=== PATIENT | male | born 1945 | race Caucasian/White ===

== ENCOUNTER → 2017-06-28 | Outpatient (CLI) | payer BC ==
[~2017-06-28] MED LIST: ASPI81TA28 PO; ATOR-24 PO; CHOL2000 PO; CLON2TAB3 PO; COEN1CAP7 PO; FERR1TAB13 PO; LISI-461 PO; MAGNESIUM PO; MULT-506 PO; OMEG10007 PO; OPTIRAY 320 IV PRN; POTA1POW PO
--- NOTE | 2017-06-28 16:48 | DIAGNOSTIC IMAGING REPORT ---
ABD/PELVIS IV AND ORAL CONT CT DOSE: 340.02 mGycm HISTORY: Pain K43.2 Incisional herniaE VALUATION HERNIA EPIGASTRIC AREA E X0D E TECHNIQUE: Multiaxial CT images of the abdomen and pelvis were performed following the use of intravenous and oral contrast. A dose lowering technique was utilized adhering to the principles of ALARA. COMPARISON STUDY: 09/27/2008 FINDINGS: Lung bases are clear. Findings of prior cholecystectomy. Mild increase in prominence of the common bile duct as well as intrahepatic ducts. The common bile duct is increased to 8 mm from 5 mm. Liver is otherwise uniform in appearance. Spleen is unremarkable as is the visualized components of the pancreas. Kidneys enhance uniformly. Bowel pattern is nonobstructive. The appendix is normal. No evidence for ventral or. Incisional hernia. Small bilateral inguinal hernias. Bladder is midline. Prostate is moderately enlarged. Findings of chronic sigmoid diverticulosis. No evidence for acute diverticulitis. IMPRESSION: 1. Prior cholecystectomy. 2. Increase in prominence of the biliary ductal system raising the possibility of a distal common bile duct obstructing lesion 3. ERCP or MRCP is suggested as follow-up. 4. Chronic sigmoid diverticulosis with no evidence for acute diverticulitis. 5. No evidence for ventral or. Incisional hernia.. 6. Small bilateral inguinal hernias. The above report was generated using voice recognition software. It may contain grammatical, syntax or spelling errors. Electronically signed by: Arnaud Goldstein M.D. 06/28/2017 4:47 PM Dictated Date/Time: 06/28/2017 4:41 PM
== END | disposition home or self-care (01) ==
LOC: C.CTS 15:46
PROVIDERS: ATTEND Surgery
DX: K43.2 Incisional hernia without obstruction or gangrene (principal); Z90.49 Acquired absence of other specified parts of digestive tract; K57.30 Diverticulosis of large intestine without perforation or abscess without bleeding

== ENCOUNTER → 2017-07-22 | Day surgery (SDC) | payer BC ==
[2017-07-08 14:27] VITALS: Ht 172.7 cm; Wt 61.4 kg
[~2017-07-22] VITALS: Ht 172.7 cm; Wt 61.4 kg
[~2017-07-22] MED LIST changes: +BENZOCAIN/TETRACA/BUTAM SPRAY 200 APPLN/20 GM SPRY ONE; +MIDAZOLAM HCL 1 MG/ML 2ML VIAL ONE; -OPTIRAY 320 IV PRN
[2017-07-22 14:25] VITALS: TEMP 36.2
--- NOTE | 2017-07-22 15:16 | Endo History and Physical ---
History & Physical Date of Service: Jul 22, 2017. Chief Complaint: HOARSE VOICE, CHRONIC GUM DISEASE Referring Physician: DR. BIANCHI History of Present Illness For Babb placement Past Surgical History Hx Cardiac Surgery: No Hx Internal Defibrillator: No Hx Pacemaker: No Hx Abdominal Surgery: Yes (GB SURG,MARIBEL FUNDOPLICATION) Hx of Implantable Prosthesis: No Hx Post-Op Nausea and Vomiting: No Hx Cancer Surgery: No Hx Thoracic Surgery: No Hx Orthopedic: No Hx Urinary Tract Surgery: No Family History None Social History Smoking Status: Never Smoker Hx Substance Use: No Hx Alcohol Use: No Allergies Coded Allergies: No Known Allergies (Verified , 07/08/17) Current Medications Reported Home Medications Medications Dose Route/Sig Max Daily Dose Days Date Category Dose Instructions Multivitamin (Multivitamins) Tab 1 Tab PO QAM 07/08/17 Reported Vitamin D3 (Cholecalciferol) 2,000 Unit Cap 1 Cap PO QAM 90 07/08/17 Reported Coq10 (Coenzyme Q10 (Ubidecarenone)) 200 Mg Cap 200 Mg PO QAM 07/08/17 Reported [place]ge-3 (Fish Oil) 1 Ea Cap 2 Cap PO QAM 07/08/17 Reported Klor-Con Pwd (Potassium Chloride) 20 Meq Pack 20 Meq PO UD 07/08/17 Reported 40 MEQ AM 20 MEQ PM [Magnesium] 250 Mg PO QAM 07/08/17 Reported Zestril (Lisinopril) 10 Mg Tab 10 Mg PO HS 07/08/17 Reported PT WILL HOLD 24 HRS PRIOR TO SURG PER INSTRUCTIONS HE RECEIVED FROM DR DUMONT/DR VILLALOBOS Ferrous Sulfate (Ferrous Sulfate) 325 Mg Tab 1 Tab PO QAM 30 07/08/17 Reported Klonopin (Clonazepam) 2 Mg Tab 2 Mg PO HS 07/08/17 Reported Lipitor (Atorvastatin Calcium) 40 Mg Tab 40 Mg PO HS 07/08/17 Reported Aspirin Ec (Aspirin) 81 Mg Tab 81 Mg PO QAM 07/08/17 Reported Vital Signs Weight (Kilograms): 61.36 Height (Feet): 5 Height (Inches): 8 Date Time Temp Pulse Resp B/P (MAP) Pulse Ox O2 Delivery O2 Flow Rate FiO2 07/22/17 14:25 36.2 86 16 160/89 (112) 96 Physical Exam General Appearance: WD/WN Respiratory/Chest: Respiratory effort: no dyspnea Cardiovascular: Apical Impulse: pertinent finding (severe aortic stenosis) Assessment and Plan Cough, gum disease for Babb placement
--- NOTE | 2017-07-22 15:24 | Discharge Instructions ---
Endoscopy Patient Instructions Date / Procedure(s) Performed Jul 22, 2017. EGD Allergy Information Coded Allergies: No Known Allergies (Verified , 07/08/17) Discharge Date / Findings Jul 22, 2017. Babb placement Medication Instructions Stopped Medication(s): ASPIRIN 07/18/17 Restart Stopped Medication(s): hold any acid reducing meds for 48 h Reported Home Medications Medications Dose Route/Sig Max Daily Dose Days Date Category Dose Instructions Multivitamin (Multivitamins) Tab 1 Tab PO QAM 07/08/17 Reported Vitamin D3 (Cholecalciferol) 2,000 Unit Cap 1 Cap PO QAM 90 07/08/17 Reported Coq10 (Coenzyme Q10 (Ubidecarenone)) 200 Mg Cap 200 Mg PO QAM 07/08/17 Reported Kimball-3 (Fish Oil) 1 Ea Cap 2 Cap PO QAM 07/08/17 Reported Klor-Con Pwd (Potassium Chloride) 20 Meq Pack 20 Meq PO UD 07/08/17 Reported 40 MEQ AM 20 MEQ PM [Magnesium] 250 Mg PO QAM 07/08/17 Reported Zestril (Lisinopril) 10 Mg Tab 10 Mg PO HS 07/08/17 Reported PT WILL HOLD 24 HRS PRIOR TO SURG PER INSTRUCTIONS HE RECEIVED FROM DR AGUILAR/DR VILLALOBOS Ferrous Sulfate (Ferrous Sulfate) 325 Mg Tab 1 Tab PO QAM 30 07/08/17 Reported Klonopin (Clonazepam) 2 Mg Tab 2 Mg PO HS 07/08/17 Reported Lipitor (Atorvastatin Calcium) 40 Mg Tab 40 Mg PO HS 07/08/17 Reported Aspirin Ec (Aspirin) 81 Mg Tab 81 Mg PO QAM 07/08/17 Reported Provider Instructions Activity Restrictions - No exercising or heavy lifting for 24 hours. - Do not drink alcohol the day of the procedure. - Do not drive a car or operate machinery until the day after the procedure. - Do not make any important decisions or sign important papers in 24 hours after the procedure. Following Day: - Return to full activity which may include returning to work/school. Diet Start your diet with liquids and light foods (jello, soup, juice, toast). Then eat your usual diet if not nauseated. Treatment For Common After Affects For mild abdominal pain, bloating, or excessive gas: - Rest - Eat lightly - Lie on right side Follow-Up Information Follow-up with DR. BIANCHI as scheduled Anesthesia Information What You Should Know You have had a procedure that required some medicine to reduce anxiety and discomfort. This treatment is called moderate sedation. After receiving the treatment, you may be sleepy, but you will be able to breathe on your own. The effects of the treatment may last for several hours. Follow these instructions along with Activity/Diet recommendations noted above: * Do NOT do anything where dizziness or clumsiness would be dangerous. * Rest quietly at home today, then you can be up and about tomorrow. * Have a responsible person stay with you the rest of today. * You may have had an I.V. today. If so, you may take the dressing off later today. Recommendations Call your doctor if: * Trouble breathing * Continuous vomiting for more than 24 hours * Temperature above 101 degrees * Severe abdominal pain or bloating * Pain not relieved by pain medicine ordered * There is increased drainage or redness from any incision * A large amount of rectal bleeding greater than 2-3 tablespoons. (If you had a polyp/s removed or have hemorrhoids, a small amount of blood - from the rectum is to be expected.) * You have any unanswered questions or concerns. IN THE EVENT OF A SERIOUS EMERGENCY, GO TO THE NEAREST EMERGENCY ROOM Your discharge instructions were prepared by provider Dami Aguilar. Patient Instructions Signature Page Peña Rodriguez Patient (or Guardian) Signature/Date: I have read and understand the instructions given to me by my caregivers. Caregiver/RN/Doctor Signature/Date: The above-named patient and/or guardian has received patient instructions on this date. + Original Patient Signature Page (only) stays with chart. Please make copy for patient.
--- NOTE | 2017-07-22 15:31 | GI REPORT ---
Procedure Date: 07/22/2017 3:01 PM Procedure: Upper GI endoscopy Indications: Chronic cough, Gum disease Medicines: Midazolam 2 mg IV, Cetacaine spray Complications: No immediate complications. Estimated Blood Loss: Estimated blood loss: none. Procedure: Pre-Anesthesia Assessment: - Prior to the procedure, a History and Physical was performed, and patient medications, allergies and sensitivities were reviewed. The patient's tolerance of previous anesthesia was reviewed. - The risks and benefits of the procedure and the sedation options and risks were discussed with the patient. All questions were answered and informed consent was obtained. After obtaining informed consent, the endoscope was passed under direct vision. Throughout the procedure, the patient's blood pressure, pulse, and oxygen saturations were monitored continuously.The upper GI endoscopy was accomplished without difficulty. The patient tolerated the procedure well. The procedure was aborted. The scope was not inserted. Medications were given. Findings: The FALCON capsule with delivery system was introduced through the mouth and advanced into the esophagus, such that the FALCON pH capsule was positioned 33 cm from the incisors, which was 6 cm proximal to the EG junction. The FALCON pH capsule was then deployed and attached to the esophageal mucosa. The delivery system was then withdrawn. Endoscopy was utilized for placement of the probe only. Impression: - The FALCON pH capsule was deployed. - No specimens collected. Recommendation: - Discharge patient to home (ambulatory). - Return to GI clinic as previously scheduled. Dami Aguilar M.D. Dami Aguilar MD 07/22/2017 3:30:36 PM This report has been signed electronically. Note Initiated On: 07/22/2017 3:01 PM I attest to the content of the Intraoperative Record and orders documented therein, exceptions below
--- NOTE | 2017-07-22 15:32 | Anesthesiology Progress Note ---
Anesthesia Post Op Note Date & Time Jul 22, 2017 at 15:31 Vital Signs Pain Intensity: 0 Vital Signs Past 12 Hours Date Time Temp Pulse Resp B/P (MAP) Pulse Ox O2 Delivery O2 Flow Rate FiO2 07/22/17 15:18 61 16 108/69 (82) 94 Room Air 07/22/17 14:25 36.2 86 16 160/89 (112) 96 Notes Mental Status: alert / awake / arousable, participated in evaluation Pt Amnestic to Procedure: Yes Nausea / Vomiting: adequately controlled Pain: adequately controlled Airway Patency, RR, SpO2: stable & adequate BP & HR: stable & adequate Hydration State: stable & adequate Anesthetic Complications: no major complications apparent Doing well. Tolerated the procedure really well with mild sedation.
[2017-07-22 16:00] VITALS: BP 161/91; PULSE 80; O2SAT 97
== END | disposition home or self-care (01) ==
LOC: C.GI 13:57
PROVIDERS: ATTEND Internal Medicine Gastroenterology
DX: R05 Cough (principal); K06.9 Disorder of gingiva and edentulous alveolar ridge, unspecified; R49.0 Dysphonia; I10 Essential (primary) hypertension; K21.9 Gastro-esophageal reflux disease without esophagitis

== ENCOUNTER 2019-12-28 12:19 | Inpatient (IN) ==
[2019-12-28 13:41] LABS: Hematocrit (blood only) 45.7 % (42-52); Hemoglobin 15.6 g/dL (14.0-18.0); Mean Corpuscular Hemoglobin 31.3 pg (25-34); Mean Corpuscular Hgb Conc 34.1 g/dL (32-36); Mean Corpuscular Volume 91.6 fL (80-100); Mean Platelet Volume 11.8 fL (7.4-10.4); Platelet Count 173 K/uL (130-400); RDW Standard Deviation 43.3 fL (36.4-46.3); Red Blood Count 4.99 M/uL (4.7-6.1); White Blood Count 12.77 K/uL (4.8-10.8)
[2019-12-28 13:57] LABS: BUN Creatinine Ratio 23.7 (10-20); Creatinine Clr Calc Pharmacy 44.6 ml/min; Est GFR (African American) 68.9; Est GFR (Non-African American) 59.5; Potassium 3.9 mmol/L (3.5-5.1)
[2019-12-28 14:38] LABS: Albumin Level 4.2 gm/dl (3.4-5.0); Bilirubin Direct 0.1 mg/dl (0-0.2); Bilirubin,Total 0.9 mg/dl (0.2-1); Total Protein 8.3 gm/dl (6.4-8.2)
[2019-12-28] MEDS ORDERED: IOVERSOL 100ml IV PRN (14:45)
--- NOTE | 2019-12-28 15:21 | CT Scan Report ---
CT SCAN OF THE ABDOMEN AND PELVIS WITH IV CONTRAST CLINICAL HISTORY: Left lower quadrant abdominal pain. COMPARISON STUDY: Abdominal CT dated 04/18/2018. Abdominal MRI dated 09/21/2019. TECHNIQUE: Following the IV administration of 94 cc of Optiray 320, CT scan of the abdomen and pelvi s is performed from the lung bases to the proximal femora. Images are reviewed in the axial, sagittal , and coronal planes. IV contrast was administered without complication. A dose lowering technique wa s utilized adhering to the principles of ALARA. CT DOSE: 240.60 mGy.cm FINDINGS: Lung bases: The patient is status post midline sternotomy. Pacemaker leads are noted. The heart is no rmal in size and without pericardial effusion. There are coronary artery calcifications. A small hiat al hernia is observed. The lung bases are clear noting bibasilar scarring/atelectasis. Liver: The contrast-enhanced liver is normal in size, contour, and attenuation. There is moderate int rahepatic biliary ductal dilatation, similar to previous. The hepatic veins and portal veins are romero nt. Hepatic metastases seen by MRI are not apparent on CT, possibly due to phase of enhancement. Gallbladder: Surgically absent noting clips in the gallbladder fossa. Spleen: Normal in size and attenuation. Pancreas: The pancreas is moderately atrophic. An infiltrative mass lesion in the region of the pancr eatic tail has increased in size from prior examinations. This measures approximately 4 x 3 cm and in vades the left adrenal gland. The mass occludes occludes the splenic vein. The proximal pancreas is n ormal in appearance. The pancreatic duct is normal in caliber. Adrenal glands: The right adrenal gland is normal in appearance. There is invasion of the left adrena l gland by a distal pancreatic mass. Kidneys: The contrast enhanced kidneys demonstrate cortical atrophy. There is a 12 mm obstructing gabino culus in the left proximal ureter at the level of L4. This is best seen on image #160 and causes mild -to-moderate left-sided hydronephrosis. There is nonspecific urothelial thickening and enhancement id entified in the left proximal ureter and the left renal pelvis. No additional calculi are clearly jessica ntified in either kidney. There is no right-sided hydronephrosis. There is heterogeneous perfusion of the left kidney. Abdominal vasculature: The abdominal aorta is normal in course and caliber noting mild atheroscleroti c calcification. Bowel: Findings just previous fundoplication. There are numerous perigastric collaterals. No bowel ob struction is seen. There is a small duodenal diverticulum. There is moderate colonic diverticulosis w ithout CT evidence of acute diverticulitis. The appendix is well-visualized and normal. Peritoneum: There is no intraperitoneal free air or abdominal ascites. Lymphadenopathy: None. Pelvic viscera: The prostate gland is enlarged and heterogeneous, measuring 5.7 cm in transverse diam eter. There is median lobe hypertrophy. The bladder wall is mildly thickened and trabeculated indicat ing chronic outlet obstruction. There are bilateral fat-containing inguinal hernias. Skeletal structures: The skeletal structures are heterogeneously osteopenic. Mild lumbosacral spondyl osis is observed. No definite destructive bony lesion is identified. IMPRESSION: 1. There is a 12 mm obstructing calculus in the left proximal ureter at the level of L4. This causes moderate left hydronephrosis. 2. Urothelial thickening and enhancement within the left renal collecting system and the left proxima l ureter is likely related to obstruction/hydronephrosis. Correlate clinically and with urinalysis fo r evidence of superimposed infection. 3. A heterogeneous mass lesion in the pancreatic tail appears increased in size from previous. This i nvades the left adrenal gland and occludes the splenic vein. 4. Hepatic metastases seen on prior examinations are not visible on today's study, likely due to phas e of enhancement. 5. Moderate colonic diverticulosis without CT evidence of acute diverticulitis. 6. Prostatomegaly. 7. Bilateral fat-containing inguinal hernias. 8. Additional findings as above. ACT 112: Negative or not required by law. Electronically signed by: Kevin López M.D. 12/28/2019 3:20 PM
[2019-12-28] MEDS ORDERED: cefTRIAXone SODIUM 1,000 MG/50 ML BAG IV STA (15:44)
[2019-12-28 15:49] LABS: Appearance Urine Clear (Clear); Bacteria Urine Automated Negative (Negative); Bilirubin Urine Negative (Negative); Blood Urine 2+ (Negative); Color Urine Yellow; Epithelial Cell Urine Auto 0-5 /lpf (0-5); Glucose Urine UA Negative (Negative); Ketones Urine Trace (Negative); Leukocyte Esterase Urine Negative (Negative); Nitrite Urine Negative (Negative); Protein Urine Negative (Negative); Specific Gravity Urine 1.036 (1.000-1.030); Urobilinogen Urine Negative (Negative)
--- NOTE | 2019-12-28 17:04 | Emergency Department Note ---
History of Present Illness General Chief complaint: Flank Pain Stated complaint: PAIN IN L SIDE, BOWEL BLOCKAGE Time Seen by Provider: 12/28/19 13:54 History of Present Illness Provider complaint: Abdominal pain Onset (ago): day(s) 1 Location: abdomen Severity: severe Pain Consistency: + constant Maximum Pain Intensity: 7 Associated symptoms: + loss of appetite and + nausea/vomiting 74-year-old male with a history of pancreatic cancer that metastasized to his liver presents to the emergency department with abdominal pain. Patient reports his abdominal pain began at 2100 last night. Pain is located left lower quadrant. He reports constipation and decreased ability to pass gas. He reports subjective fevers. He also reports nausea and vomiting x3 episodes in the last day. No hematemesis or coffee-ground emesis. Home Medications Home Medications Medication Instructions Recorded Confirmed Type aspirin 81 mg PO QAM 07/20/18 12/28/19 History atorvastatin [Lipitor] 40 mg PO HS 07/20/18 12/28/19 History magnesium oxide [MagOx] 400 mg PO QAM 07/20/18 12/28/19 History metoprolol tartrate 25 mg PO BID 07/20/18 12/28/19 History pantoprazole [Protonix] 40 mg PO BID 07/20/18 12/28/19 History cholecalciferol (vitamin D3) 50 2,000 units PO QAM 11/27/19 12/28/19 History mcg (2,000 unit) capsule lisinopril 2.5 mg tablet 2.5 mg PO DAILY PRN 11/27/19 12/28/19 History potassium chloride 10 mEq 20 meq PO QAM tab 11/27/19 12/28/19 History tablet,extended release levetiracetam 500 mg tablet 500 mg PO BID 30 Days #60 tab 12/21/19 12/28/19 Rx octreotide,microspheres 30 mg IM Q28D 12/28/19 12/28/19 History [Sandostatin LAR Depot] potassium chloride 10 meq PO QDL 12/28/19 12/28/19 History Allergies Allergy/AdvReac Type Severity Reaction Status Date / Time adhesive Allergy Unknown Hives Verified 12/28/19 15:19 ciprofloxacin [From Cipro] Allergy Unknown Hives Verified 12/28/19 15:19 buspirone [From BuSpar] AdvReac Unknown Dizziness Verified 12/28/19 15:19 heparin AdvReac Unknown thrombocyto Verified 12/28/19 15:19 penia venlafaxine [From Effexor] AdvReac Unknown somnulence Verified 12/28/19 15:19 lansoprazole [From Prevacid] AdvReac Diarrhea Verified 12/28/19 15:19 Past Med/Surg History Medical History (Updated 12/28/19 @ 17:46 by Damien Schmid) HLD (hyperlipidemia) HTN (hypertension) Pancreatic cancer Surgical History (Updated 12/28/19 @ 17:06 by Rick Jones) Hx of CABG two-vessel; [facility] No pertinent past surgical history S/P AVR (aortic valve replacement) [facility] Status post Power fundoplication Status post placement of cardiac pacemaker Family History Father S/P CABG (coronary artery bypass graft) Stroke Mother Stroke Grandfather (Maternal) Stroke Grandfather (Paternal) Cirrhosis of liver Other No significant family history Social History (Updated 12/28/19 @ 17:09 by Rick Jones) Preferred Language: Welsh Communication Ability: Effective Visual Impairment: No Limitations Manager Of Human Resources Required: No Beliefs That Will Affect Care: None marital status: Current Living Situation: Spouse current occupational status: retired 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, etc); [employer] career Feels Safe at Home: Yes Smoking Status: Never smoker Second Hand Exposure: No ; Hx Alcohol Use: No Hx Substance Use: No Review of Systems A total of 10 systems reviewed and were otherwise negative Physical Exam Vital Signs Vital Signs - 24 hr 12/28/19 12:27 12/28/19 13:28 12/28/19 15:00 Temperature 36.7 C Temperature Source Oral Pulse Rate 90 Pulse Rate [Finger] 72 75 Pulse Rhythm Regular Pulse Rhythm [Finger] Regular Regular Pulse Strength Normal Pulse Strength [Finger] Normal Normal Respiratory Rate 16 18 14 Respiratory Effort / Characteristics Non-Labored Non-Labored Spontaneous Non-Labored Spontaneous Respiratory Depth Normal Normal Normal Respiratory Pattern Regular Regular Regular Blood Pressure 165/104 H Blood Pressure [Right Arm] 160/90 H 139/84 Blood Pressure Mean 124 Blood Pressure Mean [Right Arm] 113 102 Blood Pressure Position Sitting Blood Pressure Position [Right Arm] Lying Sitting Pulse Oximetry 95 99 96 Oxygen Delivery Method Room Air Room Air Room Air Sepsis Recent Fever Within 48 Hours No Sepsis Action Taken by Nursing No Action Required Physical Exam GENERAL: He is oriented to person, place, and time. He appears well-developed and well-nourished. He does not appear distressed. HENT: Exam performed. - Head: Normocephalic and atraumatic. - Right Ear: External ear normal. No mastoid tenderness. - Left Ear: External ear normal. No mastoid tenderness. - Mouth/Throat: The oropharynx is clear and moist. No trismus in the jaw. No dental abscesses or uvula swelling. No oropharyngeal exudate or tonsillar abscesses. EYES: Conjunctivae and EOM are normal. Pupils are equal, round, and reactive to light. Right eye exhibits no discharge. Left eye exhibits no discharge. No scleral icterus. NECK: Normal range of motion. Neck supple. No JVD present. No spinous process tenderness present. No carotid bruit present. No rigidity. No tracheal deviation and normal range of motion present. No Brudzinski's sign and no Kernig's sign noted. CV: Normal rate, regular rhythm, normal heart sounds and intact distal pulses. There is no peripheral edema. Palpable radial pulses bue. PULM/CHEST: Effort normal and breath sounds normal. No respiratory distress. No stridor. He has no wheezes. He has no rales. - Chest Wall: He exhibits no tenderness. ABD: Pain on palpation of the left lower quadrant. MUSC/SKEL: Normal range of motion. There is no peripheral edema, tenderness or deformity. LYMPH: No cervical adenopathy. NEURO: He is alert and oriented to person, place, and time. He has normal strength. No cranial nerve deficit or sensory deficit. Coordination and gait normal. GCS eye subscore is 4. GCS verbal subscore is 5. GCS motor subscore is 6. Cerebellar tests wnl. SKIN: Skin is warm and dry. He is not diaphoretic. PSYCH: He has a normal mood and affect. Behavior is normal. Judgment and thought content normal. Course Course 1440: The patient was evaluated in room B2. A complete history and physical exam was performed. 1545: Vital signs stable. Labs show 12 mm obstructing calculus at the level of L4 in the left ureter causing moderate left hydronephrosis. There is urothelial thickening enhancement within the collecting system of the ureter. Heterogeneous mass in the pancreatic tail increase in size and hepatic metastases. Family and patient at bedside state that they are aware of the pancreatic mass with metastasis. Patient would will be admitted to the hospitalist team with urology on consult. Patient states he has seen Dr. Bernardino Price in the past however he does not wish to see him ever again. Discussed with [facility] JULIANE who stated Dr. To is in the hospital this week and will see the patient tomorrow morning. She requests patient be kept n.p.o. after midnight. Administered Medications Ioversol (Optiray 320 100ml) 94 ml IV ONCE PRN PRN Reason: Interaction Checking Stop: 01/01/20 14:44 Last Admin: 12/28/19 14:46 Dose: 94 ml Documented by: [id number] Medical Decision Making Laboratory Data Result diagrams: 12/28/19 13:28 12/28/19 13:28 Lab Results 12/28/19 12/28/19 12/28/19 Range/Units 13:28 13:28 13:28 WBC 12.77 H (4.8-10.8) K/uL RBC 4.99 (4.7-6.1) M/uL Hgb 15.6 (14.0-18.0) g/dL Hct 45.7 (42-52) % MCV 91.6 (80-100) fL MCH 31.3 (25-34) pg MCHC 34.1 (32-36) g/dL RDW Std Deviation 43.3 (36.4-46.3) fL RDW Coeff of Mason 13.0 (11.5-14.5) % Plt Count 173 (130-400) K/uL MPV 11.8 H (7.4-10.4) fL Sodium 140 (136-145) mmol/L Potassium 3.9 (3.5-5.1) mmol/L Chloride 104 (98-107) mmol/L Carbon Dioxide 31 (21-32) mmol/L Anion Gap 5.0 (3-11) BUN 29 H (7-18) mg/dl Creatinine 1.21 (0.6-1.4) mg/dl Est Cr Clr Drug Dosing 44.6 ml/min Est GFR ( Amer) 68.9 Est GFR (Non-Af Amer) 59.5 BUN/Creatinine Ratio 23.7 H (10-20) Glucose 145 H (70-99) mg/dl Calcium 10.0 (8.5-10.1) mg/dl Total Bilirubin 0.9 (0.2-1) mg/dl Direct Bilirubin 0.1 (0-0.2) mg/dl AST 41 H (15-37) U/L ALT 44 (12-78) U/L Alkaline Phosphatase 151 H (45-117) U/L Total Protein 8.3 H (6.4-8.2) gm/dl Albumin 4.2 (3.4-5.0) gm/dl Lipase 43 L (73-393) U/L Urine Color Urine Appearance (Clear) Urine pH (4.5-7.5) Ur Specific [place] (1.000-1.030) Urine Protein (Negative) Urine Glucose (UA) (Negative) Urine Ketones (Negative) Urine Blood (Negative) Urine Nitrite (Negative) Urine Bilirubin (Negative) Urine Urobilinogen (Negative) Ur Leukocyte Esterase (Negative) Urine WBC (Auto) (0-5) /hpf Urine RBC (Auto) (0-4) /hpf U Hyaline Cast (Auto) (0-5) /lpf U Epithel Cells (Auto) (0-5) /lpf Urine Bacteria (Auto) (Negative) 12/28/19 Range/Units Unknown WBC (4.8-10.8) K/uL RBC (4.7-6.1) M/uL Hgb (14.0-18.0) g/dL Hct (42-52) % MCV (80-100) fL MCH (25-34) pg MCHC (32-36) g/dL RDW Std Deviation (36.4-46.3) fL RDW Coeff of Mason (11.5-14.5) % Plt Count (130-400) K/uL MPV (7.4-10.4) fL Sodium (136-145) mmol/L Potassium (3.5-5.1) mmol/L Chloride (98-107) mmol/L Carbon Dioxide (21-32) mmol/L Anion Gap (3-11) BUN (7-18) mg/dl Creatinine (0.6-1.4) mg/dl Est Cr Clr Drug Dosing ml/min Est GFR ( Amer) Est GFR (Non-Af Amer) BUN/Creatinine Ratio (10-20) Glucose (70-99) mg/dl Calcium (8.5-10.1) mg/dl Total Bilirubin (0.2-1) mg/dl Direct Bilirubin (0-0.2) mg/dl AST (15-37) U/L ALT (12-78) U/L Alkaline Phosphatase (45-117) U/L Total Protein (6.4-8.2) gm/dl Albumin (3.4-5.0) gm/dl Lipase (73-393) U/L Urine Color Yellow Urine Appearance Clear (Clear) Urine pH 6.0 (4.5-7.5) Ur Specific [place] 1.036 H (1.000-1.030) Urine Protein Negative (Negative) Urine Glucose (UA) Negative (Negative) Urine Ketones Trace H (Negative) Urine Blood 2+ H (Negative) Urine Nitrite Negative (Negative) Urine Bilirubin Negative (Negative) Urine Urobilinogen Negative (Negative) Ur Leukocyte Esterase Negative (Negative) Urine WBC (Auto) 1-5 (0-5) /hpf Urine RBC (Auto) 5-10 H (0-4) /hpf U Hyaline Cast (Auto) 1-5 (0-5) /lpf U Epithel Cells (Auto) 0-5 (0-5) /lpf Urine Bacteria (Auto) Negative (Negative) MDM Narrative Vital signs stable. Labs show 12 mm obstructing calculus at the level of L4 in the left ureter causing moderate left hydronephrosis. There is urothelial thickening enhancement within the collecting system of the ureter. Heterogeneous mass in the pancreatic tail increase in size and hepatic metastases. Family and patient at bedside state that they are aware of the pancreatic mass with metastasis. Patient would will be admitted to the hospitalist team with urology on consult. Patient states he has seen Dr. Bernardino Price in the past however he does not wish to see him ever again. Discussed with [facility] JULIANE who stated Dr. To is in the hospital this week and will see the patient tomorrow morning. She requests patient be kept n.p.o. after midnight. Impression & Plan Kidney stone, Hydronephrosis Discharge Plan Visit Data Chief Complaint: Flank Pain Stated Complaint: PAIN IN L SIDE, BOWEL BLOCKAGE ED Provider: Sharmaine,Damien Discharge Problem: Kidney stone, Hydronephrosis Patient Disposition: Being Evaluated by Hospitalist Forms Stand Alone Forms: [facility] Wireless Environment Prescriptions Prescriptions: No Action levetiracetam 500 mg tablet 500 mg PO BID 30 Days Qty: 60 RF: 2 lisinopril [Zestril] 2.5 mg tablet 2.5 mg PO DAILY PRN (Reason: Hypertension) RF: 0 cholecalciferol (vitamin D3) 50 mcg (2,000 unit) capsule 2,000 units PO QAM RF: 0 atorvastatin [Lipitor] 40 mg tablet 40 mg PO HS RF: 0 aspirin 81 mg Tablet,Delayed Release (Dr/Ec) 81 mg PO QAM RF: 0 magnesium oxide [MagOx] 400 mg (241.3 mg magnesium) tablet 400 mg PO QAM RF: 0 pantoprazole [Protonix] 40 mg tablet,delayed release (DR/EC) 40 mg PO BID RF: 0 metoprolol tartrate 25 mg tablet 25 mg PO BID RF: 0 potassium chloride [Klor-Con 10] 10 mEq tablet extended release 20 meq PO QAM RF: 0 potassium chloride 10 mEq capsule, extended release 10 meq PO QDL RF: 0 Sandostatin [place] 30 mg Suspension,Extended Rel Recon 30 mg IM Q28D RF: 0 Referrals Referrals: Elvis Falk DO [Primary Care Provider] - Discharge Problem: Hydronephrosis Qualifiers: Hydronephrosis type: with renal calculous obstruction Qualified Code(s): N13.2 - Hydronephrosis with renal and ureteral calculous obstruction
--- NOTE | 2019-12-28 17:17 | History & Physical Report ---
Date of Service December 28, 2019 Assessment & Plan (1) Kidney stone: 12mm, proximal left ureter. With resulting hydronephrosis. h/o renal stone about 15 years ago. [facility] [place]. Likely to need intervention for this stone given the large size. NPO after MN tonight. Gentle hydration (NS at 75cc/hr). Flomax. Pain control. From medical standpoint, despite his history of CAD/pacer/AVR, he lives a very active lifestyle and has no limiting cardiopulmonary symptoms. Thus, he is optimized from medical standpoint to undergo ureteral stenting, etc. (2) Hydronephrosis: 2nd to proximal left-sided kidney stone (12mm) (3) S/P AVR (aortic valve replacement): s/p bovine replacement valve in the past at [facility] (4) Hx of CAB-vessel no recent ischemic symptoms Cont home meds. (5) Pacemaker: paced on monitor upon admission. to be placed on telemetry floor. (6) H/O: stroke: noted cont asa for secondary prevention (7) Atrial fibrillation: PAF has pacemaker in place NOT on anticoagulation telemetry (8) Simple partial seizure disorder: follows with [facility] [place] no recent issues cont keppra of note - keppra is slowly being weaned off by neurology (9) Pancreatic cancer: stage [address] Oneal noted the CT findings of liver, etc octreotide indeed may be playing a role in his recent constipation issues (10) DVT prophylaxis: SCDs only for now; chemical means deferred due to likely need for urological intervention of the stone tomorrow also w/ history of HIT updated at bedside History of Present Illness Chief Complaint: left upper quadrant abdominal pain Primary Care Provider: Elvis Falk, 74yo male with h/o aortic stenosis s/p bovine AVR, CAD s/p 2-vessel CABG, pacemaker status, and stage 4 pancreatic cancer who presents with the acute onset of LUQ abdominal pain beginning last night about 9pm. He initially thought the pain was GI in origin - perhaps related to constipation as he reports significant bowel issues to the point of having to manually disimpact himself. About 930pm he had emesis, and a short time after that he had emesis again. He went to bed and had left-sided upper abdominal pain all night and found it difficult to sleep because of the pain. Patient reports he never had fever but did have chills today and overnight. He also had poor appetite this am. Denies any dysuria or hematuria. Sometime this afternoon he called the [facility] who advised he come to the ED for evaluation. CT of the abd/pelvis demonstrated an obstructing 12mm kidney stone in the proximal left ureter. At the time of my assessment in the ER his pain was controlled and was actually asking for something to eat. The patient is currently undergoing treatment for his stage [address] Oneal at the [facility]. He receives regularly scheduled octreotide injections with yesterday being the most recent injection. He continues to live an active life and has no limiting cardiopulmonary symptoms day-to-day. Allergies Allergy/AdvReac Type Severity Reaction Status Date / Time adhesive Allergy Unknown Hives Verified 12/28/19 15:19 ciprofloxacin [From Cipro] Allergy Unknown Hives Verified 12/28/19 15:19 buspirone [From BuSpar] AdvReac Unknown Dizziness Verified 12/28/19 15:19 heparin AdvReac Unknown thrombocyto Verified 12/28/19 15:19 penia venlafaxine [From Effexor] AdvReac Unknown somnulence Verified 12/28/19 15:19 lansoprazole [From Prevacid] AdvReac Diarrhea Verified 12/28/19 15:19 Home Medications Home Medications Medication Instructions Recorded Confirmed Type aspirin 81 mg PO QAM 07/20/18 12/28/19 History atorvastatin [Lipitor] 40 mg PO HS 07/20/18 12/28/19 History magnesium oxide [MagOx] 400 mg PO QAM 07/20/18 12/28/19 History metoprolol tartrate 25 mg PO BID 07/20/18 12/28/19 History pantoprazole [Protonix] 40 mg PO BID 07/20/18 12/28/19 History cholecalciferol (vitamin D3) 50 2,000 units PO QAM 11/27/19 12/28/19 History mcg (2,000 unit) capsule lisinopril 2.5 mg tablet 2.5 mg PO DAILY PRN 11/27/19 12/28/19 History potassium chloride 10 mEq 20 meq PO QAM tab 11/27/19 12/28/19 History tablet,extended release levetiracetam 500 mg tablet 500 mg PO BID 30 Days #60 tab 12/21/19 12/28/19 Rx octreotide,microspheres 30 mg IM Q28D 12/28/19 12/28/19 History [Sandostatin LAR Depot] potassium chloride 10 meq PO QDL 12/28/19 12/28/19 History Past Med/Surg History Medical History (Updated 12/29/19 @ 01:29 by Rick Jones) Acute CVA (cerebrovascular accident) Atrial fibrillation HLD (hyperlipidemia) HTN (hypertension) Pancreatic cancer Simple partial seizure disorder (Acute) Surgical History (Updated 12/29/19 @ 00:51 by Rick Jones) Hx of CABG two-vessel; [facility] S/P AVR (aortic valve replacement) [facility] Status post Power fundoplication Status post placement of cardiac pacemaker Family History Father S/P CABG (coronary artery bypass graft) Stroke Mother Stroke Grandfather (Maternal) Stroke Grandfather (Paternal) Cirrhosis of liver Social History (Updated 12/28/19 @ 17:09 by Rick Jones) Preferred Language: Russian Communication Ability: Effective Visual Impairment: No Limitations Field Map Editor Required: No Beliefs That Will Affect Care: None marital status: Current Living Situation: Spouse current occupational status: retired Other Information That Helps Us Care for You: No 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, etc); [employer] career Feels Safe at Home: Yes Safety Concerns: Feels Safe At This Time Smoking Status: Never smoker Do You Dip or Chew Tobacco: No ; Second Hand Exposure: No ; Tobacco Cessation Education Requested by Patient: No Hx Alcohol Use: No Hx Substance Use: No Review of Systems Constitutional: + chills; no fever, no weight loss and no weight gain Eyes: no worsening vision Ear, Nose, Mouth, Throat: no ear pain, no sore throat and no dysphagia Respiratory: no cough, no dyspnea and no dyspnea on exertion Cardiovascular: no chest pain, no orthopnea, no paroxysmal nocturnal dyspnea and no edema Gastrointestinal: as per Subjective / HPI, + abdominal pain, + nausea, + vomiting and + constipation (Wednesday - last bowel movement ) Genitourinary: no dysuria and no hematuria Musculoskeletal: no joint pain and no myalgia Integumentary: + rash (neck only x 2 weeks) Neurologic: no localized weakness and no paresthesia Psychiatric: no depression Endocrine: no diabetes Hematologic / Lymphatic: no easy bleeding Physical Exam Constitutional: + thin; no acute distress and no altered mental status Eyes: PERRL ENMT: external ear and nose normal, oropharynx normal Neck: trachea midline, no thyromegaly Respiratory: normal respiratory effort, lungs clear to auscultation Cardiovascular: Rate/Rhythm: regular rate and regular rhythm Heart Sounds: normal S1 and normal S2; no murmur Vessels: posterior tibial pulses present and dorsalis pedis pulses present; no JVD Extremities: no edema Gastrointestinal (Abdomen): normal bowel sounds, soft, nontender, no hepatosplenomegaly Musculoskeletal: Head/Neck/Chest: neck supple no flank tenderness b/l Skin: + rash (mild erythema on neck) Neurologic: moves all extremities; no focal motor deficits Psychiatric: A+Ox3, euthymic affect Lymphatic: no cervical lymphadenopathy Results & Data Vital Signs (Past 12 Hours) Vital Signs Temp Pulse Pulse Resp BP BP Pulse Ox 12/28/19 15:00 75 14 139/84 96 12/28/19 13:28 72 18 160/90 H 99 12/28/19 12:27 36.7 C 90 16 165/104 H 95 Laboratory Results Laboratory Results - last 24 hr 12/28/19 12/28/19 12/28/19 13:28 13:28 13:28 WBC 12.77 H RBC 4.99 Hgb 15.6 Hct 45.7 MCV 91.6 MCH 31.3 MCHC 34.1 RDW Std Deviation 43.3 RDW Coeff of Mason 13.0 Plt Count 173 MPV 11.8 H Sodium 140 Potassium 3.9 Chloride 104 Carbon Dioxide 31 Anion Gap 5.0 BUN 29 H Creatinine 1.21 Est Cr Clr Drug Dosing 44.6 Est GFR ( Amer) 68.9 Est GFR (Non-Af Amer) 59.5 BUN/Creatinine Ratio 23.7 H Glucose 145 H Calcium 10.0 Total Bilirubin 0.9 Direct Bilirubin 0.1 AST 41 H ALT 44 Alkaline Phosphatase 151 H Total Protein 8.3 H Albumin 4.2 Lipase 43 L Urine Color Urine Appearance Urine pH Ur Specific [place] Urine Protein Urine Glucose (UA) Urine Ketones Urine Blood Urine Nitrite Urine Bilirubin Urine Urobilinogen Ur Leukocyte Esterase Urine WBC (Auto) Urine RBC (Auto) U Hyaline Cast (Auto) U Epithel Cells (Auto) Urine Bacteria (Auto) 12/28/19 Unknown WBC RBC Hgb Hct MCV MCH MCHC RDW Std Deviation RDW Coeff of Mason Plt Count MPV Sodium Potassium Chloride Carbon Dioxide Anion Gap BUN Creatinine Est Cr Clr Drug Dosing Est GFR ( Amer) Est GFR (Non-Af Amer) BUN/Creatinine Ratio Glucose Calcium Total Bilirubin Direct Bilirubin AST ALT Alkaline Phosphatase Total Protein Albumin Lipase Urine Color Yellow Urine Appearance Clear Urine pH 6.0 Ur Specific [place] 1.036 H Urine Protein Negative Urine Glucose (UA) Negative Urine Ketones Trace H Urine Blood 2+ H Urine Nitrite Negative Urine Bilirubin Negative Urine Urobilinogen Negative Ur Leukocyte Esterase Negative Urine WBC (Auto) 1-5 Urine RBC (Auto) 5-10 H U Hyaline Cast (Auto) 1-5 U Epithel Cells (Auto) 0-5 Urine Bacteria (Auto) Negative Diagnostic Findings CT abd/pelvis - MPRESSION: 1. There is a 12 mm obstructing calculus in the left proximal ureter at the level of L4. This causes moderate left hydronephrosis. 2. Urothelial thickening and enhancement within the left renal collecting system and the left proximal ureter is likely related to obstruction/hydronephrosis. Correlate clinically and with urinalysis for evidence of superimposed infection. 3. A heterogeneous mass lesion in the pancreatic tail appears increased in size from previous. This invades the left adrenal gland and occludes the splenic vein. 4. Hepatic metastases seen on prior examinations are not visible on today's study, likely due to phase of enhancement. 5. Moderate colonic diverticulosis without CT evidence of acute diverticulitis. 6. Prostatomegaly. 7. Bilateral fat-containing inguinal hernias. Code Status & VTE Plan Code Status full code VTE Prophylaxis Plan VTE Prophylaxis will be ordered: Yes PG Care Time/CCT Total # of Minutes Spent Total Time Spent with Patient: Total time spent is greater than 50% in coordination of care (as documented) at patient's floor/unit and/or counseling patient: Coding Level of Care Code 63963 Initial Inpt Care Lvl 2 Diagnoses Kidney stone N20.0 Hydronephrosis N13.2 Hydronephrosis type: with renal calculous obstruction S/P AVR (aortic valve replacement) Z95.2 Hx of CABG Z95.1 Pacemaker Z95.0 H/O: stroke Z86.73 Atrial fibrillation I48.0 Atrial fibrillation type: paroxysmal Simple partial seizure disorder G40.109 Pancreatic cancer C25.9 Pancreatic malignancy location: unspecified DVT prophylaxis Z29.9 (1) Hydronephrosis Hydronephrosis type: with renal calculous obstruction Qualified Code(s): N13.2 - Hydronephrosis with renal and ureteral calculous obstruction (2) Atrial fibrillation Atrial fibrillation type: paroxysmal Qualified Code(s): I48.0 - Paroxysmal atrial fibrillation (3) Pancreatic cancer Pancreatic malignancy location: unspecified Qualified Code(s): C25.9 - Malignant neoplasm of pancreas, unspecified
[2019-12-28] MEDS ORDERED: NITROGLYCERIN SL 0.4 MG/TAB TAB SL PRN (19:47)
[2019-12-28] MEDS ORDERED: ONDANSETRON INJ 2 MG/ML 2 ML VIAL IV PRN (19:47)
[2019-12-28] MEDS ORDERED: TAMSULOSIN HCL 0.4 MG CAP PO ONE (20:15)
[2019-12-28] MEDS: ATORVASTATIN 40 MG TAB PO SCH (20:44)
[2019-12-28] MEDS: levETIRAcetam 500 MG TAB PO SCH (20:44)
[2019-12-28] MEDS: SODIUM CHLORIDE 0.9% 1000ML 1,000 ML IV SCH (20:44)
[2019-12-28] MEDS: PANTOprazole 40 MG TAB PO SCH (20:45)
[2019-12-28] MEDS: METOPROLOL TARTRATE 25 MG TAB PO SCH (21:19)
--- NOTE | 2019-12-29 08:02 | Urology Consultation ---
Date of Consultation December 29, 2019 Assessment & Plan (1) Hydronephrosis: (2) Left ureteral stone: 74 yo M with multiple comorbidities admitted for left flank pain secondary to obstructing 15 mm proximal left ureteral stone. -Afebrile, nontoxic -Creatinine WNL -Keep NPO -Strain all urine -Discussed treatment options given stone size. All questions answered. Findings reviewed with Dr. Miranda. Given his hydronephrosis in the context of an obstructing 15 mm proximal left ureteral stone, will proceed with OR for cystoscopy, Left retrograde pyelogram and Left stent placement. Risks and benefits to be reviewed with patient by Dr. Miranda. OR notified. Preoperative CXR and EKG ordered. Will cover with scheduled IV Ancef preoperatively. History of Present Illness Reason for Consultation: Left ureteral stone Attending Physician: Rick Jones History of Present Illness 74 yo M with PMHx of aortic stenosis s/p bovine AVR, CAD s/p 2-vessel CABG, pacemaker status, and stage 4 pancreatic cancer admitted for left abdominal pain secondary to obstructing 15 mm proximal left ureteral stone. Pt admitted via [facility] on 12/28/2019. He presented with left sided abdominal and flank pain, emesis and low appetite. He initially thought the pain was related to constipation as he reports struggling with constipation for the last [address] abd/pelvis demonstrated obstructing 15 mm proximal left ureteral stone. Creatinine 1.21, WBC 12.77. UA not suggestive of infection. Treated with IV fluids and started on IV Ancef. Chart review: Afebrile Creatinine (12/28) - 0.73 WBC (12/27) - 12.77 UA - 5-10 RBCs, negative nitrites, negative bacteria No UC&S during admission On IV Ancef Imaging: CT Abd/pelvis IMPRESSION: 1. There is a 12 mm obstructing calculus in the left proximal ureter at the level of L4. This causes moderate left hydronephrosis. 2. Urothelial thickening and enhancement within the left renal collecting system and the left proximal ureter is likely related to obstruction/hydronephrosis. Correlate clinically and with urinalysis for evidence of superimposed infection. 3. A heterogeneous mass lesion in the pancreatic tail appears increased in size from previous. This invades the left adrenal gland and occludes the splenic vein. 4. Hepatic metastases seen on prior examinations are not visible on today's study, likely due to phase of enhancement. 5. Moderate colonic diverticulosis without CT evidence of acute diverticulitis. 6. Prostatomegaly. 7. Bilateral fat-containing inguinal hernias. Pt sitting up in bed. No issues overnight. No abdominal, flank or suprapubic pain. Voiding spontaneously. Denies dysuria or hematuria. No f/c/n/v. NPO since midnight. Reports history of nephrolithiasis. Last stone was in 2003. He reports history of URS and stone extraction done [place] [address] Pathak. He recalls that previous stone was on the right. Has subsequently followed with [facility], most recent visit with Dr. Price in 06/2018. Allergies Allergy/AdvReac Type Severity Reaction Status Date / Time adhesive Allergy Unknown Hives Verified 12/28/19 15:19 ciprofloxacin [From Cipro] Allergy Unknown Hives Verified 12/28/19 15:19 buspirone [From BuSpar] AdvReac Unknown Dizziness Verified 12/28/19 15:19 heparin AdvReac Unknown thrombocyto Verified 12/28/19 15:19 penia venlafaxine [From Effexor] AdvReac Unknown somnulence Verified 12/28/19 15:19 lansoprazole [From Prevacid] AdvReac Diarrhea Verified 12/28/19 15:19 Home Medications Home Medications Medication Instructions Recorded Confirmed Type aspirin 81 mg PO QAM 07/20/18 12/28/19 History atorvastatin [Lipitor] 40 mg PO HS 07/20/18 12/28/19 History magnesium oxide [MagOx] 400 mg PO QAM 07/20/18 12/28/19 History metoprolol tartrate 25 mg PO BID 07/20/18 12/28/19 History pantoprazole [Protonix] 40 mg PO BID 07/20/18 12/28/19 History cholecalciferol (vitamin D3) 50 2,000 units PO QAM 11/27/19 12/28/19 History mcg (2,000 unit) capsule lisinopril 2.5 mg tablet 2.5 mg PO DAILY PRN 11/27/19 12/28/19 History potassium chloride 10 mEq 20 meq PO QAM tab 11/27/19 12/28/19 History tablet,extended release levetiracetam 500 mg tablet 500 mg PO BID 30 Days #60 tab 12/21/19 12/28/19 Rx octreotide,microspheres 30 mg IM Q28D 12/28/19 12/28/19 History [Sandostatin LAR Depot] potassium chloride 10 meq PO QDL 12/28/19 12/28/19 History Patient History Medical History Acute CVA (cerebrovascular accident) Atrial fibrillation HLD (hyperlipidemia) HTN (hypertension) Pancreatic cancer Simple partial seizure disorder (Acute) Surgical History Hx of CABG two-vessel; [facility] S/P AVR (aortic valve replacement) [facility] Status post Power fundoplication Status post placement of cardiac pacemaker Family History Father S/P CABG (coronary artery bypass graft) Stroke Mother Stroke Grandfather (Maternal) Stroke Grandfather (Paternal) Cirrhosis of liver Social History Preferred Language: Moroccan Communication Ability: Effective Visual Impairment: No Limitations Stenographic Court Reporter Required: No Beliefs That Will Affect Care: None marital status: Current Living Situation: Spouse current occupational status: retired Other Information That Helps Us Care for You: No other: 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, etc); [employer] career Feels Safe at Home: Yes Safety Concerns: Feels Safe At This Time Smoking Status: Never smoker Do You Dip or Chew Tobacco: No ; Second Hand Exposure: No ; Tobacco Cessation Education Requested by Patient: No Hx Alcohol Use: No Hx Substance Use: No Review of Systems Constitutional: as per Subjective / HPI Gastrointestinal: as per Subjective / HPI Genitourinary: + as per Subjective / HPI Physical Exam Constitutional: well developed, well nourished and + thin; no acute distress Respiratory: normal respiratory effort and able to speak in complete sentences; no respiratory distress and no labored breathing Cardiovascular: Extremities: no pedal edema Gastrointestinal (Abdomen): Inspection/Auscultation: abdomen normal to inspection; abdomen not distended Percussion/Palpation: abdomen soft; abdomen nontender and no guarding Neurologic: moves all extremities and awake Psychiatric: A+Ox3, euthymic affect Genitourinary: no CVA tenderness Voiding spontaneously, urine not visualized during exam Results & Data Vital Signs (Past 12 Hours) Vital Signs Temp Pulse Pulse Resp BP BP Pulse Ox 12/29/19 07:56 36.6 C 84 18 160/86 H 94 12/29/19 07:31 60 12/29/19 03:54 36.8 C 63 18 138/74 96 12/29/19 00:30 60 12/28/19 23:43 37.0 C 60 18 147/72 H 97 12/28/19 20:38 66 12/28/19 20:06 37.1 C 72 17 158/80 H 97 PG Care Time/CCT Total # of Minutes Spent Total Time Spent with Patient: Total time spent is greater than 50% in coordination of care (as documented) at patient's floor/unit and/or counseling patient: Coding Level of Care Code 56496 Inpt Consult Level 4 Diagnoses Hydronephrosis N13.2 Hydronephrosis type: with renal calculous obstruction Left ureteral stone N20.1 (1) Hydronephrosis Hydronephrosis type: with renal calculous obstruction Qualified Code(s): N13.2 - Hydronephrosis with renal and ureteral calculous obstruction
[2019-12-29 08:13] LABS: BUN Creatinine Ratio 29.3 (10-20); Calcium 9.1 mg/dl (8.5-10.1); Creatinine Clr Calc Pharmacy 73.9 ml/min; Est GFR (African American) 107.4; Est GFR (Non-African American) 92.7; Potassium 3.5 mmol/L (3.5-5.1)
--- NOTE | 2019-12-29 08:29 | XRay Report ---
XR chest 1V portable CLINICAL HISTORY: 74 years-old Male presenting with Pre-op. TECHNIQUE: Portable upright AP view of the chest was obtained. COMPARISON: 08/03/2018. FINDINGS: Left subclavian pacer with leads to the right atrium and right ventricular apex. Median sternotomy wi res and mediastinal surgical clips noted. Atherosclerosis of the aortic arch. Cardiac silhouette norm al in size. No focal opacity. No large effusion or pneumothorax. Osseous structures normal. Cholecyst ectomy clips noted. IMPRESSION: 1. No acute cardiopulmonary disease. ACT 112: Negative or not required by law. Electronically signed by: Keith Leija M.D. 12/29/2019 8:28 AM
[2019-12-29] MEDS: CEFAZOLIN 1000MG 1,000 MG/7.5 ML SYR IV SCH ×2 (08:32→21:34)
[2019-12-29] MEDS: POLYETHYLENE (MIRALAX) 17 GM PACK PO SCH (08:33)
[2019-12-29] MEDS: ASPIRIN 81 MG ECTAB PO SCH (08:33)
[2019-12-29] MEDS: levETIRAcetam 500 MG TAB PO SCH ×2 (08:33→21:37)
[2019-12-29] MEDS: CHOLECALCIFEROL 1,000 UNITS 25 MCG TAB PO SCH (08:33)
[2019-12-29] MEDS: PANTOprazole 40 MG TAB PO SCH ×2 (08:33→21:37)
[2019-12-29] MEDS: POTASSIUM CHLORIDE 20 MEQ TABCR PO SCH (08:36)
[2019-12-29] MEDS: MAGNESIUM OXIDE 400 MG TAB PO SCH (08:36)
[2019-12-29] MEDS: SODIUM CHLORIDE 0.9% 1000ML 1,000 ML IV SCH (08:46)
[2019-12-29 08:49] LABS: Estimated Average Glucose 128 mg/dl; Hemoglobin A1C 6.1 % (4.5-5.6)
[2019-12-29] MEDS ORDERED: CEFAZOLIN 3000MG/72.5 ML BAG IV SCH (09:00)
[2019-12-29] MEDS: METOPROLOL TARTRATE 25 MG TAB PO SCH ×2 (09:05→21:37)
--- NOTE | 2019-12-29 11:10 | Anesthesiology Consultation ---
Date of Service December 29, 2019 Assessment & Plan Chart Review Chart Review: Acceptable Risk for Surgery and Patient NOT seen in Pre Admission Testing Consults Requested none ASA ASA4 Proposed Anesthesia Anesthesia Type: General History Surgery Operation Date: 12/29/19 12:20 Proposed Procedures p Cystoscopy Left Stent Placement - Riley Miranda DO Height/Weight Height: 5 ft 7 in Weight: 57.1 kg Allergies Allergy/AdvReac Type Severity Reaction Status Date / Time adhesive Allergy Unknown Hives Verified 12/28/19 15:19 ciprofloxacin [From Cipro] Allergy Unknown Hives Verified 12/28/19 15:19 buspirone [From BuSpar] AdvReac Unknown Dizziness Verified 12/28/19 15:19 heparin AdvReac Unknown thrombocyto Verified 12/28/19 15:19 penia venlafaxine [From Effexor] AdvReac Unknown somnulence Verified 12/28/19 15:19 lansoprazole [From Prevacid] AdvReac Diarrhea Verified 12/28/19 15:19 Medications Home Medications Medication Instructions Recorded Confirmed Last Taken aspirin 81 mg PO QAM 07/20/18 12/28/19 12/27/19 atorvastatin [Lipitor] 40 mg PO HS 07/20/18 12/28/19 12/27/19 magnesium oxide [MagOx] 400 mg PO QAM 07/20/18 12/28/19 12/27/19 metoprolol tartrate 25 mg PO BID 07/20/18 12/28/19 12/27/19 pantoprazole [Protonix] 40 mg PO BID 07/20/18 12/28/19 12/27/19 cholecalciferol (vitamin D3) 50 2,000 units PO QAM 11/27/19 12/28/19 12/27/19 mcg (2,000 unit) capsule lisinopril 2.5 mg tablet 2.5 mg PO DAILY PRN 11/27/19 12/28/19 Unknown potassium chloride 10 mEq 20 meq PO QAM tab 11/27/19 12/28/19 12/27/19 tablet,extended release levetiracetam 500 mg tablet 500 mg PO BID 30 Days #60 tab 12/21/19 12/28/19 12/27/19 octreotide,microspheres 30 mg IM Q28D 12/28/19 12/28/19 12/27/19 [Sandostatin LAR Depot] potassium chloride 10 meq PO QDL 12/28/19 12/28/19 12/27/19 Active Medications Generic Name Dose Route Start Last Admin Trade Name Yarelis PRN Reason Stop Dose Admin Aspirin 81 mg 12/29/19 09:00 12/29/19 08:33 Ecotrin Ectab PO 01/28/20 08:59 81 mg QAM TYLER Administration Atorvastatin Calcium 40 mg 12/28/19 21:00 12/28/19 20:44 Lipitor PO 01/27/20 20:59 40 mg HS TYLER Administration Sodium Chloride 1,000 mls @ 75 mls/hr 12/28/19 19:47 12/29/19 08:46 Nss 1000ml IV 12/29/19 22:26 75 mls/hr .[id number] TYLER Administration Cefazolin Sodium 1,000 mg in 7.5 mls @ 2.5 mls/min 12/29/19 09:00 12/29/19 08:32 Ancef 1000mg IV 12/31/19 08:59 2.5 mls/min Q12H TYLER Administration Levetiracetam 500 mg 12/28/19 21:00 12/29/19 08:33 Keppra PO 01/27/20 20:59 500 mg BID TYLER Administration Magnesium Oxide 400 mg 12/29/19 09:00 12/29/19 08:36 Mag-Ox PO 01/28/20 08:59 Not Given QAM TYLER Metoprolol Tartrate 25 mg 12/28/19 21:00 12/29/19 09:05 Lopressor PO 01/27/20 20:59 25 mg BID TYLER Administration Pantoprazole Sodium 40 mg 12/28/19 21:00 12/29/19 08:33 Protonix PO 01/27/20 20:59 Not Given BID TYLER Polyethylene Glycol 17 gm 12/29/19 09:00 12/29/19 08:33 Miralax Powder Packet PO 01/28/20 08:59 Not Given DAILY TYLER Potassium Chloride 20 meq 12/29/19 09:00 12/29/19 08:36 Klor-Con M20 PO 01/28/20 08:59 Not Given QAM TYLER Vitamin D 2,000 units 12/29/19 09:00 12/29/19 08:33 Vitamin D3 PO 01/28/20 08:59 2,[address] [facility] [place] [facility] Past Medical History Medical History Acute CVA (cerebrovascular accident) Atrial fibrillation HLD (hyperlipidemia) HTN (hypertension) Pancreatic cancer Simple partial seizure disorder (Acute) Exercise / Class Metabolic Activity III < 4 Walking/Shop/Light housework Past Family History Family History Father S/P CABG (coronary artery bypass graft) Stroke Mother Stroke Grandfather (Maternal) Stroke Grandfather (Paternal) Cirrhosis of liver Past Surgical History Surgical History Hx of CABG two-vessel; [facility] S/P AVR (aortic valve replacement) [facility] Status post Power fundoplication Status post placement of cardiac pacemaker Past Anesthesia History No Hx of Anesthesia Complications and No Family Hx of Anesthesia Complications History of PONV No Hx of PONV and No Hx of Motion Sickness Social History Smoking Status: Never smoker Do You Dip or Chew Tobacco: No Hx Alcohol Use: No Hx Substance Use: No substance use type: does not use Physical Exam Vital Signs Last Vital Signs Temp 36.6 C 12/29/19 07:56 Pulse 84 12/29/19 07:56 Resp 18 12/29/19 07:56 BP 160/86 H 12/29/19 07:56 Pulse Ox 94 12/29/19 07:56 Testing Laboratory Results 12/28/19 13:28 12/29/19 06:56 Hemoglobin A1c 6.1 % (4.5-5.6) H 12/29/19 06:56 Urine Color Yellow 12/28/19 Unknown Urine Appearance Clear (Clear) 12/28/19 Unknown Urine pH 6.0 (4.5-7.5) 12/28/19 Unknown Ur Specific [place] 1.036 (1.000-1.030) H 12/28/19 Unknown Urine Protein Negative (Negative) 12/28/19 Unknown Urine Glucose (UA) Negative (Negative) 12/28/19 Unknown Urine Ketones Trace (Negative) H 12/28/19 Unknown Urine Nitrite Negative (Negative) 12/28/19 Unknown Ur Leukocyte Esterase Negative (Negative) 12/28/19 Unknown Urine WBC (Auto) 1-5 /hpf (0-5) 12/28/19 Unknown Urine RBC (Auto) 5-10 /hpf (0-4) H 12/28/19 Unknown U Hyaline Cast (Auto) 1-5 /lpf (0-5) 12/28/19 Unknown U Epithel Cells (Auto) 0-5 /lpf (0-5) 12/28/19 Unknown Urine Bacteria (Auto) Negative (Negative) 12/28/19 Unknown Electrocardiogram Date: 12/29/19 Findings: + RBBB and + pertinent finding (A paced rhythm at 66 prolonged AV conduction;T wave abnormality) Chest X-Ray Date: 12/28/19 Findings: + NAD and + atherosclerosis of thoracic aorta left subclavian pacemaker Echocardiogram Date: 12/20/19 EF: 50% Other Findings: + diastolic dysfunction (grade 2) Valvular Disease: + MR (mild) bioprosthetic AV RV mildly dilated w/ mild RV dysfunction
[2019-12-29] MEDS ORDERED: POTASSIUM CHLORIDE 10 MEQ TABCR PO SCH (11:30)
[2019-12-29] MEDS ORDERED: fentaNYL citrate 100 MCG/2 ML VIAL IV PRN (11:50)
[2019-12-29] MEDS ORDERED: HYDROmorphone INJ 1 MG/ML SYRINGE IV PRN (11:50)
[2019-12-29] MEDS ORDERED: ONDANSETRON INJ 2 MG/ML 2 ML VIAL IV PRN (11:50)
[2019-12-29] MEDS ORDERED: PROMETHAZINE HCL 12.5 MG in SODIUM CHLORIDE 0.9% 50 ML IV PRN (11:50)
[2019-12-29] MEDS ORDERED: METOCLOPRAMIDE HCL INJ 5 MG/ML 2 ML VIAL IV PRN (11:50)
[2019-12-29] MEDS ORDERED: ATROPINE SULFATE 0.1 MG/ML 10ML SYR IV PRN (11:50)
[2019-12-29] MEDS ORDERED: ePHEDrine sulfate 50 MG/ML AMP IV PRN (11:50)
[2019-12-29] MEDS ORDERED: IOTHALAMATE MEGLUMINE II 17.2% 250 ML VIAL ONE (12:39)
[2019-12-29] MEDS ORDERED: PROPOFOL IV EMULSION 10 MG/ML 20 ML VIAL IV ONE (12:47)
[2019-12-29] MEDS ORDERED: LIDOCAINE HCL 2% 2 ML VIAL/AMP(20MG/ML) INFIL ONE (12:47)
[2019-12-29] MEDS ORDERED: fentaNYL citrate 100 MCG/2 ML VIAL ONE (12:48)
[2019-12-29] MEDS ORDERED: MIDAZOLAM HCL 1 MG/ML 2ML VIAL ONE (12:48)
--- NOTE | 2019-12-29 13:19 | Operative Report ---
PG Post Operative Report Pre & Post Diagnosis Operation Date: 12/29/19 12:20 Pre-Op Diagnosis: Left Ureteral Stone Post-Op Diagnosis: Left Ureteral Stone I identified the patient and participated in the time-out.: Yes Procedure Operation Date: 12/29/19 12:20 Actual Procedures p Cystoscopy, Left Retrograde Pyelogram, Left Stent Placement(Left) - Riley Miranda DO Surgeon Riley Miranda, II, DO Traffic Rate Clerk None Estimated Blood Loss 1 Findings Consistent with Post-Op Diagnosis Stent placed in good position. Specimens None Drains 6 Fr Multilength Anesthesia Type MAC Complications none Disposition Disposition: Recovery Room Indications Patient with obstruction. Risks and benefits discussed at length. Description of Procedure Patient was consented and brought back to the operating room. Patient was placed under anesthesia in the supine position and moved to the dorsal lithotomy position. Patient was prepped and draped in the regular sterile fashion. A time out was completed. A 30degree Cystoscope was placed into the bladder and the entire bladder was examined. The UO's were identified. The UO was cannulized with a catheter and a retrograde pyelogram was completed. A wire was then placed. With the wire in place, a 6 Fr Double J stent was placed. It was confirmed with fluoroscopy. With the stent in place, the bladder was emptied. The scope was removed. The patient was cleaned, aroused from anesthesia, and transferred to the pacu in stable condition having tolerated the procedure well with no complications. I was present and participated in all aspects of the procedure. The patient will be monitored in the PACU until transferred. I attest to the content of the Intraoperative Record and any orders documented therein. Any exceptions are noted below.
--- NOTE | 2019-12-29 13:33 | Fluoroscopy Report ---
FL retrograde includes kub CLINICAL HISTORY: 74 years-old Male presenting with LT CYSTO STENT. TECHNIQUE: 4 fluoroscopic image(s) recorded as part of an intraoperative procedure. COMPARISON: CT from yesterday. FINDINGS/IMPRESSION: The left ureter was opacified with contrast and noted to be mildly dilated. The proximal left ureter was moderately dilated. The left renal collecting system also demonstrates mild to moderate dilatatio n with blunting of the calyces. Subsequently, a left ureteral stent was placed. Please see surgical report for further details. Fluoroscopy dosage (mGy): 3.83. Fluoroscopy time: 26.0 seconds. Number or time of high level fluoroscopy (HLF), digital spot, or digital subtraction images: 0. ACT 112: Negative or not required by law. Electronically signed by: Keith Leija M.D. 12/29/2019 1:32 PM
--- NOTE | 2019-12-29 14:07 | Anesthesiology Progress Note ---
Date of Service December 29, 2019 Anesthesia Post Procedure Vital Signs Vital Signs: Temp Pulse Pulse Pulse Resp BP BP 12/29/19 13:55 36.6 C 61 10 L 12/29/19 13:45 60 12 12/29/19 13:35 63 10 L 12/29/19 13:28 36.4 C L 65 18 12/29/19 11:46 36.7 C 68 20 172/88 H 12/29/19 07:56 36.6 C 84 18 160/86 H 12/29/19 07:31 60 12/29/19 03:54 36.8 C 63 18 12/29/19 00:30 60 12/28/19 23:43 37.0 C 60 18 12/28/19 20:38 66 12/28/19 20:06 37.1 C 72 17 12/28/19 19:05 69 21 137/77 12/28/19 19:00 66 21 12/28/19 18:30 69 19 12/28/19 18:07 105 H 15 12/28/19 17:30 114 H 22 12/28/19 17:00 81 19 12/28/19 16:30 76 21 12/28/19 16:18 76 18 12/28/19 16:10 75 19 139/84 12/28/19 15:00 75 14 BP Pulse Ox 12/29/19 13:55 160/86 H 98 12/29/19 13:45 151/86 H 98 12/29/19 13:35 138/83 99 12/29/19 13:28 127/88 96 12/29/19 11:46 96 12/29/19 07:56 94 12/29/19 07:31 12/29/19 03:54 138/74 96 12/29/19 00:30 12/28/19 23:43 147/72 H 97 12/28/19 20:38 12/28/19 20:06 158/80 H 97 12/28/19 19:05 12/28/19 19:00 12/28/19 18:30 12/28/19 18:07 12/28/19 17:30 96 12/28/19 17:00 96 12/28/19 16:30 94 12/28/19 16:18 94 12/28/19 16:10 94 12/28/19 15:00 139/84 96 Pain Intensity Left Abdomen: Pain Intensity: 0 Transfer of Care Handoff Completed per policy Notes Mental Status: alert / awake / arousable and participated in evaluation Patient Amnestic to Procedure: Yes Nausea / Vomiting: adequately controlled Pain: adequately controlled Airway Patency, RR, SpO2: stable & adequate BP & HR: stable & adequate Hydration State: stable & adequate Anesthetic Complications: no major complications apparent
[2019-12-29] MEDS: ACETAMINOPHEN 325 MG TAB PO PRN (16:05)
--- NOTE | 2019-12-29 16:41 | Electrocardiogram Report ---
Test Reason : Blood Pressure : / mmHG Vent. Rate : 066 BPM Atrial Rate : 066 BPM P-R Int : 212 ms QRS Dur : 136 ms QT Int : 432 ms P-R-T Axes : 046 023 -11 degrees QTc Int : 452 ms Atrial-paced rhythm with prolonged AV conduction Right bundle branch block T wave abnormality, consider lateral ischemia Abnormal ECG When compared with ECG of 23-JUL-2018 07:02, Electronic atrial pacemaker has replaced Sinus rhythm QT has shortened Confirmed by Oswaldo Donaldson ([id number]) on 12/29/2019 4:40:55 PM Referred By: REFERRED SELF Confirmed By:Oswaldo Donaldson
--- NOTE | 2019-12-29 18:33 | Hospitalist Progress Note ---
Date of Service December 29, 2019 Assessment & Plan (1) Kidney stone: 12mm, proximal left ureter. With resulting hydronephrosis. s/p cysto and left-sided stent placement today by Dr Miranda - appreciate his assistance. Can d/c fluids later tonight. Repeat BMP in am. Definitive stone treatment post-d/c. (2) Hydronephrosis: 2nd to proximal left-sided kidney stone (12mm) (3) S/P AVR (aortic valve replacement): for aortic stenosis s/p bovine replacement valve in the past at [facility] (4) Hx of CAB-vessel no recent ischemic symptoms Cont home meds (5) Pacemaker: stable telemetry (6) H/O: stroke: noted cont asa for secondary prevention (7) Atrial fibrillation: PAF has pacemaker in place NOT on anticoagulation tele with pacing (8) Simple partial seizure disorder: follows with [facility] neurology no recent issues cont keppra of note - keppra is slowly being weaned off by neurology (9) Pancreatic cancer: stage [address] Oneal noted the CT findings of liver, etc octreotide indeed may be playing a role in his recent constipation issues cont miralax for constipation (10) DVT prophylaxis: SCDs and ambulation anticipate d/c in am Admission and Anticipated Discharge Date Admission Date: December 28, 2019 Subjective saw patient post-cysto with stent placement. reporting some mild hematuria. no abd or flank pain. tolerating diet. no nausea/emesis. no dyspnea. ambulating w/o difficulty. Review of Systems Constitutional: no fever and no chills Respiratory: no dyspnea Cardiovascular: no chest pain Physical Exam Constitutional: + thin; no acute distress and no altered mental status ENMT: external ear and nose normal, oropharynx normal Respiratory: normal respiratory effort, lungs clear to auscultation Cardiovascular: Rate/Rhythm: regular rate and regular rhythm Heart Sounds: normal S1 and normal S2; no murmur Vessels: posterior tibial pulses present and dorsalis pedis pulses present; no JVD Extremities: no edema Gastrointestinal (Abdomen): normal bowel sounds, soft, nontender, no hepatosplenomegaly Psychiatric: A+Ox3, euthymic affect Results & Data ([facility]) Vital Signs (Past 12 Hours) Vital Signs Temp Pulse Pulse Pulse Resp BP BP 12/29/19 15:30 36.7 C 70 18 147/89 H 12/29/19 15:00 36.5 C 67 18 200/99 H 12/29/19 14:32 36.7 C 60 16 188/94 H 206/96 H 12/29/19 14:18 36.6 C 60 16 173/85 H 12/29/19 13:55 36.6 C 61 10 L 160/86 H 12/29/19 13:45 60 12 151/86 H 12/29/19 13:35 63 10 L 138/83 12/29/19 13:28 36.4 C L 65 18 127/88 12/29/19 11:46 36.7 C 68 20 172/88 H 12/29/19 07:56 36.6 C 84 18 160/86 H 12/29/19 07:31 60 Pulse Ox 12/29/19 15:30 96 12/29/19 15:00 97 12/29/19 14:32 96 12/29/19 14:18 98 12/29/19 13:55 98 12/29/19 13:45 98 12/29/19 13:35 99 12/29/19 13:28 96 12/29/19 11:46 96 12/29/19 07:56 94 12/29/19 07:31 Laboratory Results Laboratory Results - last 24 hr 12/29/19 12/29/19 12/30/19 06:56 06:56 07:20 WBC 7.05 RBC 4.39 L Hgb 13.7 L Hct 40.1 L MCV 91.3 MCH 31.2 MCHC 34.2 RDW Std Deviation 42.2 RDW Coeff of Mason 12.5 Plt Count 144 MPV 11.6 H Sodium 142 Potassium 3.5 Chloride 108 H Carbon Dioxide 29 Anion Gap 5.0 BUN 22 H Creatinine 0.73 D Est Cr Clr Drug Dosing 73.9 Est GFR ( Amer) 107.4 Est GFR (Non-Af Amer) 92.7 BUN/Creatinine Ratio 29.3 H Glucose 120 H Estimat Average Glucose 128 Hemoglobin A1c 6.1 H Calcium 9.1 12/30/19 07:20 WBC RBC Hgb Hct MCV MCH MCHC RDW Std Deviation RDW Coeff of Mason Plt Count MPV Sodium Pending Potassium Pending Chloride Pending Carbon Dioxide Pending Anion Gap Pending BUN Pending Creatinine Pending Est Cr Clr Drug Dosing Pending Est GFR ( Amer) Pending Est GFR (Non-Af Amer) Pending BUN/Creatinine Ratio Pending Glucose Pending Estimat Average Glucose Hemoglobin A1c Calcium Pending PG Care Time/CCT Total # of Minutes Spent Total Time Spent with Patient: Total time spent is greater than 50% in coordination of care (as documented) at patient's floor/unit and/or counseling patient: Coding Level of Care Code 07586 Subseq Hosp Care Lvl 2 Diagnoses Kidney stone N20.0 Hydronephrosis N13.2 Hydronephrosis type: with renal calculous obstruction S/P AVR (aortic valve replacement) Z95.2 Hx of CABG Z95.1 Pacemaker Z95.0 H/O: stroke Z86.73 Atrial fibrillation I48.0 Atrial fibrillation type: paroxysmal Simple partial seizure disorder G40.109 Pancreatic cancer C25.9 Pancreatic malignancy location: unspecified DVT prophylaxis Z29.9 (1) Hydronephrosis Hydronephrosis type: with renal calculous obstruction Qualified Code(s): N13.2 - Hydronephrosis with renal and ureteral calculous obstruction (2) Pancreatic cancer Pancreatic malignancy location: unspecified Qualified Code(s): C25.9 - Malignant neoplasm of pancreas, unspecified (3) Atrial fibrillation Atrial fibrillation type: paroxysmal Qualified Code(s): I48.0 - Paroxysmal atrial fibrillation
[2019-12-29] MEDS: TRIAMCINOLONE ACET 0.1% CR 80 GM TUBE EXT SCH ×2 (21:22→21:34)
[2019-12-29] MEDS: ATORVASTATIN 40 MG TAB PO SCH (22:35)
[2019-12-30] MEDS: ACETAMINOPHEN 325 MG TAB PO PRN (03:06)
[2019-12-30 07:37] LABS: Hematocrit (blood only) 40.1 % (42-52); Hemoglobin 13.7 g/dL (14.0-18.0); Mean Corpuscular Hemoglobin 31.2 pg (25-34); Mean Corpuscular Hgb Conc 34.2 g/dL (32-36); Mean Corpuscular Volume 91.3 fL (80-100); Mean Platelet Volume 11.6 fL (7.4-10.4); Platelet Count 144 K/uL (130-400); RDW Coefficient of Variation 12.5 % (11.5-14.5); RDW Standard Deviation 42.2 fL (36.4-46.3); Red Blood Count 4.39 M/uL (4.7-6.1); White Blood Count 7.05 K/uL (4.8-10.8)
[2019-12-30] MEDS: POTASSIUM CHLORIDE 20 MEQ TABCR PO SCH (07:52)
[2019-12-30] MEDS: PANTOprazole 40 MG TAB PO SCH (07:52)
[2019-12-30] MEDS: MAGNESIUM OXIDE 400 MG TAB PO SCH (07:53)
[2019-12-30] MEDS: CHOLECALCIFEROL 1,000 UNITS 25 MCG TAB PO SCH (07:53)
[2019-12-30] MEDS: ASPIRIN 81 MG ECTAB PO SCH (07:53)
[2019-12-30] MEDS: POLYETHYLENE (MIRALAX) 17 GM PACK PO SCH (07:54)
[2019-12-30] MEDS: TRIAMCINOLONE ACET 0.1% CR 80 GM TUBE EXT SCH (07:54)
[2019-12-30] MEDS: levETIRAcetam 500 MG TAB PO SCH (07:54)
[2019-12-30] MEDS: METOPROLOL TARTRATE 25 MG TAB PO SCH (07:59)
[2019-12-30 08:22] LABS: BUN Creatinine Ratio 23.9 (10-20); Creatinine Clr Calc Pharmacy 65.8 ml/min; Est GFR (African American) 103.4; Est GFR (Non-African American) 89.2; Potassium 3.4 mmol/L (3.5-5.1)
[2019-12-30] MEDS ORDERED: POTASSIUM CHLORIDE 20 MEQ TABCR PO STA (08:38)
--- NOTE | 2020-01-07 20:55 | Discharge Summary ---
Date of Service January 07, 2020 Admission HPI Per Admitting Provider 74yo male with h/o aortic stenosis s/p bovine AVR, CAD s/p 2-vessel CABG, pacemaker status, and stage 4 pancreatic cancer who presents with the acute onset of LUQ abdominal pain beginning last night about 9pm. He initially thought the pain was GI in origin - perhaps related to constipation as he reports significant bowel issues to the point of having to manually disimpact himself. About 930pm he had emesis, and a short time after that he had emesis again. He went to bed and had left-sided upper abdominal pain all night and found it difficult to sleep because of the pain. Patient reports he never had fever but did have chills today and overnight. He also had poor appetite this am. Denies any dysuria or hematuria. Sometime this afternoon he called the [facility] who advised he come to the ED for evaluation. CT of the abd/pelvis demonstrated an obstructing 12mm kidney stone in the proximal left ureter. At the time of my assessment in the ER his pain was controlled and was actually asking for something to eat. The patient is currently undergoing treatment for his stage [address] Oneal at the [facility]. He receives regularly scheduled octreotide injections with yesterday being the most recent injection. He continues to live an active life and has no limiting cardiopulmonary symptoms day-to-day. Principal Diagnosis left sided kidney stone s/p stent placement Discharge Exam Constitutional + thin; no acute distress and no altered mental status ENMT external ear and nose normal, oropharynx normal Respiratory normal respiratory effort, lungs clear to auscultation Cardiovascular Rate/Rhythm: regular rate and regular rhythm Heart Sounds: normal S1 and normal S2; no murmur Vessels: posterior tibial pulses present and dorsalis pedis pulses present; no JVD Extremities: no edema Gastrointestinal (Abdomen) normal bowel sounds, soft, nontender, no hepatosplenomegaly Skin + rash (mild erythema on neck) Psychiatric A+Ox3, euthymic affect Discharge Data Allergies Allergy/AdvReac Type Severity Reaction Status Date / Time adhesive Allergy Intermediate Hives Verified 01/05/20 08:03 ciprofloxacin [From Cipro] Allergy Intermediate Hives Verified 01/05/20 08:03 heparin AdvReac Severe thrombocyto Verified 01/05/20 08:03 penia buspirone [From BuSpar] AdvReac Intermediate Dizziness Verified 01/05/20 08:03 lansoprazole [From Prevacid] AdvReac Mild Diarrhea Verified 01/05/20 08:03 venlafaxine [From Effexor] AdvReac Mild somnulence Verified 01/05/20 08:03 Consultations [facility] Procedures Performed Operation Date: 12/29/19 12:20 Actual Procedures p Cystoscopy, Left Retrograde Pyelogram, Left Stent Placement(Left) - Riley Miranda, DO Ordered Studies 12/28/19 14:13 CT abd pelvis IV con - IMPRESSION: 1. There is a 12 mm obstructing calculus in the left proximal ureter at the level of L4. This causes moderate left hydronephrosis. 2. Urothelial thickening and enhancement within the left renal collecting system and the left proximal ureter is likely related to obstruction/hydronephrosis. Correlate clinically and with urinalysis for evidence of superimposed infection. 3. A heterogeneous mass lesion in the pancreatic tail appears increased in size from previous. This invades the left adrenal gland and occludes the splenic vein. 4. Hepatic metastases seen on prior examinations are not visible on today's study, likely due to phase of enhancement. 5. Moderate colonic diverticulosis without CT evidence of acute diverticulitis. 6. Prostatomegaly. 7. Bilateral fat-containing inguinal hernias. 8. Additional findings as above. 12/29/19 15:00 FL retrograde includes kub Routine Hospital Course (1) Kidney stone: 12mm, proximal left ureter. With resulting hydronephrosis. s/p cystoscopy and left-sided stent placement by Dr Riley Miranda of [facility]. Patient did not have complicating UTI. Creatinine was 1.2 on admission and 0.8 at discharge. Definitive stone treatment and stent management will be handled as an outpatient by Dr Biswas. He was discharged home on flomax daily. (2) Hydronephrosis: 2nd to proximal left-sided kidney stone (12mm). (3) S/P AVR (aortic valve replacement): for aortic stenosis s/p bovine replacement valve in the past at [facility] (4) Hx of CAB-vessel no recent ischemic symptoms Cont usual home meds (5) Pacemaker: stable telemetry while hospitalized (6) H/O: stroke: cont aspirin for secondary prevention (7) Atrial fibrillation: PAF has pacemaker in place NOT on anticoagulation tele with pacing while hospitalized (8) Simple partial seizure disorder: follows with [facility] neurology no recent issues cont keppra of note - keppra is slowly being weaned off by neurology (9) Pancreatic cancer: stage [address] Oneal; treated with octreotide noted the CT findings of liver, etc octreotide indeed may be playing a role in his recent constipation issues cont miralax for constipation Total Time Total Time Spent Total Time Spent (In Minutes): 25 Total Time Includes: Examination of the Patient, Discharge Planning and Medication Reconciliation Discharge Plan Discharge Items Patient Disposition: Home - Self-Care Reason For Visit: OBSTRUCTING KIDNEY STONE Discharge Diagnosis: 12mm kidney stone on left side -- * placement of stent in the left ureter by Dr Miranda Activity: As commented below Activity Comment: light activities only until seen by urology; no heavy exertional activities Exercise/Sports: Wait until after follow-up appointment Driving/Machine Use: No limitations Non-emergency contact: Primary Care Provider Call non-emergency contact if: you have any medication questions, your symptoms worsen, your pain is not controlled, your pain is worsening, your pain is unusual for you, your pain is concerning for you and you have a fever Follow-up/Referrals: Riley Miranda DO [Physician] - (see Dr Miranda within 1 week for stent/stone management. Please call [phone] to schedule this appointment.) Elvis Falk DO [Primary Care Provider] - (see Dr Falk in 1-2 weeks ) Diet: Heart Healthy Addtl Attending Provider Instructions: You were treated for a left-sided kidney stone while hospitalized. Dr Miranda placed a stent in your left ureter. All of your other medical problems remained stable while here. Recommendations - 1. flomax (tamsulosin) 0.4mg daily - this helps prevent spasm of the ureter. Common side effect is dizziness. 2. pyridium 100mg every 8 hours as needed for urinary pain. This medication will cause your urine, tears, etc to turn orange. Don't be alarmed by this. 3. triamcinolone cream up to three times a day for 7 days to rash on neck. 4. vaseline to tip of penis as needed to keep the irritated area moist and to optimize healing. 5. miralax [id number] 1 capful daily in 8 oz of water or beverage - for constipation. 6. please call Dr Miranda' office on Wednesday to schedule urology follow-up. You may see some blood in the urine for another 2-3 days. This is not unusual following the procedure you had. Return to [facility] if -- * you have fever over 100.5 degrees * you have worsening back pain or abdominal pain * you have severe burning on urination * the blood in the urine gets worse * any other concerns Pending Studies at Discharge: No Stand-Alone Forms: My [facility], Smoking Cessation Medications and DC Order Prescriptions: New triamcinolone acetonide 0.1 % Cream 1 applic EXT TID Qty: 1 RF: 0 tamsulosin [Flomax] 0.4 mg capsule 0.4 mg PO DAILY Qty: 30 RF: 0 phenazopyridine [Pyridium] 100 mg tablet 100 mg PO TID PRN (Reason: urinary pain) Qty: 14 RF: 0 Continued levetiracetam 500 mg tablet 500 mg PO BID 30 Days Qty: 60 RF: 2 cholecalciferol (vitamin D3) 50 mcg (2,000 unit) capsule 2,000 units PO QAM RF: 0 atorvastatin [Lipitor] 40 mg tablet 40 mg PO HS RF: 0 aspirin 81 mg Tablet,Delayed Release (Dr/Ec) 81 mg PO QAM RF: 0 magnesium oxide [MagOx] 400 mg (241.3 mg magnesium) tablet 400 mg PO QAM RF: 0 pantoprazole [Protonix] 40 mg tablet,delayed release (DR/EC) 40 mg PO BID RF: 0 potassium chloride [Klor-Con 10] 10 mEq tablet extended release 20 meq PO BID RF: 0 Sandostatin LAR Depot 30 mg Suspension,Extended Rel Recon 30 mg IM Q28D RF: 0 No Action ketoconazole 2 % shampoo 1 applic TOPICAL .ON HOLD RF: 0 oxycodone 5 mg tablet 5 mg PO Q6H PRN (Reason: pain) Qty: 20 RF: 0 lisinopril 10 mg Tablet 5 mg PO QAM RF: 0 metoprolol succinate 25 mg Tablet Extended Release 24 Hr 25 mg PO HS RF: 0 docusate sodium [Colace] 100 mg Capsule 100 mg PO BID RF: 0 docusate sodium 250 mg Capsule 250 mg PO DAILY RF: 0 Discharge Orders: Discharge Order (Routine); Ordered 12/30/19 Ordered By: Rick Paulino/Other Patient Handouts: A1C Admission Data Admit Date/Time: 12/28/19 16:41 Attending Provider: Rick Jones Admit Provider: Rick Jones Primary Care Provider: Elvis Falk Other Providers: Riley Miranda Other Interventions: Discharge Summary Assessment (RN) Last Done: 12/30/19 10:35 DC Date/Time DO NOT enter until pt leaves facility: 12/30/19 11:29 Coding Level of Care Code D/C Day Management <30 mins Diagnoses Kidney stone N20.0 Hydronephrosis N13.2 Hydronephrosis type: with renal calculous obstruction S/P AVR (aortic valve replacement) Z95.2 Hx of CABG Z95.1 Pacemaker Z95.0 H/O: stroke Z86.73 Atrial fibrillation I48.0 Atrial fibrillation type: paroxysmal Simple partial seizure disorder G40.109 Pancreatic cancer C25.9 Pancreatic malignancy location: unspecified
== END 2019-12-30 11:29 | disposition home or self-care (01) | DRG 660 ==
LOC: ED 12:19 → 2W 16:41

== ENCOUNTER 2020-01-11 05:27 | Observation (INO) ==
--- NOTE | 2020-01-10 09:21 | PAT Medication Instructions ---
Medication Instructions Date of Service January 10, 2020 Home Medications Medication Instructions Recorded levetiracetam 500 mg tablet 500 mg PO BID 30 Days #60 tab 12/21/19 phenazopyridine [Pyridium] 100 mg PO TID PRN #14 tab 12/30/19 tamsulosin [Flomax] 0.4 mg PO DAILY #30 cap 12/30/19 triamcinolone acetonide 1 applic EXT TID #1 tube 12/30/19 oxycodone 5 mg PO Q6H PRN #20 tab 01/05/20 aspirin 81 mg PO QAM atorvastatin [Lipitor] 40 mg PO HS magnesium oxide [MagOx] 400 mg PO QAM pantoprazole [Protonix] 40 mg PO BID cholecalciferol (vitamin D3) 50 mcg (2,000 unit) capsule 2,000 units PO QAM potassium chloride 10 mEq tablet,extended release 20 meq PO BID levetiracetam 500 mg tablet 500 mg PO BID Sandostatin LAR Depot 30 mg IM Q28D phenazopyridine [Pyridium] 100 mg PO TID PRN tamsulosin [Flomax] 0.4 mg PO DAILY triamcinolone acetonide 1 applic EXT TID docusate sodium 250 mg PO DAILY docusate sodium [Colace] 100 mg PO BID lisinopril 5 mg PO QAM metoprolol succinate 25 mg PO HS ketoconazole 1 applic TOPICAL .ON HOLD oxycodone 5 mg PO Q6H PRN Continue as directed Sandostatin LAR Depot 30 mg IM Q28D ASK your surgeon for instructions aspirin 81 mg PO QAM STOP taking 24 hours before surgery triamcinolone acetonide 1 applic EXT TID ketoconazole 1 applic TOPICAL .ON HOLD DO NOT take the morning of surgery magnesium oxide [MagOx] 400 mg PO QAM cholecalciferol (vitamin D3) 50 mcg (2,000 unit) capsule 2,000 units PO QAM potassium chloride 10 mEq tablet,extended release 20 meq PO BID phenazopyridine [Pyridium] 100 mg PO TID PRN docusate sodium 250 mg PO DAILY docusate sodium [Colace] 100 mg PO BID lisinopril 5 mg PO QAM Take morning of surgery With a small sip of water, OTHERWISE NOTHING TO EAT OR DRINK AFTER MIDNIGHT: pantoprazole [Protonix] 40 mg PO BID levetiracetam 500 mg tablet 500 mg PO BID tamsulosin [Flomax] 0.4 mg PO DAILY oxycodone 5 mg PO Q6H PRN (if needed, may be taken up to four hours before surgery) Take evening before surgery atorvastatin [Lipitor] 40 mg PO HS pantoprazole [Protonix] 40 mg PO BID potassium chloride 10 mEq tablet,extended release 20 meq PO BID levetiracetam 500 mg tablet 500 mg PO BID phenazopyridine [Pyridium] 100 mg PO TID PRN (if needed) docusate sodium 250 mg PO DAILY docusate sodium [Colace] 100 mg PO BID metoprolol succinate 25 mg PO HS oxycodone 5 mg PO Q6H PRN (if needed) Other Notes If you have any questions please call us at [phone] or [phone] or [phone] or [phone]
--- NOTE | 2020-01-10 09:54 | Anesthesiology Consultation ---
Date of Service January 10, 2020 Assessment & Plan (1) Encounter for pre-operative examination: Spoke with Danny Garay rep. Patient has L sided pacer and is for L TSA. Marcellus reports a rep is usually present for a TSA on the pacer side, and he will be present AM DOS. Cardiology 05/18/19 = "He is doing very well from my standpoint...he can stop his Plavix at this point...he remains on appropriate medical regimen." TYPE AND SCREEN AM DOS Chart Review Chart Review: Acceptable Risk for Surgery and Patient NOT seen in Pre Admission Testing History Surgery Operation Date: 01/11/20 07:15 Proposed Procedures p Left Fracture Reverse Shoulder Arthroplasty - Dany Mix, Height/Weight Height: 5 ft 7 in Weight: 56.245 kg Allergies Allergy/AdvReac Type Severity Reaction Status Date / Time adhesive Allergy Intermediate Hives Verified 01/11/20 06:04 ciprofloxacin [From Cipro] Allergy Intermediate Hives Verified 01/11/20 06:04 heparin AdvReac Severe thrombocyto Verified 01/11/20 06:04 penia buspirone [From BuSpar] AdvReac Intermediate Dizziness Verified 01/11/20 06:04 lansoprazole [From Prevacid] AdvReac Mild Diarrhea Verified 01/11/20 06:04 venlafaxine [From Effexor] AdvReac Mild somnulence Verified 01/11/20 06:04 Medications Home Medications Medication Instructions Recorded Confirmed Last Taken aspirin 81 mg PO QAM 07/20/18 01/11/20 01/08/20 08:00 atorvastatin [Lipitor] 40 mg PO HS 07/20/18 01/11/20 01/10/20 22:00 magnesium oxide [MagOx] 400 mg PO QAM 07/20/18 01/11/20 01/10/20 08:00 pantoprazole [Protonix] 40 mg PO BID 07/20/18 01/11/20 01/10/20 08:00 cholecalciferol (vitamin D3) 50 2,000 units PO QAM 11/27/19 01/11/20 01/10/20 08:00 mcg (2,000 unit) capsule potassium chloride 10 mEq 20 meq PO BID tab 11/27/19 01/11/20 01/10/20 12:00 tablet,extended release levetiracetam 500 mg tablet 500 mg PO BID 30 Days #60 tab 12/21/19 01/11/20 01/11/20 04:30 Sandostatin LAR Depot 30 mg IM Q28D 12/28/19 01/11/20 12/27/19 phenazopyridine [Pyridium] 100 mg PO TID PRN #14 tab 12/30/19 01/09/20 Unknown tamsulosin [Flomax] 0.4 mg PO DAILY #30 cap 12/30/19 01/11/20 01/09/20 triamcinolone acetonide 1 applic EXT TID #1 tube 12/30/19 01/11/20 01/09/20 docusate sodium 250 mg PO DAILY 01/02/20 01/11/20 01/09/20 14:00 docusate sodium [Colace] 100 mg PO BID 01/02/20 01/11/20 01/10/20 22:00 lisinopril 5 mg PO QAM 01/02/20 01/11/20 01/10/20 22:00 metoprolol succinate 25 mg PO HS 01/02/20 01/11/20 01/10/20 22:00 ketoconazole 1 applic TOPICAL .ON HOLD 01/05/20 01/11/20 12/28/19 oxycodone 5 mg PO Q6H PRN #20 tab 01/05/20 01/11/20 01/09/20 03:00 acetaminophen [Acetaminophen Extra 500 mg PO QID PRN 01/11/20 01/11/20 01/10/20 23:00 Strength] Active Medications Generic Name Dose Route Start Last Admin Trade Name Yarelis PRN Reason Stop Dose Admin Acetaminophen 1,000 mg 01/11/20 06:00 01/11/20 06:47 Tylenol PO 01/11/20 18:00 1,000 mg PREOP TYLER Administration Dexamethasone 8 mg 01/11/20 06:00 01/11/20 06:48 Decadron PO 01/11/20 18:00 8 mg PREOP TYLER Administration Famotidine 20 mg 01/11/20 06:00 01/11/20 06:48 Pepcid PO 01/11/20 18:00 20 mg PREOP TYLER Administration Gabapentin 300 mg 01/11/20 06:00 01/11/20 06:47 Neurontin PO 01/11/20 18:00 300 mg PREOP TYLER Administration Lactated Ringer's 1,000 mls @ 15 mls/hr 01/11/20 06:00 01/11/20 06:23 Lr IV 01/12/20 05:59 15 mls/hr .Q24H TYLER Administration Past Medical History Medical History Acute CVA (cerebrovascular accident) 06/2018. Brain imaging at the time also noted chronic vs subacute CVA. Anxiety CAD (coronary artery disease) S/p CABG x 2 (SMITH to LAD and SVG to OM), 2018. GERD (gastroesophageal reflux disease) History of aortic valve disease S/P [facility] [place] bioprosthetic AVR 2018 (with CABG) History of atrial fibrillation Post-op. History of pleural effusion 07/2018. Drained. HLD (hyperlipidemia) HTN (hypertension) Humerus fracture LEFT SIDE Liver lesion Pacemaker Medtronic; [facility] for postop complete heart block after CABG 2017. Pancreatic cancer Simple partial seizure disorder Per neurology office note 2020: History of seizure-like activity characterized by alteration in awareness, staring spells, beginning in the context of a hospitalization at [facility] for AVR, CABG in May 2018. Patient continues with Keppra. However, it is unclear to me if he needs to remain on this medication. I have recommended an up-to-date EEG. If the EEG is normal we will consider tapering off Keppra. (EEG 12/19 = This is a normal-appearing awake/drowsy EEG demonstrating a normal reactive background rhythm, and not much else. A normal EEG does not completely exclude a diagnosis of epilepsy.) Past Family History Family History Father Heart disease S/P CABG (coronary artery bypass graft) Stroke Family history of diabetes mellitus Mother Heart disease Hypertension Stroke Family history of diabetes mellitus Grandfather (Maternal) Stroke Grandfather (Paternal) Cirrhosis of liver Past Surgical History Surgical History History of cardiac cath [address] [facility] History of colonoscopy History of cystoscopy WITH STENT PLACED History of esophagogastroduodenoscopy (EGD) History of lithotripsy History of tonsillectomy and adenoidectomy History of tooth extraction Hx of CABG two-vessel; [facility] 2017 S/P AVR (aortic valve replacement) [facility] 2017 S/P cholecystectomy Status post Power fundoplication Status post placement of cardiac pacemaker 06/2018 due to post-op heart block after CABG. Past Anesthesia History L ESWL [facility] 01/05/20 with GA. No issues noted. Social History Smoking Status: Never smoker Do You Dip or Chew Tobacco: No Hx Alcohol Use: No Hx Substance Use: No substance use type: does not use Physical Exam Vital Signs Last Vital Signs Temp 36.8 C 01/11/20 06:24 Pulse 91 H 01/11/20 06:24 Resp 20 01/11/20 06:24 BP 147/93 H 01/11/20 06:24 Pulse Ox 97 01/11/20 06:24 Testing Laboratory Results 01/05/20 WBC: 10.27 H/H: 14.2/41.1 PLATELETS: 197 SODIUM: 140 POTASSIUM: 3.7 CHLORIDE: 105 CO2: 30 BUN: 23 CREATININE: 0.89 GLUCOSE: 136 PT: 11.4 PTT: 25.4 INR: 1.1 01/02/20 UA: + blood (done at urology office visit) Electrocardiogram Date: 01/05/20 Findings: + NSR @ (68bpm) RBBB. TWA, consider anterolateral ischemia (Artifact in V3, TWI in V4 ad V5, upright in I and nonspecific in V6). Compared to EKG from 12/29/19, sinus rhythm has replaced electronic atrial pacemaker. Chest X-Ray Date: 01/05/20 IMPRESSION: 1. Comminuted fracture of the left proximal humerus 2. No active disease in the chest. Echocardiogram Date: 11/07/18 EF: 55% Normal LV size and systolic function with no regional wall motion abnormalities. Abnormal septal motion due to open heart surgery and pacemaker. No LVH. Basal asymmetric septal hypertrophy of the elderly. Grade 1 diastolic dysfunction of the left ventricle. Dilated right ventricle with mildly reduced systolic function. Pacemaker lead visualized in the right ventricle. Well-seated [address] [place] trifecta bioprosthetic aortic valve replacement with normal hemodynamics. Trace aortic insufficiency. Mild to moderate mitral regurgitation. Normal pulmonary artery pressures. Other Testing Pacemaker Interrogation 01/05/20 Model: Medtronic Implanted: 06/21/18 Mode: AAIR <=> DDDR Pacing %s (since 10/05/19): [employer] 9.3%, AP 38.5% Longevity: 13 years remaining
--- NOTE | 2020-01-10 15:23 | History & Physical Report ---
Date of Service January 10, 2020 Assessment & Plan (1) Proximal humerus fracture: We will proceed with a fracture reverse left shoulder arthroplasty. Postoperatively he will be placed in a sling and kept overnight in the hospital for postoperative medical management. Ronni has a history of seizure-like activities as well as extensive cardiac history including a pacemaker. This increases the complexity of the case and he is at an increased risk for the procedure. We talked about the risks of the procedure in the office and he had elected to proceed. Present on Admission?: Yes History of Present Illness Chief Complaint: Left proximal humerus fracture Primary Care Provider: Elvis Falk DO Ronni is a pleasant 74-year-old male who recently had a lithotripsy done. He was walking back into his house after the procedure when he tripped and fell onto his left arm. He had immediate left shoulder pain. He went to the emergency room and radiographs demonstrated a comminuted left proximal humerus fracture. He was placed in a sling and presented to my office for evaluation. After discussions with he and his regarding the fracture and possible treatment options, we decided to proceed with a left reverse shoulder arthroplasty. Allergies Allergy/AdvReac Type Severity Reaction Status Date / Time adhesive Allergy Intermediate Hives Verified 01/09/20 12:58 ciprofloxacin [From Cipro] Allergy Intermediate Hives Verified 01/09/20 12:58 heparin AdvReac Severe thrombocyto Verified 01/09/20 12:58 penia buspirone [From BuSpar] AdvReac Intermediate Dizziness Verified 01/09/20 12:58 lansoprazole [From Prevacid] AdvReac Mild Diarrhea Verified 01/09/20 12:58 venlafaxine [From Effexor] AdvReac Mild somnulence Verified 01/09/20 12:58 Home Medications Home Medications Medication Instructions Recorded Confirmed Type aspirin 81 mg PO QAM 07/20/18 01/09/20 History atorvastatin [Lipitor] 40 mg PO HS 07/20/18 01/09/20 History magnesium oxide [MagOx] 400 mg PO QAM 07/20/18 01/09/20 History pantoprazole [Protonix] 40 mg PO BID 07/20/18 01/09/20 History cholecalciferol (vitamin D3) 50 2,000 units PO QAM 11/27/19 01/09/20 History mcg (2,000 unit) capsule potassium chloride 10 mEq 20 meq PO BID tab 11/27/19 01/09/20 History tablet,extended release levetiracetam 500 mg tablet 500 mg PO BID 30 Days #60 tab 12/21/19 01/09/20 Rx Sandostatin LAR [place] 30 mg IM Q28D 12/28/19 01/09/20 History phenazopyridine [Pyridium] 100 mg PO TID PRN #14 tab 12/30/19 01/09/20 Rx tamsulosin [Flomax] 0.4 mg PO DAILY #30 cap 12/30/19 01/09/20 Rx triamcinolone acetonide 1 applic EXT TID #1 tube 12/30/19 01/09/20 Rx docusate sodium 250 mg PO DAILY 01/02/20 01/09/20 History docusate sodium [Colace] 100 mg PO BID 01/02/20 01/09/20 History lisinopril 5 mg PO QAM 01/02/20 01/09/20 History metoprolol succinate 25 mg PO HS 01/02/20 01/09/20 History ketoconazole 1 applic TOPICAL .ON HOLD 01/05/20 01/09/20 History oxycodone 5 mg PO Q6H PRN #20 tab 01/05/20 01/09/20 Rx Past Med/Surg History Medical History Acute CVA (cerebrovascular accident) 06/2018. Brain imaging at the time also noted chronic vs subacute CVA. Anxiety CAD (coronary artery disease) S/p CABG x 2 (SMITH to LAD and SVG to OM), 2018. GERD (gastroesophageal reflux disease) History of aortic valve disease S/P [facility] bioprosthetic AVR 2018 (with CABG) History of atrial fibrillation Post-op. History of pleural effusion 07/2018. Drained. 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 Pancreatic cancer Simple partial seizure disorder Per neurology office note 2020: History of seizure-like activity characterized by alteration in awareness, staring spells, beginning in the context of a hospitalization at [facility] for AVR, CABG in May 2018. Patient continues with Keppra. However, it is unclear to me if he needs to remain on this medication. I have recommended an up-to-date EEG. If the EEG is norm al we will consider tapering off Keppra. (EEG 12/19 = This is a normal-appearing awake/drowsy EEG demonstrating a normal reactive background rhythm, and not much else. A normal EEG does not completely exclude a diagnosis of epilepsy.) Surgical History History of cardiac cath 2017 [facility] History of colonoscopy History of cystoscopy WITH STENT PLACED History of esophagogastroduodenoscopy (EGD) History of lithotripsy History of tonsillectomy and adenoidectomy History of tooth extraction Hx of CABG two-vessel; [facility] 2017 S/P AVR (aortic valve replacement) [facility] 2017 S/P cholecystectomy Status post Power fundoplication Status post placement of cardiac pacemaker 06/2018 due to post-op heart block after CABG. 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, etc); [employer] career Feels Safe at Home: Yes Smoking Status: Never smoker Second Hand Exposure: No ; Hx Alcohol Use: No Hx Substance Use: No Review of Systems Review of Systems: All systems reviewed & are unremarkable except as noted in HPI & below Physical Exam Constitutional: WD/WN, vitals as above Eyes: PERRL, conjunctivae normal, anicteric sclerae ENMT: external ear and nose normal, oropharynx normal Neck: trachea midline, no thyromegaly Respiratory: normal respiratory effort Cardiovascular: RRR, no murmur, no edema Gastrointestinal (Abdomen): normal bowel sounds, soft, nontender, no hepatosplenomegaly Musculoskeletal: On physical examination of the left shoulder, he is wearing his sling as instructed. It is a closed injury. His radial, median, and ulnar nerves are checked and intact at his wrist. His axillary nerve was not definitively checked. He did not have any loss of lateral deltoid sensation. Psychiatric: A+Ox3, euthymic affect Results & Data Results & Data ([facility]) Diagnostic Findings X-rays of the the left shoulder do show a displaced four-part left proximal humerus fracture PG Care Time/CCT Total # of Minutes Spent Total Time Spent with Patient: Total time spent is greater than 50% in coordination of care (as documented) at patient's floor/unit and/or counseling patient: Coding Level of Care Code 89672 Initial Inpt Care Lvl 3 Diagnoses Proximal humerus fracture S42.209A
[2020-01-11] MEDS ORDERED: CEFAZOLIN 1000MG 1,000 MG/7.5 ML SYR IV SCH (06:00)
[2020-01-11] MEDS ORDERED: TRANEXAMIC ACID 1,000 MG **IV Pre-op IV SCH (06:00)
[2020-01-11] MEDS ORDERED: dexAMETHasone 4 MG TAB PO SCH (06:00)
[2020-01-11] MEDS ORDERED: GABAPENTIN 300 MG CAP PO SCH (06:00)
[2020-01-11] MEDS ORDERED: LR 15ML/HR IV SCH (06:00)
[2020-01-11] MEDS ORDERED: TRANEXAMIC ACID 1,000 MG **IV Intra-op IV SCH (06:00)
[2020-01-11] MEDS ORDERED: FAMOTIDINE 20 MG TAB PO SCH (06:00)
[2020-01-11] MEDS ORDERED: LR 60ML/HR IV SCH (06:00)
[2020-01-11] MEDS ORDERED: ACETAMINOPHEN 500 MG TAB PO SCH (06:00)
[2020-01-11] MEDS ORDERED: BUPIVACAINE 0.5 % 5 MG/1 ML PF 10ML VIAL ONE (06:16)
[2020-01-11] MEDS ORDERED: fentaNYL citrate 100 MCG/2 ML VIAL ONE (06:18)
[2020-01-11] MEDS ORDERED: LIDOCAINE HCL 2% 2 ML VIAL/AMP(20MG/ML) INFIL ONE (06:18)
[2020-01-11] MEDS ORDERED: MIDAZOLAM HCL 1 MG/ML 2ML VIAL ONE (06:18)
[2020-01-11] MEDS ORDERED: PROPOFOL IV EMULSION 10 MG/ML 20 ML VIAL IV ONE (06:18)
[2020-01-11] MEDS ORDERED: LIDOCAINE 2% JELLY 5 ML TUBE ONE (06:28)
[2020-01-11] MEDS ORDERED: HYDROmorphone INJ 1 MG/ML SYRINGE IV PRN (06:48)
[2020-01-11] MEDS ORDERED: LABETALOL HCL IV 5 MG/ML 20ML IV PRN (06:48)
[2020-01-11] MEDS ORDERED: ATROPINE SULFATE 0.1 MG/ML 10ML SYR IV PRN (06:48)
[2020-01-11] MEDS ORDERED: MEPERIDINE HCL 25 MG/ML CARP/VIAL IV PRN (06:48)
[2020-01-11] MEDS ORDERED: ONDANSETRON INJ 2 MG/ML 2 ML VIAL IV PRN ×2 (06:48→11:00)
[2020-01-11] MEDS ORDERED: PHENYLEPHRINE 100MCG/ML 5ML SYR IV PRN (06:48)
[2020-01-11] MEDS ORDERED: fentaNYL citrate 100 MCG/2 ML VIAL IV PRN (06:48)
[2020-01-11] MEDS ORDERED: ePHEDrine sulfate 50 MG/ML AMP IV PRN (06:48)
[2020-01-11] MEDS ORDERED: ROPIVACAINE 0.5% 5 MG/ML 30 ML VIAL ONE (06:54)
--- NOTE | 2020-01-11 07:01 | History & Physical Bridge Note ---
Date of Service January 11, 2020 History & Physical Bridge Note I have examined the patient, reviewed the History & Physical and in the interval since the performance of the History & Physical I have noted the following changes of clinical significance: no changes noted
[2020-01-11] MEDS ORDERED: PHENYLEPHRINE HCL 10 MG/ML VIAL ONE (07:59)
[2020-01-11] MEDS ORDERED: ONDANSETRON INJ 2 MG/ML 2 ML VIAL ONE (07:59)
[2020-01-11] MEDS ORDERED: ROCURONIUM BROMIDE 10 MG/ML 5 ML VIAL ONE (07:59)
[2020-01-11] MEDS ORDERED: SUCCINYLCHOLINE CHLORIDE 20 MG/ML 10 ML VIAL ONE (07:59)
[2020-01-11] MEDS ORDERED: NEOSTIGMINE METHYLSULFATE 5 MG/5 ML SYR ONE (08:57)
[2020-01-11] MEDS ORDERED: GLYCOPYRROLATE 0.2 MG/ML VIAL ONE (08:57)
--- NOTE | 2020-01-11 09:26 | Operative Report ---
PG Post Operative Report Pre & Post Diagnosis Operation Date: 01/11/20 07:15 Pre-Op Diagnosis: 4 part left Proximal Humerus Fracture with fraying and damage to the long head of the biceps tendon Post-Op Diagnosis: 4 part left Proximal Humerus Fracture with fraying and damage to the long head of the biceps tendon I identified the patient and participated in the time-out.: Yes Procedure Operation Date: 01/11/20 07:15 Actual Procedures p Left fracture reverse Shoulder Arthroplasty with open biceps tenodesis as a separate procedure (modifier 59) (Left) - Dany Mix DO Surgeon Dany Mix DO Care Manager Cna Dany Titus PAC Estimated Blood Loss 250 Findings Consistent with Post-Op Diagnosis Specimens Left humeral head Complications none Disposition Disposition: Recovery Room Indications Ronni is a pleasant 74-year-old male who tripped and fell directly onto his left shoulder about 5 days ago. He went to the emergency room and radiographs demonstrated a displaced four-part left proximal humerus fracture. He was placed in a sling and came to my office. After discussions, he elected to proceed with a fracture reverse shoulder arthroplasty. Description of Procedure A CPT code modifier 59: The long head of the biceps tendon was frayed and damaged secondary to the fracture. A tenodesis was opted. This was a separate and distinct portion of the procedure. For these reasons, a CPT code modifier 59 will be added to this case. Implants used: I used a [employer] Comprehensive fracture reverse total shoulder arthroplasty system with a size 12 press fit standard fracture humeral stem, a standard humeral tray and a standard humeral bearing, a 25 mm mini baseplate with a 6.5 mm central screw and superior and inferior locking screws, and a size 36 mm e ccentric glenosphere. Ronni arrived at [facility] for the above procedure. He was seen in the preoperative holding area and the operative extremity was identified and signed. He was given a preoperative antibiotic, TXA, and an interscalene nerve block. He was taken back to the operating room, laid on table in supine position, and put under general anesthesia. He was then put into the beachchair position. The shoulder was then prepped and draped in sterile fashion. A timeout was done and the patient and the operative extremity was properly identified. A deltopectoral approach was used. Dissection was taken down through the fascia and the deltoid was retracted laterally and the conjoined tendon was retracted medially. The fracture was easily exposed. The biceps groove was opened up and the biceps tendon was examined extensively. The biceps tendon demonstrated fraying and damage secondary to the trauma and fracture. The long head of the biceps tendon was then tenodesed to the upper border of the pectoralis major. This was a separate and distinct portion of the procedure. An oscillating saw and osteotome were then used to separate the lesser tuberosity fragment and the greater tuberosity fragment from the humeral head. The humeral head was then removed. Time was then spent shaping the greater and lesser tuberosities. Four #5 FiberWire sutures were passed through the infraspinatus at its articular junction. These would later be used for a repair of the rotator cuff around the prosthesis. The glenoid was then easily exposed. Time was spent doing a complete circumferential capsular release. The glenoid guide was then placed in the inferior aspect of the glenoid. A 3.2 mm Steinmann pin was then placed into the glenoid vault at 10 of inclination. The glenoid baseplate was then reamed. The final size 25 mm mini baseplate was then impacted in the place. A 6.5 mm central screw was then placed followed by superior and inferior locking screws. A 36 mm eccentric glenosphere was then impacted into place. Surrounding soft tissues were then injected with 100 cc an orthopedic pain control cocktail. The proximal humerus was then exposed. A canal finding reamer was sent down the center of the humeral canal. Sequential reaming up to a size 12 reamer was done. A 12 trial humeral stem was then impacted into place in 25 degrees of retroversion. A standard humeral tray was then placed on the humeral trial stem and the shoulder was reduced. The shoulder was brought through a full range of motion and felt to be stable. Two #5 FiberWire sutures were passed through the humeral shaft for later rotator cuff and tuberosity fixation. The final size 12 standard fracture humeral stem was then impacted into place. A standard humeral bearing was snapped onto a standard humeral tray. The humeral tray was then impacted on the humeral stem. The shoulder was then reduced. The shoulder was brought through a full range of motion and felt to be stable. 2 of the FiberWire sutures were passed through the holes of the fracture stem and passed around the stem to reduce the greater tuberosity. 2 additional sutures were passed through holes of the fracture stem and passed around the stem to reduce the lesser tuberosity. The 2 humeral shaft sutures were used to pull down the lesser tuberosity and the greater tuberosity to keep them from migrating medially. The shoulder was brought through a full range of motion. I was happy with the overall reduction of the tuberosities and the motion of the shoulder. A dilute betadyne lavage was then done for 3 minutes. The joint was then irrigated with normal saline solution. Hemostasis was obtained. The interval was closed with 2-0 Vicryl suture. The skin was then closed with 2-0 Vicryl and dariana. A soft dressing was placed and the arm was rested in a regular arm sling. He was then extubated and transferred to a hospital bed. He taken to the postanesthesia care unit in stable condition. He tolerated the procedure well. Dany Titus PA-C, was present for the entire procedure. He was critical for patient positioning, prepping, draping, retraction exposure, wound closure and application of sterile dressing. I attest to the content of the Intraoperative Record and any orders documented therein. Any exceptions are noted below.
--- NOTE | 2020-01-11 09:58 | XRay Report ---
LEFT SHOULDER 2 VIEWS CLINICAL HISTORY: Postoperative examination. FINDINGS: 2 portable views of the left shoulder are obtained. A left shoulder arthroplasty is in near anatomic alignment. No acute fracture is clearly identified. Osseous fragments are present adjacent to the humeral neck. The acromioclavicular joint is preserved. Soft tissue edema, skin clips, and sub cutaneous gas are expected postoperative findings. A cardiac pacemaker is in place. The imaged left l wojciech parenchyma appears clear. IMPRESSION: 1. Expected postoperative findings status post left shoulder arthroplasty. 2. No acute fracture is seen. 3. Bone fragments are present adjacent to the humeral neck. Electronically signed by: Kevin López M.D. 01/11/2020 9:57 AM
--- NOTE | 2020-01-11 10:15 | Anesthesiology Progress Note ---
Date of Service January 11, 2020 Anesthesia Post Procedure Vital Signs Vital Signs: Temp Pulse Pulse Resp BP Pulse Ox 01/11/20 10:05 36.6 C 74 15 98/64 L 100 01/11/20 09:55 74 13 99/62 L 100 01/11/20 09:45 76 15 95/62 L 95 01/11/20 09:35 76 10 L 98/64 L 100 01/11/20 09:25 36.4 C L 82 20 104/54 L 98 01/11/20 06:24 36.8 C 91 H 20 147/93 H 97 Pain Intensity Left Arm: Pain Intensity: 2 Transfer of Care Handoff Completed per policy Notes Mental Status: alert / awake / arousable Patient Amnestic to Procedure: Yes Nausea / Vomiting: adequately controlled Pain: adequately controlled Airway Patency, RR, SpO2: stable & adequate BP & HR: stable & adequate Hydration State: stable & adequate Anesthetic Complications: no major complications apparent and Pt Satisfied with anesthetic care Notes: The patient is awake and comfortable. His vital signs are stable.
[2020-01-11] MEDS ORDERED: METOCLOPRAMIDE HCL INJ 5 MG/ML 2 ML VIAL IV PRN (11:00)
[2020-01-11] MEDS ORDERED: HYDROmorphone INJ 0.5 MG/0.5 ML SYR IV PRN (11:00)
[2020-01-11] MEDS ORDERED: NALOXONE HCL 0.4 MG/1 ML VIAL/CARP IV PRN (11:00)
[2020-01-11] MEDS ORDERED: OCTREOTIDE IM SCH (11:00)
[2020-01-11] MEDS ORDERED: PHENAZOPYRIDINE HCL 100 MG TAB PO PRN (11:00)
[2020-01-11] MEDS ORDERED: MAGNESIUM HYDROXIDE SUSP 30 ML UDC PO PRN (11:00)
[2020-01-11] MEDS ORDERED: bisacodyL 10 MG SUPP PR PRN (11:00)
[2020-01-11] MEDS: SODIUM CHLORIDE 0.9% 1000ML 1,000 ML IV SCH ×2 (11:20→20:44)
[2020-01-11] MEDS: ACETAMINOPHEN 500 MG TAB PO SCH ×2 (13:15→21:50)
[2020-01-11] MEDS: CEFAZOLIN 2000MG 2,000 MG/15 ML SYR IV SCH ×2 (16:43→23:33)
[2020-01-11] MEDS: OXYCODONE HCL IR 5 MG TAB (IMMEDIATE RELEASE) PO PRN (19:55)
[2020-01-11] MEDS ORDERED: METOPROLOL SUCC 25MG EXT REL TAB PO SCH (21:00)
[2020-01-11] MEDS ORDERED: SENNA 8.6 MG TAB PO SCH (21:00)
[2020-01-11] MEDS ORDERED: ATORVASTATIN 40 MG TAB PO SCH (21:00)
[2020-01-11] MEDS: DOCUSATE SODIUM 100 MG CAP PO SCH (21:48)
[2020-01-11] MEDS: PANTOprazole 40 MG TAB PO SCH (21:48)
[2020-01-11] MEDS: POTASSIUM CHLORIDE 20 MEQ TABCR PO SCH (21:49)
[2020-01-11] MEDS: levETIRAcetam 500 MG TAB PO SCH (21:49)
[2020-01-12] MEDS: OXYCODONE HCL IR 5 MG TAB (IMMEDIATE RELEASE) PO PRN (00:43)
[2020-01-12 05:40] LABS: Basophils # (auto) 0.04 K/uL (0-0.2); Basophils % (auto) 0.3 %; Eosinophils # (auto) 0.06 K/uL (0-0.5); Eosinophils % (auto) 0.5 %; Hematocrit (blood only) 33.8 % (42-52); Hemoglobin 11.6 g/dL (14.0-18.0); Immature Granulocytes # (auto) 0.04 K/uL (0.00-0.02); Immature Granulocytes % (auto) 0.3 %; Lymphocytes # (auto) 1.96 K/uL (1.2-3.4); Lymphocytes % (auto) 15.8 %; Mean Corpuscular Hemoglobin 32.2 pg (25-34); Mean Corpuscular Hgb Conc 34.3 g/dL (32-36); Mean Corpuscular Volume 93.9 fL (80-100); Mean Platelet Volume 10.8 fL (7.4-10.4); Monocytes # (auto) 1.51 K/uL (0.11-0.59); Monocytes % (auto) 12.1 %; Neutrophils # (auto) 8.82 K/uL (1.4-6.5); Platelet Count 365 K/uL (130-400); RDW Coefficient of Variation 12.8 % (11.5-14.5); RDW Standard Deviation 43.6 fL (36.4-46.3); White Blood Count 12.43 K/uL (4.8-10.8)
[2020-01-12] MEDS: ACETAMINOPHEN 500 MG TAB PO SCH (06:04)
[2020-01-12 06:10] LABS: BUN Creatinine Ratio 16.1 (10-20); Calcium 8.9 mg/dl (8.5-10.1); Creatinine Clr Calc Pharmacy 59.4 ml/min; Est GFR (Non-African American) 82.8
--- NOTE | 2020-01-12 07:38 | Orthopedic Progress Note ---
Date of Service January 12, 2020 Assessment & Plan (1) History of reverse total replacement of left shoulder joint: Overall he is doing fairly well. Is not having too much pain in the left shoulder. He will be seen by physical therapy this morning for ambulation and range of motion exercises. He can be discharged home later today. He will follow-up with orthopedics in 2 weeks. Present on Admission?: Yes Subjective Ronni was seen and examined at bedside this morning. Overall he is doing very well. Is not having too much pain in the left shoulder. He was able to get some sleep last night. He has no complaints. Physical Exam Musculoskeletal: On physical examination of the left shoulder, the dressing is clean and dry. He is wearing his sling as instructed. He has a lot of swelling of his arm and his hand. His radial, median, and ulnar nerves are checked and intact his wrist. His axillary nerve was not definitively checked yet. Results & Data ([facility]) Vital Signs (Past 12 Hours) Vital Signs Temp Pulse Pulse Resp BP Pulse Ox 01/12/20 03:34 37.0 C 60 16 138/69 96 01/11/20 23:09 37.0 C 128 H 16 157/90 H 96 01/11/20 21:45 112 H 174/90 H Laboratory Results H & H 01/12/20 Range/Units 05:11 Hgb 11.6 L (14.0-18.0) g/dL Hct 33.8 L (42-52) % Diagnostic Findings Postoperative x-rays of the left shoulder show the prosthesis to be in anatomic alignment. There is no evidence of dislocation or loosening. PG Care Time/CCT Total # of Minutes Spent Total Time Spent with Patient: Total time spent is greater than 50% in coordination of care (as documented) at patient's floor/unit and/or counseling patient: Coding Level of Care Code None Diagnoses History of reverse total replacement of left shoulder joint Z98.890
--- NOTE | 2020-01-12 07:43 | Discharge Summary ---
Date of Service January 12, 2020 Admission HPI Per Admitting Provider Ronni is a pleasant 74-year-old male who recently had a lithotripsy done. He was walking back into his house after the procedure when he tripped and fell onto his left arm. He had immediate left shoulder pain. He went to the emergency room and radiographs demonstrated a comminuted left proximal humerus fracture. He was placed in a sling and presented to my office for evaluation. After discussions with he and his regarding the fracture and possible treatment options, we decided to proceed with a left reverse shoulder arthroplasty. Principal Diagnosis Left reverse shoulder arthroplasty Discharge Data Allergies Allergy/AdvReac Type Severity Reaction Status Date / Time adhesive Allergy Intermediate Hives Verified 01/11/20 06:04 ciprofloxacin [From Cipro] Allergy Intermediate Hives Verified 01/11/20 06:04 heparin AdvReac Severe thrombocyto Verified 01/11/20 06:04 penia buspirone [From BuSpar] AdvReac Intermediate Dizziness Verified 01/11/20 06:04 lansoprazole [From Prevacid] AdvReac Mild Diarrhea Verified 01/11/20 06:04 venlafaxine [From Effexor] AdvReac Mild somnulence Verified 01/11/20 06:04 Consultations 01/11/20 11:00 Consult Case Management - Discharge Planning Routine Procedures Performed Operation Date: 01/11/20 07:15 Actual Procedures p Left Reverse Shoulder Arthroplasty(Left) - Dany Mix DO Ordered Studies 01/11/20 06:48 US - OR guided needle placemen Routine Hospital Course (1) History of reverse total replacement of left shoulder joint: On January 11, 2020 Ronni arrived at [facility] and underwent a fracture reverse left shoulder arthroplasty without complication. He had a general anesthetic and a left interscalene nerve block. Postoperatively he was placed in a sling and transferred to the general orthopedic floors. His hospital course was uneventful. On postop day #1 his H&H was stable and his pain was well controlled. He was able to participate well with physical therapy doing ambulation and range of motion exercises. He was then discharged to home. He will follow-up with orthopedics in 2 weeks. Total Time Total Time Spent Total Time Spent (In Minutes): 20 Discharge Plan Discharge Items Reason For Visit: Left Humerus Fracture Discharge Diagnosis: Left reverse shoulder arthroplasty Activity: As commented below Non-emergency contact: Surgeon Call non-emergency contact if: your wound has increased redness and your wound has increased drainage Follow-up/Referrals: Elvis Falk, [Primary Care Provider] - Diet: Regular Addtl Attending Provider Instructions: Activity and Therapy Recommendations: * If you are using [facility] then therapy will be provided at your home until they feel you have accomplished all of your goals. * If you are using [facility] then Physical Therapy will be provided until they feel you are ready to start Outpatient Physical Therapy. * If you are not using home therapy then Outpatient Physical Therapy should start about 3-5 days from your day of surgery. Therapy will last about 8-12 weeks * Wear your sling for 3 weeks, unless otherwise instructed. You may remove your sling to shower and to dress, but otherwise, you should be in your sling at all times, including while sleeping * The shoulder replacement is very stable and you can use your hand while in the sling * You were shown a series of exercises in the hospital. Do these exercises daily including the exercises you were shown in physical therapy. Medications: * Narcotic You will likely be sent home from the hospital with a prescription for the narcotic pain medication that worked best throughout your stay. * Other medications may be prescribed for specific circumstances. If you have any questions, please call the office at . * Resume previous home medications unless otherwise instructed Dressing Care: Leave the plastic dressing in place for 5 days. After 5 days you may remove the plastic dressing. If the incision is not draining then you may leave the dariana open to air. If there is a little bit of drainage or if the dariana are getting stuck on your clothing then cover the incision with a dry dressing. The dariana will be removed at your 2 week follow-up appointment. Showering: You may shower with the plastic dressing in place. Let the shower spray hit the other shoulder. You can pat the plastic dry. If the dressing becomes wet underneath the plastic then simply remove the dressing. Keep the incision dry until you are 5 days out from the day of surgery. At that time you can shower with the dariana exposed. Let the soapy shower water run over the dariana and pat them dry. Do not scrub or soak the incision. Things To Watch For: * Drainage from the incision site that occurs more than one week after your surgery. * Increased redness at the incision site. * Fever above 102 degrees Fahrenheit. * Unusual chest pain or shortness of breath. * Call [facility] at with any of the above problems Follow-Up Visit: Follow-up with Dr. Mix's PA (Dany Titus) 2-3 weeks after your day of surgery. He will remove your dariana and answer any questions. If you have any additional questions or concerns, Dr Mix is usually in the office at the same time and will be available An appointment was probably scheduled when you signed-up for surgery in the office. If you have any questions call More detailed instructions as well as Frequently Asked Questions were provided in a folder by our office when you signed-up for surgery. Please review these instructions when you get home. If you have any further questions or concerns, please feel free to call the office at [phone] Pending Studies at Discharge: No Stand-Alone Forms: My [facility], Smoking Cessation Medications and DC Order Prescriptions: Continued levetiracetam 500 mg tablet 500 mg PO BID 30 Days Qty: 60 RF: 2 cholecalciferol (vitamin D3) 50 mcg (2,000 unit) capsule 2,000 units PO QAM RF: 0 ketoconazole 2 % shampoo 1 applic TOPICAL .ON HOLD RF: 0 atorvastatin [Lipitor] 40 mg tablet 40 mg PO HS RF: 0 aspirin 81 mg Tablet,Delayed Release (Dr/Ec) 81 mg PO QAM RF: 0 magnesium oxide [MagOx] 400 mg (241.3 mg magnesium) tablet 400 mg PO QAM RF: 0 pantoprazole [Protonix] 40 mg tablet,delayed release (DR/EC) 40 mg PO BID RF: 0 potassium chloride [Klor-Con 10] 10 mEq tablet extended release 20 meq PO BID RF: 0 Sandostatin L[place] 30 mg Suspension,Extended Rel Recon 30 mg IM Q28D RF: 0 triamcinolone acetonide 0.1 % Cream 1 applic EXT TID Qty: 1 RF: 0 tamsulosin [Flomax] 0.4 mg capsule 0.4 mg PO DAILY Qty: 30 RF: 0 phenazopyridine [Pyridium] 100 mg tablet 100 mg PO TID PRN (Reason: urinary pain) Qty: 14 RF: 0 lisinopril 10 mg Tablet 5 mg PO QAM RF: 0 metoprolol succinate 25 mg Tablet Extended Release 24 Hr 25 mg PO HS RF: 0 docusate sodium [Colace] 100 mg Capsule 100 mg PO BID RF: 0 docusate sodium 250 mg Capsule 250 mg PO DAILY RF: 0 acetaminophen [Acetaminophen Extra Strength] 500 mg Tablet 500 mg PO QID PRN (Reason: Pain) RF: 0 oxycodone 5 mg tablet 5 mg PO Q6H PRN (Reason: pain) Qty: 30 RF: 0 Admission Data Admit Date/Time: 01/11/20 09:28 Attending Provider: Dany Mix Admit Provider: Dany Mix Primary Care Provider: Elvis Falk Coding Level of Care Code D/C Day Management <30 mins Diagnoses History of reverse total replacement of left shoulder joint Z98.890
[2020-01-12] MEDS ORDERED: dexAMETHasone 4 MG TAB PO SCH (08:00)
[2020-01-12] MEDS: DOCUSATE SODIUM 100 MG CAP PO SCH (08:33)
[2020-01-12] MEDS: POTASSIUM CHLORIDE 20 MEQ TABCR PO SCH (08:33)
[2020-01-12] MEDS: PANTOprazole 40 MG TAB PO SCH (08:33)
[2020-01-12] MEDS: levETIRAcetam 500 MG TAB PO SCH (08:33)
--- NOTE | 2020-01-12 08:53 | XRay Report ---
KUB HISTORY: urology stent removal COMPARISON: KUB 01/05/2020. FINDINGS: A left ureteral stent appears in good position. No definite renal or ureteral calculi. Pac emaker wires are noted. No pneumoperitoneum or pneumatosis. Mildly dilated gas-filled loops of large and small bowel likely representing mild ileus. No evidence for bowel obstruction. 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 IMPRESSION: 1. A left ureteral stent appears in good position. 2. No definite renal or ureteral calculi. ACT 112: Negative or not required by law. Electronically signed by: Mati Bhatia M.D. 01/12/2020 8:52 AM
[2020-01-12] MEDS ORDERED: MULTIVITAMIN TAB PO SCH (09:00)
[2020-01-12] MEDS ORDERED: MAGNESIUM OXIDE 400 MG TAB PO SCH (09:00)
[2020-01-12] MEDS ORDERED: lisinopriL 5 MG TAB PO SCH (09:00)
[2020-01-12] MEDS ORDERED: ASPIRIN 81 MG ECTAB PO SCH (09:00)
[2020-01-12] MEDS ORDERED: TAMSULOSIN HCL 0.4 MG CAP PO SCH (09:00)
--- NOTE | 2020-01-12 13:22 | Anesthesiology Progress Note ---
Date of Service January 12, 2020 Anesthesia Post Procedure Vital Signs Vital Signs: Temp Pulse Pulse Pulse Resp BP Pulse Ox 01/12/20 09:56 37.0 C 112 H 100 H 100 H 18 131/81 94 01/12/20 07:53 37.0 C 100 H 18 131/81 94 01/12/20 03:34 37.0 C 60 16 138/69 96 01/11/20 23:09 37.0 C 128 H 16 157/90 H 96 01/11/20 21:45 112 H 174/90 H 01/11/20 19:17 36.7 C 100 H 18 153/89 H 96 01/11/20 15:13 36.7 C 97 H 18 112/64 96 01/11/20 13:44 36.5 C 82 16 105/54 L 100 Pain Intensity Left Arm: Pain Intensity: 6 Notes Mental Status: alert / awake / arousable and participated in evaluation Patient Amnestic to Procedure: Yes Nausea / Vomiting: see Notes below Pain: adequately controlled Airway Patency, RR, SpO2: stable & adequate BP & HR: stable & adequate Hydration State: stable & adequate Anesthetic Complications: no major complications apparent and Pt Satisfied with anesthetic care
== END 2020-01-12 11:47 | disposition home or self-care (01) ==
LOC: ASU 05:27 → 3E 09:28 → INTOOBSV 09:28

== ENCOUNTER 2022-04-30 17:41 | Inpatient (IN) ==
[2022-04-30] MEDS ORDERED: FAMOTIDINE 20MG IV PUSH 20 MG/5 ML SYR IV STA (18:07)
[2022-04-30] MEDS ORDERED: ONDANSETRON INJ 2 MG/ML 2 ML VIAL IV STA (18:07)
[2022-04-30] MEDS ORDERED: SODIUM CHLORIDE 0.9% 1000ML 1,000 ML IV SCH (18:15)
--- NOTE | 2022-04-30 18:15 | Emergency Department Note ---
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 He did have direct chemotherapy to the cancer in March of this year at [facility]. He has been home since then. In the last 2 weeks, especially the last week, he has had a lot of difficulty eating and drinking. He has a lot of reflux and coughs every time he tries to eat or drink anything. He has lost his appetite. He has had a bit of shortness of breath. He has lost weight. There has been no fever. No vomiting, no diarrhea. He is quite thin and frail. He was sent in by his primary doctor's office for hydration and hospita lization. REVIEW OF SYSTEMS: See HPI for pertinent positives and negatives. A total of ten systems were reviewed and were otherwise negative. PMHx/PSHx: See Below SOCIAL HISTORY: See Below. PHYSICAL EXAM: GENERAL: Patient is in no acute distress. Extremely thin and frail. HEENT: No acute trauma, normocephalic atraumatic, mucous membranes moist, no nasal congestion, no scleral icterus. NECK: No stridor, no adenopathy, no meningismus, trachea is midline. LUNGS: Diminished breath sounds bilaterally especially on the right. No obvious respiratory distress. No wheezing or rhonchi. HEART: Without murmurs gallops or rubs, regular rate and rhythm. ABDOMEN: Soft, nontender, bowel sounds positive, no peritonitis. EXTREMITIES: No cyanosis or edema, full range of motion of all the joints without pain or difficulty, no signs for acute trauma. NEUROLOGIC: Oriented x 3, no acute motor or sensory deficits, no focal weakness. SKIN: No rash, no jaundice, no diaphoresis. Pale. DIFFERENTIAL DIAGNOSIS: Infection, dehydration, aspiration, pleural effusion, pneumonia, metabolic abnormality, hypo/hyperglycemia, electrolyte disturbance, anemia, hypoxia, cardiac sources, intracerebral event, toxicologic issues, stroke, TIA, as well as other pathologies. EMERGENCY DEPARTMENT COURSE/PROCEDURES: ECG: Indication was weakness. The ECG shows a ventricular pacemaker with a rate of 119. There is some baseline artifact. No concerning ST elevation, no PVCs. The QTc is 284. Continuous Cardiac Monitoring: An order was placed for continuous cardiac monitoring. The monitor shows a rate of 66 with normal sinus rhythm. MEDICAL DECISION MAKING: There is no leukocytosis or concerning anemia. There is a normal platelet count. No renal failure or significant electrolyte abnormality requiring emergent correction. There were a few liver enzyme elevations noted consistent with his cancer. ECG showed a ventricular pacemaker, no obvious ischemia. Cardiac enzyme testing x1 was slightly elevated, this could be consistent with cardiac injury or potentially mismatch. She appeared to be in a euthyroid state. COVID test was negative. Chest x-ray did not show pneumonia or CHF. Chest CT did not show PE, bilateral lower lung pneumonia was thought possible. On exam, the patient was quite frail, thin, debilitated and appeared dehydrated. The patient received IV saline, 1 L. He was given IV Zofran, IV Pepcid. He was given IV ceftriaxone. The patient is in need of a hospital stay. He appears to have pneumonia, likely aspiration pneumonia. He is quite dehydrated and debilitated. His cancer has made it difficult for him to eat or drink. I did speak with the patient and his family, the on-call hospitalist was consulted. Past Med/Surg History Medical History Acute CVA (cerebrovascular accident) 06/2018. Brain imaging at the time also noted chronic vs subacute CVA. pt denies deficits Anxiety CAD (coronary artery disease) S/p CABG x 2 (SMITH to LAD and SVG to OM), 2017. GERD (gastroesophageal reflux disease) History of aortic valve disease S/P [facility] bioprosthetic AVR 2018 (with CABG) History of atrial fibrillation Post-op CABG. follows with Dr. Orta. History of pleural effusion 07/2018. Drained. HLD (hyperlipidemia) HTN (hypertension) Humerus fracture LEFT SIDE Kidney stones Pacemaker [employer]; [facility], [place], operated by [facility] for postop complete heart block after CABG 2017. last check 1 mo ago Pancreatic cancer with mets to liver dx 2018; s/p TACE procedure x 2 Simple partial seizure disorder Per neurology office note 2020: History of seizure-like activity characterized by alteration in awareness, staring spells, beginning in the context of a hospitalization at [facility] for AVR, CABG in May 2018. Patient continues with Keppra. However, it is unclear to me if he needs to remain on this medication. I have recommended an up-to-date EEG. If the EEG is normal we will consider tapering off Keppra. (EEG 12/19 = This is a normal-appearing awake/drowsy EEG demonstrating a normal reactive background rhythm, and not much else. A normal EEG does not completely exclude a diagnosis of epilepsy.) Surgical History History of cardiac cath 2017 [facility] History of colonoscopy History of cystoscopy WITH STENT PLACED History of esophagogastroduodenoscopy (EGD) History of lithotripsy History of reverse total replacement of left shoulder joint History of surgery TACE procedure x 2 History of tonsillectomy and adenoidectomy History of tooth extraction Hx of CABG two-vessel; [facility], [place], operated by [facility] 2017 S/P AVR (aortic valve replacement) [facility], [place], operated by [facility] 2017 S/P cholecystectomy Status post Power fundoplication Status post placement of cardiac pacemaker 06/2018 due to post-op heart block after CABG. Family History Father Heart disease S/P CABG (coronary artery bypass graft) Stroke Family history of diabetes mellitus Mother Heart disease Hypertension Stroke Family history of diabetes mellitus Grandfather (Maternal) Stroke Grandfather (Paternal) Cirrhosis of liver Social History Smoking Status: Never smoker Second Hand Exposure: No; Hx Alcohol Use: No Hx Substance Use: No Preferred Language: Guatemalan Communication Ability: Effective Visual Impairment: No Limitations Wildlife Manager Required: No Beliefs That Will Affect Care: None marital status: Current Living Situation: Spouse current occupational status: retired 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, etc); [employer] career Feels Safe at Home: Yes Assistive Devices: Glasses Allergies Allergies Allergy/AdvReac Type Severity Reaction Status Date / Time adhesive Allergy Intermediate Hives Verified 10/03/21 07:17 ciprofloxacin [From Cipro] Allergy Intermediate Hives Verified 10/03/21 07:17 heparin AdvReac Severe thrombocyto Verified 10/03/21 07:17 penia buspirone [From BuSpar] AdvReac Intermediate Dizziness Verified 10/03/21 07:17 lansoprazole [From Prevacid] AdvReac Mild Diarrhea Verified 10/03/21 07:17 venlafaxine [From Effexor] AdvReac Mild somnulence Verified 10/03/21 07:17 Home Meds Home Medications Medication Instructions Recorded Confirmed aspirin 81 mg tablet,delayed 81 mg PO QAM 07/20/18 09/30/21 release atorvastatin 40 mg tablet (Lipitor) 40 mg PO HS 07/20/18 09/30/21 magnesium oxide 400 mg (241.3 mg 400 mg PO QAM 07/20/18 09/30/21 magnesium) tablet (MagOx) cholecalciferol (vitamin D3) 50 2,000 units PO QAM 11/27/19 09/30/21 mcg (2,000 unit) capsule octreotide,microspheres 30 mg 30 mg IM Q28D 12/28/19 09/30/21 intramuscular susp, extended release (Sandostatin LAR Depot) docusate sodium 100 mg capsule 200 mg PO HS 01/02/20 09/30/21 (Colace) metoprolol succinate 25 mg 25 mg PO HS 01/02/20 09/30/21 tablet,extended release 24 hr ketoconazole 2 % shampoo 1 applic topical .ON HOLD 01/05/20 09/30/21 potassium chloride 10 mEq 30 meq PO BID 09/09/21 09/30/21 tablet,extended release (Klor-Con) Previous Rx's Medication Instructions Recorded tamsulosin 0.4 mg capsule 0.4 mg PO DAILY #30 caps 09/30/21 levetiracetam 500 mg tablet 500 mg PO BID 90 days #180 tabs 12/21/21 Results & Data (ED) Vital Signs Vital Signs - 24 hr 04/30/22 17:50 04/30/22 18:08 04/30/22 18:13 Temperature 36.5 C Temperature Source Temporal Artery Scan Pulse Rate 66 Pulse Rate [Apical] 64 Respiratory Rate 20 18 Respiratory Effort / Characteristics Non-Labored Non-Labored Respiratory Depth Normal Normal Respiratory Pattern Regular Blood Pressure 165/84 H Blood Pressure [Right Arm] 106/67 Blood Pressure Mean 111 Blood Pressure Mean [Right Arm] 80 Blood Pressure Position Sitting Blood Pressure Position [Right Arm] Lying Pulse Oximetry 83 L 92 92 Oxygen Delivery Method Room Air Nasal Cannula Nasal Cannula Oxygen Flow Rate 6 6 Sepsis Recent Fever Within 48 Hours No Sepsis New/Unexplained Change in Mental Status No Sepsis Action Taken by Nursing No Action Required 04/30/22 19:00 Temperature Temperature Source Pulse Rate Pulse Rate [Apical] 101 H Respiratory Rate 18 Respiratory Effort / Characteristics Non-Labored Spontaneous Respiratory Depth Normal Respiratory Pattern Blood Pressure Blood Pressure [Right Arm] 135/85 Blood Pressure Mean Blood Pressure Mean [Right Arm] 101 Blood Pressure Position Blood Pressure Position [Right Arm] Lying Pulse Oximetry 100 Oxygen Delivery Method Nasal Cannula Oxygen Flow Rate 6 Sepsis Recent Fever Within 48 Hours Sepsis New/Unexplained Change in Mental Status Sepsis Action Taken by Correction Medications Current Medication List: was personally reviewed by me Laboratory Data Attestation: I reviewed the patient's lab results. Result diagrams: 04/30/22 18:25 04/30/22 18:25 Lab Results 04/30/22 04/30/22 04/30/22 Range/Units 18:25 18:25 18:25 WBC 10.48 (4.8-10.8) K/ul RBC 4.56 L (4.63-6.08) M/uL Hgb 14.5 (14.0-18.0) g/dl Hct 43.8 (40.1-51.0) % MCV 96.1 (80.0-100.0) fL MCH 31.8 (25.0-34.0) pg MCHC 33.1 (32.0-36.0) g/dL RDW Std Deviation 50.0 H (36.4-46.3) fL RDW Coeff of Mason 14.2 (11.5-14.5) % Plt Count 228 (130-400) K/uL MPV 11.6 (9.4-12.4) fL Immature Gran % (Auto) 0.2 % Neut % (Auto) 86.4 % Lymph % (Auto) 7.3 % Whitman % (Auto) 5.9 % Eos % (Auto) 0.0 % Baso % (Auto) 0.2 % Neut # (Auto) 9.06 H (1.4-6.5) K/uL Lymph # (Auto) 0.76 L (1.2-3.4) K/uL Whitman # (Auto) 0.62 (0.24-0.82) K/uL Eos # (Auto) 0.00 (0-0.50) K/uL Baso # (Auto) 0.02 (0-0.2) K/uL Immature Gran # (Auto) 0.02 (0.00-0.02) K/uL Sodium 144 (136-145) mmol/L Potassium 3.6 (3.5-5.1) mmol/L Chloride 101 (98-107) mmol/L Carbon Dioxide 28 (21-32) mmol/L Anion Gap 15 H (3-11) BUN 37 H (6-23) mg/dl Creatinine 0.80 (0.6-1.4) mg/dl Est Cr Clr Drug Dosing 44.1 ml/min Est GFR ( Amer) 101.3 ml/min Est GFR (Non-Af Amer) 87.4 ml/min BUN/Creatinine Ratio 46.3 H (10-20) Glucose 142 H (70-99(Fasting)) mg/dl Calcium 10.3 H (8.5-10.1) mg/dl Magnesium 1.9 (1.7-2.4) mg/dl Total Bilirubin 1.3 H (0.2-1.0) mg/dl AST 65 H (13-39) U/L ALT 40 (7-52) U/L Alkaline Phosphatase 789 H (34-104) U/L Troponin I High Sens 46.3 H (0-20) pg/ml Total Protein 7.4 (6.0-8.3) gm/dl Albumin 4.0 (3.4-5.0) gm/dl Globulin 3.4 (2.5-4.0) gm/dl Albumin/Globulin Ratio 1.2 (0.9-2) TSH 1.891 (0.300-4.500) uIu/ml SARS-CoV-2, RNA, NAAT (NEGATIVE) 04/30/22 Range/Units 18:58 WBC (4.8-10.8) K/ul RBC (4.63-6.08) M/uL Hgb (14.0-18.0) g/dl Hct (40.1-51.0) % MCV (80.0-100.0) fL MCH (25.0-34.0) pg MCHC (32.0-36.0) g/dL RDW Std Deviation (36.4-46.3) fL RDW Coeff of Mason (11.5-14.5) % Plt Count (130-400) K/uL MPV (9.4-12.4) fL Immature Gran % (Auto) % Neut % (Auto) % Lymph % (Auto) % Whitman % (Auto) % Eos % (Auto) % Baso % (Auto) % Neut # (Auto) (1.4-6.5) K/uL Lymph # (Auto) (1.2-3.4) K/uL Whitman # (Auto) (0.24-0.82) K/uL Eos # (Auto) (0-0.50) K/uL Baso # (Auto) (0-0.2) K/uL Immature Gran # (Auto) (0.00-0.02) K/uL Sodium (136-145) mmol/L Potassium (3.5-5.1) mmol/L Chloride (98-107) mmol/L Carbon Dioxide (21-32) mmol/L Anion Gap (3-11) BUN (6-23) mg/dl Creatinine (0.6-1.4) mg/dl Est Cr Clr Drug Dosing ml/min Est GFR ( Amer) ml/min Est GFR (Non-Af Amer) ml/min BUN/Creatinine Ratio (10-20) Glucose (70-99(Fasting)) mg/dl Calcium (8.5-10.1) mg/dl Magnesium (1.7-2.4) mg/dl Total Bilirubin (0.2-1.0) mg/dl AST (13-39) U/L ALT (7-52) U/L Alkaline Phosphatase (34-104) U/L Troponin I High Sens (0-20) pg/ml Total Protein (6.0-8.3) gm/dl Albumin (3.4-5.0) gm/dl Globulin (2.5-4.0) gm/dl Albumin/Globulin Ratio (0.9-2) TSH (0.300-4.500) uIu/ml SARS-CoV-2, RNA, NAAT NEGATIVE (NEGATIVE) Administered Medications Discontinued Medications Sodium Chloride (Nss 1000ml) 1,000 mls @ 999 mls/hr IV .Q1H1M TYLER Stop: 04/30/22 19:15 Last Admin: 04/30/22 18:25 Dose: 999 mls/hr Documented By: EDITH Famotidine (Pepcid 20mg Iv Push) 20 mg in 5 mls @ 2.5 mls/min IV NOW STA Stop: 04/30/22 18:08 Last Admin: 04/30/22 18:25 Dose: 2.5 mls/min Documented By: EDITH Ceftriaxone Sodium (Rocephin) 2,000 mg in 70 mls @ 140 mls/hr IV NOW STA Stop: 04/30/22 21:35 Last Admin: 04/30/22 21:48 Dose: 140 mls/hr Documented By: BOOGIE Ioversol (Optiray 320 125ml) 120 ml IV ONCE ONE Stop: 04/30/22 20:29 Last Admin: 04/30/22 20:29 Dose: 120 ml Documented By: ASHIA Ondansetron HCl (Ondansetron Inj 2 Mg/Ml 2 Ml Vial) 4 mg IV NOW STA Stop: 04/30/22 18:08 Last Admin: 04/30/22 18:24 Dose: 4 mg Documented By: EDITH Imaging Data Radiologist's Impression: Chest X-Ray 04/30/22 18:08 XR chest 1V portable CLINICAL HISTORY: weakness TECHNIQUE: Single frontal radiograph of the chest was obtained. Comparison: Comparison is made to chest radiograph 04/29/2022 FINDINGS: Left total reverse shoulder arthroplasty is seen. Median sternotomy wires are seen. Dual-lead pacemaker is seen. The cardiomediastinal silhouette is normal. The lungs are clear. No evidence of pleural effusion or pneumothorax. IMPRESSION: No acute chest disease. ACT 112: Negative or not required by law. Electronically signed by: Mark Rodriguez M.D. 04/30/2022 6:54 PM Chest CTA 04/30/22 19:13 CT angio chest PE protocol CLINICAL HISTORY: PE TECHNIQUE: Multidetector row helical CT of the chest was performed with angiographic protocol. Coronal and sagittal reformations were obtained. Coronal and sagittal MIPS were obtained from the axial data set and were submitted for review. Automated dose lowering techniques and/or adjustment according to patient size were utilized for this exam. CT DOSE: 238.62 mGy.cm Comparison: Comparison is made to CT chest 07/07/2018 FINDINGS: Lungs and pleura: Groundglass opacities in the right upper lobe (series 3 image 83). Atelectasis and some groundglass opacities are seen in the bilateral lower lobes. Bronchial wall thickening and mucous plugging are noted. Heart and pericardium: Heart size is normal. No pericardial effusion. Vessels: No evidence of pulmonary embolism. Mediastinum and isha: Unremarkable. Chest wall and lower neck: Patient is cachectic. Abdomen: Numerous hepatic hypodensities are seen compatible with metastasis. Patient status post cholecystectomy with physiologic dilation of the common bile duct. Bones: Degenerative changes in the thoracic spine. IMPRESSION: 1. No evidence of pulmonary embolism. 2. Groundglass and solid opacities are seen, predominantly in the lower lungs, which may represent infectious/inflammatory process. ACT 112: Negative or not required by law. Electronically signed by: Mark Rodriguez M.D. 04/30/2022 9:00 PM Discharge Plan Visit Data Chief Complaint: Dehydration Stated Complaint: SEVERE DEHYDRATION. SENT BY DR KRAMER ED Provider: Kevin Castillo Discharge Problem: Hypoxia, Dehydration, Pneumonia, Cough Patient Disposition: Admitted As Inpatient Condition: Fair Forms Stand Alone Forms: My [facility] Prescriptions Prescriptions: No Action tamsulosin 0.4 mg capsule 0.4 mg PO DAILY Qty: 30 0RF Rx Instructions: take at bedtime levetiracetam 500 mg tablet 500 mg PO BID 90 Days Qty: 180 1RF cholecalciferol (vitamin D3) 50 mcg (2,000 unit) capsule 2,000 units PO QAM ketoconazole 2 % shampoo 1 applic TOPICAL .ON HOLD atorvastatin [Lipitor] 40 mg tablet 40 mg PO HS aspirin 81 mg Tablet,Delayed Release (Dr/Ec) 81 mg PO QAM Label Comments: PRESENTLY ON HOLD FOR LITHOTRIPSY magnesium oxide [MagOx] 400 mg (241.3 mg magnesium) tablet 400 mg PO QAM potassium chloride [Klor-Con 10] 10 mEq tablet extended release 30 meq PO BID Sandostatin LAR Depot 30 mg Suspension,Extended Rel Recon 30 mg IM Q28D metoprolol succinate 25 mg Tablet Extended Release 24 Hr 25 mg PO HS docusate sodium [Colace] 100 mg Capsule 200 mg PO HS Referrals Referrals: Elvis Falk, [Primary Care Provider] -
[2022-04-30 18:39] LABS: Basophils # (auto) 0.02 K/uL (0-0.2); Basophils % (auto) 0.2 %; Hematocrit (blood only) 43.8 % (40.1-51.0); Hemoglobin 14.5 g/dl (14.0-18.0); Immature Granulocytes # (auto) 0.02 K/uL (0.00-0.02); Immature Granulocytes % (auto) 0.2 %; Lymphocytes # (auto) 0.76 K/uL (1.2-3.4); Lymphocytes % (auto) 7.3 %; Mean Corpuscular Hemoglobin 31.8 pg (25.0-34.0); Mean Corpuscular Hgb Conc 33.1 g/dL (32.0-36.0); Mean Corpuscular Volume 96.1 fL (80.0-100.0); Mean Platelet Volume 11.6 fL (9.4-12.4); Monocytes # (auto) 0.62 K/uL (0.24-0.82); Monocytes % (auto) 5.9 %; Neutrophils # (auto) 9.06 K/uL (1.4-6.5); Neutrophils % (auto) 86.4 %; Platelet Count 228 K/uL (130-400); RDW Coefficient of Variation 14.2 % (11.5-14.5); Red Blood Count 4.56 M/uL (4.63-6.08); White Blood Count 10.48 K/ul (4.8-10.8)
--- NOTE | 2022-04-30 18:55 | XRay Report ---
XR chest 1V portable CLINICAL HISTORY: weakness TECHNIQUE: Single frontal radiograph of the chest was obtained. Comparison: Comparison is made to chest radiograph 04/29/2022 FINDINGS: Left total reverse shoulder arthroplasty is seen. Median sternotomy wires are seen. Dual-lead pacemak er is seen. The cardiomediastinal silhouette is normal. The lungs are clear. No evidence of pleural e ffusion or pneumothorax. IMPRESSION: No acute chest disease. ACT 112: Negative or not required by law. Electronically signed by: Mark Rodriguez M.D. 04/30/2022 6:54 PM
[2022-04-30 19:01] LABS: Albumin Globulin Ratio 1.2 (0.9-2); BUN Creatinine Ratio 46.3 (10-20); Bilirubin,Total 1.3 mg/dl (0.2-1.0); Calcium 10.3 mg/dl (8.5-10.1); Creatinine Clr Calc Pharmacy 44.1 ml/min; Est GFR (African American) 101.3 ml/min; Est GFR (Non-African American) 87.4 ml/min; Globulin 3.4 gm/dl (2.5-4.0); Magnesium 1.9 mg/dl (1.7-2.4); Potassium 3.6 mmol/L (3.5-5.1); Total Protein 7.4 gm/dl (6.0-8.3)
[2022-04-30 19:07] LABS: Troponin I High Sensitivity 46.3 pg/ml (0-20)
--- NOTE | 2022-04-30 20:19 | History & Physical Report ---
Date of Service April 30, 2022 Assessment & Plan (1) Dysphagia: Plan: 77yo male with history of neuroendocrine tumor of the pancreas presenting with 3-4 days of oropharyngeal dysphagia. Patient is unable to tolerate oral intake. Possible aspiration as he is coughing with oral intake. 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 Stable -Monitor UOP -Continue Flomax 0.4mg po daily (4) HLD (hyperlipidemia): Plan: Chronic. Stable -Continue Atorvastatin 40mg po qHS (5) HTN (hypertension): Plan: Chronic. Blood pressure stable -Continue Metoprolol 25mg po qHS -Continue to monitor (6) CAD (coronary artery disease): Plan: Chronic. Stable. Patient with elevated troponin at 46.3. Denies chest pain. No acute ischemic changes on EKG. -Continue ASA, Atorvastatin, Metoprolol -Telemetry monitoring -Trend troponin Plan F/E/N- LR at 60mL/hr x 1 liter, monitor electrolytes and replete as needed, NPO for now with aspiration precautions 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 - SCDs to bilateral LE Code - Full per discussion with patient Dispo -Admit to medical History of Present Illness Chief Complaint: aspiration Primary Care Provider: Elvis Falk DO Peña Rodriguez is a 77yo male with history of pancreatic neuroendocrine tumor with known liver metastasis presently on Sandostatin therapy and receiving trans-arterial chemoembolization treatments presenting with oral intolerance. Patient developed clear post-nasal drainage several weeks ago. He has been unable to clear his secretions effectively. He has had a cough productive for white sputum progressive over the last several weeks as well. For the last 3-4 days he has been unable to tolerate oral intake. He reports coughing and choking on even a small amount of water. He has not been able to eat or drink at all. He has hoarseness of the voice for several weeks. He denies painful swallowing but does have a sore throat at times. He denies fever, chills, chest pain, palpitations, nausea, vomiting, diarrhea or constipation. +Weight loss No additional complaints. ER Course: Pepcid, Zofran Allergies Allergy/AdvReac Type Severity Reaction Status Date / Time heparin Allergy Severe thrombocyto Verified 04/30/22 23:47 penia adhesive Allergy Intermediate Hives Verified 10/03/21 07:17 ciprofloxacin [From Cipro] Allergy Intermediate Hives Verified 10/03/21 07:17 buspirone [From BuSpar] AdvReac Intermediate Dizziness Verified 10/03/21 07:17 lansoprazole [From Prevacid] AdvReac Mild Diarrhea Verified 10/03/21 07:17 venlafaxine [From Effexor] AdvReac Mild somnulence Verified 10/03/21 07:17 Home Medications Medication Instructions Recorded Confirmed Type aspirin 81 mg tablet,delayed 81 mg PO QAM 07/20/18 09/30/21 History release atorvastatin 40 mg tablet (Lipitor) 40 mg PO HS 07/20/18 09/30/21 History magnesium oxide 400 mg (241.3 mg 400 mg PO QAM 07/20/18 09/30/21 History magnesium) tablet (MagOx) cholecalciferol (vitamin D3) 50 2,000 units PO QAM 11/27/19 09/30/21 History mcg (2,000 unit) capsule octreotide,microspheres 30 mg 30 mg IM Q28D 12/28/19 09/30/21 History intramuscular susp, extended release (Sandostatin LAR Depot) docusate sodium 100 mg capsule 200 mg PO HS 01/02/20 09/30/21 History (Colace) metoprolol succinate 25 mg 25 mg PO HS 01/02/20 09/30/21 History tablet,extended release 24 hr ketoconazole 2 % shampoo 1 applic topical .ON HOLD 01/05/20 09/30/21 History potassium chloride 10 mEq 30 meq PO BID 09/09/21 09/30/21 History tablet,extended release (Klor-Con) tamsulosin 0.4 mg capsule 0.4 mg PO DAILY #30 caps 09/30/21 10/03/21 Rx levetiracetam 500 mg tablet 500 mg PO BID 90 days #180 tabs 12/21/21 Rx Past Med/Surg History Medical History Acute CVA (cerebrovascular accident) 06/2018. Brain imaging at the time also noted chronic vs subacute CVA. pt denies deficits Anxiety CAD (coronary artery disease) S/p CABG x 2 (SMITH to LAD and SVG to OM), 2018. GERD (gastroesophageal reflux disease) History of aortic valve disease S/P [facility] bioprosthetic AVR 2018 (with CABG) History of atrial fibrillation Post-op CABG. follows with Dr. Orta. History of pleural effusion 07/2018. Drained. HLD (hyperlipidemia) HTN (hypertension) Humerus fracture LEFT SIDE Kidney stones Pacemaker [employer]; [facility] for postop complete heart block after CABG 2017. last check 1 mo ago Pancreatic cancer with mets to liver dx 2017; s/p TACE procedure x 2 Simple partial seizure disorder Per neurology office note 2020: History of seizure-like activity characterized by alteration in awareness, staring spells, beginning in the context of a hospitalization at [facility] for AVR, CABG in May 2018. Patient continues with Keppra. However, it is unclear to me if he needs to remain on this medication. I have recommended an up-to-date EEG. If the EEG is normal we will consider tapering off Keppra. (EEG 12/19 = This is a normal-appearing awake/drowsy EEG demonstrating a normal reactive background rhythm, and not much else. A normal EEG does not completely exclude a diagnosis of epilepsy.) Surgical History History of cardiac cath 2017 [facility] History of colonoscopy History of cystoscopy WITH STENT PLACED History of esophagogastroduodenoscopy (EGD) History of lithotripsy History of reverse total replacement of left shoulder joint History of surgery TACE procedure x 2 History of tonsillectomy and adenoidectomy History of tooth extraction Hx of CABG two-vessel; [facility] 2017 S/P AVR (aortic valve replacement) [facility] 2017 S/P cholecystectomy Status post Power fundoplication Status post placement of cardiac pacemaker 06/2018 due to post-op heart block after CABG. Family History Father Heart disease S/P CABG (coronary artery bypass graft) Stroke Family history of diabetes mellitus Mother Heart disease Hypertension Stroke Family history of diabetes mellitus Grandfather (Maternal) Stroke Grandfather (Paternal) Cirrhosis of liver Social History Smoking Status: Never smoker Second Hand Exposure: No; Hx Alcohol Use: Yes Alcohol type: hard liquor Hx Substance Use: No Preferred Language: [place]ib[place]ian Communication Ability: Effective Visual Impairment: No Limitations Conservation Educator Required: No Beliefs That Will Affect Care: None marital status: Current Living Situation: Spouse current occupational status: retired 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, etc); [employer] career Feels Safe at Home: Yes Assistive Devices: Oxygen - Continuous Review of Systems Review of Systems: All systems reviewed & are unremarkable except as noted in HPI & below Physical Exam Physical Exam: General: patient cachectic, ill in appearance but non-toxic in appearance, AA&O x 4 Skin: warm, dry, intact, no rashes or lesions HEENT: NC/AT, PERRL, EOMI, anicteric sclera, conjunctiva without injection, external ear normal to inspection and nontender, nares patent, moist mucus membranes, dentition intact, no oropharyngeal lesions, neck supple, trachea midline, no LAD, no thyromegaly, no JVD Heart: +S1/S2, irregularly irregular, no m/r/g Lungs: equal air entry bilaterally, no rales/rhonchi/wheezes Abd: +BS, soft, NT/ND, no masses/organomegaly/ascites Ext: warm, 2+ pulses in UE/LE bilaterally, no clubbing/cyanosis or edema Neuro: nonfocal, patient AA&O x 4, speech intact, no facial droop, moving all extremities on command with equal strength 5/5 Results & Data Results & Data ([facility]) Vital Signs (Past 12 Hours) Vital Signs Temp Pulse Pulse Resp BP BP Pulse Ox 04/30/22 19:00 101 H 18 135/85 100 04/30/22 18:13 92 04/30/22 18:08 64 18 106/67 92 04/30/22 17:50 36.5 C 66 20 165/84 H 83 L O2 Del Method O2 Flow Rate 04/30/22 19:00 Nasal Cannula 6 04/30/22 18:13 Nasal Cannula 6 04/30/22 18:08 Nasal Cannula 6 04/30/22 17:50 Room Air Laboratory Results Laboratory Results WBC 10.48 K/ul (4.8-10.8) 04/30/22 18:25 RBC 4.56 M/uL (4.63-6.08) L 04/30/22 18:25 Hgb 14.5 g/dl (14.0-18.0) 04/30/22 18:25 Hct 43.8 % (40.1-51.0) 04/30/22 18: MCV 96.1 fL (80.0-100.0) 04/30/22 18: MCH 31.8 pg (25.0-34.0) 04/30/22 18: MCHC 33.1 g/dL (32.0-36.0) 04/30/22 18: RDW Std Deviation 50.0 fL (36.4-46.3) H 04/30/22 18:25 RDW Coeff of Mason 14.2 % (11.5-14.5) 04/30/22 18: Plt Count 228 K/uL (130-400) 04/30/22 18: MPV 11.6 fL (9.4-12.4) 04/30/22 18: Immature Gran % (Auto) 0.2 % 04/30/22 18: Neut % (Auto) 86.4 % 04/30/22 18: Lymph % (Auto) 7.3 % 04/30/22 18:25 [place] % (Auto) 5.9 % 04/30/22 18: Eos % (Auto) 0.0 % 04/30/22 18: Baso % (Auto) 0.2 % 04/30/22 18:25 Neut # (Auto) 9.06 K/uL (1.4-6.5) H 04/30/22 18: Lymph # (Auto) 0.76 K/uL (1.2-3.4) L 04/30/22 18: [place] # (Auto) 0.62 K/uL (0.24-0.82) 04/30/22 18:25 Eos # (Auto) 0.00 K/uL (0-0.50) 04/30/22 18: Baso # (Auto) 0.02 K/uL (0-0.2) 04/30/22 18:25 Immature Gran # (Auto) 0.02 K/uL (0.00-0.02) 04/30/22 18:25 Sodium 144 mmol/L (136-145) 04/30/22 18:25 Potassium 3.6 mmol/L (3.5-5.1) 04/30/22 18:25 Chloride 101 mmol/L (98-107) 04/30/22 18:25 Carbon Dioxide 28 mmol/L (21-32) 04/30/22 18:25 Anion Gap 15 (3-11) H 04/30/22 18:25 BUN 37 mg/dl (6-23) H 04/30/22 18:25 Creatinine 0.80 mg/dl (0.6-1.4) 04/30/22 18:25 Est Cr Clr Drug Dosing 44.1 ml/min 04/30/22 18:25 Est GFR ( Amer) 101.3 ml/min 04/30/22 18:25 Est GFR (Non-Af Amer) 87.4 ml/min 04/30/22 18:25 BUN/Creatinine Ratio 46.3 (10-20) H 04/30/22 18:25 Glucose 142 mg/dl (70-99(Fasting)) H 04/30/22 18:25 Calcium 10.3 mg/dl (8.5-10.1) H 04/30/22 18:25 Magnesium 1.9 mg/dl (1.7-2.4) 04/30/22 18:25 Total Bilirubin 1.3 mg/dl (0.2-1.0) H 04/30/22 18:25 AST 65 U/L (13-39) H 04/30/22 18:25 ALT 40 U/L (7-52) 04/30/22 18:25 Alkaline Phosphatase 789 U/L (34-104) H 04/30/22 18:25 Troponin I High Sens 46.3 pg/ml (0-20) H 04/30/22 18:25 Total Protein 7.4 gm/dl (6.0-8.3) 04/30/22 18:25 Albumin 4.0 gm/dl (3.4-5.0) 04/30/22 18:25 Globulin 3.4 gm/dl (2.5-4.0) 04/30/22 18:25 Albumin/Globulin Ratio 1.2 (0.9-2) 04/30/22 18:25 TSH 1.891 uIu/ml (0.300-4.500) 04/30/22 18:25 Impressions Chest X-Ray 04/30/22 18:08 XR chest 1V portable CLINICAL HISTORY: weakness TECHNIQUE: Single frontal radiograph of the chest was obtained. Comparison: Comparison is made to chest radiograph 04/29/2022 FINDINGS: Left total reverse shoulder arthroplasty is seen. Median sternotomy wires are seen. Dual-lead pacemaker is seen. The cardiomediastinal silhouette is normal. The lungs are clear. No evidence of pleural effusion or pneumothorax. IMPRESSION: No acute chest disease. ACT 112: Negative or not required by law. Electronically signed by: Mark Rodriguez M.D. 04/30/2022 6:54 PM Code Status & VTE Plan VTE Prophylaxis Plan VTE Prophylaxis will be ordered: Yes PG Care Time/CCT Total # of Minutes Spent Total Time Spent with Patient: Total time spent is greater than 50% in coordination of care (as documented) at patient's floor/unit and/or counseling patient: Coding Level of Care Code 07272 Initial Inpt Care Lvl 2 Diagnoses Dysphagia R13.10 Neuroendocrine tumor D3A.8 BPH with obstruction/lower urinary tract symptoms N40.1; N13.8 HLD (hyperlipidemia) E78.5 HTN (hypertension) I10 CAD (coronary artery disease) I25.10
[2022-04-30] MEDS ORDERED: OPTIRAY 320 125ml IV ONE (20:28)
--- NOTE | 2022-04-30 21:01 | CT Scan Report ---
CT angio chest PE protocol CLINICAL HISTORY: PE TECHNIQUE: Multidetector row helical CT of the chest was performed with angiographic protocol. Bunrham l and sagittal reformations were obtained. Coronal and sagittal MIPS were obtained from the axial sarath a set and were submitted for review. Automated dose lowering techniques and/or adjustment according to patient size were utilized for this exam. CT DOSE: 238.62 mGy.cm Comparison: Comparison is made to CT chest 07/07/2018 FINDINGS: Lungs and pleura: Groundglass opacities in the right upper lobe (series 3 image 83). Atelectasis and some groundglass opacities are seen in the bilateral lower lobes. Bronchial wall thickening and mucou s plugging are noted. Heart and pericardium: Heart size is normal. No pericardial effusion. Vessels: No evidence of pulmonary embolism. Mediastinum and isha: Unremarkable. Chest wall and lower neck: Patient is cachectic. Abdomen: Numerous hepatic hypodensities are seen compatible with metastasis. Patient status post chol ecystectomy with physiologic dilation of the common bile duct. Bones: Degenerative changes in the thoracic spine. IMPRESSION: 1. No evidence of pulmonary embolism. 2. Groundglass and solid opacities are seen, predominantly in the lower lungs, which may represent i nfectious/inflammatory process. ACT 112: Negative or not required by law. Electronically signed by: Mark Rodriguez M.D. 04/30/2022 9:00 PM
[2022-04-30] MEDS ORDERED: cefTRIAXone SODIUM 2,000 MG/70 ML BAG IV STA (21:06)
[2022-04-30] MEDS ORDERED: ONDANSETRON INJ 2 MG/ML 2 ML VIAL IV PRN (23:05)
[2022-04-30] MEDS ORDERED: ENOXAPARIN INJ 30 MG/0.3 ML SYR SQ SCH (23:05)
[2022-04-30] MEDS: LACTATED RINGER'S 1,000 ML IV SCH (23:33)
[2022-05-01] MEDS ORDERED: METOPROLOL TARTRATE 1 MG/ML VIAL IV PRN (01:12)
[2022-05-01 07:43] LABS: Basophils # (auto) 0.02 K/uL (0-0.2); Basophils % (auto) 0.2 %; Eosinophils # (auto) 0.01 K/uL (0-0.50); Eosinophils % (auto) 0.1 %; Hematocrit (blood only) 38.8 % (40.1-51.0); Hemoglobin 12.8 g/dl (14.0-18.0); Immature Granulocytes # (auto) 0.04 K/uL (0.00-0.02); Immature Granulocytes % (auto) 0.4 %; Lymphocytes # (auto) 0.79 K/uL (1.2-3.4); Lymphocytes % (auto) 7.4 %; Mean Corpuscular Hemoglobin 31.9 pg (25.0-34.0); Mean Corpuscular Volume 96.8 fL (80.0-100.0); Mean Platelet Volume 11.8 fL (9.4-12.4); Monocytes % (auto) 5.6 %; Neutrophils # (auto) 9.25 K/uL (1.4-6.5); Neutrophils % (auto) 86.3 %; Platelet Count 177 K/uL (130-400); RDW Coefficient of Variation 14.1 % (11.5-14.5); RDW Standard Deviation 49.9 fL (36.4-46.3); Red Blood Count 4.01 M/uL (4.63-6.08); White Blood Count 10.71 K/ul (4.8-10.8)
[2022-05-01 08:18] LABS: Albumin Level 3.3 gm/dl (3.4-5.0); Bilirubin Direct 0.3 mg/dl (0-0.2); Bilirubin,Total 0.8 mg/dl (0.2-1.0); Calcium 9.2 mg/dl (8.5-10.1); Creatinine Clr Calc Pharmacy 69.2 ml/min; Est GFR (African American) 122.9 ml/min; Potassium 3.4 mmol/L (3.5-5.1); Prealbumin 6.9 mg/dl (20-40); Total Protein 6.1 gm/dl (6.0-8.3); Troponin I High Sensitivity 43.7 pg/ml (0-20)
[2022-05-01] MEDS ORDERED: ASPIRIN 81 MG ECTAB PO SCH (09:00)
[2022-05-01] MEDS: levETIRAcetam 500 MG TAB PO SCH (09:05)
[2022-05-01] MEDS: POTASSIUM CHLORIDE / WTR 10 MEQ/100 ML PLCT IV SCH ×2 (09:43→11:07)
--- NOTE | 2022-05-01 13:11 | Hospitalist Progress Note ---
Date of Service May 01, 2022 Assessment & Plan (1) Dysphagia: Plan: 77yo male with history of neuroendocrine tumor of the pancreas presenting with 1 week of worsening oropharyngeal dysphagia and significant weight loss, cachexia, coughing with eating or drinking anything. Now failed swallow study, aspirating everything and no functional swallow, SPeech recommends strict NPO CT chest shows evidence of aspiration but no overt signs of PNA ie fevers, leukocytosis, etc. -pt and agreeable to Coresafe feeding tube and start TFs for nutrition ordered brain MRI--> old CVA but nothing new/acute to explain dysphagia ordered CT soft tissues neck--> negative for structural causes Suspect due to severe malnutrition, muscle wasting in setting of metastatic CA Prealbumin severely low at 6 -keep strictly NPO -Aspiration precautions, oral care, keep HOB 30 degrees -Nutrition consultation appreciated for TF recommendations -start Coresafe, TFs as per Nutrition recommendations, along with free H2O flushes -change meds to forms that can be crushed ie change Toprol to metoprolol tartrate, ASA to chewable. 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 -Continue Sandostatin -consult Oncology to see about recommendations moving forward, unclear if severe weight loss from progression of disease? 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 Stable -Monitor UOP -Continue Flomax 0.4mg po daily if can be placed through Coresafe (5) HLD (hyperlipidemia): Plan: Chronic. Stable -Continue Atorvastatin 40mg po qHS (6) HTN (hypertension): Plan: Chronic. Blood pressure stable -Continue Metoprolol but change to tartrate 12.5mg po bid through NGT -Continue to monitor (7) CAD (coronary artery disease): Plan: Chronic. Stable. H/o CABG at time of AVR With mild myocardial demand ischemia due with elevated troponin at 46.3/55/43 serially Denies chest pain. No acute ischemic changes on EKG. 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 continue Keppra follows with Neuro (10) Elevated LFTs: Plan: 2/2 known liver mets AST and alk phos quite high follow LFTs (11) History of aortic valve disease: Plan: AVR bioprosthetic (12) Elevated troponin: Plan: as above Plan 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 - SCDs to bilateral LE Code - Full per discussion with patient Dispo -continued stay Admission and Anticipated Discharge Date Admission Date: April 30, 2022 Subjective Pt feels that he coughs every time he eats. Has a sore throat as well. He has lost most of his recent weight in the last month since he had his 3rd TACE procedure. No abd pain. No SOB but is coughing and has a rattling sound in throat as per . No CP. He was seen on two occasions today. Once mid day to discuss the plan, and once later in the evening to discuss results and start tube feeds. He is accepting of tube feeds and even PEG tube as he is recommended ot be strict NPO for significnat aspiration by Speech tx after failing video swallow today. No focal numbness/weakness, facial droop, or any other stroke symptoms, no headaches. Tele with paced rhythm in the 90-110s Discussed case with Speech, Palliative. Review of Systems Review of Systems: All systems reviewed & are unremarkable except as noted in HPI & below Physical Exam Constitutional: + cachectic; no acute distress Eyes: PERRL, conjunctivae normal, anicteric sclerae ENMT: Ears: no hearing impairment and no external ear abnormality Mouth: + oropharynx abnormality (diffuse erythema,white exudate) Neck: trachea midline, no thyromegaly Respiratory: normal respiratory effort; no labored breathing and no cough Auscultation: + rhonchi (bilat at bases); no crackles and no wheezes Cardiovascular: RRR, no murmur, no edema Gastrointestinal (Abdomen): normal bowel sounds, soft, nontender, no hepatosplenomegaly (scaphoid) Musculoskeletal: Extremities: + extremities abnormal to inspection (diffuse sarcopenia), no cyanosis and no clubbing Skin: no rashes, warm and dry Neurologic: moves all extremities and awake; no focal motor deficits Psychiatric: A+Ox3, euthymic affect Results & Data Results & Data ([facility]) Vital Signs (Past 12 Hours) Vital Signs Temp Pulse Resp BP Pulse Ox O2 Del Method O2 Flow Rate 05/01/22 12:03 36.7 C 101 H 18 136/89 97 Room Air 05/01/22 11:23 Room Air 05/01/22 08:12 36.6 C 76 17 143/80 H 94 Room Air 05/01/22 05:15 36.7 C 101 H 18 126/78 96 Nasal Cannula 1 Laboratory Results labs reviewed PG Care Time/CCT Total # of Minutes Spent Total Time Spent with Patient: Total time spent is greater than 50% in coordination of care (as documented) at patient's floor/unit and/or counseling patient: Coding Level of Care Code 52172 Subseq Hosp Care Lvl 3 Diagnoses Dysphagia R13.10 Severe protein-calorie malnutrition E43 Neuroendocrine tumor D3A.8 BPH with obstruction/lower urinary tract symptoms N40.1; N13.8 HLD (hyperlipidemia) E78.5 HTN (hypertension) I10 CAD (coronary artery disease) I25.10 H/O: stroke Z86.73 H/O partial seizures Z86.69 Elevated LFTs R79.89 History of aortic valve disease Z86.79 Elevated troponin R77.8
[2022-05-01] MEDS ORDERED: OPTIRAY 320 100ml IV ONE (13:35)
--- NOTE | 2022-05-01 13:58 | Palliative Care Consultation ---
Date of Consultation May 01, 2022 Assessment & Plan (1) Dysphagia: Unclear etiology with workup in progress. He is currently NPO. (2) Palliative care encounter: I talked with Mr. Rodriguez and his at bedside. We talked about how he has been coping with the multiple medical issues that he's been having. He tells me that he is doing ok and that he is "ready for whatever we need to do next" We talked about options for additional workup to better understand the cause of his dysphagia. The hope would be that there is a reversible cause. We did discuss the possibility that if this were related to a CVA or generalized debility from his cancer, it would likely not be reversible. He is currently NPO and tells me that he misses his morning glass of cold water and his 's fudge. I asked him what defines good life for him and he told me that these were some of the things on that list but that he hasn't fully considered this. We talked about possibility of artificial tube feeding if dysphagia were not reversible. He is uncertain how he feels about this. We talked about defining goals of care based on the things that are important to him as well as the things that feel really intolerable to him rather than an itemized list. He and his are considering this. Palliative care will follow. (3) Neuroendocrine tumor: History of Present Illness Reason for Consultation: goals of care Requesting Physician: Dr. 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 CT from outside hospital done in February shows increase in tumor size progression of hepatic mets when compared to study from 09/07. He has had TACE procedure, most recently in March. He has h/o renal calculi and had lithotripsy in December of this year. He reports that since that time he has had increased reflux of "bile and acid" and that at times he feels like there is broken glass in his esophagus. He has a history of Power fundoplication and previous gastric ulcer. He has also had early satiety and decreased appetite. Within the last two weeks he has had acute onset of difficulty swallowing associated with coughing and choking on water, pudding and jello. Speech therapy noted limited to no functional swallow on assessment and video swallow study is pending today. He does also have a h/o prior CVA and his has noted some changes in his speech in the last week. We have been consulted to assist with goals of care. Allergies Allergy/AdvReac Type Severity Reaction Status Date / Time heparin Allergy Severe thrombocyto Verified 04/30/22 23:47 penia adhesive Allergy Intermediate Hives Verified 10/03/21 07:17 ciprofloxacin [From Cipro] Allergy Intermediate Hives Verified 10/03/21 07:17 buspirone [From BuSpar] AdvReac Intermediate Dizziness Verified 10/03/21 07:17 lansoprazole [From Prevacid] AdvReac Mild Diarrhea Verified 10/03/21 07:17 venlafaxine [From Effexor] AdvReac Mild somnulence Verified 10/03/21 07:17 Home Medications Medication Instructions Recorded Confirmed Type aspirin 81 mg tablet,delayed 81 mg PO QAM 07/20/18 09/30/21 History release atorvastatin 40 mg tablet (Lipitor) 40 mg PO HS 07/20/18 09/30/21 History magnesium oxide 400 mg (241.3 mg 400 mg PO QAM 07/20/18 09/30/21 History magnesium) tablet (MagOx) cholecalciferol (vitamin D3) 50 2,000 units PO QAM 11/27/19 09/30/21 History mcg (2,000 unit) capsule octreotide,microspheres 30 mg 30 mg IM Q28D 12/28/19 09/30/21 History intramuscular susp, extended release (Sandostatin LAR Depot) docusate sodium 100 mg capsule 200 mg PO HS 01/02/20 09/30/21 History (Colace) metoprolol succinate 25 mg 25 mg PO HS 01/02/20 09/30/21 History tablet,extended release 24 hr ketoconazole 2 % shampoo 1 applic topical .ON HOLD 01/05/20 09/30/21 History potassium chloride 10 mEq 30 meq PO BID 09/09/21 09/30/21 History tablet,extended release (Klor-Con) tamsulosin 0.4 mg capsule 0.4 mg PO DAILY #30 caps 09/30/21 10/03/21 Rx levetiracetam 500 mg tablet 500 mg PO BID 90 days #180 tabs 12/21/21 Rx Patient History Medical History Acute CVA (cerebrovascular accident) 06/2018. Brain imaging at the time also noted chronic vs subacute CVA. pt denies deficits Anxiety CAD (coronary artery disease) S/p CABG x 2 (SMITH to LAD and SVG to OM), 2018. GERD (gastroesophageal reflux disease) History of aortic valve disease S/P [facility] bioprosthetic AVR 2018 (with CABG) History of atrial fibrillation Post-op CABG. follows with Dr. Orta. History of pleural effusion 07/2018. Drained. HLD (hyperlipidemia) HTN (hypertension) Humerus fracture LEFT SIDE Kidney stones Pacemaker Medtronic; [facility] for postop complete heart block after CABG 2017. last check 1 mo ago Pancreatic cancer with mets to liver dx 2017; s/p TACE procedure x 2 Simple partial seizure disorder Per neurology office note 2020: History of seizure-like activity characterized by alteration in awareness, staring spells, beginning in the context of a hospitalization at [facility] for AVR, CABG in May 2018. Patient continues with Keppra. However, it is unclear to me if he needs to remain on this medication. I have recommended an up-to-date EEG. If the EEG is normal we will consider tapering off Keppra. (EEG 12/19 = This is a normal-appearing awake/drowsy EEG demonstrating a normal reactive background rhythm, and not much else. A normal EEG does not completely exclude a diagnosis of epilepsy.) Surgical History History of cardiac cath [address] [facility] History of colonoscopy History of cystoscopy WITH STENT PLACED History of esophagogastroduodenoscopy (EGD) History of lithotripsy History of reverse total replacement of left shoulder joint History of surgery TACE procedure x 2 History of tonsillectomy and adenoidectomy History of tooth extraction Hx of CABG two-vessel; [facility] 2017 S/P AVR (aortic valve replacement) [facility] 2017 S/P cholecystectomy Status post Power fundoplication Status post placement of cardiac pacemaker 06/2018 due to post-op heart block after CABG. Family History Father Heart disease S/P CABG (coronary artery bypass graft) Stroke Family history of diabetes mellitus Mother Heart disease Hypertension Stroke Family history of diabetes mellitus Grandfather (Maternal) Stroke Grandfather (Paternal) Cirrhosis of liver Social History Smoking Status: Never smoker Second Hand Exposure: No; Hx Alcohol Use: Yes Alcohol type: hard liquor Hx Substance Use: No Preferred Language: [place] Communication Ability: Effective Visual Impairment: No Limitations Lead Carpenter Required: No Beliefs That Will Affect Care: None marital status: Current Living Situation: Spouse 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, etc); [employer] career Feels Safe at Home: Yes Assistive Devices: None Review of Systems Review of Systems: ESAS Pain 0/3 Dyspnea 1/3 with exertion Nausea 0/3 Drowsiness 0/3 Fatigue 2/3 PPS 50% Physical Exam Constitutional: no acute distress ENMT: dry oral mucosa Respiratory: normal respiratory effort; no labored breathing Musculoskeletal: Extremities: + muscle atrophy Neurologic: Speech / Cognition: normal cognition Psychiatric: Orientation: oriented x 3 Results & Data ([facility]) Vital Signs (Past 12 Hours) Vital Signs Temp Pulse Resp BP Pulse Ox O2 Del Method O2 Flow Rate 05/01/22 12:03 98.1 F 101 H 18 136/89 97 Room Air 05/01/22 11:23 Room Air 05/01/22 08:12 97.9 F 76 17 143/80 H 94 Room Air 05/01/22 05:15 98.1 F 101 H 18 126/78 96 Nasal Cannula 1 PG Care Time/CCT Total # of Minutes Spent Total Time Spent: 60 Total Time Spent with Patient: Total time spent is greater than 50% in coordination of care (as documented) at patient's floor/unit and/or counseling patient: goals of care, patient and family education and support Coding Level of Care Code 55303 Initial Inpt Care Lvl 2 Diagnoses Dysphagia R13.10 Palliative care encounter Z51.5 Neuroendocrine tumor D3A.8
[2022-05-01] MEDS ORDERED: FLUCONAZOLE 200 MG/100 ML BAG IV ONE (14:03)
--- NOTE | 2022-05-01 14:04 | CT Scan Report ---
CT soft tissue neck w con HISTORY: difficulty swallowing TECHNIQUE: Multiaxial CT images of the neck were performed following the intravenous ministration of contrast. Sagittal and coronal reformations were performed by the radiologist at the workstation. COMPARISON STUDY: Neck CTA 07/21/2018. FINDINGS: Right frontal lobe encephalomalacia likely representing an old infarct. This remains unchan ged. The orbits are unremarkable. The pterygopalatine fossa and paratracheal fat spaces are maintaine d. Prevertebral soft tissues and epiglottis are normal in thickness. Small amount of fluid/secretions within the pyriform sinuses which demonstrate mild mucosal hyperenhancement. Otherwise, the airway i s patent. The parotid and submandibular glands are symmetric. No pneumothorax. The trachea is midline and patent. No cervical lymphadenopathy. There is a 3 mm right thyroid nodule. This does not meet CT criteria for follow-up. No masses or abscess identified within the neck. No radiopaque foreign dhaval s. No fractures within the visualized osseous structures. The paranasal sinuses and mastoid air cells are clear. Moderate disc space narrowing at C4-C5 and C5-C6. Moderate calcified plaque within the bi lateral carotid bifurcations without significant stenosis. IMPRESSION: 1. No masses or lymphadenopathy identified in the neck. 2. Small amount of fluid/secretions within the pyriform sinuses with mucosal hyperenhancement. This c ould represent a mild pharyngitis. ACT 112: Negative or not required by law. Electronically signed by: Mati Bhatia M.D. 05/01/2022 2:03 PM
--- NOTE | 2022-05-01 14:08 | Fluoroscopy Report ---
FL video swallow CLINICAL HISTORY: aspiration TECHNIQUE: Video fluoroscopy of the pharyngeal region was performed as barium mixtures of varying con sistencies were administered to the patient by the speech pathologist. A formal esophagram was not pe rformed. COMPARISON: None. FINDINGS: Total fluoroscopy time: 2 minutes. The patient swallowed the different barium consistencies without difficulty. Silent aspiration is see n with thin and mildly thick liquids. No clearance with cough was noted. Pooling of barium was noted in the bilateral piriform sinuses and valleculae. IMPRESSION: Silent aspiration without clearance is noted. Please see the speech pathology report for further details. ACT 112: Negative or not required by law. Electronically signed by: Mark Rodriguez M.D. 05/01/2022 2:07 PM
[2022-05-01] MEDS ORDERED: GADOBUTROL 65ML VIAL IV ONE (16:24)
--- NOTE | 2022-05-01 16:50 | Magnetic Resonance Report ---
MRI OF THE BRAIN COMBO CLINICAL HISTORY: Dysphagia. Metastatic pancreatic cancer. COMPARISON STUDY: MRI of the brain dated 07/21/2018. TECHNIQUE: MRI of the brain was performed utilizing various T1 and T2-weighted sequences in the axial , sagittal, and coronal planes. Contrast-enhanced sequences were acquired following the administratio n of 3.8 cc of Gadavist. FINDINGS: Brain parenchyma: Right frontal encephalomalacia is unchanged. There is age-related involutional rodgers ge noting minimal microangiopathic disease. There is no hemorrhage or mass effect. There is no restri cted diffusion to suggest acute ischemia. No enhancing mass lesion is identified on the postcontrast images. Alba-white matter differentiation is preserved. No extra-axial fluid collection is seen. The cerebellar tonsils are normal in configuration. Ventricles, sulci, and cisterns: Prominent secondary to involutional change. Pituitary and sella: Unremarkable. Intracranial vasculature: Normal flow voids are maintained at the skull base. Orbits: The bony orbits are grossly intact. Orbital contents are normal in appearance. Sinuses and mastoids: Clear. Calvarium: Unremarkable. Cervical cord: Partially visualized cervical spinal cord is normal in morphology and signal intensity . IMPRESSION: 1. Chronic changes as above with no acute intracranial abnormality identified. 2. Specifically, there is no MRI evidence of intracranial metastatic disease. ACT 112: Negative or not required by law. Electronically signed by: Kevin López M.D. 05/01/2022 4:48 PM
--- NOTE | 2022-05-01 17:56 | Electrocardiogram Report ---
Test Reason : Blood Pressure : / mmHG Vent. Rate : 119 BPM Atrial Rate : 131 BPM P-R Int : 000 ms QRS Dur : 120 ms QT Int : 202 ms P-R-T Axes : 087 -69 107 degrees QTc Int : 284 ms Atrial-sensed ventricular-paced rhythm Abnormal ECG When compared with ECG of 17-SEP-2021 11:44, Vent. rate has increased BY 37 BPM Confirmed by John Najera ([id number]) on 05/01/2022 5:56:37 PM Referred By: Elvis Falk Confirmed By:Chad Najera
[2022-05-01] MEDS ORDERED: THIAMINE HCL 300 MG in SODIUM CHLORIDE 0.9% 50 ML IV STA (19:53)
[2022-05-01] MEDS ORDERED: FIBERSOURCE HN 1.2 CAL 1000 ML BAG NG SCH (20:00)
[2022-05-01] MEDS ORDERED: TAMSULOSIN HCL 0.4 MG CAP PO SCH (21:00)
[2022-05-01] MEDS ORDERED: DOCUSATE SODIUM 100 MG CAP PO SCH (21:00)
[2022-05-01] MEDS ORDERED: METOPROLOL SUCC 25MG EXT REL TAB PO SCH (21:00)
[2022-05-01] MEDS: LACTATED RINGER'S 1,000 ML IV SCH (21:00)
--- NOTE | 2022-05-01 21:49 | XRay Report ---
KUB CLINICAL HISTORY: Enteric tube placement. FINDINGS: An AP, portable, upright view of the chest and upper abdomen is compared to study dated 04/17. An enteric tube has been placed. The tip projects below the diaphragm over the mid stomach. T here is no radiographic evidence of bowel obstruction. Residual enteric contrast is noted in the righ t colon. No evidence of intraperitoneal free air in seen below the diaphragm. A cardiac pacemaker is in place. The patient is status post midline sternotomy and cardiac valve surgery. A left shoulder ar throplasty is in place. The skeletal structures are osteopenic and appear intact. Cholecystectomy cli ps are noted in the right upper quadrant. IMPRESSION: Enteric tube placement as above. Electronically signed by: Kevin López M.D. 05/01/2022 9:48 PM
[2022-05-01] MEDS: TUBE FEEDING WATER FLUSH NG SCH (23:11)
[2022-05-02] MEDS: DOCUSATE SODIUM SYRUP 100 MG/10 ML UDC PO SCH ×2 (00:45→21:17)
[2022-05-02] MEDS: METOPROLOL TARTRATE 25 MG TAB OG SCH ×3 (00:45→21:16)
[2022-05-02] MEDS: ATORVASTATIN 40 MG TAB PO SCH ×2 (00:45→21:17)
[2022-05-02] MEDS: TUBE FEEDING WATER FLUSH NG SCH ×6 (00:49→21:15)
[2022-05-02] MEDS: levETIRAcetam 500 MG TAB PO SCH (00:50)
[2022-05-02 07:29] LABS: Basophils # (auto) 0.03 K/uL (0-0.2); Basophils % (auto) 0.3 %; Eosinophils # (auto) 0.08 K/uL (0-0.50); Eosinophils % (auto) 0.8 %; Hematocrit (blood only) 39.8 % (40.1-51.0); Hemoglobin 13.3 g/dl (14.0-18.0); Immature Granulocytes # (auto) 0.03 K/uL (0.00-0.02); Immature Granulocytes % (auto) 0.3 %; Lymphocytes # (auto) 0.67 K/uL (1.2-3.4); Lymphocytes % (auto) 6.7 %; Mean Corpuscular Hemoglobin 31.3 pg (25.0-34.0); Mean Corpuscular Hgb Conc 33.4 g/dL (32.0-36.0); Mean Corpuscular Volume 93.6 fL (80.0-100.0); Mean Platelet Volume 11.8 fL (9.4-12.4); Monocytes # (auto) 0.72 K/uL (0.24-0.82); Monocytes % (auto) 7.2 %; Neutrophils # (auto) 8.47 K/uL (1.4-6.5); Neutrophils % (auto) 84.7 %; Platelet Count 213 K/uL (130-400); RDW Standard Deviation 48.4 fL (36.4-46.3); Red Blood Count 4.25 M/uL (4.63-6.08)
[2022-05-02 07:50] LABS: BUN Creatinine Ratio 53.8 (10-20); Bilirubin Direct 0.4 mg/dl (0-0.2); Bilirubin,Total 1.1 mg/dl (0.2-1.0); Calcium 8.8 mg/dl (8.5-10.1); Creatinine Clr Calc Pharmacy 91.7 ml/min; Est GFR (African American) 136.1 ml/min; Est GFR (Non-African American) 117.4 ml/min; Magnesium 1.5 mg/dl (1.7-2.4); Phosphorus 2.3 mg/dl (2.5-4.9); Potassium 3.4 mmol/L (3.5-5.1); Total Protein 5.7 gm/dl (6.0-8.3)
[2022-05-02] MEDS ORDERED: POTASSIUM PHOS 3 MMOL/1 ML INFUSION IV STA (08:10)
[2022-05-02] MEDS: ASPIRIN 81 MG CHEW PO SCH (08:23)
[2022-05-02] MEDS ORDERED: POTASSIUM PHOSPHATE 15 MMOL in SODIUM CHLORIDE 0.9% 250 ML IV ONE (08:30)
[2022-05-02] MEDS: THIAMINE HCL 300 MG in SODIUM CHLORIDE 0.9% 50 ML IV SCH (08:42)
[2022-05-02] MEDS: MAGNESIUM SULFATE / D5W 1 GM/100 ML BAG IV SCH ×2 (08:43→10:54)
[2022-05-02] MEDS: POTASSIUM CHLORIDE / WTR 10 MEQ/100 ML PLCT IV SCH ×2 (08:44→10:20)
[2022-05-02] MEDS: LACTATED RINGER'S 1,000 ML IV SCH (08:44)
[2022-05-02] MEDS ORDERED: MULTI VIT W/MINERALS LIQUID 15 ML UDP NG SCH (09:00)
--- NOTE | 2022-05-02 10:25 | Gastrointestinal Consultation ---
Date of Consultation May 02, 2022 Assessment & Plan (1) Severe protein-calorie malnutrition: Patient with progressive to loss of weight and cachexia likely related to his underlying malignancy. With regard to feeding tube placement I will defer this decision to Dr. Ray or Dr. Bowman with the [facility] physician group for Wednesday. With any questions or concerns over the weekend otherwise coverage to resume by the [facility] physician GI group on Wednesday History of Present Illness Reason for Consultation: Failure to thrive and dysphagia Attending Physician: Abi Kaamra MD History of Present Illness The patient is a 77-year-old male with a history of a pancreatic neuroendocrine tumor with hepatic metastasis who presented to the hospital for failure to thrive. It appears that most of his care for his malignancy have been at an outside institution. Gastroenterology is consulted with regard to inability to swallow and a failed speech pathology evaluation. The patient notes that he is lost a significant amount of weight over the past few months and feels very poorly at this time. His history is notable for a fundoplication. There is mention in his history about a prior surgery for peptic ulcer disease however the patient does not recall this. He does recall having a prior cholecystectomy performed in 2001. There is that he has had increasing difficulty with swallowing liquids and solids over the past few weeks. He did have a speech pathology assessment their formal evaluation is not yet available for review Allergies Allergy/AdvReac Type Severity Reaction Status Date / Time heparin Allergy Severe thrombocyto Verified 04/30/22 23:47 penia adhesive Allergy Intermediate Hives Verified 10/03/21 07:17 ciprofloxacin [From Cipro] Allergy Intermediate Hives Verified 10/03/21 07:17 buspirone [From BuSpar] AdvReac Intermediate Dizziness Verified 10/03/21 07:17 lansoprazole [From Prevacid] AdvReac Mild Diarrhea Verified 10/03/21 07:17 venlafaxine [From Effexor] AdvReac Mild somnulence Verified 10/03/21 07:17 Home Medications Medication Instructions Recorded Confirmed Type aspirin 81 mg tablet,delayed 81 mg PO QAM 07/20/18 09/30/21 History release atorvastatin 40 mg tablet (Lipitor) 40 mg PO HS 07/20/18 09/30/21 History magnesium oxide 400 mg (241.3 mg 400 mg PO QAM 07/20/18 09/30/21 History magnesium) tablet (MagOx) cholecalciferol (vitamin D3) 50 2,000 units PO QAM 11/27/19 09/30/21 History mcg (2,000 unit) capsule octreotide,microspheres 30 mg 30 mg IM Q28D 12/28/19 09/30/21 History intramuscular susp, extended release (Sandostatin LAR Depot) docusate sodium 100 mg capsule 200 mg PO HS 01/02/20 09/30/21 History (Colace) metoprolol succinate 25 mg 25 mg PO HS 01/02/20 09/30/21 History tablet,extended release 24 hr ketoconazole 2 % shampoo 1 applic topical .ON HOLD 01/05/20 09/30/21 History potassium chloride 10 mEq 30 meq PO BID 09/09/21 09/30/21 History tablet,extended release (Klor-Con) tamsulosin 0.4 mg capsule 0.4 mg PO DAILY #30 caps 09/30/21 10/03/21 Rx levetiracetam 500 mg tablet 500 mg PO BID 90 days #180 tabs 12/21/21 Rx Patient History Medical History (Updated 05/02/22 @ 08:22 by Abi Kamara MD) Acute CVA (cerebrovascular accident) 06/2018. Brain imaging at the time also noted chronic vs subacute CVA. pt denies deficits Anxiety CAD (coronary artery disease) S/p CABG x 2 (SMITH to LAD and SVG to OM), 2018. Elevated LFTs GERD (gastroesophageal reflux disease) History of aortic valve disease S/P [facility] bioprosthetic AVR 2018 (with CABG) History of atrial fibrillation Post-op CABG. follows with Dr. Orta. History of pleural effusion 07/2018. Drained. HLD (hyperlipidemia) HTN (hypertension) Humerus fracture LEFT SIDE Kidney stones Pacemaker Medtronic; [facility] for postop complete heart block after CABG 2017. last check 1 mo ago Pancreatic cancer with mets to liver dx 2018; s/p TACE procedure x 2 Severe protein-calorie malnutrition Simple partial seizure disorder Per neurology office note 2020: History of seizure-like activity characterized by alteration in awareness, staring spells, beginning in the context of a hospitalization at [facility] for AVR, CABG in May 2018. Patient continues with Keppra. However, it is unclear to me if he needs to remain on this medication. I have recommended an up-to-date EEG. If the EEG is normal we will consider tapering off Keppra. (EEG 12/19 = This is a normal-appearing awake/drowsy EEG demonstrating a n ormal reactive background rhythm, and not much else. A normal EEG does not completely exclude a diagnosis of epilepsy.) Surgical History History of cardiac cath 2017 [facility] History of colonoscopy History of cystoscopy WITH STENT PLACED History of esophagogastroduodenoscopy (EGD) History of lithotripsy History of reverse total replacement of left shoulder joint History of surgery TACE procedure x 2 History of tonsillectomy and adenoidectomy History of tooth extraction Hx of CABG two-vessel; [facility] 2017 S/P AVR (aortic valve replacement) [place] [id number] S/P cholecystectomy Status post Power fundoplication Status post placement of cardiac pacemaker 06/2018 due to post-op heart block after CABG. Family History Father Heart disease S/P CABG (coronary artery bypass graft) Stroke Family history of diabetes mellitus Mother Heart disease Hypertension Stroke Family history of diabetes mellitus Grandfather (Maternal) Stroke Grandfather (Paternal) Cirrhosis of liver Social History Smoking Status: Never smoker Second Hand Exposure: No; Hx Alcohol Use: Yes Alcohol type: hard liquor Hx Substance Use: No Preferred Language: [place] Communication Ability: Effective Visual Impairment: No Limitations Rock Lather Required: No Beliefs That Will Affect Care: None marital status: Current Living Situation: Spouse 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, etc); [employer] career Feels Safe at Home: Yes Assistive Devices: None Review of Systems Constitutional: + malaise and + weight loss; no fever and no sweats Eyes: no diplopia Ear, Nose, Mouth, Throat: no ear trauma Respiratory: no change in sputum Cardiovascular: no chest pain with activity Gastrointestinal: no bloating and no nausea Genitourinary: no urinary frequency Musculoskeletal: no radicular pain Psychiatric: + hopelessness Hematologic / Lymphatic: no easy bleeding and no coagulopathy Physical Exam Constitutional: + ill appearing, + thin and + cachectic; no acute distress Eyes: PERRL, conjunctivae normal, anicteric sclerae ENMT: external ear and nose normal, oropharynx normal Neck: trachea midline, no thyromegaly Respiratory: Auscultation: + diminished lung sounds; no crackles and no wheezes Cardiovascular: Heart Sounds: + murmur Gastrointestinal (Abdomen): Percussion/Palpation: abdomen soft; abdomen nontender and no guarding Results & Data ([facility]) Vital Signs (Past 12 Hours) Vital Signs Temp Pulse Pulse Resp BP Pulse Ox O2 Del Method 05/02/22 08:00 Room Air 05/02/22 07:45 36.5 C 101 H 18 108/70 94 05/02/22 06:56 89 05/02/22 03:31 36.5 C 96 H 18 106/70 94 Room Air 05/02/22 01:34 Room Air 05/01/22 22:32 36.8 C 109 H 18 133/84 95 Room Air Laboratory Results Laboratory Results - last 24 hr 05/01/22 05/02/22 05/02/22 11:18 07:03 07:03 WBC 10.00 RBC 4.25 L Hgb 13.3 L Hct 39.8 L MCV 93.6 MCH 31.3 MCHC 33.4 RDW Std Deviation 48.4 H RDW Coeff of Mason 14.0 Plt Count 213 MPV 11.8 Immature Gran % (Auto) 0.3 Neut % (Auto) 84.7 Lymph % (Auto) 6.7 [place] % (Auto) 7.2 Eos % (Auto) 0.8 Baso % (Auto) 0.3 Neut # (Auto) 8.47 H Lymph # (Auto) 0.67 L [place] # (Auto) 0.72 Eos # (Auto) 0.08 Baso # (Auto) 0.03 Immature Gran # (Auto) 0.03 H Sodium 143 Potassium 3.4 L Chloride 104 Carbon Dioxide 30 Anion Gap 9 BUN 21 Creatinine 0.39 L Est Cr Clr Drug Dosing 91.7 Est GFR ( Amer) 136.1 Est GFR (Non-Af Amer) 117.4 BUN/Creatinine Ratio 53.8 H Glucose 114 H Calcium 8.8 Ionized Calcium Phosphorus 2.3 L Magnesium 1.5 L Total Bilirubin 1.1 H Direct Bilirubin 0.4 H AST 57 H ALT 31 Alkaline Phosphatase 660 H Troponin I High Sens 47.9 H Total Protein 5.7 L Albumin 3.0 L 05/02/22 07:03 WBC RBC Hgb Hct MCV MCH MCHC RDW Std Deviation RDW Coeff of Mason Plt Count MPV Immature Gran % (Auto) Neut % (Auto) Lymph % (Auto) [place] % (Auto) Eos % (Auto) Baso % (Auto) Neut # (Auto) Lymph # (Auto) [place] # (Auto) Eos # (Auto) Baso # (Auto) Immature Gran # (Auto) Sodium Potassium Chloride Carbon Dioxide Anion Gap BUN Creatinine Est Cr Clr Drug Dosing Est GFR ( Amer) Est GFR (Non-Af Amer) BUN/Creatinine Ratio Glucose Calcium Ionized Calcium 1.21 Phosphorus Magnesium Total Bilirubin Direct Bilirubin AST ALT Alkaline Phosphatase Troponin I High Sens Total Protein Albumin
--- NOTE | 2022-05-02 12:23 | Hospitalist Progress Note ---
Date of Service May 02, 2022 Assessment & Plan (1) Dysphagia: Plan: 77yo male with history of neuroendocrine tumor of the pancreas presenting with 1 week of worsening oropharyngeal dysphagia and significant weight loss over the past few months, cachexia, coughing with eating or drinking anything. Now failed swallow study, aspirating everything and no functional swallow, SPeech recommends strict NPO CT chest shows evidence of aspiration but no overt signs of PNA ie fevers, leukocytosis, etc. -pt and agreeable to Coresafe feeding tube and starting TFs for nutrition ordered brain MRI--> old CVA but nothing new/acute to explain dysphagia ordered CT soft tissues neck--> negative for structural causes Suspect due to severe malnutrition, muscle wasting in setting of metastatic CA Prealbumin severely low at 6 -keep strictly NPO -Aspiration precautions, oral care, keep HOB>30 degrees and will need hospital bed at home to do so -Nutrition consultation appreciated for TF recommendations-Fibersource HN with goal 45mL/hr -placed Coresafe on 05/01,continue free H2O flushes -change meds to forms that can be crushed ie change Toprol to metoprolol tartrate, ASA to chewable. 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 -Continue Sandostatin -consult Oncology to see about recommendations moving forward, unclear if severe weight loss from progression of disease? 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 Stable -Monitor UOP -NOT on Flomax-this was originally on med rec as old med from previous kidney stone (5) HLD (hyperlipidemia): Plan: Chronic. Stable -Continue Atorvastatin 40mg po qHS (6) HTN (hypertension): Plan: Chronic. Blood pressure stable -Continue Metoprolol but change to tartrate 12.5mg po bid through NGT -this does cause him some drowsiness so may need to decrease dose to 12.5mg hs only -Continue to monitor (7) CAD (coronary artery disease): Plan: Chronic. Stable. H/o CABG at time of AVR With mild myocardial demand ischemia due with elevated troponin at 46.3/55/43 serially Denies chest pain. No acute ischemic changes on EKG. 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 continue Keppra follows with Neuro (10) Elevated LFTs: Plan: 2/2 known liver mets AST and alk phos quite high follow LFTs especially while on fluconazole for oral candidiasis (11) History of aortic valve disease: Plan: AVR bioprosthetic (12) Elevated troponin: Plan: as above (13) Oral candidiasis: Plan: continue dilfucan 100mg IV daily x 7 day course-last day 05/07.Can be converted to liquid solution per NGT if course not completed by time of discharge Plan 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 - SCDs to bilateral LE Code - Full per discussion with patient Dispo -continued stay Admission and Anticipated Discharge Date Admission Date: April 30, 2022 Subjective Pt tolerated NGT placement last night and is started on TFs today. Denies N/V, abd pain. Had a BM last evening.No CP, SOB, or cough.Feels a little tired from receiving metoprolol inthe AM which is states is why he was taking the Toprol XL at night. also reports he does not take Flomax except when he has kidney stone issues so it will be removed from med list. Tele with paced rhythm, PVCs, rates 90-100s Review of Systems Review of Systems: All systems reviewed & are unremarkable except as noted in HPI & below Physical Exam Constitutional: + cachectic; no acute distress Eyes: + anicteric sclerae ENMT: Ears: no hearing impairment and no external ear abnormality Nose: + external nose abnormality (NGT in place) Mouth: + oropharynx abnormality (erythema improved,exudate minimal) Neck: trachea midline, no thyromegaly Respiratory: normal respiratory effort; no labored breathing and no cough Auscultation: lungs clear to auscultation bilaterally Cardiovascular: RRR, no murmur, no edema Gastrointestinal (Abdomen): normal bowel sounds, soft, nontender, no hepatosplenomegaly (scaphoid) Musculoskeletal: Extremities: + extremities abnormal to inspection (diffuse sarcopenia), no cyanosis and no clubbing Skin: no rashes, warm and dry Neurologic: moves all extremities and awake; no focal motor deficits Psychiatric: A+Ox3, euthymic affect Results & Data Results & Data ([facility]) Vital Signs (Past 12 Hours) Vital Signs Temp Pulse Pulse Resp BP Pulse Ox O2 Del Method 05/02/22 12:11 36.4 C L 89 18 120/75 95 05/02/22 08:00 Room Air 05/02/22 07:45 36.5 C 101 H 18 108/70 94 05/02/22 06:56 89 05/02/22 03:31 36.5 C 96 H 18 106/70 94 Room Air 05/02/22 01:34 Room Air Laboratory Results 05/02/22 05/02/22 05/02/22 Range/Units 07:03 07:03 07:03 WBC 10.00 (4.8-10.8) K/ul RBC 4.25 L (4.63-6.08) M/uL Hgb 13.3 L (14.0-18.0) g/dl Hct 39.8 L (40.1-51.0) % MCV 93.6 (80.0-100.0) fL MCH 31.3 (25.0-34.0) pg MCHC 33.4 (32.0-36.0) g/dL RDW Std Deviation 48.4 H (36.4-46.3) fL RDW Coeff of Mason 14.0 (11.5-14.5) % Plt Count 213 (130-400) K/uL MPV 11.8 (9.4-12.4) fL Immature Gran % (Auto) 0.3 % Neut % (Auto) 84.7 % Lymph % (Auto) 6.7 % [place] % (Auto) 7.2 % Eos % (Auto) 0.8 % Baso % (Auto) 0.3 % Neut # (Auto) 8.47 H (1.4-6.5) K/uL Lymph # (Auto) 0.67 L (1.2-3.4) K/uL [place] # (Auto) 0.72 (0.24-0.82) K/uL Eos # (Auto) 0.08 (0-0.50) K/uL Baso # (Auto) 0.03 (0-0.2) K/uL Immature Gran # (Auto) 0.03 H (0.00-0.02) K/uL Sodium 143 (136-145) mmol/L Potassium 3.4 L (3.5-5.1) mmol/L Chloride 104 (98-107) mmol/L Carbon Dioxide 30 (21-32) mmol/L Anion Gap 9 (3-11) BUN 21 (6-23) mg/dl Creatinine 0.39 L (0.6-1.4) mg/dl Est Cr Clr Drug Dosing 91.7 ml/min Est GFR ( Amer) 136.1 ml/min Est GFR (Non-Af Amer) 117.4 ml/min BUN/Creatinine Ratio 53.8 H (10-20) Glucose 114 H (70-99(Fasting)) mg/dl Calcium 8.8 (8.5-10.1) mg/dl Ionized Calcium 1.21 (1.12-1.32) mmol/L Phosphorus 2.3 L (2.5-4.9) mg/dl Magnesium 1.5 L (1.7-2.4) mg/dl Total Bilirubin 1.1 H (0.2-1.0) mg/dl Direct Bilirubin 0.4 H (0-0.2) mg/dl AST 57 H (13-39) U/L ALT 31 (7-52) U/L Alkaline Phosphatase 660 H (34-104) U/L Total Protein 5.7 L (6.0-8.3) gm/dl Albumin 3.0 L (3.4-5.0) gm/dl Diagnostic Findings KUB image personally reviewed by me and agree with the following report: Videofluoroscopic Swallow 05/01/22 00:00 FL video swallow CLINICAL HISTORY: aspiration TECHNIQUE: Video fluoroscopy of the pharyngeal region was performed as barium mixtures of varying consistencies were administered to the patient by the speech pathologist. A formal esophagram was not performed. COMPARISON: None. FINDINGS: Total fluoroscopy time: 2 minutes. The patient swallowed the different barium consistencies without difficulty. Silent aspiration is seen with thin and mildly thick liquids. No clearance with cough was noted. Pooling of barium was noted in the bilateral piriform sinuses and valleculae. IMPRESSION: Silent aspiration without clearance is noted. Please see the speech pathology report for further details. ACT 112: Negative or not required by law. Electronically signed by: Mark Rodriguez M.D. 05/01/2022 2:[address] PM Soft Tissue Neck CT 05/01/22 12:09 CT soft tissue neck w con HISTORY: difficulty swallowing TECHNIQUE: Multiaxial CT images of the neck were performed following the intravenous ministration of contrast. Sagittal and coronal reformations were performed by the radiologist at the workstation. COMPARISON STUDY: Neck CTA 07/21/2018. FINDINGS: Right frontal lobe encephalomalacia likely representing an old infarct. This remains unchanged. The orbits are unremarkable. The pterygopalatine fossa and paratracheal fat spaces are maintained. Prevertebral soft tissues and epiglottis are normal in thickness. Small amount of fluid/secretions within the pyriform sinuses which demonstrate mild mucosal hyperenhancement. Otherwise, the airway is patent. The parotid and submandibular glands are symmetric. No pneumothorax. The trachea is midline and patent. No cervical lymphadenopathy. There is a 3 mm right thyroid nodule. This does not meet CT criteria for follow-up. No masses or abscess identified within the neck. No radiopaque foreign bodies. No fractures within the visualized osseous structures. The paranasal sinuses and mastoid air cells are clear. Moderate disc space narrowing at C4-C5 and C5-C6. Moderate calcified plaque within the bilateral carotid bifurcations without significant stenosis. IMPRESSION: 1. No masses or lymphadenopathy identified in the neck. 2. Small amount of fluid/secretions within the pyriform sinuses with mucosal hyperenhancement. This could represent a mild pharyngitis. ACT 112: Negative or not required by law. Electronically signed by: Mati Bhatia M.D. 05/01/2022 2:03 PM Brain MRI 05/01/22 13:08 MRI OF THE BRAIN COMBO CLINICAL HISTORY: Dysphagia. Metastatic pancreatic cancer. COMPARISON STUDY: MRI of the brain dated 07/21/2018. TECHNIQUE: MRI of the brain was performed utilizing various T1 and T2-weighted sequences in the axial, sagittal, and coronal planes. Contrast-enhanced sequences were acquired following the administration of 3.8 cc of Gadavist. FINDINGS: Brain parenchyma: Right frontal encephalomalacia is unchanged. There is age- related involutional change noting minimal microangiopathic disease. There is no hemorrhage or mass effect. There is no restricted diffusion to suggest acute ischemia. No enhancing mass lesion is identified on the postcontrast images. [place]-white matter differentiation is preserved. No extra-axial fluid collection is seen. The cerebellar tonsils are normal in configuration. Ventricles, sulci, and cisterns: Prominent secondary to involutional change. Pituitary and sella: Unremarkable. Intracranial vasculature: Normal flow voids are maintained at the skull base. Orbits: The bony orbits are grossly intact. Orbital contents are normal in appearance. Sinuses and mastoids: Clear. Calvarium: Unremarkable. Cervical cord: Partially visualized cervical spinal cord is normal in morphology and signal intensity. IMPRESSION: 1. Chronic changes as above with no acute intracranial abnormality identified. 2. Specifically, there is no MRI evidence of intracranial metastatic disease. ACT 112: Negative or not required by law. Electronically signed by: Kevin López M.D. 05/01/2022 4:48 PM KUB X-Ray 05/01/22 20:00 KUB CLINICAL HISTORY: Enteric tube placement. FINDINGS: An AP, portable, upright view of the chest and upper abdomen is compared to study dated 04/29/2022. An enteric tube has been placed. The tip projects below the diaphragm over the mid stomach. There is no radiographic evidence of bowel obstruction. Residual enteric contrast is noted in the right colon. No evidence of intraperitoneal free air in seen below the diaphragm. A cardiac pacemaker is in place. The patient is status post midline sternotomy and cardiac valve surgery. A left shoulder arthroplasty is in place. The skeletal structures are osteopenic and appear intact. Cholecystectomy clips are noted in the right upper quadrant. IMPRESSION: Enteric tube placement as above. Electronically signed by: Kevin López M.D. 05/01/2022 9:48 PM PG Care Time/CCT Total # of Minutes Spent Total Time Spent with Patient: Total time spent is greater than 50% in coordination of care (as documented) at patient's floor/unit and/or counseling patient: Coding Level of Care Code 16547 Subseq Hosp Care Lvl 3 Diagnoses Dysphagia R13.10 Severe protein-calorie malnutrition E43 Neuroendocrine tumor D3A.8 BPH with obstruction/lower urinary tract symptoms N40.1; N13.8 HLD (hyperlipidemia) E78.5 HTN (hypertension) I10 CAD (coronary artery disease) I25.10 H/O: stroke Z86.73 H/O partial seizures Z86.69 Elevated LFTs R79.89 History of aortic valve disease Z86.79 Elevated troponin R77.8 Oral candidiasis B37.0
[2022-05-02] MEDS: FLUCONAZOLE 100 MG/50 ML BAG IV SCH (15:03)
[2022-05-03] MEDS: TUBE FEEDING WATER FLUSH NG SCH ×7 (01:20→23:22)
[2022-05-03] MEDS ORDERED: Nursing to Pharmacy Communication SCH (04:45)
[2022-05-03] MEDS: LACTATED RINGER'S 1,000 ML IV SCH (06:06)
[2022-05-03 07:12] LABS: Basophils # (auto) 0.05 K/uL (0-0.2); Basophils % (auto) 0.4 %; Eosinophils # (auto) 0.14 K/uL (0-0.50); Eosinophils % (auto) 1.1 %; Hematocrit (blood only) 43.1 % (40.1-51.0); Hemoglobin 14.4 g/dl (14.0-18.0); Immature Granulocytes # (auto) 0.07 K/uL (0.00-0.02); Immature Granulocytes % (auto) 0.6 %; Lymphocytes # (auto) 1.19 K/uL (1.2-3.4); Lymphocytes % (auto) 9.7 %; Mean Corpuscular Hemoglobin 31.6 pg (25.0-34.0); Mean Corpuscular Hgb Conc 33.4 g/dL (32.0-36.0); Mean Corpuscular Volume 94.5 fL (80.0-100.0); Mean Platelet Volume 12.2 fL (9.4-12.4); Monocytes # (auto) 0.77 K/uL (0.24-0.82); Monocytes % (auto) 6.3 %; Neutrophils # (auto) 10.04 K/uL (1.4-6.5); Neutrophils % (auto) 81.9 %; Platelet Count 213 K/uL (130-400); RDW Coefficient of Variation 13.9 % (11.5-14.5); RDW Standard Deviation 47.9 fL (36.4-46.3); Red Blood Count 4.56 M/uL (4.63-6.08); White Blood Count 12.26 K/ul (4.8-10.8)
[2022-05-03 07:33] LABS: Albumin Globulin Ratio 1.1 (0.9-2); Albumin Level 3.1 gm/dl (3.4-5.0); BUN Creatinine Ratio 36.4 (10-20); Bilirubin,Total 0.9 mg/dl (0.2-1.0); Calcium 8.9 mg/dl (8.5-10.1); Creatinine Clr Calc Pharmacy 85.4 ml/min; Est GFR (African American) 129.5 ml/min; Est GFR (Non-African American) 111.7 ml/min; Globulin 2.8 gm/dl (2.5-4.0); Magnesium 1.7 mg/dl (1.7-2.4); Phosphorus 1.6 mg/dl (2.5-4.9); Potassium 3.5 mmol/L (3.5-5.1); Total Protein 5.9 gm/dl (6.0-8.3)
[2022-05-03] MEDS ORDERED: POTASSIUM PHOS 3 MMOL/1 ML INFUSION IV STA (07:56)
[2022-05-03] MEDS ORDERED: POTASSIUM PHOSPHATE 21 MMOL in SODIUM CHLORIDE 0.9% 500 ML IV ONE (08:15)
[2022-05-03] MEDS ORDERED: MAGNESIUM SULFATE / D5W 1 GM/100 ML BAG IV ONE (08:30)
[2022-05-03] MEDS: MULTI VIT W/MINERALS LIQUID 15 ML UDP NG SCH (08:37)
[2022-05-03] MEDS: ASPIRIN 81 MG CHEW PO SCH (08:37)
[2022-05-03] MEDS: METOPROLOL TARTRATE 25 MG TAB OG SCH ×2 (08:37→20:41)
[2022-05-03] MEDS ORDERED: MULTI VIT W/MINERALS LIQUID 15 ML UDP NG SCH (09:00)
[2022-05-03] MEDS: THIAMINE HCL 300 MG in SODIUM CHLORIDE 0.9% 50 ML IV SCH (10:18)
--- NOTE | 2022-05-03 12:05 | Hospitalist Progress Note ---
Date of Service May 03, 2022 Assessment & Plan (1) Dysphagia: Plan: 77yo male with history of neuroendocrine tumor of the pancreas presenting with 1 week of worsening oropharyngeal dysphagia and significant weight loss over the past few months, cachexia, coughing with eating or drinking anything. Now failed swallow study, aspirating everything and no functional swallow, Speech recommends strict NPO CT chest shows evidence of aspiration but no overt signs of PNA ie fevers, leukocytosis, etc. ordered brain MRI--> old CVA but nothing new/acute to explain dysphagia ordered CT soft tissues neck--> negative for structural causes Suspect due to severe malnutrition, muscle wasting in setting of metastatic CA Prealbumin severely low at 6 -pt and agreeable to Coresafe feeding tube placed on 05/01 and starting TFs for nutrition -keep strictly NPO -Aspiration precautions, continue oral care, keep HOB>30 degrees and will need hospital bed at home to do so -Nutrition consultation appreciated for TF recommendations-Fibersource HN with goal 45mL/hr-now at goal -continue free H2O flushes -can now dc IVFs as at goal feeds -changed meds to forms that can be crushed ie change Toprol to metoprolol tartrate, ASA to chewable. 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 -Continue Sandostatin -consult Oncology to see about recommendations moving forward, unclear if severe weight loss from progression of disease? 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 Stable -Monitor UOP -NOT on Flomax-this was originally on med rec as old med from previous kidney stone-discontinued med and removed from home med rec (5) HLD (hyperlipidemia): Plan: Chronic. Stable -Continue Atorvastatin 40mg po qHS (6) HTN (hypertension): Plan: Chronic. Blood pressure stable -Continue Metoprolol but changed to tartrate 12.5mg po bid through NGT -Continue to monitor (7) CAD (coronary artery disease): Plan: Chronic. Stable. H/o CABG at time of AVR With mild myocardial demand ischemia due with elevated troponin at 46.3/55/43 serially Denies chest pain. No acute ischemic changes on EKG. 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 continue Keppra follows with Neuro (10) Elevated LFTs: Plan: 2/2 known liver mets AST mild elevation and alk phos quite high but consistent with previous follow LFTs especially while on fluconazole for oral candidiasis (11) History of aortic valve disease: Plan: AVR bioprosthetic (12) Elevated troponin: Plan: as above (13) Oral candidiasis: Plan: continue dilfucan 100mg IV daily x 7 day course-last day 05/07.Can be converted to liquid solution per NGT if course not completed by time of discharge Plan 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 - SCDs to bilateral LE Code - Full per discussion with patient Dispo -continued stay, PT/OT evals, will definitely need home health for tube feeds, etc after discharge Admission and Anticipated Discharge Date Admission Date: April 30, 2022 Subjective Pt reports feeling stronger each day. No nausea or abd pain. Is now up to goal on TFs. No cough, no CP, SOB. DOes feel post-nasal drip collecting in back of throat at times. Is up to the BR and back each day and feels stronger. Tele with paced rhythm, rates in 90s Review of Systems Review of Systems: All systems reviewed & are unremarkable except as noted in HPI & below Physical Exam Constitutional: + cachectic; no acute distress Eyes: + anicteric sclerae ENMT: Ears: no hearing impairment and no external ear abnormality Nose: + external nose abnormality (NGT in place) Mouth: + oropharynx abnormality (erythema improved,exudate minimal,with some yellow thick exudate) Neck: trachea midline, no thyromegaly Respiratory: normal respiratory effort; no labored breathing and no cough Auscultation: lungs clear to auscultation bilaterally and + crackles (bibasilar); no rhonchi and no wheezes Cardiovascular: RRR, no murmur, no edema Gastrointestinal (Abdomen): normal bowel sounds, soft, nontender, no hepatosplenomegaly (scaphoid) Musculoskeletal: Extremities: + extremities abnormal to inspection (diffuse sarcopenia), no cyanosis and no clubbing Skin: no rashes, warm and dry Neurologic: moves all extremities and awake; no focal motor deficits Psychiatric: A+Ox3, euthymic affect Results & Data Results & Data ([facility]) Vital Signs (Past 12 Hours) Vital Signs Temp Pulse Resp BP Pulse Ox O2 Del Method 05/03/22 11:54 36.4 C L 89 18 108/73 97 Room Air 05/03/22 08:15 36.6 C 89 17 104/67 89 L Room Air 05/03/22 04:00 36.7 C 95 H 20 108/75 95 Room Air Laboratory Results 05/03/22 05/03/22 Range/Units 06:14 06:14 WBC 12.26 H (4.8-10.8) K/ul RBC 4.56 L (4.63-6.08) M/uL Hgb 14.4 (14.0-18.0) g/dl Hct 43.1 (40.1-51.0) % MCV 94.5 (80.0-100.0) fL MCH 31.6 (25.0-34.0) pg MCHC 33.4 (32.0-36.0) g/dL RDW Std Deviation 47.9 H (36.4-46.3) fL RDW Coeff of Mason 13.9 (11.5-14.5) % Plt Count 213 (130-400) K/uL MPV 12.2 (9.4-12.4) fL Immature Gran % (Auto) 0.6 % Neut % (Auto) 81.9 % Lymph % (Auto) 9.7 % [place] % (Auto) 6.3 % Eos % (Auto) 1.1 % Baso % (Auto) 0.4 % Neut # (Auto) 10.04 H (1.4-6.5) K/uL Lymph # (Auto) 1.19 L (1.2-3.4) K/uL [place] # (Auto) 0.77 (0.24-0.82) K/uL Eos # (Auto) 0.14 (0-0.50) K/uL Baso # (Auto) 0.05 (0-0.2) K/uL Immature Gran # (Auto) 0.07 H (0.00-0.02) K/uL Sodium 139 (136-145) mmol/L Potassium 3.5 (3.5-5.1) mmol/L Chloride 102 (98-107) mmol/L Carbon Dioxide 30 (21-32) mmol/L Anion Gap 7 (3-11) BUN 16 (6-23) mg/dl Creatinine 0.44 L (0.6-1.4) mg/dl Est Cr Clr Drug Dosing 85.4 ml/min Est GFR ( Amer) 129.5 ml/min Est GFR (Non-Af Amer) 111.7 ml/min BUN/Creatinine Ratio 36.4 H (10-20) Glucose 146 H (70-99(Fasting)) mg/dl Calcium 8.9 (8.5-10.1) mg/dl Phosphorus 1.6 L (2.5-4.9) mg/dl Magnesium 1.7 (1.7-2.4) mg/dl Total Bilirubin 0.9 (0.2-1.0) mg/dl AST 64 H (13-39) U/L ALT 33 (7-52) U/L Alkaline Phosphatase 728 H (34-104) U/L Total Protein 5.9 L (6.0-8.3) gm/dl Albumin 3.1 L (3.4-5.0) gm/dl Globulin 2.8 (2.5-4.0) gm/dl Albumin/Globulin Ratio 1.1 (0.9-2) PG Care Time/CCT Total # of Minutes Spent Total Time Spent with Patient: Total time spent is greater than 50% in coordination of care (as documented) at patient's floor/unit and/or counseling patient: Coding Level of Care Code 50358 Subseq Hosp Care Lvl 3 Diagnoses Dysphagia R13.10 Severe protein-calorie malnutrition E43 Neuroendocrine tumor D3A.8 BPH with obstruction/lower urinary tract symptoms N40.1; N13.8 HLD (hyperlipidemia) E78.5 HTN (hypertension) I10 CAD (coronary artery disease) I25.10 H/O: stroke Z86.73 H/O partial seizures Z86.69 Elevated LFTs R79.89 History of aortic valve disease Z86.79 Elevated troponin R77.8 Oral candidiasis B37.0
[2022-05-03] MEDS: FLUCONAZOLE 100 MG/50 ML BAG IV SCH (17:33)
[2022-05-03] MEDS: ATORVASTATIN 40 MG TAB PO SCH (20:41)
[2022-05-03] MEDS: DOCUSATE SODIUM SYRUP 100 MG/10 ML UDC PO SCH ×2 (20:42→20:54)
[2022-05-04] MEDS: TUBE FEEDING WATER FLUSH NG SCH ×6 (06:24→23:56)
[2022-05-04 07:20] LABS: Basophils # (auto) 0.03 K/uL (0-0.2); Basophils % (auto) 0.3 %; Eosinophils # (auto) 0.11 K/uL (0-0.50); Eosinophils % (auto) 1.3 %; Hematocrit (blood only) 41.9 % (40.1-51.0); Hemoglobin 14.3 g/dl (14.0-18.0); Immature Granulocytes # (auto) 0.06 K/uL (0.00-0.02); Immature Granulocytes % (auto) 0.7 %; Lymphocytes % (auto) 13.7 %; Mean Corpuscular Hemoglobin 31.6 pg (25.0-34.0); Mean Corpuscular Hgb Conc 34.1 g/dL (32.0-36.0); Mean Corpuscular Volume 92.7 fL (80.0-100.0); Mean Platelet Volume 11.6 fL (9.4-12.4); Monocytes # (auto) 0.73 K/uL (0.24-0.82); Monocytes % (auto) 8.4 %; Neutrophils # (auto) 6.61 K/uL (1.4-6.5); Neutrophils % (auto) 75.6 %; Platelet Count 188 K/uL (130-400); RDW Coefficient of Variation 13.7 % (11.5-14.5); RDW Standard Deviation 46.6 fL (36.4-46.3); Red Blood Count 4.52 M/uL (4.63-6.08); White Blood Count 8.74 K/ul (4.8-10.8)
[2022-05-04 07:39] LABS: BUN Creatinine Ratio 27.8 (10-20); Bilirubin,Total 0.7 mg/dl (0.2-1.0); Calcium 8.9 mg/dl (8.5-10.1); Creatinine Clr Calc Pharmacy 106.8 ml/min; Est GFR (African American) 140.6 ml/min; Est GFR (Non-African American) 121.3 ml/min; Globulin 2.9 gm/dl (2.5-4.0); Magnesium 1.6 mg/dl (1.7-2.4); Phosphorus 2.4 mg/dl (2.5-4.9); Potassium 3.6 mmol/L (3.5-5.1); Total Protein 5.9 gm/dl (6.0-8.3)
[2022-05-04] MEDS: METOPROLOL TARTRATE 25 MG TAB OG SCH ×2 (09:00→20:21)
[2022-05-04] MEDS: ASPIRIN 81 MG CHEW PO SCH (09:01)
[2022-05-04] MEDS: MULTI VIT W/MINERALS LIQUID 15 ML UDP NG SCH (09:01)
--- NOTE | 2022-05-04 10:00 | Gastroenterology Progress Note ---
Date of Service May 04, 2022 Assessment & Plan (1) Dysphagia: Plan: Discussed risks of PEG tube with patient including bleeding, perforation, infection. Discussed that it does not eliminate risk of aspiration as he can still aspirate on saliva/tube feeds. Discussed that given his history of multiple abdominal surgeries, he may not be a candidate for endoscopic placement. Will discuss with GI team and further plans will be forthcoming. Admission and Anticipated Discharge Date Admission Date: April 30, 2022 Supervising Physician Co-Signing Physician Notes Agree with WALI Laws as above Abd: Soft, NT, ND Proceed with PEG tube in AM Preop Abx order placed Continue current therapy Subjective Patient is a 77 yo male with poor po intake and aspiration. Had discussion with patient at bedside. He spoke with palliative care and was initially unsure how h e felt about ongoing tube-feeding. He now wishes to proceed with tube placement. He denies new issues at present. Feeds are running at the time of the visit. Patient currently has a core-safe in place. He notes he gets his cancer treatment through [facility] in [place]. Review of Systems Gastrointestinal: + dysphagia; no abdominal pain and no change in bowel habits Physical Exam Constitutional: + thin and + cachectic; + not well nourished Respiratory: normal respiratory effort Cardiovascular: Rate/Rhythm: regular rate Gastrointestinal (Abdomen): Inspection/Auscultation: abdomen not distended Percussion/Palpation: abdomen soft; abdomen nontender Surgical scarring visible Musculoskeletal: Head/Neck/Chest: normocephalic Psychiatric: Orientation: alert and oriented x 3 Results & Data Results & Data ([facility]) Vital Signs (Past 12 Hours) Vital Signs Temp Pulse Pulse Resp BP Pulse Ox O2 Del Method 05/04/22 08:33 36.5 C 94 H 17 119/79 95 Room Air 05/04/22 07:36 Room Air 05/04/22 07:00 90 05/04/22 02:59 36.7 C 92 H 18 117/78 92 Room Air 05/03/22 23:54 83 05/03/22 23:18 36.7 C 89 18 117/76 95 Room Air PG Care Time/CCT Total # of Minutes Spent Total Time Spent with Patient: Total time spent is greater than 50% in coordination of care (as documented) at patient's floor/unit and/or counseling patient: Coding Level of Care Code 91237 Subseq Hosp Care Lvl 3 Diagnoses Dysphagia R13.10
[2022-05-04] MEDS: MAGNESIUM SULFATE / D5W 1 GM/100 ML BAG IV SCH ×2 (10:21→13:14)
[2022-05-04] MEDS: THIAMINE HCL 300 MG in SODIUM CHLORIDE 0.9% 50 ML IV SCH (11:06)
[2022-05-04] MEDS: POT PHOSPHATE MONOBASIC W/ SOD TAB NG SCH ×4 (11:09→20:21)
--- NOTE | 2022-05-04 13:20 | Hospitalist Progress Note ---
Date of Service May 04, 2022 Assessment & Plan (1) Dysphagia: Plan: 77yo male with history of neuroendocrine tumor of the pancreas presenting with 1 week of worsening oropharyngeal dysphagia and significant weight loss over the past few months, cachexia, coughing with eating or drinking anything. Now failed swallow study, aspirating everything and no functional swallow, Speech recommends strict NPO CT chest shows evidence of aspiration but no overt signs of PNA ie fevers, leukocytosis, etc. ordered brain MRI--> old CVA but nothing new/acute to explain dysphagia ordered CT soft tissues neck--> negative for structural causes Suspect due to severe malnutrition, muscle wasting in setting of metastatic CA Prealbumin severely low at 6 -pt and agreeable to Coresafe feeding tube placed on 05/01 and starting TFs for nutrition -keep strictly NPO -Aspiration precautions, continue oral care, keep HOB>30 degrees and will need hospital bed at home to do so -Nutrition consultation appreciated for TF recommendations-Fibersource HN with goal 45mL/hr-now at goal -continue free H2O flushes -appreciate Palliative Medicine consult for goals of care Etiology unclearcould be paraneoplastic; does not seem like myasthenia gravis isolated to pharyngeal muscles but sent panel GI plan awaited, note noted (2) Severe protein-calorie malnutrition: Plan: as above (3) Neuroendocrine tumor: Plan: Patient with 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 -Continue Sandostatin -consulted Oncology to see about recommendations moving forward, unclear if severe weight loss from progression of disease? 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 Stable -Monitor UOP -NOT on Flomax-this was originally on med rec as old med from previous kidney stone-discontinued med and removed from home med rec (5) HLD (hyperlipidemia): Plan: Obtain Lipid panel, no change for now (6) HTN (hypertension): Plan: Stable pressures, no change (7) CAD (coronary artery disease): Plan: Chronic. Stable. H/o CABG at time of AVR With mild myocardial demand ischemia due with elevated troponin at 46.3/55/43 serially Denies chest pain. No acute ischemic changes on EKG. 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 continue Keppra follows with Neuro (10) Elevated LFTs: Plan: 2/2 known liver mets AST mild elevation and alk phos quite high but consistent with previous follow LFTs especially while on fluconazole for oral candidiasis (11) History of aortic valve disease: Plan: AVR bioprosthetic (12) Elevated troponin: Plan: as above (13) Oral candidiasis: Plan: continue dilfucan 100mg IV daily x 7 day course-last day 05/07.Can be converted to liquid solution per NGT if course not completed by time of discharge (14) Electrolyte abnormality: Plan: Replace magnesium, replace Phos Plan 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 - SCDs to bilateral LE Code - Full per discussion with patient Dispo -continued stay, PT/OT evals, will definitely need home health for tube f eeds, etc after discharge Admission and Anticipated Discharge Date Admission Date: April 30, 2022 Subjective Follow-up of presentation with oral intolerance-no new issues Physical Exam Physical Exam: Constitutional and general: Extremely poor muscle mass, looks biologic age Head and face: No puffiness, atraumatic Eyes: No scleral icterus, extraocular movements normal Neck: Supple, no JVD Musculoskeletal: No acute joint swelling, no bony abnormalities Skin/dermatologic/integument: No rash, no purpura Hematologic and lymphatic: pallor none, no petechia Gastrointestinal/abdomen: Nondistended, soft, nonacute Neurologic: Cranial nerves intact, nonfocal Psychiatry: Awake, alert, pleasant, communicative Cardiovascular: Heart rhythm regular, no rub, no murmur, no gallop Respiratory: Chest movements equal, no use of accessory muscles, no adventitious sounds Extremities: No edema, no cyanosis Results & Data Results & Data ([facility]) Vital Signs (Past 12 Hours) Vital Signs Temp Pulse Pulse Resp BP Pulse Ox O2 Del Method 05/04/22 11:53 36.6 C 87 18 121/79 96 Room Air 05/04/22 08:33 36.5 C 94 H 17 119/79 95 Room Air 05/04/22 07:36 Room Air 05/04/22 07:00 90 05/04/22 02:59 36.7 C 92 H 18 117/78 92 Room Air Laboratory Results Laboratory Results - last 24 hr 05/04/22 05/04/22 06:53 06:53 WBC 8.74 RBC 4.52 L Hgb 14.3 Hct 41.9 MCV 92.7 MCH 31.6 MCHC 34.1 RDW Std Deviation 46.6 H RDW Coeff of Mason 13.7 Plt Count 188 MPV 11.6 Immature Gran % (Auto) 0.7 Neut % (Auto) 75.6 Lymph % (Auto) 13.7 Bee % (Auto) 8.4 Eos % (Auto) 1.3 Baso % (Auto) 0.3 Neut # (Auto) 6.61 H Lymph # (Auto) 1.20 Bee # (Auto) 0.73 Eos # (Auto) 0.11 Baso # (Auto) 0.03 Immature Gran # (Auto) 0.06 H Sodium 136 Potassium 3.6 Chloride 100 Carbon Dioxide 28 Anion Gap 8 BUN 10 Creatinine 0.36 L Est Cr Clr Drug Dosing 106.8 Est GFR ( Amer) 140.6 Est GFR (Non-Af Amer) 121.3 BUN/Creatinine Ratio 27.8 H Glucose 150 H Calcium 8.9 Phosphorus 2.4 L Magnesium 1.6 L Total Bilirubin 0.7 AST 73 H ALT 32 Alkaline Phosphatase 695 H Total Protein 5.9 L Albumin 3.0 L Globulin 2.9 Albumin/Globulin Ratio 1.0 PG Care Time/CCT Total # of Minutes Spent Total Time Spent with Patient: Total time spent is greater than 50% in coordination of care (as documented) at patient's floor/unit and/or counseling patient: Coding Level of Care Code 29512 Subseq Hosp Care Lvl 2 Diagnoses Dysphagia R13.10 Severe protein-calorie malnutrition E43 Neuroendocrine tumor D3A.8 BPH with obstruction/lower urinary tract symptoms N40.1; N13.8 HLD (hyperlipidemia) E78.5 HTN (hypertension) I10 CAD (coronary artery disease) I25.10 H/O: stroke Z86.73 H/O partial seizures Z86.69 Elevated LFTs R79.89 History of aortic valve disease Z86.79 Elevated troponin R77.8 Oral candidiasis B37.0 Electrolyte abnormality E87.8
[2022-05-04] MEDS: FLUCONAZOLE 100 MG/50 ML BAG IV SCH (13:54)
--- NOTE | 2022-05-04 15:15 | Anesthesiology Consultation ---
Date of Service May 04, 2022 Assessment & Plan Chart Review Chart Review: Acceptable Risk for Surgery, Patient NOT seen in Pre Admission Testing and clerk entry level initiated Consults Requested none History Surgery Operation Date: 05/04/22 17:00 Proposed Procedures p Esophagogastroduodenoscopy Dr Ray - Johnathan Middleton Case, DO Height/Weight Height: 5 ft 7 in Weight: 42.6 kg Allergies Allergy/AdvReac Type Severity Reaction Status Date / Time heparin Allergy Severe thrombocyto Verified 04/30/22 23:47 penia adhesive Allergy Intermediate Hives Verified 10/03/21 07:17 ciprofloxacin [From Cipro] Allergy Intermediate Hives Verified 10/03/21 07:17 buspirone [From BuSpar] AdvReac Intermediate Dizziness Verified 10/03/21 07:17 lansoprazole [From Prevacid] AdvReac Mild Diarrhea Verified 10/03/21 07:17 venlafaxine [From Effexor] AdvReac Mild somnulence Verified 10/03/21 07:17 Medications Home Medications Medication Instructions Recorded Confirmed Last Taken aspirin 81 mg tablet,delayed 81 mg PO QAM 07/20/18 05/02/22 09/20/21 release atorvastatin 40 mg tablet (Lipitor) 40 mg PO HS 07/20/18 05/02/22 10/02/21 magnesium oxide 400 mg (241.3 mg 400 mg PO QAM 07/20/18 05/02/22 10/02/21 magnesium) tablet (MagOx) cholecalciferol (vitamin D3) 50 2,000 units PO QAM 11/27/19 05/02/22 10/02/21 mcg (2,000 unit) capsule octreotide,microspheres 30 mg 30 mg IM Q28D 12/28/19 05/02/22 12/27/19 intramuscular susp, extended release (Sandostatin LAR Depot) docusate sodium 100 mg capsule 200 mg PO HS 01/02/20 05/02/22 10/02/21 (Colace) metoprolol succinate 25 mg 25 mg PO HS 01/02/20 05/02/22 10/02/21 tablet,extended release 24 hr potassium chloride 10 mEq 30 meq PO BID 09/09/21 05/02/22 10/02/21 tablet,extended release (Klor-Con) levetiracetam 500 mg tablet 500 mg PO BID 90 days #180 tabs 12/21/21 05/02/22 Unknown Active Medications Generic Name Dose Route Start Last Admin Trade Name Yarelis PRN Reason Stop Dose Admin Aspirin 81 mg 05/02/22 09:00 05/04/22 09:01 Aspirin 81 Mg Chew PO 06/01/22 08:59 81 mg QAM TYLER Administration Atorvastatin Calcium 40 mg 05/01/22 21:00 05/03/22 20:41 Atorvastatin 40 Mg Tab PO 05/31/22 20:59 40 mg HS TYLER Administration Docusate Sodium 200 mg 05/01/22 21:00 05/03/22 20:54 Docusate Sodium Syrup 100 Mg/10 Ml Udc PO 05/31/22 20:59 Not Given HS TYLER Enteral Nutritional Formula 1,000 ml 05/01/22 20:00 05/01/22 22:00 Fibersource Hn 1.2 Burak 1000 Ml Bag NG 05/31/22 19:59 1,000 ml UD TYLER Administration Protocol Fluconazole 100 mg in 50 mls @ 100 mls/hr 05/02/22 14:15 05/04/22 15:03 Diflucan IV 05/08/22 14:14 Infused Q24H TYLER Infusion Protocol Thiamine HCl 300 mg/ Sodium 53 mls @ 212 mls/hr 05/02/22 09:00 05/04/22 13:16 Chloride IV 06/01/22 08:59 Infused QAM TYLER Infusion Levetiracetam 500 mg 05/01/22 23:45 05/04/22 09:00 Levetiracetam Soln 500 Mg/5 Ml Udp PO 05/31/22 23:44 500 mg BID TYLER Administration Metoprolol Tartrate 12.5 mg 05/01/22 21:00 05/04/22 09:00 Metoprolol Tartrate 25 Mg Tab OG 05/31/22 20:59 12.5 mg BID TYLER Administration Multivitamins/Minerals 15 ml 05/03/22 09:00 05/04/22 09:01 Multi Vit W/Minerals Liquid 15 Ml Udp NG 06/02/22 08:59 15 ml QAM TYLER Administration Potassium Phosphate 2 tab 05/04/22 09:00 05/04/22 13:37 Pot Phosphate Monobasic W/ Sod Tab NG 06/03/22 08:59 2 tab QID TYLER Administration Sterile Water 100 ml 05/01/22 20:00 05/04/22 15:17 Tube Feeding Water Flush NG 05/31/22 19:59 100 ml Q4H TYLER Administration Past Medical History Medical History (Updated 05/04/22 @ 13:19 by Eric Still MD) Acute CVA (cerebrovascular accident) 06/2018. Brain imaging at the time also noted chronic vs subacute CVA. pt denies deficits Anxiety CAD (coronary artery disease) S/p CABG x 2 (SMITH to LAD and SVG to OM), 2018. Elevated LFTs GERD (gastroesophageal reflux disease) History of aortic valve disease S/P [facility] bioprosthetic AVR 2018 (with CABG) History of atrial fibrillation Post-op CABG. follows with Dr. Orta. History of pleural effusion 07/2018. Drained. HLD (hyperlipidemia) HTN (hypertension) Humerus fracture LEFT SIDE Kidney stones Pacemaker [employer]; [facility] for postop complete heart block after CABG 2017. last check 1 mo ago Pancreatic cancer with mets to liver dx 2017; s/p TACE procedure x 2 Severe protein-calorie malnutrition Simple partial seizure disorder Per neurology office note 2020: History of seizure-like activity characterized by alteration in awareness, staring spells, beginning in the context of a hospitalization at [facility] for AVR, CABG in May 2018. Patient continues with Keppra. However, it is unclear to me if he needs to remain on this medication. I have recommended an up-to-date EEG. If the EEG is normal we will consider tapering off Keppra. (EEG 12/19 = This is a normal-appearing awake/drowsy EEG demonstrating a normal reactive background rhythm, and not much else. A normal EEG does not completely exclude a diagnosis of epilepsy.) Past Family History Family History Father Heart disease S/P CABG (coronary artery bypass graft) Stroke Family history of diabetes mellitus Mother Heart disease Hypertension Stroke Family history of diabetes mellitus Grandfather (Maternal) Stroke Grandfather (Paternal) Cirrhosis of liver Past Surgical History Surgical History History of cardiac cath 2017 [facility] History of colonoscopy History of cystoscopy WITH STENT PLACED History of esophagogastroduodenoscopy (EGD) History of lithotripsy History of reverse total replacement of left shoulder joint History of surgery TACE procedure x 2 History of tonsillectomy and adenoidectomy History of tooth extraction Hx of CABG two-vessel; [facility] 2017 S/P AVR (aortic valve replacement) [facility] 2017 S/P cholecystectomy Status post Power fundoplication Status post placement of cardiac pacemaker 06/2018 due to post-op heart block after CABG. Social History Smoking Status: Never smoker Hx Alcohol Use: Yes Alcohol type: hard liquor alcohol intake frequency: holidays/special occasions only Hx Substance Use: No substance use type: does not use Physical Exam Vital Signs Last Vital Signs Temp 36.6 C 05/04/22 11:53 Pulse 87 05/04/22 11:53 Resp 18 05/04/22 11:53 BP 121/79 05/04/22 11:53 Pulse Ox 96 05/04/22 11:53 O2 Del Method 05/04/22 11:53 O2 Flow Rate 1 05/01/22 05:15 Testing Laboratory Results 05/04/22 06:53 05/04/22 06:53 Electrocardiogram Date: 04/30/22 Test Reason : Blood Pressure : / mmHG Vent. Rate : 119 BPM Atrial Rate : 131 BPM P-R Int : 000 ms QRS Dur : 120 ms QT Int : 202 ms P-R-T Axes : 087 -69 107 degrees QTc Int : 284 ms Atrial-sensed ventricular-paced rhythm Abnormal ECG When compared with ECG of 17-SEP-2021 11:44, Vent. rate has increased BY 37 BPM Confirmed by John Najera ([id number]) on 05/01/2022 5:56:37 PM Chest X-Ray Date: 04/30/22 XR chest 1V portable CLINICAL HISTORY: weakness TECHNIQUE: Single frontal radiograph of the chest was obtained. Comparison: Comparison is made to chest radiograph 04/29/2022 FINDINGS: Left total reverse shoulder arthroplasty is seen. Median sternotomy wires are seen. Dual-lead pacemaker is seen. The cardiomediastinal silhouette is normal. The lungs are clear. No evidence of pleural effusion or pneumothorax. IMPRESSION: No acute chest disease. Echocardiogram Date: 11/07/18 EF: 55-60% LV Function: normal RWMA: + none Abnormal septal motion, grade 1 diastolic dysfunction.
[2022-05-04] MEDS ORDERED: ceFAZolin 1000MG 1,000 MG/7.5 ML SYR IV SCH (15:30)
--- NOTE | 2022-05-04 15:37 | XRay Report ---
XR shoulder LT min 2V routine CLINICAL HISTORY: New shoulder pain COMPARISON STUDY: Left shoulder 01/11/2020. FINDINGS: There is a left total shoulder arthroplasty. The hardware appears intact. No acute fracture or dislocation within the left shoulder. The left clavicle is intact. Soft tissues are unremarkable. There is a left-sided dual-chamber pacemaker. There is mild AC joint arthrosis. IMPRESSION: 1. No acute fracture or dislocation within the left shoulder. 2. Left total shoulder arthroplasty. Hardware appears intact. ACT 112: Negative or not required by law. Electronically signed by: Mati Bhatia M.D. 05/04/2022 3:35 PM
--- NOTE | 2022-05-04 16:35 | Anesthesiology Progress Note ---
Date of Service May 04, 2022 Anesthesia Post Procedure Vital Signs Vital Signs: Temp Pulse Pulse Resp BP Pulse Ox O2 Del Method 05/04/22 16:33 36.7 C 95 H 18 110/72 96 Room Air 05/04/22 11:53 36.6 C 87 18 121/79 96 Room Air 05/04/22 08:33 36.5 C 94 H 17 119/79 95 Room Air 05/04/22 07:36 Room Air 05/04/22 07:00 90 05/04/22 02:59 36.7 C 92 H 18 117/78 92 Room Air 05/03/22 20:00 Room Air 05/03/22 23:54 83 05/03/22 23:18 36.7 C 89 18 117/76 95 Room Air 05/03/22 19:51 36.7 C 94 H 20 127/83 95 Room Air Pain Intensity Neck: Pain Intensity: 2 Left Shoulder: Pain Intensity: 2 Transfer of Care Handoff Completed per policy Notes Mental Status: alert / awake / arousable Patient Amnestic to Procedure: Yes Nausea / Vomiting: adequately controlled Pain: adequately controlled Airway Patency, RR, SpO2: stable & adequate BP & HR: stable & adequate Hydration State: stable & adequate Anesthetic Complications: no major complications apparent and Pt Satisfied with anesthetic care
[2022-05-04] MEDS: DOCUSATE SODIUM SYRUP 100 MG/10 ML UDC PO SCH (20:20)
[2022-05-04] MEDS: ATORVASTATIN 40 MG TAB PO SCH (20:21)
--- NOTE | 2022-05-05 03:12 | Consultation Report ---
DATE OF SERVICE: 05/04/2022. REASON FOR CONSULTATION: History of metastatic neuroendocrine tumor with failure to thrive/weight loss. HISTORY OF PRESENT ILLNESS: Mr. Rodriguez is a pleasant 77-year-old gentleman who I had the pleasure of meeting today for the first time. He has been a longtime patient of [facility] previously been followed twice a year by Dr. Oneal but primarily followed at [facility] under the care of Dr. Melvin for metastatic neuroendocrine tumor of the pancreas. He is status post 2 cycles of liver chemoembolization therapy with streptozocin. In addition, the patient has also been receiving octreotide monthly at [facility]. Most recent evaluation at [facility] in February 2022 had revealed significant increase in chromogranin to 2592 as well as increase in his serotonin level to 329. Imaging studies also obtained during that visit had revealed progression of disease .Plan was for cycle #3 of TACE to right lobe of his liver in June. He presented to the ER on 04/30/2022 with progressive weight loss as well as coughing/choking with meals. Video fluoroscopic swallow study obtained on admission revealed silent aspiration without clearance. CTA chest on 04/30/2022 revealed ground glass and solid opacities predominantly in the lower lobes, likely representing infectious/inflammatory process. CT soft tissue neck on 05/01/2022 revealed small amount of fluid/secretions within the piriform sinuses with mucosal hyperenhancement, possibly representing a mild pharyngitis. Brain MRI on 05/01/2022 was negative for intracranial metastatic disease. Given failed swallow study, he was placed on n.p.o. and had NG feeding tube placed. GI was consulted with plan for possible PEG tube placement tomorrow. At time of seeing the patient today, he complains of significant weight loss prior to hospitalization and states that he has gained some weight since hospitalization. Endorses cough associated with eating by mouth. He denies any other issues. HOME MEDICATIONS: 1. Aspirin 81 mg p.o. every day. 2. Atorvastatin 40 mg p.o. at bedtime. 3. Magnesium oxide 400 mg p.o. q.a.m. 4. Vitamin D3 2000 units p.o. q.a.m. 5. Octreotide 30 mg IM every month. 6. Docusate sodium 200 mg p.o. at bedtime. 7. Metoprolol 25 mg p.o. at bedtime. 8. Keppra 500 mg p.o. b.i.d. ALLERGIES: 1. HEPARIN. 2. CIPROFLOXACIN. 3. BUSPAR. 4. PREVACID. 5. EFFEXOR. PAST MEDICAL HISTORY: 1. CVA. 2. CAD, status post CABG. 3. GERD. 4. Aortic valve disease, status post bioprosthetic AVR in 2018. 5. Atrial fibrillation. 6. Hyperlipidemia. 7. Hypertension. 8. Seizure disorder. 9. Metastatic neuroendocrine tumor. PAST SURGICAL HISTORY: 1. Left shoulder replacement. 2. Tonsillectomy and adenoidectomy. 3. CABG. 4. Aortic valve replacement. 5. Cholecystectomy. FAMILY HISTORY: Noncontributory. SOCIAL HISTORY: Denies smoking, alcohol, and illicit drug use. REVIEW OF SYSTEMS: Unremarkable except for weight loss as mentioned above. PHYSICAL EXAMINATION: VITAL SIGNS: Blood pressure 110/72, heart rate 95, respiratory rate 18, temperature 36.7, oxygen saturation 96% on room air. CONSTITUTIONAL: A 77-year-old gentleman, cachectic looking, in no obvious distress. EYES: No conjunctival erythema or icterus. NECK: Negative for palpable masses. RESPIRATORY: Decreased breath sounds bilaterally. CARDIOVASCULAR: Irregularly irregular. GASTROINTESTINAL: No palpable hepatosplenomegaly. LYMPHATIC SYSTEM: No palpable peripheral lymphadenopathy. EXTREMITIES: No edema bilaterally. LABORATORY STUDIES: Unremarkable except for elevated alkaline phosphatase of 695. IMAGING STUDIES: CTA chest on 04/30/2022, impression: 1. No evidence of PE. 2. Ground-glass and solid opacities are seen, predominantly in the lower lungs, which could represent infectious/inflammatory process. CT soft tissue neck, impression: 1. No masses or lymphadenopathy identified in the neck. 2. Small amount of fluid/secretions within the piriform sinuses with mucosal hyperenhancement. Brain MRI on 05/01/2022, impression: 1. Chronic changes with no acute intracranial abnormality. 2. No MRI evidence of intracranial metastatic disease. ASSESSMENT AND PLAN: 1. Pancreatic neuroendocrine tumor with liver metastasis. 2. Failure to thrive/significant weight loss secondary to dysphagia. A pleasant 77-year-old gentleman who presented with failure to thrive. His most recent labs and imaging studies in February [address] Melvin at [facility] was suggestive of disease progression. He is scheduled to receive cycle #3 of TACE in June. Discussed my thoughts with the patient. I explained to him that I suspect that his weight loss is most likely due to dysphagia and disease progression of his neuroendocrine tumor. I would recommend obtaining CT abdomen and pelvis to evaluate for worsening progression. Also recommend checking serotonin and chromogranin levels. Would defer to the patient's oncologist at [facility] regarding starting systemic therapy such as capecitabine/Temodar given significant disease progression. Thank you for this consult. Oncology will follow up upon discharge from hospital. Please feel free to call if you have any further questions. Job ID: [id number] [facility]
[2022-05-05 06:13] LABS: Basophils # (auto) 0.04 K/uL (0-0.2); Basophils % (auto) 0.6 %; Eosinophils # (auto) 0.07 K/uL (0-0.50); Hematocrit (blood only) 39.4 % (40.1-51.0); Hemoglobin 13.4 g/dl (14.0-18.0); Immature Granulocytes # (auto) 0.05 K/uL (0.00-0.02); Immature Granulocytes % (auto) 0.7 %; Lymphocytes # (auto) 0.96 K/uL (1.2-3.4); Lymphocytes % (auto) 13.5 %; Mean Corpuscular Hemoglobin 31.3 pg (25.0-34.0); Mean Corpuscular Volume 92.1 fL (80.0-100.0); Monocytes # (auto) 0.86 K/uL (0.24-0.82); Monocytes % (auto) 12.1 %; Neutrophils # (auto) 5.12 K/uL (1.4-6.5); Neutrophils % (auto) 72.1 %; Platelet Count 170 K/uL (130-400); RDW Coefficient of Variation 13.4 % (11.5-14.5); RDW Standard Deviation 45.1 fL (36.4-46.3); Red Blood Count 4.28 M/uL (4.63-6.08)
[2022-05-05 06:38] LABS: Albumin Level 2.8 gm/dl (3.4-5.0); Bilirubin,Total 0.9 mg/dl (0.2-1.0); Calcium 8.7 mg/dl (8.5-10.1); Creatinine Clr Calc Pharmacy 98.8 ml/min; Est GFR (African American) 136.1 ml/min; Est GFR (Non-African American) 117.4 ml/min; Globulin 2.8 gm/dl (2.5-4.0); Magnesium 1.7 mg/dl (1.7-2.4); Phosphorus 3.6 mg/dl (2.5-4.9); Potassium 3.3 mmol/L (3.5-5.1); Total Protein 5.6 gm/dl (6.0-8.3)
[2022-05-05 06:39] LABS: Chol HDL Ratio 2.7 (0-5)
--- NOTE | 2022-05-05 08:59 | Gastroenterology Progress Note ---
Date of Service May 05, 2022 Assessment & Plan (1) Severe protein-calorie malnutrition: Plan: Proceed with EGD with PEG tube placement. Admission and Anticipated Discharge Date Admission Date: April 30, 2022 Subjective Still with dysphagia. No other complaints at present, for PEG tube placement today. Review of Systems Gastrointestinal: + dysphagia; no abdominal pain and no change in bowel habits Physical Exam Constitutional: + ill appearing (chronic) and + cachectic; no acute distress NG feeding tube in place Respiratory: normal respiratory effort, lungs clear to auscultation Cardiovascular: Rate/Rhythm: regular rate and regular rhythm Gastrointestinal (Abdomen): normal bowel sounds, soft, nontender, no hepatosplenomegaly Results & Data Results & Data ([facility]) Vital Signs (Past 12 Hours) Vital Signs Temp Pulse Pulse Resp BP Pulse Ox O2 Del Method 05/05/22 07:59 36.8 C 101 H 16 117/81 96 Room Air 05/05/22 07:54 Room Air 05/05/22 03:30 37 C 98 H 20 131/84 93 Room Air 05/05/22 02:22 89 05/05/22 00:58 36.8 C 94 H 115/68 92 Room Air 05/04/22 23:00 36.6 C 88 20 119/75 95 Room Air PG Care Time/CCT Total # of Minutes Spent Total Time Spent with Patient: Total time spent is greater than 50% in coordination of care (as documented) at patient's floor/unit and/or counseling patient: Coding Level of Care Code 20459 Subseq Hosp Care Lvl 2 Diagnoses Severe protein-calorie malnutrition E43
[2022-05-05] MEDS ORDERED: LIDOCAINE 2% MPF LOCAL 5 ML VIAL INFIL ONE (09:32)
[2022-05-05] MEDS ORDERED: PROPOFOL IV EMULSION 10 MG/ML 20 ML VIAL IV ONE (09:32)
[2022-05-05] MEDS ORDERED: ceFAZolin 330 MG/ML 1 GM VIAL ONE (09:49)
--- NOTE | 2022-05-05 10:01 | GI REPORT ---
Patient Name: Peña Rodriguez Procedure Date: 05/05/2022 9:15 AM Date of : 1945 Admit Type: Inpatient Age: 77 Gender: Male Attending MD: Johnathan Ray DO Procedure: Upper GI endoscopy Providers: Johnathan Ray DO Referring MD: Elvis Falk Indications: Place PEG because patient is unable to eat, Place PEG due to impaired swallowing, Place PEG to improve nutrition in patient with prolonged severe illness Medicines: Monitored Anesthesia Care Complications: No immediate complications. Estimated Blood Loss: Estimated blood loss: none. Procedure: Pre-Anesthesia Assessment: - Prior to the procedure, a History and Physical was performed, and patient medications and allergies were reviewed. The patient's tolerance of previous anesthesia was also reviewed. The risks and benefits of the procedure and the sedation options and risks were discussed with the patient. All questions were answered, and informed consent was obtained. Prior Anticoagulants: The patient has taken no previous anticoagulant or antiplatelet agents except for aspirin. ASA Grade Assessment: IV - A patient with severe systemic disease that is a constant threat to life. After reviewing the risks and benefits, the patient was deemed in satisfactory condition to undergo the procedure. After obtaining informed consent, the endoscope was passed under direct vision. Throughout the procedure, the patient's blood pressure, pulse, and oxygen saturations were monitored continuously. The Endoscope was introduced through the mouth, and advanced to the second part of duodenum. The upper GI endoscopy was accomplished without difficulty. The patient tolerated the procedure well. Findings: The esophagus was normal. Evidence of a Power fundoplication was found in the gastric fundus. The wrap appeared intact. This was traversed. Placement of an externally removable PEG with no T-fasteners was successfully completed. The external bumper was at the 2.0 cm marking on the tube. The examined duodenum was normal. Impression: - Normal esophagus. - A Power fundoplication was found. The wrap appears intact. - Normal examined duodenum. - An externally removable PEG placement was successfully completed. - No specimens collected. Recommendation: - [facility]. - Please follow the post-PEG recommendations including: Nutrition consult for formula and volume, change dressing on top of bumper daily and may use PEG today for meds, water and tube feedings. Johnathan Ray DO 05/05/2022 10:01:01 AM This report has been signed electronically. Note Initiated On: 05/05/2022 9:15 AM Number of Addenda: 0 I attest to the content of the Intraoperative Record and orders documented therein, exceptions below {[id number]}
[2022-05-05] MEDS: POTASSIUM CHLORIDE / WTR 10 MEQ/100 ML PLCT IV SCH ×2 (11:23→13:33)
[2022-05-05] MEDS: METOPROLOL TARTRATE 25 MG TAB OG SCH ×3 (11:59→22:16)
[2022-05-05] MEDS: ASPIRIN 81 MG CHEW PO SCH ×2 (12:00→12:22)
[2022-05-05] MEDS: POT PHOSPHATE MONOBASIC W/ SOD TAB NG SCH ×5 (12:00→22:16)
[2022-05-05] MEDS ORDERED: SODIUM CHLORIDE 0.9% 1,000 ML IV SCH (12:00)
[2022-05-05] MEDS: MULTI VIT W/MINERALS LIQUID 15 ML UDP NG SCH ×2 (12:00→12:22)
--- NOTE | 2022-05-05 12:07 | Anesthesiology Progress Note ---
Date of Service May 05, 2022 Anesthesia Post Procedure Vital Signs Vital Signs: Temp Pulse Pulse Resp BP BP Pulse Ox 05/05/22 11:32 36.5 C 97 H 16 159/94 H 97 05/05/22 10:40 81 16 141/89 H 98 05/05/22 10:24 91 H 16 136/92 96 05/05/22 10:10 88 16 126/86 97 05/05/22 07:30 95 H 05/05/22 08:59 36.7 C 110 H 16 95 05/05/22 07:59 36.8 C 101 H 16 117/81 96 05/05/22 07:54 05/05/22 03:30 37 C 98 H 20 131/84 93 05/05/22 02:22 89 05/05/22 00:58 36.8 C 94 H 115/68 92 05/04/22 20:00 05/04/22 23:00 36.6 C 88 20 119/75 95 05/04/22 19:00 36.7 C 103 H 20 125/81 93 05/04/22 16:33 36.7 C 95 H 18 110/72 96 O2 Del Method 05/05/22 11:32 Room Air 05/05/22 10:40 Room Air 05/05/22 10:24 Room Air 05/05/22 10:10 Room Air 05/05/22 07:30 05/05/22 08:59 Room Air 05/05/22 07:59 Room Air 05/05/22 07:54 Room Air 05/05/22 03:30 Room Air 05/05/22 02:22 05/05/22 00:58 Room Air 05/04/22 20:00 Room Air 05/04/22 23:00 Room Air 05/04/22 19:00 Room Air 05/04/22 16:33 Room Air Pain Intensity Neck: Pain Intensity: 2 Left Shoulder: Pain Intensity: 1 Transfer of Care Handoff Completed per policy Notes Mental Status: alert / awake / arousable and participated in evaluation Patient Amnestic to Procedure: Yes Nausea / Vomiting: adequately controlled Pain: adequately controlled Airway Patency, RR, SpO2: stable & adequate BP & HR: stable & adequate Hydration State: stable & adequate Anesthetic Complications: no major complications apparent and Pt Satisfied with anesthetic care
[2022-05-05] MEDS ORDERED: MoRPHine SULFATE 4 MG/ML 1 ML CARP\\VIAL IV STA (12:15)
[2022-05-05] MEDS ORDERED: levETIRAcetam 500 MG in 0.9 % SODIUM CHLORIDE 100 ML IV STA (12:16)
[2022-05-05] MEDS: THIAMINE HCL 300 MG in SODIUM CHLORIDE 0.9% 50 ML IV SCH (13:48)
[2022-05-05] MEDS: D5W AND 1/2NSS 1,000 ML IV SCH (13:51)
--- NOTE | 2022-05-05 15:42 | Hospitalist Progress Note ---
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 Stable -Monitor UOP -NOT on Flomax-this was originally on med rec as old med from previous kidney stone-discontinued med and removed from home med rec (5) HLD (hyperlipidemia): Plan: Statin continued due at some point might need to revisit (6) HTN (hypertension): Plan: Acceptable pressures, no change (7) CAD (coronary artery disease): Plan: Chronic. Stable. H/o CABG at time of AVR With mild myocardial demand ischemia due with elevated troponin at 46.3/55/43 serially Denies chest pain. No acute ischemic changes on EKG. 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 continue Keppra follows with Neuro (10) Elevated LFTs: Plan: 2/2 known liver mets AST mild elevation and alk phos quite high but consistent with previous follow LFTs especially while on fluconazole for oral candidiasis (11) History of aortic valve disease: Plan: AVR bioprosthetic (12) Elevated troponin: Plan: as above (13) Oral candidiasis: Plan: continue dilfucan 100mg IV daily x 7 day course-last day 05/07.Can be converted to liquid solution per NGT if course not completed by time of discharge (14) Electrolyte abnormality: Plan: Replace K Plan 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 - SCDs to bilateral LE Code - Full per discussion with patient Dispo -continued stay, PT/OT evals, will definitely need home health for tube feeds, etc after discharge Admission and Anticipated Discharge Date Admission Date: April 30, 2022 Subjective Follow-up of presentation with oral intoleranceleft shoulder pain better; no new issues Physical Exam Physical Exam: Constitutional and general: Extremely poor muscle mass, looks biologic age Head and face: No puffiness, atraumatic Eyes: No scleral icterus, extraocular movements normal Neck: Supple, no JVD Musculoskeletal: No acute joint swelling, no bony abnormalities Skin/dermatologic/integument: No rash, no purpura Hematologic and lymphatic: pallor none, no petechia Gastrointestinal/abdomen: Nondistended, soft, nonacute Neurologic: Cranial nerves intact, nonfocal Psychiatry: Awake, alert, pleasant, communicative Cardiovascular: Heart rhythm regular, no rub, no murmur, no gallop Respiratory: Chest movements equal, no use of accessory muscles, no adventitious sounds Extremities: No edema, no cyanosis Results & Data Results & Data ([facility]) Vital Signs (Past 12 Hours) Vital Signs Temp Pulse Pulse Resp BP BP Pulse Ox 05/05/22 11:32 36.5 C 97 H 16 159/94 H 97 05/05/22 10:40 81 16 141/89 H 98 05/05/22 10:24 91 H 16 136/92 96 05/05/22 10:10 88 16 126/86 97 05/05/22 07:30 95 H 05/05/22 08:59 36.7 C 110 H 16 95 05/05/22 07:59 36.8 C 101 H 16 117/81 96 05/05/22 07:54 O2 Del Method 05/05/22 11:32 Room Air 05/05/22 10:40 Room Air 05/05/22 10:24 Room Air 05/05/22 10:10 Room Air 05/05/22 07:30 05/05/22 08:59 Room Air 05/05/22 07:59 Room Air 05/05/22 07:54 Room Air Laboratory Results Laboratory Results - last 24 hr 05/05/22 05/05/22 05/05/22 05:47 05:47 05:47 WBC 7.10 RBC 4.28 L Hgb 13.4 L Hct 39.4 L MCV 92.1 MCH 31.3 MCHC 34.0 RDW Std Deviation 45.1 RDW Coeff of Mason 13.4 Plt Count 170 MPV 12.0 Immature Gran % (Auto) 0.7 Neut % (Auto) 72.1 Lymph % (Auto) 13.5 [place] % (Auto) 12.1 Eos % (Auto) 1.0 Baso % (Auto) 0.6 Neut # (Auto) 5.12 Lymph # (Auto) 0.96 L [place] # (Auto) 0.86 H Eos # (Auto) 0.07 Baso # (Auto) 0.04 Immature Gran # (Auto) 0.05 H Sodium 138 Potassium 3.3 L Chloride 100 Carbon Dioxide 30 Anion Gap 8 BUN 9 Creatinine 0.39 L Est Cr Clr Drug Dosing 98.8 Est GFR ( Amer) 136.1 Est GFR (Non-Af Amer) 117.4 Fasting Glucose 97 Calcium 8.7 Phosphorus 3.6 D Magnesium 1.7 Total Bilirubin 0.9 AST 81 H ALT 34 Alkaline Phosphatase 705 H Total Protein 5.6 L Albumin 2.8 L Globulin 2.8 Albumin/Globulin Ratio 1.0 Triglycerides Cholesterol LDL Cholesterol, Calc VLDL Cholesterol, Calc HDL Cholesterol Cholesterol/HDL Ratio Striated Muscle Ab Ttr Pending Striated Muscle Ab Pending Acetylchol Rcpt Bind Ab Pending 05/05/22 05:47 WBC RBC Hgb Hct MCV MCH MCHC RDW Std Deviation RDW Coeff of Mason Plt Count MPV Immature Gran % (Auto) Neut % (Auto) Lymph % (Auto) [place] % (Auto) Eos % (Auto) Baso % (Auto) Neut # (Auto) Lymph # (Auto) [place] # (Auto) Eos # (Auto) Baso # (Auto) Immature Gran # (Auto) Sodium Potassium Chloride Carbon Dioxide Anion Gap BUN Creatinine Est Cr Clr Drug Dosing Est GFR ( Amer) Est GFR (Non-Af Amer) Fasting Glucose Calcium Phosphorus Magnesium Total Bilirubin AST ALT Alkaline Phosphatase Total Protein Albumin Globulin Albumin/Globulin Ratio Triglycerides 85 Cholesterol 112 LDL Cholesterol, Calc 53 VLDL Cholesterol, Calc 17 HDL Cholesterol 42 Cholesterol/HDL Ratio 2.7 Striated Muscle Ab Ttr Striated Muscle Ab Acetylchol Rcpt Bind Ab PG Care Time/CCT Total # of Minutes Spent Total Time Spent with Patient: Total time spent is greater than 50% in coordination of care (as documented) at patient's floor/unit and/or counseling patient: Coding Level of Care Code 78617 Subseq Hosp Care Lvl 2 Diagnoses Dysphagia R13.10 Severe protein-calorie malnutrition E43 Neuroendocrine tumor D3A.8 BPH with obstruction/lower urinary tract symptoms N40.1; N13.8 HLD (hyperlipidemia) E78.5 HTN (hypertension) I10 CAD (coronary artery disease) I25.10 H/O: stroke Z86.73 H/O partial seizures Z86.69 Elevated LFTs R79.89 History of aortic valve disease Z86.79 Elevated troponin R77.8 Oral candidiasis B37.0 Electrolyte abnormality E87.8
[2022-05-05] MEDS: FLUCONAZOLE 100 MG/50 ML BAG IV SCH (16:03)
[2022-05-05] MEDS: MoRPHine SULFATE 4 MG/ML 1 ML CARP\\VIAL IV PRN ×2 (17:59→22:29)
[2022-05-05] MEDS ORDERED: FIBERSOURCE HN 1.2 CAL 1000 ML BAG GT SCH (18:00)
[2022-05-05] MEDS: TUBE FEEDING WATER FLUSH PEG SCH ×2 (18:00→22:17)
[2022-05-05] MEDS: DOCUSATE SODIUM SYRUP 100 MG/10 ML UDC PO SCH (22:16)
[2022-05-05] MEDS: ATORVASTATIN 40 MG TAB PO SCH (22:16)
[2022-05-06] MEDS: TUBE FEEDING WATER FLUSH PEG SCH ×6 (02:12→22:49)
[2022-05-06] MEDS: D5W AND 1/2NSS 1,000 ML IV SCH (05:53)
[2022-05-06 06:32] LABS: Basophils # (auto) 0.05 K/uL (0-0.2); Basophils % (auto) 0.7 %; Eosinophils % (auto) 1.5 %; Hemoglobin 12.5 g/dl (14.0-18.0); Immature Granulocytes # (auto) 0.05 K/uL (0.00-0.02); Immature Granulocytes % (auto) 0.7 %; Lymphocytes % (auto) 16.3 %; Mean Corpuscular Hemoglobin 31.3 pg (25.0-34.0); Mean Corpuscular Hgb Conc 33.8 g/dL (32.0-36.0); Mean Corpuscular Volume 92.5 fL (80.0-100.0); Mean Platelet Volume 12.1 fL (9.4-12.4); Monocytes # (auto) 0.92 K/uL (0.24-0.82); Monocytes % (auto) 13.7 %; Neutrophils # (auto) 4.51 K/uL (1.4-6.5); Neutrophils % (auto) 67.1 %; Platelet Count 216 K/uL (130-400); RDW Coefficient of Variation 13.6 % (11.5-14.5); RDW Standard Deviation 46.3 fL (36.4-46.3); White Blood Count 6.73 K/ul (4.8-10.8)
[2022-05-06 06:50] LABS: Albumin Level 2.7 gm/dl (3.4-5.0); Calcium 8.2 mg/dl (8.5-10.1); Creatinine Clr Calc Pharmacy 89.6 ml/min; Est GFR (African American) 130.7 ml/min; Est GFR (Non-African American) 112.8 ml/min; Globulin 2.7 gm/dl (2.5-4.0); Magnesium 1.5 mg/dl (1.7-2.4); Phosphorus 3.1 mg/dl (2.5-4.9); Potassium 3.6 mmol/L (3.5-5.1); Total Protein 5.4 gm/dl (6.0-8.3)
[2022-05-06] MEDS: METOPROLOL TARTRATE 25 MG TAB OG SCH ×2 (07:51→22:29)
[2022-05-06] MEDS: ASPIRIN 81 MG CHEW PO SCH (07:52)
[2022-05-06] MEDS: POT PHOSPHATE MONOBASIC W/ SOD TAB NG SCH ×4 (07:52→22:28)
[2022-05-06] MEDS: MULTI VIT W/MINERALS LIQUID 15 ML UDP NG SCH (07:52)
[2022-05-06] MEDS: THIAMINE HCL 300 MG in SODIUM CHLORIDE 0.9% 50 ML IV SCH (08:12)
[2022-05-06] MEDS: MAGNESIUM SULFATE / D5W 1 GM/100 ML BAG IV SCH ×4 (09:51→22:24)
[2022-05-06] MEDS ORDERED: MAGNESIUM OXIDE 400 MG TAB PEG SCH (14:00)
[2022-05-06] MEDS: FLUCONAZOLE 100 MG/50 ML BAG IV SCH (14:40)
--- NOTE | 2022-05-06 15:37 | Hospitalist Progress Note ---
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 Stable -Monitor UOP -NOT on Flomax-this was originally on med rec as old med from previous kidney stone-discontinued med and removed from home med rec (5) HLD (hyperlipidemia): Plan: Statin continued due at some point might need to revisit (6) HTN (hypertension): Plan: Acceptable pressures, no change (7) CAD (coronary artery disease): Plan: Chronic. Stable. H/o CABG at time of AVR With mild myocardial demand ischemia due with elevated troponin at 46.3/55/43 serially Denies chest pain. No acute ischemic changes on EKG. 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 continue Keppra follows with Neuro (10) Elevated LFTs: Plan: 2/2 known liver mets AST mild elevation and alk phos quite high but consistent with previous follow LFTs especially while on fluconazole for oral candidiasis (11) History of aortic valve disease: Plan: AVR bioprosthetic (12) Elevated troponin: Plan: as above (13) Oral candidiasis: Plan: continue dilfucan 100mg IV daily x 7 day course-last day 05/07.Can be converted to liquid solution per NGT if course not completed by time of discharge (14) Electrolyte abnormality: Plan: Replace Mg Mild hyponatremia can be followed Plan 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 - SCDs to bilateral LE Code - Full per discussion with patient Dispo -continued stay, PT/OT evals, will definitely need home health for tube feeds, etc after discharge Admission and Anticipated Discharge Date Admission Date: April 30, 2022 Subjective Follow-up of presentation with oral intolerancestatus post PEGsome soreness but no other new issues Physical Exam Physical Exam: Constitutional and general: Extremely poor muscle mass, looks biologic age Head and face: No puffiness, atraumatic Eyes: No scleral icterus, extraocular movements normal Neck: Supple, no JVD Musculoskeletal: No acute joint swelling, no bony abnormalities Skin/dermatologic/integument: No rash, no purpura Hematologic and lymphatic: pallor none, no petechia Gastrointestinal/abdomen: Nondistended, soft, nonacute Neurologic: Cranial nerves intact, nonfocal Psychiatry: Awake, alert, pleasant, communicative Cardiovascular: Heart rhythm regular, no rub, no murmur, no gallop Respiratory: Chest movements equal, no use of accessory muscles, no adventitious sounds Extremities: No edema, no cyanosis Results & Data Results & Data ([facility]) Vital Signs (Past 12 Hours) Vital Signs Temp Pulse Pulse Resp BP Pulse Ox O2 Del Method 05/06/22 14:56 90 05/06/22 11:40 37.0 C 102 H 18 132/83 93 Room Air 05/06/22 11:06 94 H 05/06/22 10:51 Room Air 05/06/22 08:35 37.3 C 119 H 18 135/82 92 Room Air Laboratory Results Laboratory Results - last 24 hr 05/06/22 05/06/22 05/06/22 05:34 05:34 11:58 WBC 6.73 RBC 4.00 L Hgb 12.5 L Hct 37.0 L MCV 92.5 MCH 31.3 MCHC 33.8 RDW Std Deviation 46.3 RDW Coeff of Mason 13.6 Plt Count 216 MPV 12.1 Immature Gran % (Auto) 0.7 Neut % (Auto) 67.1 Lymph % (Auto) 16.3 [place] % (Auto) 13.7 Eos % (Auto) 1.5 Baso % (Auto) 0.7 Neut # (Auto) 4.51 Lymph # (Auto) 1.10 L [place] # (Auto) 0.92 H Eos # (Auto) 0.10 Baso # (Auto) 0.05 Immature Gran # (Auto) 0.05 H Sodium 135 L Potassium 3.6 Chloride 99 Carbon Dioxide 30 Anion Gap 6 BUN 10 Creatinine 0.43 L Est Cr Clr Drug Dosing 89.6 Est GFR ( Amer) 130.7 Est GFR (Non-Af Amer) 112.8 POC Glucose 128 H Fasting Glucose 143 H Calcium 8.2 L Phosphorus 3.1 Magnesium 1.5 L Total Bilirubin 1.0 AST 81 H ALT 32 Alkaline Phosphatase 732 H Total Protein 5.4 L Albumin 2.7 L Globulin 2.7 Albumin/Globulin Ratio 1.0 PG Care Time/CCT Total # of Minutes Spent Total Time Spent with Patient: Total time spent is greater than 50% in coordination of care (as documented) at patient's floor/unit and/or counseling patient: Coding Level of Care Code 52796 Subseq Hosp Care Lvl 2 Diagnoses Dysphagia R13.10 Severe protein-calorie malnutrition E43 Neuroendocrine tumor D3A.8 BPH with obstruction/lower urinary tract symptoms N40.1; N13.8 HLD (hyperlipidemia) E78.5 HTN (hypertension) I10 CAD (coronary artery disease) I25.10 H/O: stroke Z86.73 H/O partial seizures Z86.69 Elevated LFTs R79.89 History of aortic valve disease Z86.79 Elevated troponin R77.8 Oral candidiasis B37.0 Electrolyte abnormality E87.8
[2022-05-06] MEDS: MAGNESIUM OXIDE 400 MG TAB PEG SCH (22:30)
[2022-05-06] MEDS: DOCUSATE SODIUM SYRUP 100 MG/10 ML UDC PO SCH (22:30)
[2022-05-06] MEDS: ATORVASTATIN 40 MG TAB PO SCH (22:31)
[2022-05-07] MEDS: MAGNESIUM SULFATE / D5W 1 GM/100 ML BAG IV SCH (00:29)
[2022-05-07] MEDS: TUBE FEEDING WATER FLUSH PEG SCH ×5 (02:35→20:58)
[2022-05-07] MEDS ORDERED: FIBERSOURCE HN 1.2 CAL 1000 ML BAG GT SCH (04:00)
[2022-05-07] MEDS ORDERED: ACETAMINOPHEN SUSP 1000 MG/31.2 ML UDP PEG PRN (08:18)
[2022-05-07] MEDS: MAGNESIUM OXIDE 400 MG TAB PEG SCH ×3 (08:43→20:56)
[2022-05-07] MEDS: ASPIRIN 81 MG CHEW PO SCH (08:44)
[2022-05-07] MEDS: POT PHOSPHATE MONOBASIC W/ SOD TAB NG SCH ×4 (08:44→20:58)
[2022-05-07] MEDS: MULTI VIT W/MINERALS LIQUID 15 ML UDP NG SCH (08:44)
[2022-05-07] MEDS: METOPROLOL TARTRATE 25 MG TAB OG SCH ×2 (08:44→20:56)
[2022-05-07] MEDS: THIAMINE HCL 100 MG TAB PEG SCH (08:44)
[2022-05-07 08:48] LABS: Basophils # (auto) 0.04 K/uL (0-0.2); Basophils % (auto) 0.6 %; Eosinophils # (auto) 0.04 K/uL (0-0.50); Eosinophils % (auto) 0.6 %; Hematocrit (blood only) 39.2 % (40.1-51.0); Hemoglobin 13.4 g/dl (14.0-18.0); Immature Granulocytes # (auto) 0.02 K/uL (0.00-0.02); Immature Granulocytes % (auto) 0.3 %; Lymphocytes # (auto) 0.75 K/uL (1.2-3.4); Lymphocytes % (auto) 11.2 %; Mean Corpuscular Hemoglobin 31.5 pg (25.0-34.0); Mean Corpuscular Hgb Conc 34.2 g/dL (32.0-36.0); Mean Corpuscular Volume 92.2 fL (80.0-100.0); Mean Platelet Volume 11.4 fL (9.4-12.4); Monocytes # (auto) 0.83 K/uL (0.24-0.82); Monocytes % (auto) 12.4 %; Neutrophils # (auto) 5.02 K/uL (1.4-6.5); Neutrophils % (auto) 74.9 %; Platelet Count 219 K/uL (130-400); RDW Coefficient of Variation 13.7 % (11.5-14.5); Red Blood Count 4.25 M/uL (4.63-6.08)
[2022-05-07 09:10] LABS: Albumin Level 2.9 gm/dl (3.4-5.0); Bilirubin,Total 0.8 mg/dl (0.2-1.0); Calcium 8.5 mg/dl (8.5-10.1); Creatinine Clr Calc Pharmacy 106.9 ml/min; Globulin 2.9 gm/dl (2.5-4.0); Magnesium 2.1 mg/dl (1.7-2.4); Phosphorus 2.8 mg/dl (2.5-4.9); Potassium 3.2 mmol/L (3.5-5.1); Total Protein 5.8 gm/dl (6.0-8.3)
[2022-05-07] MEDS ORDERED: bisacodyL 10 MG SUPP PR PRN (09:38)
[2022-05-07] MEDS ORDERED: POTASSIUM CHLORIDE 20 MEQ/15 ML UDC PEG STA (09:52)
[2022-05-07] MEDS ORDERED: Nursing to Pharmacy Communication SCH (12:45)
[2022-05-07] MEDS: FIBERSOURCE HN 1.2 CAL 1000 ML BAG GT SCH ×3 (13:05→20:58)
[2022-05-07] MEDS: FLUCONAZOLE 100 MG/50 ML BAG IV SCH (15:44)
--- NOTE | 2022-05-07 18:38 | Hospitalist Progress Note ---
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 Stable -Monitor UOP -NOT on Flomax-this was originally on med rec as old med from previous kidney stone-discontinued med and removed from home med rec (5) HLD (hyperlipidemia): Plan: Statin continued due at some point might need to revisit (6) HTN (hypertension): Plan: Acceptable pressures, no change (7) CAD (coronary artery disease): Plan: Chronic. Stable. H/o CABG at time of AVR With mild myocardial demand ischemia due with elevated troponin at 46.3/55/43 serially Denies chest pain. No acute ischemic changes on EKG. 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 continue Keppra follows with Neuro (10) Elevated LFTs: Plan: 2/2 known liver mets AST mild elevation and alk phos quite high but consistent with previous follow LFTs especially while on fluconazole for oral candidiasis (11) History of aortic valve disease: Plan: AVR bioprosthetic (12) Elevated troponin: Plan: as above (13) Oral candidiasis: Plan: continue dilfucan 100mg IV daily x 7 day course-last day 05/07.Can be converted to liquid solution per NGT if course not completed by time of discharge (14) Electrolyte abnormality: Plan: Replace today potassium Plan 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 - SCDs to bilateral LE Code - Full per discussion with patient Dispo -continued stay, PT/OT evals, will definitely need home health for tube feeds, etc after discharge Admission and Anticipated Discharge Date Admission Date: April 30, 2022 Subjective Follow-up of presentation with oral intolerancestatus post PEG, soreness better, no other new issues Physical Exam Physical Exam: Constitutional and general: Extremely poor muscle mass, looks biologic age Head and face: No puffiness, atraumatic Eyes: No scleral icterus, extraocular movements normal Neck: Supple, no JVD Musculoskeletal: No acute joint swelling, no bony abnormalities Skin/dermatologic/integument: No rash, no purpura Hematologic and lymphatic: pallor none, no petechia Gastrointestinal/abdomen: Nondistended, soft, nonacute Neurologic: Cranial nerves intact, nonfocal Psychiatry: Awake, alert, pleasant, communicative Cardiovascular: Heart rhythm regular, no rub, no murmur, no gallop Respiratory: Chest movements equal, no use of accessory muscles, no adventitious sounds Extremities: No edema, no cyanosis Results & Data Results & Data ([facility]) Vital Signs (Past 12 Hours) Vital Signs Temp Pulse Pulse Pulse Resp BP BP 05/07/22 16:00 36.8 C 101 H 18 136/85 05/07/22 15:46 95 H 05/07/22 14:30 05/07/22 11:35 36.6 C 99 H 16 135/86 05/07/22 09:57 101 H Pulse Ox O2 Del Method 05/07/22 16:00 95 Room Air 05/07/22 15:46 05/07/22 14:30 Room Air 05/07/22 11:35 97 Room Air 05/07/22 09:57 Laboratory Results Laboratory Results - last 24 hr 05/07/22 05/07/22 05/07/22 00:24 04:42 08:18 WBC 6.70 RBC 4.25 L Hgb 13.4 L Hct 39.2 L MCV 92.2 MCH 31.5 MCHC 34.2 RDW Std Deviation 46.0 RDW Coeff of Mason 13.7 Plt Count 219 MPV 11.4 Immature Gran % (Auto) 0.3 Neut % (Auto) 74.9 Lymph % (Auto) 11.2 [place] % (Auto) 12.4 Eos % (Auto) 0.6 Baso % (Auto) 0.6 Neut # (Auto) 5.02 Lymph # (Auto) 0.75 L [place] # (Auto) 0.83 H Eos # (Auto) 0.04 Baso # (Auto) 0.04 Immature Gran # (Auto) 0.02 Sodium Potassium Chloride Carbon Dioxide Anion Gap BUN Creatinine Est Cr Clr Drug Dosing Est GFR ( Amer) Est GFR (Non-Af Amer) POC Glucose 159 H 117 H Fasting Glucose Calcium Phosphorus Magnesium Total Bilirubin AST ALT Alkaline Phosphatase Total Protein Albumin Globulin Albumin/Globulin Ratio 05/07/22 05/07/22 05/07/22 08:18 11:51 17:00 WBC RBC Hgb Hct MCV MCH MCHC RDW Std Deviation RDW Coeff of Mason Plt Count MPV Immature Gran % (Auto) Neut % (Auto) Lymph % (Auto) [place] % (Auto) Eos % (Auto) Baso % (Auto) Neut # (Auto) Lymph # (Auto) [place] # (Auto) Eos # (Auto) Baso # (Auto) Immature Gran # (Auto) Sodium 136 Potassium 3.2 L Chloride 99 Carbon Dioxide 29 Anion Gap 8 BUN 8 Creatinine 0.37 L Est Cr Clr Drug Dosing 106.9 Est GFR ( Amer) 139.0 Est GFR (Non-Af Amer) 120.0 POC Glucose 137 H 80 Fasting Glucose 147 H Calcium 8.5 Phosphorus 2.8 Magnesium 2.1 Total Bilirubin 0.8 AST 88 H ALT 36 Alkaline Phosphatase 795 H Total Protein 5.8 L Albumin 2.9 L Globulin 2.9 Albumin/Globulin Ratio 1.0 PG Care Time/CCT Total # of Minutes Spent Total Time Spent with Patient: Total time spent is greater than 50% in coordination of care (as documented) at patient's floor/unit and/or counseling patient: Coding Level of Care Code 09607 Subseq Hosp Care Lvl 2 Diagnoses Dysphagia R13.10 Severe protein-calorie malnutrition E43 Neuroendocrine tumor D3A.8 BPH with obstruction/lower urinary tract symptoms N40.1; N13.8 HLD (hyperlipidemia) E78.5 HTN (hypertension) I10 CAD (coronary artery disease) I25.10 H/O: stroke Z86.73 H/O partial seizures Z86.69 Elevated LFTs R79.89 History of aortic valve disease Z86.79 Elevated troponin R77.8 Oral candidiasis B37.0 Electrolyte abnormality E87.8
[2022-05-07] MEDS: DOCUSATE SODIUM SYRUP 100 MG/10 ML UDC PO SCH (20:55)
[2022-05-07] MEDS: ATORVASTATIN 40 MG TAB PO SCH (20:57)
[2022-05-08 06:27] LABS: Basophils # (auto) 0.04 K/uL (0-0.2); Basophils % (auto) 0.5 %; Eosinophils # (auto) 0.03 K/uL (0-0.50); Eosinophils % (auto) 0.4 %; Hematocrit (blood only) 38.3 % (40.1-51.0); Hemoglobin 13.2 g/dl (14.0-18.0); Immature Granulocytes # (auto) 0.04 K/uL (0.00-0.02); Immature Granulocytes % (auto) 0.5 %; Lymphocytes # (auto) 0.67 K/uL (1.2-3.4); Lymphocytes % (auto) 8.5 %; Mean Corpuscular Hemoglobin 31.8 pg (25.0-34.0); Mean Corpuscular Hgb Conc 34.5 g/dL (32.0-36.0); Mean Corpuscular Volume 92.3 fL (80.0-100.0); Monocytes # (auto) 0.87 K/uL (0.24-0.82); Monocytes % (auto) 11.1 %; Neutrophils # (auto) 6.21 K/uL (1.4-6.5); Platelet Count 224 K/uL (130-400); RDW Coefficient of Variation 13.6 % (11.5-14.5); RDW Standard Deviation 46.1 fL (36.4-46.3); Red Blood Count 4.15 M/uL (4.63-6.08); White Blood Count 7.86 K/ul (4.8-10.8)
[2022-05-08 07:14] LABS: Albumin Globulin Ratio 1.1 (0.9-2); Albumin Level 2.9 gm/dl (3.4-5.0); Calcium 8.6 mg/dl (8.5-10.1); Creatinine Clr Calc Pharmacy 107.1 ml/min; Est GFR (African American) 140.6 ml/min; Est GFR (Non-African American) 121.3 ml/min; Globulin 2.7 gm/dl (2.5-4.0); Magnesium 1.8 mg/dl (1.7-2.4); Phosphorus 2.9 mg/dl (2.5-4.9); Potassium 3.5 mmol/L (3.5-5.1); Total Protein 5.6 gm/dl (6.0-8.3)
[2022-05-08] MEDS: FIBERSOURCE HN 1.2 CAL 1000 ML BAG GT SCH ×4 (08:35→20:51)
[2022-05-08] MEDS: MULTI VIT W/MINERALS LIQUID 15 ML UDP NG SCH (08:35)
[2022-05-08] MEDS: MAGNESIUM OXIDE 400 MG TAB PEG SCH ×3 (08:35→20:54)
[2022-05-08] MEDS: ASPIRIN 81 MG CHEW PO SCH (08:35)
[2022-05-08] MEDS: METOPROLOL TARTRATE 25 MG TAB OG SCH ×2 (08:35→20:53)
[2022-05-08] MEDS: POT PHOSPHATE MONOBASIC W/ SOD TAB NG SCH ×4 (08:36→20:53)
[2022-05-08] MEDS: THIAMINE HCL 100 MG TAB PEG SCH (08:36)
[2022-05-08] MEDS: TUBE FEEDING WATER FLUSH PEG SCH ×4 (08:36→20:56)
--- NOTE | 2022-05-08 18:27 | Hospitalist Progress Note ---
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 Stable -Monitor UOP -NOT on Flomax-this was originally on med rec as old med from previous kidney stone-discontinued med and removed from home med rec (5) HLD (hyperlipidemia): Plan: Statin continued due at some point might need to revisit (6) HTN (hypertension): Plan: Acceptable pressures, no change (7) CAD (coronary artery disease): Plan: Chronic. Stable. H/o CABG at time of AVR With mild myocardial demand ischemia due with elevated troponin at 46.3/55/43 serially Denies chest pain. No acute ischemic changes on EKG. 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 continue Keppra follows with Neuro (10) Elevated LFTs: Plan: 2/2 known liver mets AST mild elevation and alk phos quite high but consistent with previous follow LFTs especially while on fluconazole for oral candidiasis (11) History of aortic valve disease: Plan: AVR bioprosthetic (12) Elevated troponin: Plan: as above (13) Oral candidiasis: Plan: Completed planned course (14) Electrolyte abnormality: Plan: Replace as appropriate Plan 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 - SCDs to bilateral LE Code - Full per discussion with patient Dispo -Per case management home health will not be in place till Wednesday Admission and Anticipated Discharge Date Admission Date: April 30, 2022 Subjective Follow-up of presentation with oral intolerancestatus post PEG, doing well, no complaints Physical Exam Physical Exam: Constitutional and general: Extremely poor muscle mass, looks biologic age Head and face: No puffiness, atraumatic Eyes: No scleral icterus, extraocular movements normal Neck: Supple, no JVD Musculoskeletal: No acute joint swelling, no bony abnormalities Skin/dermatologic/integument: No rash, no purpura Hematologic and lymphatic: pallor none, no petechia Gastrointestinal/abdomen: Nondistended, soft, nonacute Neurologic: Cranial nerves intact, nonfocal Psychiatry: Awake, alert, pleasant, communicative Cardiovascular: Heart rhythm regular, no rub, no murmur, no gallop Respiratory: Chest movements equal, no use of accessory muscles, no adventitious sounds Extremities: No edema, no cyanosis Results & Data Results & Data ([facility]) Vital Signs (Past 12 Hours) Vital Signs Temp Pulse Pulse Resp BP Pulse Ox O2 Del Method 05/08/22 15:45 100 H 05/08/22 15:36 36.6 C 99 H 20 116/76 97 Room Air 05/08/22 11:31 36.7 C 93 H 20 126/73 95 Room Air 05/08/22 10:31 Room Air 05/08/22 09:20 104 H 05/08/22 07:59 36.8 C 100 H 20 137/82 95 Room Air Laboratory Results Laboratory Results - last 24 hr 05/07/22 05/08/22 05/08/22 20:30 00:05 05:26 WBC 7.86 RBC 4.15 L Hgb 13.2 L Hct 38.3 L MCV 92.3 MCH 31.8 MCHC 34.5 RDW Std Deviation 46.1 RDW Coeff of Mason 13.6 Plt Count 224 MPV 12.0 Immature Gran % (Auto) 0.5 Neut % (Auto) 79.0 Lymph % (Auto) 8.5 [place] % (Auto) 11.1 Eos % (Auto) 0.4 Baso % (Auto) 0.5 Neut # (Auto) 6.21 Lymph # (Auto) 0.67 L [place] # (Auto) 0.87 H Eos # (Auto) 0.03 Baso # (Auto) 0.04 Immature Gran # (Auto) 0.04 H Sodium Potassium Chloride Carbon Dioxide Anion Gap BUN Creatinine Est Cr Clr Drug Dosing Est GFR ( Amer) Est GFR (Non-Af Amer) POC Glucose 183 H 140 H Fasting Glucose Calcium Phosphorus Magnesium Total Bilirubin AST ALT Alkaline Phosphatase Total Protein Albumin Globulin Albumin/Globulin Ratio 05/08/22 05/08/22 05/08/22 05:26 07:47 11:21 WBC RBC Hgb Hct MCV MCH MCHC RDW Std Deviation RDW Coeff of Mason Plt Count MPV Immature Gran % (Auto) Neut % (Auto) Lymph % (Auto) [place] % (Auto) Eos % (Auto) Baso % (Auto) Neut # (Auto) Lymph # (Auto) [place] # (Auto) Eos # (Auto) Baso # (Auto) Immature Gran # (Auto) Sodium 139 Potassium 3.5 Chloride 101 Carbon Dioxide 30 Anion Gap 8 BUN 10 Creatinine 0.36 L Est Cr Clr Drug Dosing 107.1 Est GFR ( Amer) 140.6 Est GFR (Non-Af Amer) 121.3 POC Glucose 89 175 H Fasting Glucose 99 Calcium 8.6 Phosphorus 2.9 Magnesium 1.8 Total Bilirubin 1.0 AST 100 H ALT 40 Alkaline Phosphatase 728 H Total Protein 5.6 L Albumin 2.9 L Globulin 2.7 Albumin/Globulin Ratio 1.1 05/08/22 16:28 WBC RBC Hgb Hct MCV MCH MCHC RDW Std Deviation RDW Coeff of Mason Plt Count MPV Immature Gran % (Auto) Neut % (Auto) Lymph % (Auto) [place] % (Auto) Eos % (Auto) Baso % (Auto) Neut # (Auto) Lymph # (Auto) [place] # (Auto) Eos # (Auto) Baso # (Auto) Immature Gran # (Auto) Sodium Potassium Chloride Carbon Dioxide Anion Gap BUN Creatinine Est Cr Clr Drug Dosing Est GFR ( Amer) Est GFR (Non-Af Amer) POC Glucose 168 H Fasting Glucose Calcium Phosphorus Magnesium Total Bilirubin AST ALT Alkaline Phosphatase Total Protein Albumin Globulin Albumin/Globulin Ratio PG Care Time/CCT Total # of Minutes Spent Total Time Spent with Patient: Total time spent is greater than 50% in coordination of care (as documented) at patient's floor/unit and/or counseling patient: Coding Level of Care Code 23263 Subseq Hosp Care Lvl 2 Diagnoses Dysphagia R13.10 Severe protein-calorie malnutrition E43 Neuroendocrine tumor D3A.8 BPH with obstruction/lower urinary tract symptoms N40.1; N13.8 HLD (hyperlipidemia) E78.5 HTN (hypertension) I10 CAD (coronary artery disease) I25.10 H/O: stroke Z86.73 H/O partial seizures Z86.69 Elevated LFTs R79.89 History of aortic valve disease Z86.79 Elevated troponin R77.8 Oral candidiasis B37.0 Electrolyte abnormality E87.8
[2022-05-08] MEDS: DOCUSATE SODIUM SYRUP 100 MG/10 ML UDC PO SCH (20:52)
[2022-05-08] MEDS: ATORVASTATIN 40 MG TAB PO SCH (20:53)
[2022-05-09 07:57] LABS: Basophils % (auto) 0.8 %; Eosinophils % (auto) 0.6 %; Hematocrit (blood only) 37.6 % (40.1-51.0); Hemoglobin 12.9 g/dl (14.0-18.0); Mean Corpuscular Hemoglobin 31.2 pg (25.0-34.0); Mean Corpuscular Hgb Conc 34.3 g/dL (32.0-36.0); Mean Platelet Volume 11.6 fL (9.4-12.4); Neutrophils % (auto) 77.3 %; Platelet Count 239 K/uL (130-400); RDW Coefficient of Variation 13.7 % (11.5-14.5); Red Blood Count 4.13 M/uL (4.63-6.08); White Blood Count 8.73 K/ul (4.8-10.8)
[2022-05-09 07:58] LABS: Basophils # (auto) 0.07 K/uL (0-0.2); Eosinophils # (auto) 0.05 K/uL (0-0.50); Immature Granulocytes # (auto) 0.03 K/uL (0.00-0.02); Immature Granulocytes % (auto) 0.3 %; Lymphocytes # (auto) 1.05 K/uL (1.2-3.4); Monocytes # (auto) 0.79 K/uL (0.24-0.82); Neutrophils # (auto) 6.74 K/uL (1.4-6.5)
[2022-05-09] MEDS: THIAMINE HCL 100 MG TAB PEG SCH (08:22)
[2022-05-09] MEDS: ASPIRIN 81 MG CHEW PO SCH (08:22)
[2022-05-09] MEDS: POT PHOSPHATE MONOBASIC W/ SOD TAB NG SCH ×4 (08:23→20:56)
[2022-05-09] MEDS: MULTI VIT W/MINERALS LIQUID 15 ML UDP NG SCH (08:23)
[2022-05-09] MEDS: MAGNESIUM OXIDE 400 MG TAB PEG SCH ×3 (08:23→22:59)
[2022-05-09] MEDS: METOPROLOL TARTRATE 25 MG TAB OG SCH ×2 (08:23→22:59)
[2022-05-09] MEDS: FIBERSOURCE HN 1.2 CAL 1000 ML BAG GT SCH ×4 (08:24→22:59)
[2022-05-09] MEDS: TUBE FEEDING WATER FLUSH PEG SCH ×4 (08:24→22:59)
[2022-05-09 08:42] LABS: Albumin Globulin Ratio 1.1 (0.9-2); Albumin Level 2.9 gm/dl (3.4-5.0); Calcium 8.6 mg/dl (8.5-10.1); Creatinine Clr Calc Pharmacy 114.8 ml/min; Est GFR (African American) 142.3 ml/min; Est GFR (Non-African American) 122.8 ml/min; Globulin 2.7 gm/dl (2.5-4.0); Magnesium 1.7 mg/dl (1.7-2.4); Phosphorus 2.5 mg/dl (2.5-4.9); Potassium 3.6 mmol/L (3.5-5.1); Total Protein 5.6 gm/dl (6.0-8.3)
--- NOTE | 2022-05-09 15:23 | Hospitalist Progress Note ---
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 Stable -Monitor UOP -NOT on Flomax-this was originally on med rec as old med from previous kidney stone-discontinued med and removed from home med rec (5) HLD (hyperlipidemia): Plan: Statin continued due at some point might need to revisit (6) HTN (hypertension): Plan: Acceptable pressures, no change (7) CAD (coronary artery disease): Plan: Chronic. Stable. H/o CABG at time of AVR With mild myocardial demand ischemia due with elevated troponin at 46.3/55/43 serially Denies chest pain. No acute ischemic changes on EKG. 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 continue Keppra follows with Neuro (10) Elevated LFTs: Plan: 2/2 known liver mets AST mild elevation and alk phos quite high but consistent with previous follow LFTs especially while on fluconazole for oral candidiasis (11) History of aortic valve disease: Plan: AVR bioprosthetic (12) Elevated troponin: Plan: as above (13) Oral candidiasis: Plan: Completed planned course (14) Electrolyte abnormality: Plan: Replace as appropriate Plan At present no need for daily labs, order and reevaluate as appropriate 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 - SCDs to bilateral LE Code - Full per discussion with patient Dispo -Per case management home health will not be in place till Wednesday Admission and Anticipated Discharge Date Admission Date: April 30, 2022 Subjective Follow-up of presentation with oral intolerancestatus post PEG, doing well, no complaints Physical Exam Physical Exam: Constitutional and general: Extremely poor muscle mass, looks biologic age Head and face: No puffiness, atraumatic Eyes: No scleral icterus, extraocular movements normal Neck: Supple, no JVD Musculoskeletal: No acute joint swelling, no bony abnormalities Skin/dermatologic/integument: No rash, no purpura Hematologic and lymphatic: pallor none, no petechia Gastrointestinal/abdomen: Nondistended, soft, nonacute Neurologic: Cranial nerves intact, nonfocal Psychiatry: Awake, alert, pleasant, communicative Cardiovascular: Heart rhythm regular, no rub, no murmur, no gallop Respiratory: Chest movements equal, no use of accessory muscles, no adventitious sounds Extremities: No edema, no cyanosis Results & Data Results & Data ([facility]) Vital Signs (Past 12 Hours) Vital Signs Temp Pulse Resp BP Pulse Ox O2 Del Method 05/09/22 11:21 36.7 C 87 18 117/73 95 Room Air 05/09/22 08:00 Room Air 05/09/22 07:48 36.7 C 103 H 16 125/80 94 Room Air Laboratory Results Laboratory Results - last 24 hr 05/08/22 05/08/22 05/08/22 16:28 21:45 23:39 WBC RBC Hgb Hct MCV MCH MCHC RDW Std Deviation RDW Coeff of Mason Plt Count MPV Immature Gran % (Auto) Neut % (Auto) Lymph % (Auto) [place] % (Auto) Eos % (Auto) Baso % (Auto) Neut # (Auto) Lymph # (Auto) [place] # (Auto) Eos # (Auto) Baso # (Auto) Immature Gran # (Auto) Sodium Potassium Chloride Carbon Dioxide Anion Gap BUN Creatinine Est Cr Clr Drug Dosing Est GFR ( Amer) Est GFR (Non-Af Amer) POC Glucose 168 H 105 H 160 H Fasting Glucose Calcium Phosphorus Magnesium Total Bilirubin AST ALT Alkaline Phosphatase Total Protein Albumin Globulin Albumin/Globulin Ratio 05/09/22 05/09/22 05/09/22 05:01 07:19 07:19 WBC 8.73 RBC 4.13 L Hgb 12.9 L Hct 37.6 L MCV 91.0 MCH 31.2 MCHC 34.3 RDW Std Deviation 46.0 RDW Coeff of Mason 13.7 Plt Count 239 MPV 11.6 Immature Gran % (Auto) 0.3 Neut % (Auto) 77.3 Lymph % (Auto) 12.0 [place] % (Auto) 9.0 Eos % (Auto) 0.6 Baso % (Auto) 0.8 Neut # (Auto) 6.74 H Lymph # (Auto) 1.05 L [place] # (Auto) 0.79 Eos # (Auto) 0.05 Baso # (Auto) 0.07 Immature Gran # (Auto) 0.03 H Sodium 137 Potassium 3.6 Chloride 99 Carbon Dioxide 31 Anion Gap 7 BUN 11 Creatinine 0.35 L Est Cr Clr Drug Dosing 114.8 Est GFR ( Amer) 142.3 Est GFR (Non-Af Amer) 122.8 POC Glucose 97 Fasting Glucose 100 H Calcium 8.6 Phosphorus 2.5 Magnesium 1.7 Total Bilirubin 1.0 AST 103 H ALT 42 Alkaline Phosphatase 738 H Total Protein 5.6 L Albumin 2.9 L Globulin 2.7 Albumin/Globulin Ratio 1.1 05/09/22 05/09/22 07:23 11:47 WBC RBC Hgb Hct MCV MCH MCHC RDW Std Deviation RDW Coeff of Mason Plt Count MPV Immature Gran % (Auto) Neut % (Auto) Lymph % (Auto) [place] % (Auto) Eos % (Auto) Baso % (Auto) Neut # (Auto) Lymph # (Auto) [place] # (Auto) Eos # (Auto) Baso # (Auto) Immature Gran # (Auto) Sodium Potassium Chloride Carbon Dioxide Anion Gap BUN Creatinine Est Cr Clr Drug Dosing Est GFR ( Amer) Est GFR (Non-Af Amer) POC Glucose 96 155 H Fasting Glucose Calcium Phosphorus Magnesium Total Bilirubin AST ALT Alkaline Phosphatase Total Protein Albumin Globulin Albumin/Globulin Ratio PG Care Time/CCT Total # of Minutes Spent Total Time Spent with Patient: Total time spent is greater than 50% in coordination of care (as documented) at patient's floor/unit and/or counseling patient: Coding Level of Care Code 05034 Subseq Hosp Care Lvl 2 Diagnoses Dysphagia R13.10 Severe protein-calorie malnutrition E43 Neuroendocrine tumor D3A.8 BPH with obstruction/lower urinary tract symptoms N40.1; N13.8 HLD (hyperlipidemia) E78.5 HTN (hypertension) I10 CAD (coronary artery disease) I25.10 H/O: stroke Z86.73 H/O partial seizures Z86.69 Elevated LFTs R79.89 History of aortic valve disease Z86.79 Elevated troponin R77.8 Oral candidiasis B37.0 Electrolyte abnormality E87.8
[2022-05-09] MEDS: DOCUSATE SODIUM SYRUP 100 MG/10 ML UDC PO SCH (20:55)
[2022-05-09] MEDS: ATORVASTATIN 40 MG TAB PO SCH (22:59)
[2022-05-10] MEDS: ASPIRIN 81 MG CHEW PO SCH (08:58)
[2022-05-10] MEDS: METOPROLOL TARTRATE 25 MG TAB OG SCH ×2 (08:58→21:36)
[2022-05-10] MEDS: THIAMINE HCL 100 MG TAB PEG SCH (08:58)
[2022-05-10] MEDS: MAGNESIUM OXIDE 400 MG TAB PEG SCH ×3 (08:59→21:32)
[2022-05-10] MEDS: POT PHOSPHATE MONOBASIC W/ SOD TAB NG SCH ×4 (08:59→21:34)
[2022-05-10] MEDS: MULTI VIT W/MINERALS LIQUID 15 ML UDP NG SCH (08:59)
[2022-05-10] MEDS: TUBE FEEDING WATER FLUSH PEG SCH ×4 (09:15→21:36)
[2022-05-10] MEDS: FIBERSOURCE HN 1.2 CAL 1000 ML BAG GT SCH ×4 (09:34→21:37)
--- NOTE | 2022-05-10 14:41 | Hospitalist Progress Note ---
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 Stable -Monitor UOP -NOT on Flomax-this was originally on med rec as old med from previous kidney stone-discontinued med and removed from home med rec (5) HLD (hyperlipidemia): Plan: Statin continued -at some point might need to revisit (6) HTN (hypertension): Plan: Acceptable pressures, no change (7) CAD (coronary artery disease): Plan: Chronic. Stable. H/o CABG at time of AVR With mild myocardial demand ischemia due with elevated troponin at 46.3/55/43 serially Denies chest pain. No acute ischemic changes on EKG. 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 lab Admission and Anticipated Discharge Date Admission Date: April 30, 2022 Subjective Follow-up of presentation with oral intolerancestatus post PEG, doing well in general but PEG got pulled a little and little soreness Physical Exam Physical Exam: Constitutional and general: Extremely poor muscle mass, looks biologic age Head and face: No puffiness, atraumatic Eyes: No scleral icterus, extraocular movements normal Neck: Supple, no JVD Musculoskeletal: No acute joint swelling, no bony abnormalities Skin/dermatologic/integument: No rash, no purpura Hematologic and lymphatic: pallor none, no petechia Gastrointestinal/abdomen: Nondistended, soft, nonacute Neurologic: Cranial nerves intact, nonfocal Psychiatry: Awake, alert, pleasant, communicative Cardiovascular: Heart rhythm regular, no rub, no murmur, no gallop Respiratory: Chest movements equal, no use of accessory muscles, no adventitious sounds Extremities: No edema, no cyanosis Results & Data Results & Data ([facility]) Vital Signs (Past 12 Hours) Vital Signs Temp Pulse Pulse Resp BP Pulse Ox O2 Del Method 05/10/22 11:38 36.6 C 100 H 18 130/79 95 Room Air 05/10/22 08:53 36.7 C 104 H 16 131/81 95 Room Air 05/10/22 07:32 96 H 05/10/22 04:00 36.9 C 111 H 17 136/78 94 Room Air PG Care Time/CCT Total # of Minutes Spent Total Time Spent with Patient: Total time spent is greater than 50% in coordination of care (as documented) at patient's floor/unit and/or counseling patient: Coding Level of Care Code 28925 Subseq Hosp Care Lvl 2 Diagnoses Dysphagia R13.10 Severe protein-calorie malnutrition E43 Neuroendocrine tumor D3A.8 BPH with obstruction/lower urinary tract symptoms N40.1; N13.8 HLD (hyperlipidemia) E78.5 HTN (hypertension) I10 CAD (coronary artery disease) I25.10 H/O: stroke Z86.73 H/O partial seizures Z86.69 Elevated LFTs R79.89 History of aortic valve disease Z86.79 Elevated troponin R77.8 Oral candidiasis B37.0 Electrolyte abnormality E87.8
[2022-05-10] MEDS ORDERED: OPTIRAY 320 100ml IV ONE (15:18)
--- NOTE | 2022-05-10 16:01 | CT Scan Report ---
CT OF THE ABDOMEN AND PELVIS WITH CONTRAST CLINICAL HISTORY: Abdominal pain. Metastatic pancreatic cancer. COMPARISON STUDY: Chest CT April 30, 2022. CT of the abdomen and pelvis March 02, 2022. MRI of the abdo men April 26, 2020. TECHNIQUE: Following IV administration of 93 mL of Optiray, axial images of the abdomen and pelvis we re obtained from the lung bases to the proximal femurs. Images were reviewed in the axial, sagittal, and coronal planes. IV contrast was administered without complication. Automated exposure control wa s utilized for the study. A dose lowering technique was utilized adhering to the principles of ALARA . CT DOSE: 255.04 mGy.cm FINDINGS: Small bilateral pleural effusions have developed since chest CT of April 30, 2022. Mild airs pace opacities within the lower lungs are noted. Prosthetic aortic valve is noted. Pacer leads are pa rtially imaged. No pneumatosis, free air or portal venous gas is present. Biliary ductal dilatation i s unchanged status post cholecystectomy. Innumerable peripherally enhancing hypodense hepatic lesions are noted. These were shown to be hypervascular on multiphase CT of March 02, 2022. The lesions are mo re conspicuous than on prior exam. Index lateral segment lesion measures 3.1 cm. It previously measur ed 2.8 cm. The lobulated pancreatic tail mass has slightly increased in size since prior CT. This now measures 6.6 x 5.2 cm. There may be adjacent peripancreatic implants. Splenic vein occlusion with co llaterals is again noted. Hypodensity within the superior aspect of the spleen is noted. This was pre sent on prior exam and could reflect subacute infarct. Gastrostomy tube is in place. No evidence for a bowel obstruction. Small amount of abdominal and pelvic ascites is noted. Colonic diverticulosis is noted without evidence for acute diverticulitis. Prostate is enlarged. There are bilateral inguinal hernias. These contain trace fluid. Heterogeneity of the visualized skeletal structures is indetermin ate. There is no hydronephrosis. 3 mm left renal calculus is noted. There are no ureteral calculi. IMPRESSION: 1. Increased conspicuity of numerous hepatic metastases since CT of March 02, 2022. This favors disease progression although could be treatment related. 2. Mild increase in size of the lobulated pancreatic tail mass. 3. Small amount of abdominal and pelvic ascites. 4. No bowel obstruction. 5. Colonic diverticulosis without evidence for acute diverticulitis. 6. Interval development of small bilateral pleural effusions. ACT 112: Negative or not required by law. Electronically signed by: Randy Bermudez M.D. 05/10/2022 3:59 PM
[2022-05-10] MEDS: DOCUSATE SODIUM SYRUP 100 MG/10 ML UDC PO SCH (21:30)
[2022-05-10] MEDS: ATORVASTATIN 40 MG TAB PO SCH (21:31)
[2022-05-11 06:47] LABS: Basophils # (auto) 0.08 K/uL (0-0.2); Basophils % (auto) 0.9 %; Eosinophils # (auto) 0.05 K/uL (0-0.50); Eosinophils % (auto) 0.6 %; Hematocrit (blood only) 36.6 % (40.1-51.0); Hemoglobin 12.2 g/dl (14.0-18.0); Immature Granulocytes # (auto) 0.03 K/uL (0.00-0.02); Immature Granulocytes % (auto) 0.3 %; Lymphocytes # (auto) 1.08 K/uL (1.2-3.4); Lymphocytes % (auto) 12.4 %; Mean Corpuscular Hemoglobin 31.4 pg (25.0-34.0); Mean Corpuscular Hgb Conc 33.3 g/dL (32.0-36.0); Mean Corpuscular Volume 94.1 fL (80.0-100.0); Mean Platelet Volume 11.6 fL (9.4-12.4); Monocytes # (auto) 0.79 K/uL (0.24-0.82); Neutrophils % (auto) 76.8 %; Platelet Count 258 K/uL (130-400); RDW Coefficient of Variation 13.9 % (11.5-14.5); RDW Standard Deviation 47.8 fL (36.4-46.3); Red Blood Count 3.89 M/uL (4.63-6.08); White Blood Count 8.73 K/ul (4.8-10.8)
[2022-05-11 07:36] LABS: Albumin Globulin Ratio 1.1 (0.9-2); Albumin Level 2.9 gm/dl (3.4-5.0); BUN Creatinine Ratio 41.9 (10-20); Calcium 8.7 mg/dl (8.5-10.1); Creatinine Clr Calc Pharmacy 125.5 ml/min; Est GFR (African American) 149.5 ml/min; Globulin 2.7 gm/dl (2.5-4.0); Magnesium 1.8 mg/dl (1.7-2.4); Phosphorus 2.9 mg/dl (2.5-4.9); Potassium 3.6 mmol/L (3.5-5.1); Total Protein 5.6 gm/dl (6.0-8.3)
--- NOTE | 2022-05-11 08:10 | Hospitalist Progress Note ---
Date of Service May 11, 2022 Assessment & Plan (1) Dysphagia: Plan: In patient with neuroendocrine tumor, follows with Dr Toro (now Dr John, on sandostatin) as well as Dr Iverson 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 Given Rx and arranging for home tube feeding/home health. --Will need new rx for usual medications as well Burnt CD for patient for f/u [facility]-- per Dr Iverson, can have f/u in next month and call their office to discuss plan/follow up. Did review UTD CT obtained evening 05/10 with progression of disease with liver lesions however could be related to treatment. They plan for 3rd TACE and further discussion in follow up. 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 Increased conspicuity of numerous hepatic metastases since CT of March 02, 2022. This favors disease progression although could be treatment related. * 2. Mild increase in size of the lobulated pancreatic tail mass. * 3. Small amount of abdominal and pelvic ascites. * 4. No bowel obstruction. * 5. Colonic diverticulosis without evidence for acute diverticulitis. * 6. Interval development of small bilateral pleural effusions. 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 Stable -Monitor UOP -- great, 0.97ml/kg/hr -NOT on Flomax-this was originally on med rec as old med from previous kidney stone-discontinued med and removed from home med rec (5) HLD (hyperlipidemia): Plan: Statin continued -at some point might need to revisit given LFTs/etc as above (6) HTN (hypertension): Plan: BP stable no change (7) CAD (coronary artery disease): Plan: Chronic. Stable. H/o CABG at time of AVR With mild myocardial demand ischemia due with elevated troponin at 46.3/55/43 serially Denies chest pain. No acute ischemic changes on EKG. -Continue ASA, Atorvastatin, Metoprolol (8) H/O: stroke: Plan: continue ASA, statin was considered to be embolic in nature as per Neuro notes after time of his AVR and CABG-at present nonacute issue Patient also provided rx for hospital bed given aspiration/reflux and need to keep head of bed elevated at least 30 degrees at all times and requires frequent repositioning. 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 continue Keppra follows with Neuro (10) Elevated LFTs: Plan: 2/2 known liver mets AST mild elevation and alk phos quite high but consistent with previous (11) History of aortic valve disease: Plan: AVR bioprosthetic hx of paroxysmal afib, NOT on AC -- sinus rhythm on monitor (12) Elevated troponin: Plan: as above (13) Oral candidiasis: Plan: Completed planned course with fluconazole (14) Electrolyte abnormality: Plan: Replace as needed Plan working on setting up home feeding, possible d/c tomorrow Admission and Anticipated Discharge Date Admission Date: April 30, 2022 Supervising Physician Co-Signing Physician Notes Attending Attestation - Chart reviewed in detail, care plan d/w JULIANE Anand. I agree w/ the downs components of her documentation. Rick Jones MD Subjective Patient evaluated this morning. Doing well. Discussed possibly going home, taking classes from someone here on tube feeds but supplies not yet arranged. No CP/SOB, fever, nausea, abdominal pain or vomiting. Did have a nose bleed couple days ago, no issues since that time. Possibly inpatient until tomorrow arranging supplies and needing to call oncology - follows with Dr Iverson [facility] given talks about starting systemic therapy such ascapecitabine/TemodarI. Will call office as well as burn imaging to take with patient. [address] Iverson. Last injection March 24, next due in a month. Due 1-[address] Iverson can have patient call office after discharge to set up appointment. He would like a serotonin and chromagranin A level to be obtained prior to discharge -- already pending. Review of Systems Review of Systems: All systems reviewed & are unremarkable except as noted in HPI & below Physical Exam Physical Exam: General: elderly cachectic, thin male sitting up in bed, NAD, muscular atrophy HEENT: head normocephalic, atraumatic, mm dry, trachea midline without deviation Resp: CTAB, no c/r, on room air CV: RRR, no edema/calf tenderness, cap refill wnl, pulses palpable GI: +BS, scaphoid, PEG tube intact and functioning, no erythema/drainage : no styles MSK/Neuro: moves all extremities, no focal deficit Psych: alert to person/place/time, cooperative and pleasant but anxious about getting all supplies in place for discharge Skin: cool, dry Results & Data Results & Data ([facility]) Vital Signs (Past 12 Hours) Vital Signs Temp Pulse Pulse Resp BP Pulse Ox O2 Del Method 05/11/22 07:23 101 H 05/11/22 03:08 36.7 C 102 H 18 136/84 96 Room Air 05/11/22 00:05 103 H 05/10/22 23:10 36.7 C 92 H 18 128/72 95 Room Air Laboratory Results 05/11/22 05/11/22 05/11/22 Range/Units 06:13 06:13 06:04 WBC 8.73 (4.8-10.8) K/ul RBC 3.89 L (4.63-6.08) M/uL Hgb 12.2 L (14.0-18.0) g/dl Hct 36.6 L (40.1-51.0) % MCV 94.1 (80.0-100.0) fL MCH 31.4 (25.0-34.0) pg MCHC 33.3 (32.0-36.0) g/dL RDW Std Deviation 47.8 H (36.4-46.3) fL RDW Coeff of Mason 13.9 (11.5-14.5) % Plt Count 258 (130-400) K/uL MPV 11.6 (9.4-12.4) fL Immature Gran % (Auto) 0.3 % Neut % (Auto) 76.8 % Lymph % (Auto) 12.4 % Bourbon % (Auto) 9.0 % Eos % (Auto) 0.6 % Baso % (Auto) 0.9 % Neut # (Auto) 6.70 H (1.4-6.5) K/uL Lymph # (Auto) 1.08 L (1.2-3.4) K/uL Bourbon # (Auto) 0.79 (0.24-0.82) K/uL Eos # (Auto) 0.05 (0-0.50) K/uL Baso # (Auto) 0.08 (0-0.2) K/uL Immature Gran # (Auto) 0.03 H (0.00-0.02) K/uL Sodium 137 (136-145) mmol/L Potassium 3.6 (3.5-5.1) mmol/L Chloride 100 (98-107) mmol/L Carbon Dioxide 29 (21-32) mmol/L Anion Gap 8 (3-11) BUN 13 (6-23) mg/dl Creatinine 0.31 L (0.6-1.4) mg/dl Est Cr Clr Drug Dosing 125.5 ml/min Est GFR ( Amer) 149.5 ml/min Est GFR (Non-Af Amer) 129.0 ml/min BUN/Creatinine Ratio 41.9 H (10-20) Glucose 105 H (70-99(Fasting)) mg/dl POC Glucose 105 H (70-99) mg/dl Calcium 8.7 (8.5-10.1) mg/dl Phosphorus 2.9 (2.5-4.9) mg/dl Magnesium 1.8 (1.7-2.4) mg/dl Total Bilirubin 1.0 (0.2-1.0) mg/dl AST 106 H (13-39) U/L ALT 47 (7-52) U/L Alkaline Phosphatase 852 H (34-104) U/L Total Protein 5.6 L (6.0-8.3) gm/dl Albumin 2.9 L (3.4-5.0) gm/dl Globulin 2.7 (2.5-4.0) gm/dl Albumin/Globulin Ratio 1.1 (0.9-2) Serotonin Chromogranin A 05/10/22 05/10/22 05/10/22 Range/Units 23:56 14:58 14:58 WBC (4.8-10.8) K/ul RBC (4.63-6.08) M/uL Hgb (14.0-18.0) g/dl Hct (40.1-51.0) % MCV (80.0-100.0) fL MCH (25.0-34.0) pg MCHC (32.0-36.0) g/dL RDW Std Deviation (36.4-46.3) fL RDW Coeff of Mason (11.5-14.5) % Plt Count (130-400) K/uL MPV (9.4-12.4) fL Immature Gran % (Auto) % Neut % (Auto) % Lymph % (Auto) % Bourbon % (Auto) % Eos % (Auto) % Baso % (Auto) % Neut # (Auto) (1.4-6.5) K/uL Lymph # (Auto) (1.2-3.4) K/uL Bourbon # (Auto) (0.24-0.82) K/uL Eos # (Auto) (0-0.50) K/uL Baso # (Auto) (0-0.2) K/uL Immature Gran # (Auto) (0.00-0.02) K/uL Sodium (136-145) mmol/L Potassium (3.5-5.1) mmol/L Chloride (98-107) mmol/L Carbon Dioxide (21-32) mmol/L Anion Gap (3-11) BUN (6-23) mg/dl Creatinine (0.6-1.4) mg/dl Est Cr Clr Drug Dosing ml/min Est GFR ( Amer) ml/min Est GFR (Non-Af Amer) ml/min BUN/Creatinine Ratio (10-20) Glucose (70-99(Fasting)) mg/dl POC Glucose 171 H (70-99) mg/dl Calcium (8.5-10.1) mg/dl Phosphorus (2.5-4.9) mg/dl Magnesium (1.7-2.4) mg/dl Total Bilirubin (0.2-1.0) mg/dl AST (13-39) U/L ALT (7-52) U/L Alkaline Phosphatase (34-104) U/L Total Protein (6.0-8.3) gm/dl Albumin (3.4-5.0) gm/dl Globulin (2.5-4.0) gm/dl Albumin/Globulin Ratio (0.9-2) Serotonin Pending Chromogranin A Pending 05/10/22 Range/Units 11:55 WBC (4.8-10.8) K/ul RBC (4.63-6.08) M/uL Hgb (14.0-18.0) g/dl Hct (40.1-51.0) % MCV (80.0-100.0) fL MCH (25.0-34.0) pg MCHC (32.0-36.0) g/dL RDW Std Deviation (36.4-46.3) fL RDW Coeff of Mason (11.5-14.5) % Plt Count (130-400) K/uL MPV (9.4-12.4) fL Immature Gran % (Auto) % Neut % (Auto) % Lymph % (Auto) % Bourbon % (Auto) % Eos % (Auto) % Baso % (Auto) % Neut # (Auto) (1.4-6.5) K/uL Lymph # (Auto) (1.2-3.4) K/uL Bourbon # (Auto) (0.24-0.82) K/uL Eos # (Auto) (0-0.50) K/uL Baso # (Auto) (0-0.2) K/uL Immature Gran # (Auto) (0.00-0.02) K/uL Sodium (136-145) mmol/L Potassium (3.5-5.1) mmol/L Chloride (98-107) mmol/L Carbon Dioxide (21-32) mmol/L Anion Gap (3-11) BUN (6-23) mg/dl Creatinine (0.6-1.4) mg/dl Est Cr Clr Drug Dosing ml/min Est GFR ( Amer) ml/min Est GFR (Non-Af Amer) ml/min BUN/Creatinine Ratio (10-20) Glucose (70-99(Fasting)) mg/dl POC Glucose 174 H (70-99) mg/dl Calcium (8.5-10.1) mg/dl Phosphorus (2.5-4.9) mg/dl Magnesium (1.7-2.4) mg/dl Total Bilirubin (0.2-1.0) mg/dl AST (13-39) U/L ALT (7-52) U/L Alkaline Phosphatase (34-104) U/L Total Protein (6.0-8.3) gm/dl Albumin (3.4-5.0) gm/dl Globulin (2.5-4.0) gm/dl Albumin/Globulin Ratio (0.9-2) Serotonin Chromogranin A Diagnostic Findings Abdomen/Pelvis CT 05/10/22 14:47 CT OF THE ABDOMEN AND PELVIS WITH CONTRAST CLINICAL HISTORY: Abdominal pain. Metastatic pancreatic cancer. COMPARISON STUDY: Chest CT April 30, 2022. CT of the abdomen and pelvis March 02, 2022. MRI of the abdomen April 26, 2020. TECHNIQUE: Following IV administration of 93 mL of Optiray, axial images of the abdomen and pelvis were obtained from the lung bases to the proximal femurs. Images were reviewed in the axial, sagittal, and coronal planes. IV contrast was administered without complication. Automated exposure control was utilized for the study. A dose lowering technique was utilized adhering to the principles of ALARA. CT DOSE: 255.04 mGy.cm FINDINGS: Small bilateral pleural effusions have developed since chest CT of April 30, 2022. Mild airspace opacities within the lower lungs are noted. Prosthetic aortic valve is noted. Pacer leads are partially imaged. No pneumatosis, free air or portal venous gas is present. Biliary ductal dilatation is unchanged status post cholecystectomy. Innumerable peripherally enhancing hypodense hepatic lesions are noted. These were shown to be hypervascular on multiphase CT of March 02, 2022. The lesions are more conspicuous than on prior exam. Index lateral segment lesion measures 3.1 cm. It previously measured 2.8 cm. The lobulated pancreatic tail mass has slightly increased in size since prior CT. This now measures 6.6 x 5.2 cm. There may be adjacent peripancreatic implants. 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 Hypodensity within the superior aspect of the spleen is noted. This was present on prior exam and could reflect subacute infarct. Gastrostomy tube is in place. No evidence for a bowel obstruction. Small amount of abdominal and pelvic ascites is noted. Colonic diverticulosis is noted without evidence for acute diverticulitis. Prostate is enlarged. There are bilateral inguinal hernias. These contain trace fluid. Heterogeneity of the visualized skeletal structures is indeterminate. There is no hydronephrosis. 3 mm left renal calculus is noted. There are no ureteral calculi. IMPRESSION: 1. Increased conspicuity of numerous hepatic metastases since CT of March 02, 2022. This favors disease progression although could be treatment related. 2. Mild increase in size of the lobulated pancreatic tail mass. 3. Small amount of abdominal and pelvic ascites. 4. No bowel obstruction. 5. Colonic diverticulosis without evidence for acute diverticulitis. 6. Interval development of small bilateral pleural effusions. ACT 112: Negative or not required by law. Electronically signed by: Randy Bermudez M.D. 05/10/2022 3:59 PM PG Care Time/CCT Total # of Minutes Spent Total Time Spent with Patient: Total time spent is greater than 50% in coordination of care (as documented) at patient's floor/unit and/or counseling patient: Coding Level of Care Code 12182 Subseq Hosp Care Lvl 3 Diagnoses Dysphagia R13.10 Severe protein-calorie malnutrition E43 Neuroendocrine tumor D3A.8 BPH with obstruction/lower urinary tract symptoms N40.1; N13.8 HLD (hyperlipidemia) E78.5 HTN (hypertension) I10 CAD (coronary artery disease) I25.10 H/O: stroke Z86.73 H/O partial seizures Z86.69 Elevated LFTs R79.89 History of aortic valve disease Z86.79 Elevated troponin R77.8 Oral candidiasis B37.0 Electrolyte abnormality E87.8
[2022-05-11] MEDS: METOPROLOL TARTRATE 25 MG TAB OG SCH ×2 (08:41→21:58)
[2022-05-11] MEDS: MAGNESIUM OXIDE 400 MG TAB PEG SCH ×3 (08:41→21:58)
[2022-05-11] MEDS: THIAMINE HCL 100 MG TAB PEG SCH (08:42)
[2022-05-11] MEDS: MULTI VIT W/MINERALS LIQUID 15 ML UDP NG SCH (08:42)
[2022-05-11] MEDS: TUBE FEEDING WATER FLUSH PEG SCH ×4 (08:42→22:01)
[2022-05-11] MEDS: POT PHOSPHATE MONOBASIC W/ SOD TAB NG SCH ×4 (08:42→21:58)
[2022-05-11] MEDS: ASPIRIN 81 MG CHEW PO SCH (08:42)
[2022-05-11] MEDS: FIBERSOURCE HN 1.2 CAL 1000 ML BAG GT SCH ×4 (08:44→22:00)
[2022-05-11] MEDS: DOCUSATE SODIUM SYRUP 100 MG/10 ML UDC PO SCH (21:56)
[2022-05-11] MEDS: ATORVASTATIN 40 MG TAB PO SCH (21:57)
[2022-05-12 06:59] LABS: Hematocrit (blood only) 36.5 % (40.1-51.0); Hemoglobin 12.4 g/dl (14.0-18.0); Mean Corpuscular Hemoglobin 31.6 pg (25.0-34.0); Mean Corpuscular Volume 93.1 fL (80.0-100.0); Mean Platelet Volume 11.1 fL (9.4-12.4); Platelet Count 253 K/uL (130-400); RDW Coefficient of Variation 13.5 % (11.5-14.5); RDW Standard Deviation 46.1 fL (36.4-46.3); Red Blood Count 3.92 M/uL (4.63-6.08); White Blood Count 8.85 K/ul (4.8-10.8)
[2022-05-12 07:20] LABS: Albumin Globulin Ratio 1.1 (0.9-2); Albumin Level 2.9 gm/dl (3.4-5.0); BUN Creatinine Ratio 38.2 (10-20); Calcium 8.7 mg/dl (8.5-10.1); Creatinine Clr Calc Pharmacy 117.1 ml/min; Est GFR (Non-African American) 124.2 ml/min; Globulin 2.7 gm/dl (2.5-4.0); Magnesium 1.8 mg/dl (1.7-2.4); Potassium 3.7 mmol/L (3.5-5.1); Total Protein 5.6 gm/dl (6.0-8.3)
[2022-05-12] MEDS: ASPIRIN 81 MG CHEW PO SCH (07:45)
[2022-05-12] MEDS: METOPROLOL TARTRATE 25 MG TAB OG SCH ×2 (07:46→22:31)
[2022-05-12] MEDS: POT PHOSPHATE MONOBASIC W/ SOD TAB NG SCH ×4 (07:46→22:31)
[2022-05-12] MEDS: THIAMINE HCL 100 MG TAB PEG SCH (07:46)
[2022-05-12] MEDS: MAGNESIUM OXIDE 400 MG TAB PEG SCH ×3 (07:46→22:30)
[2022-05-12] MEDS: FIBERSOURCE HN 1.2 CAL 1000 ML BAG GT SCH ×4 (07:47→22:32)
[2022-05-12] MEDS: MULTI VIT W/MINERALS LIQUID 15 ML UDP NG SCH (07:47)
[2022-05-12] MEDS: TUBE FEEDING WATER FLUSH PEG SCH ×4 (07:48→22:32)
--- NOTE | 2022-05-12 08:13 | Hospitalist Progress Note ---
Date of Service May 12, 2022 Assessment & Plan (1) Dysphagia: Plan: In patient with neuroendocrine tumor, follows with Dr Toro (now Dr John, on sandostatin) as well as Dr Iverson [facility] and has undergone TACE x 2 with last March 24/ Dysphagia oropharyngealexact etiology unclear (brain MRI negative for acute, old CVA), negative structural causes on CT soft tissues neck, severe malnutrition/muscle wasting in setting of met ca given underlying paraneoplastic but per Dr Iverson no prior evidence on their evaluations of any swallowing issues. Of note, patient with evidence for prior Power fundoplication on EGD per report M gravis panel pending though nothing to suggest M gravis; GI consulted s/p PEG placement with Dr Ray on 05/05 Nutrition consulted -- switched to bolus feeding inpatient, 275ml QID with 100mg water flushes before and after --Contacted CM regarding home feeding, to participate with teaching. Given Rx and arranging for home tube feeding/home health. 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 Did review UTD CT obtained evening 05/10 with progression of disease with liver lesions however could be related to treatment. They plan for 3rd TACE and further discussion in follow up. Rec'd serotonin and chromagranin A level to be obtained -- pending 05/12 discharge issue due to supplies/delivery/HH --> unable to have Fibersource delivered today due to delivery/supply issue. Pharmacy not able to give out our 1L bags of fibersource. For safety, continuing inpatient stay while arranging supplies and HH to be able to go tomorrow hopefully from 11-1pm for first feed at home. Also ordered miralax to assist with BM as takes at home. 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 Increased conspicuity of numerous hepatic metastases since CT of March 02, 2022. This favors disease progression although could be treatment related. * 2. Mild increase in size of the lobulated pancreatic tail mass. * 3. Small amount of abdominal and pelvic ascites. * 4. No bowel obstruction. * 5. Colonic diverticulosis without evidence for acute diverticulitis. * 6. Interval development of small bilateral pleural effusions. Serotonin and chromogranin levels pending; Per patient oncologist Dr Iverson, pt to call office for f/u within next month (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 Stable -Monitor UOP -- great, 0.97ml/kg/hr -NOT on Flomax-this was originally on med rec as old med from previous kidney stone-discontinued med and removed from home med rec (5) HLD (hyperlipidemia): Plan: Statin continued -at some point might need to revisit given LFTs/etc as above, consider discontinuing vs holiday however does have hx old CVA (MRI current admit neg for acute process) (6) HTN (hypertension): Plan: BP stable of note, usual metoprolol succinate 25mg switched to 12.5mg BID tartrate while inpatient. New rx sent (7) CAD (coronary artery disease): Plan: Chronic. Stable. H/o CABG at time of AVR With mild myocardial demand ischemia due with elevated troponin at 46.3/55/43 serially Denies chest pain. No acute ischemic changes on EKG. -Continue ASA, Atorvastatin, Metoprolol (8) H/O: stroke: Plan: continue ASA, statin was considered to be embolic in nature as per Neuro notes after time of his AVR and CABG-at present nonacute issue Patient also provided rx for hospital bed given aspiration/reflux and need to keep head of bed elevated at least 30 degrees at all times and requires frequent repositioning. 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 continue Zuleykara follows with Neuro (10) Elevated LFTs: Plan: 2/2 known liver mets AST mild elevation and alk phos quite high but consistent with previous (11) History of aortic valve disease: Plan: AVR bioprosthetic hx of paroxysmal afib, NOT on AC -- sinus rhythm on monitor (12) Elevated troponin: Plan: as above (13) Oral candidiasis: Plan: Completed planned course with fluconazole while inpatient, resolved (14) Electrolyte abnormality: Plan: Replace as needed Plan working on setting up home feeding,hopeful d/c tomorrow morning once supplies delivered RN to show patient again today about med administration/feeding and use Admission and Anticipated Discharge Date Admission Date: April 30, 2022 Supervising Physician Co-Signing Physician Notes PA Supervision Note: I did not personally see or examine the patient today, but I verified all downs points of JULIANE Anand's assessment and plan with the following exceptions/additions: None Subjective Patient evaluated this afternoon around noon. at bedside. Issues with getting Fibersource delivered today and pharmacy not able to provide. also nervous about administrations and will have nursing show giving medications and feeding for next dose and CM in room discussing HH to be there tomorrow for first feed to ensure going smoothly. Feeling like needing to have BM but possibly constipation as he feels it right at the end. Typically takes miralax at home and will order daily. Patient otherwise doing well, no fever/chill, chest pain, shortness of breath. Review of Systems Review of Systems: All systems reviewed & are unremarkable except as noted in HPI & below Physical Exam Physical Exam: General: elderly cachectic, thin male sitting up in bed, NAD, generalized muscular atrophy, at bedside HEENT: head normocephalic, atraumatic, mm dry, trachea midline without deviation Resp: CTAB, no c/r, on room air CV: RRR, no edema/calf tenderness, cap refill wnl, pulses palpable GI: scaphoid abdomen, +BS, soft, nontender, PEG tube intact and functioning, no erythema/warmth : no styles MSK/Neuro: moves all extremities, no focal deficit Psych: alert to person/place/time, cooperative Skin: cool, dry Results & Data Results & Data ([facility]) Vital Signs (Past 12 Hours) Vital Signs Temp Pulse Pulse Resp BP Pulse Ox O2 Del Method 05/12/22 07:18 36.4 C L 86 18 139/77 96 Room Air 05/12/22 03:08 36.7 C 99 H 18 142/85 H 96 Room Air 05/12/22 00:47 92 H 05/11/22 23:35 36.8 C 101 H 18 133/77 95 Room Air Laboratory Results 05/12/22 05/12/22 05/12/22 Range/Units 06:47 06:47 00:06 WBC 8.85 (4.8-10.8) K/ul RBC 3.92 L (4.63-6.08) M/uL Hgb 12.4 L (14.0-18.0) g/dl Hct 36.5 L (40.1-51.0) % MCV 93.1 (80.0-100.0) fL MCH 31.6 (25.0-34.0) pg MCHC 34.0 (32.0-36.0) g/dL RDW Std Deviation 46.1 (36.4-46.3) fL RDW Coeff of Mason 13.5 (11.5-14.5) % Plt Count 253 (130-400) K/uL MPV 11.1 (9.4-12.4) fL Sodium 136 (136-145) mmol/L Potassium 3.7 (3.5-5.1) mmol/L Chloride 100 (98-107) mmol/L Carbon Dioxide 31 (21-32) mmol/L Anion Gap 5 (3-11) BUN 13 (6-23) mg/dl Creatinine 0.34 L (0.6-1.4) mg/dl Est Cr Clr Drug Dosing 117.1 ml/min Est GFR ( Amer) 144.0 ml/min Est GFR (Non-Af Amer) 124.2 ml/min BUN/Creatinine Ratio 38.2 H (10-20) Glucose 108 H (70-99(Fasting)) mg/dl POC Glucose 186 H (70-99) mg/dl Calcium 8.7 (8.5-10.1) mg/dl Magnesium 1.8 (1.7-2.4) mg/dl Total Bilirubin 1.0 (0.2-1.0) mg/dl AST 106 H (13-39) U/L ALT 49 (7-52) U/L Alkaline Phosphatase 867 H (34-104) U/L Total Protein 5.6 L (6.0-8.3) gm/dl Albumin 2.9 L (3.4-5.0) gm/dl Globulin 2.7 (2.5-4.0) gm/dl Albumin/Globulin Ratio 1.1 (0.9-2) 05/11/22 05/11/22 Range/Units 17:57 11:38 WBC (4.8-10.8) K/ul RBC (4.63-6.08) M/uL Hgb (14.0-18.0) g/dl Hct (40.1-51.0) % MCV (80.0-100.0) fL MCH (25.0-34.0) pg MCHC (32.0-36.0) g/dL RDW Std Deviation (36.4-46.3) fL RDW Coeff of Mason (11.5-14.5) % Plt Count (130-400) K/uL MPV (9.4-12.4) fL Sodium (136-145) mmol/L Potassium (3.5-5.1) mmol/L Chloride (98-107) mmol/L Carbon Dioxide (21-32) mmol/L Anion Gap (3-11) BUN (6-23) mg/dl Creatinine (0.6-1.4) mg/dl Est Cr Clr Drug Dosing ml/min Est GFR ( Amer) ml/min Est GFR (Non-Af Amer) ml/min BUN/Creatinine Ratio (10-20) Glucose (70-99(Fasting)) mg/dl POC Glucose 168 H 186 H (70-99) mg/dl Calcium (8.5-10.1) mg/dl Magnesium (1.7-2.4) mg/dl Total Bilirubin (0.2-1.0) mg/dl AST (13-39) U/L ALT (7-52) U/L Alkaline Phosphatase (34-104) U/L Total Protein (6.0-8.3) gm/dl Albumin (3.4-5.0) gm/dl Globulin (2.5-4.0) gm/dl Albumin/Globulin Ratio (0.9-2) PG Care Time/CCT Total # of Minutes Spent Total Time Spent with Patient: Total time spent is greater than 50% in coordination of care (as documented) at patient's floor/unit and/or counseling patient: Coding Level of Care Code 97127 Subseq Hosp Care Lvl 2 Diagnoses Dysphagia R13.10 Severe protein-calorie malnutrition E43 Neuroendocrine tumor D3A.8 BPH with obstruction/lower urinary tract symptoms N40.1; N13.8 HLD (hyperlipidemia) E78.5 HTN (hypertension) I10 CAD (coronary artery disease) I25.10 H/O: stroke Z86.73 H/O partial seizures Z86.69 Elevated LFTs R79.89 History of aortic valve disease Z86.79 Elevated troponin R77.8 Oral candidiasis B37.0 Electrolyte abnormality E87.8
[2022-05-12] MEDS: POLYETHYLENE (MIRALAX) 17 GM PACK PO SCH (12:42)
[2022-05-12] MEDS ORDERED: SOD PHOSPHATE/SOD BIPHOSPHATE ENEMA 132 ML BTL PR PRN (18:47)
[2022-05-12] MEDS ORDERED: bisacodyL 10 MG SUPP PR STA (18:47)
[2022-05-12] MEDS: DOCUSATE SODIUM SYRUP 100 MG/10 ML UDC PO SCH (22:30)
[2022-05-12] MEDS: ATORVASTATIN 40 MG TAB PO SCH (22:30)
--- NOTE | 2022-05-13 07:45 | Discharge Summary ---
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 Patient developed clear post-nasal drainage several weeks ago. He has been unable to clear his secretions effectively. He has had a cough productive for white sputum progressive over the last several weeks as well. For the last 3-4 days he has been unable to tolerate oral intake. He reports coughing and choking on even a small amount of water. He has not been able to eat or drink at all. He has hoarseness of the voice for several weeks. He denies painful swallowing but does have a sore throat at times. He denies fever, chills, chest pain, palpitations, nausea, vomiting, diarrhea or constipation. +Weight loss No additional complaints. ER Course: Pepcid, Zofran Admission Exam Per Admitting Provider General: patient cachectic, ill in appearance but non-toxic in appearance, AA&O x 4 Skin: warm, dry, intact, no rashes or lesions HEENT: NC/AT, PERRL, EOMI, anicteric sclera, conjunctiva without injection, external ear normal to inspection and nontender, nares patent, moist mucus membranes, dentition intact, no oropharyngeal lesions, neck supple, trachea midline, no LAD, no thyromegaly, no JVD Heart: +S1/S2, irregularly irregular, no m/r/g Lungs: equal air entry bilaterally, no rales/rhonchi/wheezes Abd: +BS, soft, NT/ND, no masses/organomegaly/ascites Ext: warm, 2+ pulses in UE/LE bilaterally, no clubbing/cyanosis or edema Neuro: nonfocal, patient AA&O x 4, speech intact, no facial droop, moving all extremities on command with equal strength 5/5 Principal Diagnosis Dysphagia Discharge Exam General: elderly cachectic, thin male sitting up in bed, NAD, generalized muscular atrophy HEENT: head normocephalic, atraumatic, mmm, trachea midline without deviation Resp: CTAB, no c/r, on room air CV: RRR, no edema/calf tenderness, cap refill wnl, pulses palpable GI: scaphoid abdomen, +BS, soft, nontender, PEG tube intact and functioning, no erythema/warmth : no styles MSK/Neuro: moves all extremities, generalized weakness, no focal deficit Psych: alert to person/place/time, cooperative Skin: cool, dry Discharge Data Allergies Allergy/AdvReac Type Severity Reaction Status Date / Time heparin Allergy Severe thrombocyto Verified 04/30/22 23:47 penia adhesive Allergy Intermediate Hives Verified 10/03/21 07:17 ciprofloxacin [From Cipro] Allergy Intermediate Hives Verified 10/03/21 07:17 buspirone [From BuSpar] AdvReac Intermediate Dizziness Verified 10/03/21 07:17 lansoprazole [From Prevacid] AdvReac Mild Diarrhea Verified 10/03/21 07:17 venlafaxine [From Effexor] AdvReac Mild somnulence Verified 10/03/21 07:17 Consultations 04/30/22 19:19 ED Decision to Admit Stat 05/01/22 11:05 Consult Palliative Care Routine 05/01/22 13:08 Consult Oncology Routine 05/02/22 08:11 Consult Gastroenterology Routine 05/11/22 10:25 Burn CD for patient Routine Procedures Performed Operation Date: 05/05/22 16:15 Actual Procedures p EGD Gastric Tube Placement - Johnathan Middleton Case, DO Ordered Studies Chest X-Ray 04/30/22 18:08 XR chest 1V portable CLINICAL HISTORY: weakness TECHNIQUE: Single frontal radiograph of the chest was obtained. Comparison: Comparison is made to chest radiograph 04/29/2022 FINDINGS: Left total reverse shoulder arthroplasty is seen. Median sternotomy wires are seen. Dual-lead pacemaker is seen. The cardiomediastinal silhouette is normal. The lungs are clear. No evidence of pleural effusion or pneumothorax. IMPRESSION: No acute chest disease. ACT 112: Negative or not required by law. Electronically signed by: Mark Rodriguez M.D. 04/30/2022 6:54 PM Chest CTA 04/30/22 19:13 CT angio chest PE protocol CLINICAL HISTORY: PE TECHNIQUE: Multidetector row helical CT of the chest was performed with angiographic protocol. Coronal and sagittal reformations were obtained. Coronal and sagittal MIPS were obtained from the axial data set and were submitted for review. Automated dose lowering techniques and/or adjustment according to patient size were utilized for this exam. CT DOSE: 238.62 mGy.cm Comparison: Comparison is made to CT chest 07/07/2018 FINDINGS: Lungs and pleura: Groundglass opacities in the right upper lobe (series 3 image 83). Atelectasis and some groundglass opacities are seen in the bilateral lower lobes. Bronchial wall thickening and mucous plugging are noted. Heart and pericardium: Heart size is normal. No pericardial effusion. Vessels: No evidence of pulmonary embolism. Mediastinum and isha: Unremarkable. Chest wall and lower neck: Patient is cachectic. Abdomen: Numerous hepatic hypodensities are seen compatible with metastasis. Patient status post cholecystectomy with physiologic dilation of the common bile duct. Bones: Degenerative changes in the thoracic spine. IMPRESSION: 1. No evidence of pulmonary embolism. 2. Groundglass and solid opacities are seen, predominantly in the lower lungs, which may represent infectious/inflammatory process. ACT 112: Negative or not required by law. Electronically signed by: Mark Rodriguez M.D. 04/30/2022 9:00 PM Videofluoroscopic Swallow 05/01/22 00:00 FL video swallow CLINICAL HISTORY: aspiration TECHNIQUE: Video fluoroscopy of the pharyngeal region was performed as barium mixtures of varying consistencies were administered to the patient by the speech pathologist. A formal esophagram was not performed. COMPARISON: None. FINDINGS: Total fluoroscopy time: 2 minutes. The patient swallowed the different barium consistencies without difficulty. Silent aspiration is seen with thin and mildly thick liquids. No clearance with cough was noted. Pooling of barium was noted in the bilateral piriform sinuses and valleculae. IMPRESSION: Silent aspiration without clearance is noted. Please see the speech pathology report for further details. ACT 112: Negative or not required by law. Electronically signed by: Mark Rodriguez M.D. 05/01/2022 2:[address] 05/01/22 12:09 CT soft tissue neck w con HISTORY: difficulty swallowing TECHNIQUE: Multiaxial CT images of the neck were performed following the intravenous ministration of contrast. Sagittal and coronal reformations were performed by the radiologist at the workstation. COMPARISON STUDY: Neck CTA 07/21/2018. FINDINGS: Right frontal lobe encephalomalacia likely representing an old infarct. This remains unchanged. The orbits are unremarkable. The pterygopalati ne fossa and paratracheal fat spaces are maintained. Prevertebral soft tissues and epiglottis are normal in thickness. Small amount of fluid/secretions within the pyriform sinuses which demonstrate mild mucosal hyperenhancement. Otherwise, the airway is patent. The parotid and submandibular glands are symmetric. No pneumothorax. The trachea is midline and patent. No cervical lymphadenopathy. There is a 3 mm right thyroid nodule. This does not meet CT criteria for follow- up. No masses or abscess identified within the neck. No radiopaque foreign bodies. No fractures within the visualized osseous structures. The paranasal sinuses and mastoid air cells are clear. Moderate disc space narrowing at C4-C5 and C5-C6. Moderate calcified plaque within the bilateral carotid bifurcations without significant stenosis. IMPRESSION: 1. No masses or lymphadenopathy identified in the neck. 2. Small amount of fluid/secretions within the pyriform sinuses with mucosal hyperenhancement. This could represent a mild pharyngitis. ACT 112: Negative or not required by law. Electronically signed by: Mati Bhatia M.D. 05/01/2022 2:03 PM Brain MRI 05/01/22 13:08 MRI OF THE BRAIN COMBO CLINICAL HISTORY: Dysphagia. Metastatic pancreatic cancer. COMPARISON STUDY: MRI of the brain dated 07/21/2018. TECHNIQUE: MRI of the brain was performed utilizing various T1 and T2-weighted sequences in the axial, sagittal, and coronal planes. Contrast-enhanced sequences were acquired following the administration of 3.8 cc of Gadavist. FINDINGS: Brain parenchyma: Right frontal encephalomalacia is unchanged. There is age- related involutional change noting minimal microangiopathic disease. There is no hemorrhage or mass effect. There is no restricted diffusion to suggest acute ischemia. No enhancing mass lesion is identified on the postcontrast images. Alba-white matter differentiation is preserved. No extra-axial fluid collection is seen. The cerebellar tonsils are normal in configuration. Ventricles, sulci, and cisterns: Prominent secondary to involutional change. Pituitary and sella: Unremarkable. Intracranial vasculature: Normal flow voids are maintained at the skull base. Orbits: The bony orbits are grossly intact. Orbital contents are normal in appearance. Sinuses and mastoids: Clear. Calvarium: Unremarkable. Cervical cord: Partially visualized cervical spinal cord is normal in morphology and signal intensity. IMPRESSION: 1. Chronic changes as above with no acute intracranial abnormality identified. 2. Specifically, there is no MRI evidence of intracranial metastatic disease. ACT 112: Negative or not required by law. Electronically signed by: Kevin López M.D. 05/01/2022 4:48 PM KUB X-Ray 05/01/22 20:00 KUB CLINICAL HISTORY: Enteric tube placement. FINDINGS: An AP, portable, upright view of the chest and upper abdomen is compared to study dated 04/29/2022. An enteric tube has been placed. The tip projects below the diaphragm over the mid stomach. There is no radiographic evidence of bowel obstruction. Residual enteric contrast is noted in the right colon. No evidence of intraperitoneal free air in seen below the diaphragm. A cardiac pacemaker is in place. The patient is status post midline sternotomy and cardiac valve surgery. A left shoulder arthroplasty is in place. The skeletal structures are osteopenic and appear intact. Cholecystectomy clips are noted in the right upper quadrant. IMPRESSION: Enteric tube placement as above. Electronically signed by: Kevin López M.D. 05/01/2022 9:48 PM Shoulder X-Ray 05/04/22 15:24 XR shoulder LT min 2V routine CLINICAL HISTORY: New shoulder pain COMPARISON STUDY: Left shoulder 01/11/2020. FINDINGS: There is a left total shoulder arthroplasty. The hardware appears intact. No acute fracture or dislocation within the left shoulder. The left clavicle is intact. Soft tissues are unremarkable. There is a left-sided dual- chamber pacemaker. There is mild AC joint arthrosis. IMPRESSION: 1. No acute fracture or dislocation within the left shoulder. 2. Left total shoulder arthroplasty. Hardware appears intact. ACT 112: Negative or not required by law. Electronically signed by: Mati Bhatia M.D. 05/04/2022 3:35 PM Abdomen/Pelvis CT 05/10/22 14:47 CT OF THE ABDOMEN AND PELVIS WITH CONTRAST CLINICAL HISTORY: Abdominal pain. Metastatic pancreatic cancer. COMPARISON STUDY: Chest CT April 30, 2022. CT of the abdomen and pelvis March 02, 2022. MRI of the abdomen April 26, 2020. TECHNIQUE: Following IV administration of 93 mL of Optiray, axial images of the abdomen and pelvis were obtained from the lung bases to the proximal femurs. Images were reviewed in the axial, sagittal, and coronal planes. IV contrast was administered without complication. Automated exposure control was utilized for the study. A dose lowering technique was utilized adhering to the principles of ALARA. CT DOSE: 255.04 mGy.cm FINDINGS: Small bilateral pleural effusions have developed since chest CT of April 30, 2022. Mild airspace opacities within the lower lungs are noted. Prosthetic aortic valve is noted. Pacer leads are partially imaged. No pneumatosis, free air or portal venous gas is present. Biliary ductal dilatation is unchanged status post cholecystectomy. Innumerable peripherally enhancing hypodense hepatic lesions are noted. These were shown to be hypervascular on multiphase CT of March 02, 2022. The lesions are more conspicuous than on prior exam. Index lateral segment lesion measures 3.1 cm. It previously measured 2.8 cm. The lobulated pancreatic tail mass has slightly increased in size since prio r CT. This now measures 6.6 x 5.2 cm. There may be adjacent peripancreatic implants. 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 Hypodensity within the superior aspect of the spleen is noted. This was present on prior exam and could reflect subacute infarct. Gastrostomy tube is in place. No evidence for a bowel obstruction. Small amount of abdominal and pelvic ascites is noted. Colonic diverticulosis is noted without evidence for acute diverticulitis. Prostate is enlarged. There are bilateral inguinal hernias. These contain trace fluid. Heterogeneity of the visualized skeletal structures is indeterminate. There is no hydronephrosis. 3 mm left renal calculus is noted. There are no ureteral calculi. IMPRESSION: 1. Increased conspicuity of numerous hepatic metastases since CT of March 02, 2022. This favors disease progression although could be treatment related. 2. Mild increase in size of the lobulated pancreatic tail mass. 3. Small amount of abdominal and pelvic ascites. 4. No bowel obstruction. 5. Colonic diverticulosis without evidence for acute diverticulitis. 6. Interval development of small bilateral pleural effusions. ACT 112: Negative or not required by law. Electronically signed by: Randy Bermudez M.D. 05/10/2022 3:59 PM Hospital Course (1) Dysphagia: In patient with neuroendocrine tumor, follows with Dr Toro (now Dr John, on sandostatin) as well as Dr Iverson [facility] and has undergone TACE x 2 with last March 24/ Dysphagia oropharyngealexact etiology unclear (brain MRI negative for acute, old CVA), negative structural causes on CT soft tissues neck, severe malnutrition/muscle wasting in setting of met ca given underlying paraneoplastic but per Dr Iverson no prior evidence on their evaluations of any swallowing issues. Of note, patient with evidence for prior Power fundoplication on EGD per report M gravis panel pending though nothing to suggest M gravis; GI consulted s/p PEG placement with Dr Ray on 05/05 Nutrition consulted -- switched to bolus feeding inpatient, 275ml QID with 100mg water flushes before and after -- arranged for home health and tube feeding supplies and to arrive at home between 12-2pm today for first feeding at home. -- New rx for medications via PEG tube provided CD burnt for imaging for CTAP for f/u with Dr Iverson-- discussed on phone 05/11 regarding findings and can call office for f/u in next 1-2 months for further TACE/treatment moving forward as imaging with progression of disease with liver lesions however could be related to treatment. Planning for 3rd TACE -- Rec'd serotonin and chromagranin A level to be obtained -- pending (2) Severe protein-calorie malnutrition: Tube feeding as noted above, outpatient follow up with heme/onc (3) Neuroendocrine tumor: Patient with neuroendocrine tumor of the pancreas with liver metastases presently on Sandostatin therapy, s/p Trans-arterial chemoembolization procedure x 3 (last TACE performed on March 24 - is planned to have next TACE in June Repeated CT abdomen- pelvis; * 1. Increased conspicuity of numerous hepatic metastases since CT of March 02, 2022. This favors disease progression although could be treatment related. * 2. Mild increase in size of the lobulated pancreatic tail mass. * 3. Small amount of abdominal and pelvic ascites. * 4. No bowel obstruction. * 5. Colonic diverticulosis without evidence for acute diverticulitis. * 6. Interval development of small bilateral pleural effusions. 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 Stable UOP great without need for flomax (5) HLD (hyperlipidemia): Statin continued -at some point might need to revisit given LFTs/etc as above, consider discontinuing vs holiday however does have hx old CVA (MRI current admit neg for acute process) (6) HTN (hypertension): BP stable of note, usual metoprolol succinate 25mg switched to 12.5mg BID tartrate while inpatient. New rx sent at d/c (7) CAD (coronary artery disease): Chronic. Stable. H/o CABG at time of AVR With mild myocardial demand ischemia due with elevated troponin at 46.3/55/43 serially Denies chest pain. No acute ischemic changes on EKG. -Continued ASA, Atorvastatin, Metoprolol (8) H/O: stroke: continued ASA, statin was considered to be embolic in nature as per Neuro notes after time of his AVR and CABG-at present nonacute issue Patient also provided rx for hospital bed given aspiration/reflux and need to keep head of bed elevated at least 30 degrees at all times and requires frequent repositioning. 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 CVA continued Keppra follows with Neuro mri brain while inpatient negative (10) Elevated LFTs: 2/2 known liver mets AST mild elevation and alk phos quite high but consistent with previous (11) History of aortic valve disease: AVR bioprosthetic hx of paroxysmal afib, NOT on AC -- sinus rhythm on monitor (12) Elevated troponin: as above (13) Oral candidiasis: Completed planned course with fluconazole while inpatient, resolved (14) Electrolyte abnormality: Replaced as needed labs stable on repeat prior to discharge I certify that this patient is under my care and that I, or a physicians logistics assistant working with me, had a face to-face encounter that meets the home health [id number] encounter requirements with this patient. The encounter with the patient was in whole, or in part, for the following medical condition, which is the primary reason for home health care (list medical condition): I certify that, based on my findings, the following services are medically necessary home health services: My clinical findings support the need for the above services because: OT Assess ADL Status and Restore Function w ADLs PT Assessment for Endurance / Balance / Strength Skilled Nsg Assessment Further, I certify that my clinical findings support that this patient is homebound (i.e. absences from home require considerable and taxing effort and are for medical reasons or sabianism services or infrequently or of short duration when for other reasons) because: Certification for Home Health Services: Based on the above findings, I certify that this patient is confined to the home and needs intermittent shelter care, physical therapy and/or speech therapy or continues to need occupational therapy. The patient is under my care, and I have initiated the establishment of the plan of care. This patient will be followed by a physician who will periodically review the plan of care. Plan discharge home with and home health Total Time Total Time Spent Total Time Spent (In Minutes): 55 Discharge Plan Discharge Items Patient Disposition: Home - Home Health Services Reason For Visit: ORAL INTOLERANCE, ?ASPIRATION Discharge Diagnosis: Dysphagia (difficulty swallowing), need for PEG tube placement Condition on Discharge: Fair Goals: You have been hospitalized for an urgent problem which required surgery. During your stay at [facility], we have made an effort to correct the problem that brought you to the hospital while keeping you as comfortable as possible. Surgery and medications were used to bring your condition under control and your discharge instructions will include directions for any medications you should take after leaving the hospital. Please make sure to follow the advice of your surgeon regarding follow up with the surgeon and with your primary care provider. Activity: As commented below Non-emergency contact: Primary Care Provider, Specialist and Oncologist Call non-emergency contact if: you have any medication questions, your symptoms worsen, your pain is not controlled and you have a fever Follow-up/Referrals: Johnathan Ray DO [Physician] - Elvis Falk DO [Primary Care Provider] - 05/19/22 3:50 pm Megan John MD [Physician] - Diet: Nothing by Mouth and Other - See Diet Comment Addtl Attending Provider Instructions: You have been hospitalized for malnutrition likely from your progression of disease/metastatic cancer, and requirement of consultation with GI for placement of PEG tube. We have had nutrition consulted and plan to continue with bolus feeding at home to help with your nutritional status/overall wound healing/etc. Bolus feeding will be four times a day (every six hours) and flush with free water 100cc before and after feeding. Home health has been arranged as well. I spoke with Dr Iverson from [facility] and have burnt your imaging on disc for follow- up. He would like to see you in the next 1-2 months to discuss further treatment moving forward. He would like 2 lab tests ordered which have been done while you have been in the hospital and should be resulted by the time you have follow up appointment. Please follow up with your oncologist locally as well to continue your treatment with Sandostatin. Please follow up with your PCP in the next 7-10 days to monitor your progress after discharge from the hospital. Please return to the ER with any worsening abdominal pain, fever, chest pain, shortness of breath, or for any other symptoms concerning for you. Take care! Pending Studies at Discharge: Yes Studies:: Serotonin, Chromogranin A Stand-Alone Forms: My [facility] Medications and DC Order Prescriptions: New metoprolol tartrate 25 mg Tablet 12.5 mg OG BID Qty: 60 0RF Fibersource HN 0.05 gram- 1.2 kcal/mL Liquid See Rx Instructions .ROUTE .COMPLEX Qty: 6000 0RF Rx Instructions: 275ml via GT QID Phospha 250 Neutral 250 mg Tablet 2 tab NG QID 30 Days Qty: 240 0RF thiamine HCl (vitamin B1) 100 mg Tablet 100 mg PEG QAM 30 Days Qty: 30 0RF magnesium oxide 400 mg (241.3 mg magnesium) Tablet 800 mg PEG TID 30 Days Qty: 180 0RF docusate sodium 60 mg/15 mL Syrup 200 mg feeding tube HS 30 Days Qty: 1500 0RF Centrum 9 mg iron/15 mL Liquid 15 ml NG QAM 30 Days Qty: 450 0RF Tube Feeding Water Flush 100 ml PEG QID 30 Days 0RF aspirin [Children's Aspirin] 81 mg Tablet,Chewable 81 mg PO QAM Qty: 30 0RF Continued Sandostatin LAR [place] 30 mg Suspension,Extended Rel Recon 30 mg IM Q28D levetiracetam 500 mg tablet 500 mg PO BID 90 Days Qty: 180 1RF Changed atorvastatin [Lipitor] 40 mg tablet 40 mg feeding tube HS Qty: 30 0RF Discontinued cholecalciferol (vitamin D3) 50 mcg (2,000 unit) capsule 2,000 units PO QAM aspirin 81 mg Tablet,Delayed Release (Dr/Ec) 81 mg PO QAM Label Comments: PRESENTLY ON HOLD FOR LITHOTRIPSY magnesium oxide [MagOx] 400 mg (241.3 mg magnesium) tablet 400 mg PO QAM potassium chloride [Klor-Con 10] 10 mEq tablet extended release 30 meq PO BID metoprolol succinate 25 mg Tablet Extended Release 24 Hr 25 mg PO HS docusate sodium [Colace] 100 mg Capsule 200 mg PO HS Discharge Orders: Discharge Order (Routine); Ordered 07/27/22 Ordered By: Jackie Anand Admission Data Admit Date/Time: 04/30/22 19:52 Attending Provider: Abi Kamara Admit Provider: Lisa Prieto Primary Care Provider: Elvis Falk Other Providers: Lisa Prieto ; Jerrica Simental ; Megan John ; Johnathan Ray ; Abi Kamara Other Interventions: Discharge Summary Assessment (RN) Last Done: 05/13/22 09:17 Supervising Physician Co-Signing Physician Notes PA Supervision Note: I personally saw and examined the patient. I verified all downs points and agree with JULIANE Anand with the following exceptions and/or additions: S-Pt reynalupe ann, no complaints. Has been ambulating without difficulty, no abd pain or nausea, tolerating tube feeds. O- Vitals reviewed Gen: [AAOx3, NAD, cachectic] HEENT: [anicteric sclerae, EOMI] CV: [RRR no mgr nl S1S2] Pulm: [CTAB no wcr] Abd: [+BS soft NT ND no masses or hernias, PEG tube in place] Ext: [no edema] Skin: [no rashes, warm/dry] Neuro: [full strength throughout] A/P-77 yo male here with metastatic neuroendocrine pancreatic CA with mets to liver with failure ot thrive, significant weight loss due to severe dysphagia, malnutrition. PEG tube placed and tolerating tube feeds Stable for dc to home with close follow up Coding Level of Care Code D/C DAY MANAGEMENT >30 MINS Diagnoses Dysphagia R13.10 Severe protein-calorie malnutrition E43 Neuroendocrine tumor D3A.8 BPH with obstruction/lower urinary tract symptoms N40.1; N13.8 HLD (hyperlipidemia) E78.5 HTN (hypertension) I10 CAD (coronary artery disease) I25.10 H/O: stroke Z86.73 H/O partial seizures Z86.69 Elevated LFTs R79.89 History of aortic valve disease Z86.79 Elevated troponin R77.8 Oral candidiasis B37.0 Electrolyte abnormality E87.8
[2022-05-13] MEDS: THIAMINE HCL 100 MG TAB PEG SCH (08:21)
[2022-05-13] MEDS: METOPROLOL TARTRATE 25 MG TAB OG SCH (08:21)
[2022-05-13] MEDS: MAGNESIUM OXIDE 400 MG TAB PEG SCH (08:22)
[2022-05-13] MEDS: POT PHOSPHATE MONOBASIC W/ SOD TAB NG SCH (08:23)
[2022-05-13] MEDS: ASPIRIN 81 MG CHEW PO SCH (08:23)
[2022-05-13] MEDS: POLYETHYLENE (MIRALAX) 17 GM PACK PO SCH (08:24)
[2022-05-13] MEDS: MULTI VIT W/MINERALS LIQUID 15 ML UDP NG SCH (08:25)
[2022-05-13] MEDS: TUBE FEEDING WATER FLUSH PEG SCH (08:26)
[2022-05-13] MEDS: FIBERSOURCE HN 1.2 CAL 1000 ML BAG GT SCH (08:26)
[2022-05-13 08:28] LABS: BUN Creatinine Ratio 29.4 (10-20); Calcium 8.7 mg/dl (8.5-10.1); Est GFR (Non-African American) 124.2 ml/min; Potassium 3.6 mmol/L (3.5-5.1)
[2022-05-15 13:56] LABS: Anti-Striated Muscle NEGATIVE (NEGATIVE); Receptor Binding Ab <0.30 nmol/L
== END 2022-05-13 10:55 | disposition home health service (06) | DRG 391 ==
LOC: ED 17:41 → 2N 19:52 → SUATTDRO 19:52 → 2N 22:35

== ENCOUNTER 2022-06-18 14:15 | Inpatient (IN) ==
[2022-06-18] MEDS ORDERED: SODIUM CHLORIDE 0.9% 1000ML 1,000 ML IV ONE ×2 (14:26→17:36)
--- NOTE | 2022-06-18 14:34 | Emergency Department Note ---
Impression & Plan Weakness, Dehydration, Hypokalemia, Acute hypernatremia ED Provider Note NAME: TEDDY NOEL AGE: 77 SEX: M : 1945 ARRIVES VIA: Ambulance INFORMANT: Patient ED PROVIDER(S): Joon Murrieta DO CHIEF COMPLAINT: hematuria HPI: Patient is a 77 year old male who presents to the ER hematuria. Patient has a past medical history of CAD, severe protein calorie malnourishment, neuroendocrine tumor, CVA, aspiration pneumonia, seizure-like disorder who prese nts the ER for hematuria which started earlier today. He denies any headaches or chest pain. No shortness of breath or belly pain. He does have some pain when he urinates. No urgency or frequency. He has never had this before. No other blood thinners other than aspirin. No other exacerbating or remitting factors ROS: See above HPI for pertinent positives & negatives. A total of 10 systems reviewed and were otherwise negative. PAST MEDICAL HISTORY:See Below PAST SURGICAL HISTORY:See Below FAMILY HISTORY:See Below SOCIAL HISTORY:See Below HOME MEDICATIONS:See Below ALLERGIES:See Below VITALS:See Below PHYSICAL EXAMINATION: GENERAL: Sitting up in bed, alert, well appearing, well nourished, no distress, non-toxic EYE EXAM: normal conjunctiva. PERRL and EOM's grossly intact. OROPHARYNX: no exudate, no erythema, lips, buccal mucosa, and tongue normal and mucous membranes are moist CHEST: Pacer in Left upper chest NECK: supple, no nuchal rigidity, no adenopathy, non-tender LUNGS: Clear to auscultation. Normal chest wall mechanics HEART: no murmurs, S1 normal and S2 normal ABDOMEN: abdomen soft, non-tender, normo-active bowel sounds, no masses, no rebound or guarding. BACK: Back is symmetrical on inspection and there is no deformity, no midline tenderness, no CVA tenderness. SKIN: no rashes and no bruising UPPER EXTREMITIES: upper extremities are grossly normal. LOWER EXTREMITIES: No pitting edema. NEURO EXAM: Normal sensorium, cranial nerves II-XII grossly intact, normal speech, no gross weakness of arms, no gross weakness of legs. MEDICAL DECISION MAKING: Patient is a 77-year-old male with a past medical history of cancer that presents the ER for hematuria. IV was established blood work was obtained. Labs show no significant leukocytosis. Mild anemia 12. INR was unremarkable. BMP with a hyponatremia 151 and a hypokalemia 2.8. LFTs mild transaminitis. T bili 1.1. Lipase was normal. UA was clean not suggestive of UTI with only 1-5 whites. COVID was negative. CT abdomen pelvis showed no new acute pathology. He was given IV fluids updated bedside discussed with the hospitalist Dr. Rick Swanson for further evaluation. Triage Nursing notes reviewed. Limited review of prior medical records performed Vital Signs: reviewed and remarkable for no significant abnormalities Differential diagnosis: Differential diagnoses includes but is not limited to gastritis, peptic ulcer disease, GERD, gallbladder disease, pancreatitis, small bowel obstruction, acute coronary syndrome, pericarditis, ischemic bowel, irritable bowel disease, irritable bowel syndrome, appendicitis, diverticulitis, malignancy, hernia, urinary tract infection, torsion, perforation, trauma, infectious. ER treatment provided: See below Diagnostics interpreted by me: ECG: none Cardiac Monitoring: An order was placed for continuous cardiac monitoring. The monitor shows a rate of 110 with sinus rhythm. Laboratory studies: As stated above and show below. Imaging studies: CT abdomen pelvis as described above D/w the hospitalist as described above Procedures: none Critical Care: None Past Med/Surg History Medical History Acute CVA (cerebrovascular accident) 06/2018. Brain imaging at the time also noted chronic vs subacute CVA. pt denies deficits Anxiety CAD (coronary artery disease) S/p CABG x 2 (SMITH to LAD and SVG to OM), 2018. Electrolyte abnormality Elevated LFTs GERD (gastroesophageal reflux disease) History of aortic valve disease S/P [facility] bioprosthetic AVR 2018 (with CABG) History of atrial fibrillation Post-op CABG. follows with Dr. Orta. History of pleural effusion 07/2018. Drained. HLD (hyperlipidemia) HTN (hypertension) Humerus fracture LEFT SIDE Kidney stones Pacemaker [employer]; [facility] for postop complete heart block after CABG 2018. last check 1 mo ago Pancreatic cancer with mets to liver dx 2018; s/p TACE procedure x 2 Severe protein-calorie malnutrition Simple partial seizure disorder Per neurology office note 2020: History of seizure-like activity characterized by alteration in awareness, staring spells, beginning in the context of a hospitalization at [facility] for AVR, CABG in May 2018. Patient continues with Keppra. However, it is unclear to me if he needs to remain on this medication. I have recommended an up-to-date EEG. If the EEG is normal we will consider tapering off Keppra. (EEG 12/19 = This is a normal-appearing awake/drowsy EEG demonstrating a normal reactive background rhythm, and not much else. A normal EEG does not completely exclude a diagnosis of epilepsy.) Surgical History History of cardiac cath 2017 [facility] History of colonoscopy History of cystoscopy WITH STENT PLACED History of esophagogastroduodenoscopy (EGD) History of lithotripsy History of reverse total replacement of left shoulder joint History of surgery TACE procedure x 2 History of tonsillectomy and adenoidectomy History of tooth extraction Hx of CABG two-vessel; [facility] 2017 S/P AVR (aortic valve replacement) [facility] 2017 S/P cholecystectomy Status post Power fundoplication Status post placement of cardiac pacemaker 06/2018 due to post-op heart block after CABG. Family History Father Heart disease S/P CABG (coronary artery bypass graft) Stroke Family history of diabetes mellitus Mother Heart disease Hypertension Stroke Family history of diabetes mellitus Grandfather (Maternal) Stroke Grandfather (Paternal) Cirrhosis of liver Social History Smoking Status: Never smoker Second Hand Exposure: No; Hx Alcohol Use: Yes Alcohol type: hard liquor Hx Substance Use: No Preferred Language: U[place] Communication Ability: Effective Visual Impairment: No Limitations Air Sampling And Monitoring Required: No Beliefs That Will Affect Care: None marital status: Current Living Situation: Spouse current occupational status: retired 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, etc); [employer] career Feels Safe at Home: Yes Assistive Devices: None Allergies Allergies Allergy/AdvReac Type Severity Reaction Status Date / Time heparin Allergy Severe thrombocyto Verified 06/18/22 15:37 penia adhesive Allergy Intermediate Hives Verified 06/18/22 15:37 ciprofloxacin [From Cipro] Allergy Intermediate Hives Verified 06/18/22 15:37 buspirone [From BuSpar] AdvReac Intermediate Dizziness Verified 06/18/22 15:37 lansoprazole [From Prevacid] AdvReac Mild Diarrhea Verified 06/18/22 15:37 venlafaxine [From Effexor] AdvReac Mild somnulence Verified 06/18/22 15:37 Home Meds Home Medications Medication Instructions Recorded Confirmed octreotide,microspheres 30 mg 30 mg IM Q28D 12/28/19 06/18/22 intramuscular susp, extended release (Sandostatin [place]) aspirin 81 mg chewable tablet 81 mg feeding tube QAM 06/18/22 06/18/22 (Children's Aspirin) levetiracetam 500 mg tablet 500 mg PO BID 06/18/22 06/18/22 magnesium oxide 800 mg feeding tube TID 06/18/22 06/18/22 metoprolol tartrate 25 mg tablet 12.5 mg feeding tube BID 06/18/22 06/18/22 sodium di- and 2 tab feeding tube QID 06/18/22 06/18/22 monophosphate-potassium phos monobasic 250 mg tablet (Phospha 250 Neutral) Previous Rx's Medication Instructions Recorded atorvastatin 40 mg tablet (Lipitor) 40 mg feeding tube HS #30 tabs 05/12/22 nutrition [id number] See Rx Instructions .Route 05/12/22 0.05 gram-1.2 kcal/mL tube feed .COMPLEX #6,000 mL liquid (Fibersource HN) Results & Data (ED) Vital Signs Vital Signs - 24 hr 06/18/22 14:54 06/18/22 14:54 06/18/22 14:54 Temperature Temperature Source Pulse Rate 109 H Pulse Rate [Apical] 109 H Pulse Rate from SpO2 Sensor Pulse Rhythm Pulse Strength Respiratory Rate 18 18 Respiratory Effort / Characteristics Non-Labored Respiratory Depth Normal Respiratory Pattern Blood Pressure Blood Pressure [Right Arm] 149/91 H Blood Pressure Mean Blood Pressure Mean [Right Arm] 110 Pulse Oximetry 93 93 Oxygen Delivery Method Room Air Room Air Room Air Sepsis Recent Fever Within 48 Hours Sepsis New/Unexplained Change in Mental Status Sepsis Action Taken by Nursing 06/18/22 14:26 06/18/22 14:20 06/18/22 14:22 Temperature 36.7 C Temperature Source Oral Pulse Rate 90 93 H Pulse Rate [Apical] Pulse Rate from SpO2 Sensor Pulse Rhythm Regular Pulse Strength Normal Respiratory Rate 22 24 Respiratory Effort / Characteristics Non-Labored Respiratory Depth Normal Respiratory Pattern Regular Blood Pressure 141/91 H 141/91 H Blood Pressure [Right Arm] Blood Pressure Mean 107 107 Blood Pressure Mean [Right Arm] Pulse Oximetry 95 Oxygen Delivery Method Room Air Sepsis Recent Fever Within 48 Hours No Sepsis New/Unexplained Change in Mental Status N/A Sepsis Action Taken by Nursing No Action Required 06/18/22 14:22 06/18/22 14:30 06/18/22 14:45 Temperature Temperature Source Pulse Rate 114 H 81 110 H Pulse Rate [Apical] Pulse Rate from SpO2 Sensor Pulse Rhythm Pulse Strength Respiratory Rate 25 H 18 24 Respiratory Effort / Characteristics Respiratory Depth Respiratory Pattern Blood Pressure Blood Pressure [Right Arm] Blood Pressure Mean Blood Pressure Mean [Right Arm] Pulse Oximetry 92 92 93 Oxygen Delivery Method Room Air Room Air Room Air Sepsis Recent Fever Within 48 Hours Sepsis New/Unexplained Change in Mental Status Sepsis Action Taken by Nursing 06/18/22 15:00 06/18/22 15:15 06/18/22 15:30 Temperature Temperature Source Pulse Rate 107 H 107 H 99 H Pulse Rate [Apical] Pulse Rate from SpO2 Sensor Pulse Rhythm Pulse Strength Respiratory Rate 24 22 24 Respiratory Effort / Characteristics Respiratory Depth Respiratory Pattern Blood Pressure Blood Pressure [Right Arm] Blood Pressure Mean Blood Pressure Mean [Right Arm] Pulse Oximetry 93 93 94 Oxygen Delivery Method Room Air Room Air Sepsis Recent Fever Within 48 Hours Sepsis New/Unexplained Change in Mental Status Sepsis Action Taken by Nursing 06/18/22 15:45 06/18/22 16:00 06/18/22 16:15 Temperature Temperature Source Pulse Rate 108 H 108 H 109 H Pulse Rate [Apical] Pulse Rate from SpO2 Sensor 107 H Pulse Rhythm Pulse Strength Respiratory Rate 24 22 21 Respiratory Effort / Characteristics Respiratory Depth Respiratory Pattern Blood Pressure Blood Pressure [Right Arm] Blood Pressure Mean Blood Pressure Mean [Right Arm] Pulse Oximetry 92 93 94 Oxygen Delivery Method Room Air Room Air Sepsis Recent Fever Within 48 Hours Sepsis New/Unexplained Change in Mental Status Sepsis Action Taken by Nursing 06/18/22 16:38 06/18/22 16:39 06/18/22 16:39 Temperature Temperature Source Pulse Rate 111 H 112 H Pulse Rate [Apical] Pulse Rate from SpO2 Sensor Pulse Rhythm Pulse Strength Respiratory Rate 21 26 H Respiratory Effort / Characteristics Respiratory Depth Respiratory Pattern Blood Pressure 130/85 Blood Pressure [Right Arm] Blood Pressure Mean 100 Blood Pressure Mean [Right Arm] Pulse Oximetry 92 Oxygen Delivery Method Room Air Sepsis Recent Fever Within 48 Hours Sepsis New/Unexplained Change in Mental Status Sepsis Action Taken by Nursing 06/18/22 16:45 06/18/22 17:00 06/18/22 17:00 Temperature Temperature Source Pulse Rate 106 H 110 H Pulse Rate [Apical] Pulse Rate from SpO2 Sensor Pulse Rhythm Pulse Strength Respiratory Rate 21 20 Respiratory Effort / Characteristics Respiratory Depth Respiratory Pattern Blood Pressure 122/77 Blood Pressure [Right Arm] Blood Pressure Mean 92 Blood Pressure Mean [Right Arm] Pulse Oximetry 93 93 Oxygen Delivery Method Room Air Room Air Sepsis Recent Fever Within 48 Hours Sepsis New/Unexplained Change in Mental Status Sepsis Action Taken by Nursing 06/18/22 17:15 06/18/22 17:30 06/18/22 17:30 Temperature Temperature Source Pulse Rate 109 H 110 H Pulse Rate [Apical] Pulse Rate from SpO2 Sensor Pulse Rhythm Pulse Strength Respiratory Rate 21 22 Respiratory Effort / Characteristics Respiratory Depth Respiratory Pattern Blood Pressure 118/76 Blood Pressure [Right Arm] Blood Pressure Mean 90 Blood Pressure Mean [Right Arm] Pulse Oximetry 94 93 Oxygen Delivery Method Room Air Room Air Sepsis Recent Fever Within 48 Hours Sepsis New/Unexplained Change in Mental Status Sepsis Action Taken by Nursing 06/18/22 17:45 06/18/22 17:53 06/18/22 18:00 Temperature Temperature Source Pulse Rate 112 H 117 H Pulse Rate [Apical] Pulse Rate from SpO2 Sensor Pulse Rhythm Pulse Strength Respiratory Rate 25 H 26 H Respiratory Effort / Characteristics Respiratory Depth Respiratory Pattern Blood Pressure 121/86 Blood Pressure [Right Arm] Blood Pressure Mean 97 Blood Pressure Mean [Right Arm] Pulse Oximetry 93 Oxygen Delivery Method Room Air Sepsis Recent Fever Within 48 Hours Sepsis New/Unexplained Change in Mental Status Sepsis Action Taken by Nursing Laboratory Data Result diagrams: 06/18/22 14:50 06/18/22 14:50 Lab Results 06/18/22 06/18/22 06/18/22 Range/Units 14:50 14:50 14:50 WBC 7.43 (4.8-10.8) K/ul RBC 3.81 L (4.63-6.08) M/uL Hgb 12.0 L (14.0-18.0) g/dl Hct 38.7 L (40.1-51.0) % MCV 101.6 H (80.0-100.0) fL MCH 31.5 (25.0-34.0) pg MCHC 31.0 L (32.0-36.0) g/dL RDW Std Deviation 57.0 H (36.4-46.3) fL RDW Coeff of Mason 15.3 H (11.5-14.5) % Plt Count 193 (130-400) K/uL MPV 13.4 H (9.4-12.4) fL Immature Gran % (Auto) 0.3 % Neut % (Auto) 75.8 % Lymph % (Auto) 13.2 % [place] % (Auto) 10.2 % Eos % (Auto) 0.1 % Baso % (Auto) 0.4 % Neut # (Auto) 5.63 (1.4-6.5) K/uL Lymph # (Auto) 0.98 L (1.2-3.4) K/uL [place] # (Auto) 0.76 (0.24-0.82) K/uL Eos # (Auto) 0.01 (0-0.50) K/uL Baso # (Auto) 0.03 (0-0.2) K/uL Immature Gran # (Auto) 0.02 (0.00-0.02) K/uL PT 11.0 (9.0-12.0) Seconds INR 1.0 (0.9-1.1) APTT 22.6 (21.0-31.0) Seconds PTT Ratio 0.8 Sodium 151 H (136-145) mmol/L Potassium 2.8 L (3.5-5.1) mmol/L Chloride 101 (98-107) mmol/L Carbon Dioxide 38 H (21-32) mmol/L Anion Gap 12 H (3-11) BUN 22 (6-23) mg/dl Creatinine 0.40 L (0.6-1.4) mg/dl Est Cr Clr Drug Dosing 121.6 ml/min Est GFR ( Amer) 134.7 ml/min Est GFR (Non-Af Amer) 116.2 ml/min BUN/Creatinine Ratio 55.0 H (10-20) Glucose 144 H (70-99(Fasting)) mg/dl Calcium 9.0 (8.5-10.1) mg/dl Phosphorus (2.5-4.9) mg/dl Magnesium (1.7-2.4) mg/dl Total Bilirubin 1.1 H (0.2-1.0) mg/dl AST 142 H (13-39) U/L ALT 58 H (7-52) U/L Alkaline Phosphatase 859 H (34-104) U/L Total Protein 5.7 L (6.0-8.3) gm/dl Albumin 2.8 L (3.4-5.0) gm/dl Globulin 2.9 (2.5-4.0) gm/dl Albumin/Globulin Ratio 1.0 (0.9-2) Lipase 13 (11-82) U/L 06/18/22 Range/Units 14:50 WBC (4.8-10.8) K/ul RBC (4.63-6.08) M/uL Hgb (14.0-18.0) g/dl Hct (40.1-51.0) % MCV (80.0-100.0) fL MCH (25.0-34.0) pg MCHC (32.0-36.0) g/dL RDW Std Deviation (36.4-46.3) fL RDW Coeff of Mason (11.5-14.5) % Plt Count (130-400) K/uL MPV (9.4-12.4) fL Immature Gran % (Auto) % Neut % (Auto) % Lymph % (Auto) % [place] % (Auto) % Eos % (Auto) % Baso % (Auto) % Neut # (Auto) (1.4-6.5) K/uL Lymph # (Auto) (1.2-3.4) K/uL [place] # (Auto) (0.24-0.82) K/uL Eos # (Auto) (0-0.50) K/uL Baso # (Auto) (0-0.2) K/uL Immature Gran # (Auto) (0.00-0.02) K/uL PT (9.0-12.0) Seconds INR (0.9-1.1) APTT (21.0-31.0) Seconds PTT Ratio Sodium (136-145) mmol/L Potassium (3.5-5.1) mmol/L Chloride (98-107) mmol/L Carbon Dioxide (21-32) mmol/L Anion Gap (3-11) BUN (6-23) mg/dl Creatinine (0.6-1.4) mg/dl Est Cr Clr Drug Dosing ml/min Est GFR ( Amer) ml/min Est GFR (Non-Af Amer) ml/min BUN/Creatinine Ratio (10-20) Glucose (70-99(Fasting)) mg/dl Calcium (8.5-10.1) mg/dl Phosphorus 3.0 (2.5-4.9) mg/dl Magnesium 1.8 (1.7-2.4) mg/dl Total Bilirubin (0.2-1.0) mg/dl AST (13-39) U/L ALT (7-52) U/L Alkaline Phosphatase (34-104) U/L Total Protein (6.0-8.3) gm/dl Albumin (3.4-5.0) gm/dl Globulin (2.5-4.0) gm/dl Albumin/Globulin Ratio (0.9-2) Lipase (11-82) U/L Administered Medications Discontinued Medications Sodium Chloride (Nss 1000ml) 1,000 mls @ 999 mls/hr IV .Q1H1M ONE Stop: 06/18/22 15:26 Last Admin: 06/18/22 17:29 Dose: 999 mls/hr Documented By: HG Potassium Chloride (K Gokul / Wtr) 10 meq in 100 mls @ 100 mls/hr IV Q1H TYLER; Protocol Stop: 06/18/22 19:44 Last Admin: 06/18/22 18:55 Dose: 100 mls/hr Documented By: JOSE Ioversol (Optiray 300 100ml) 94 ml IV ONCE ONE Stop: 06/18/22 16:34 Last Admin: 06/18/22 16:34 Dose: 94 ml Documented By: [facility] Potassium Chloride (Potassium Chloride 20 Meq/15 Ml Udc) 40 meq PO NOW STA Stop: 06/18/22 17:37 Last Admin: 06/18/22 18:55 Dose: 40 meq Documented By: Imaging Data Radiologist's Impression: Abdomen/Pelvis CT 06/18/22 14:26 CT OF THE ABDOMEN AND PELVIS WITH CONTRAST CLINICAL HISTORY: Abdominal pain. Hematuria. Metastatic pancreatic cancer. COMPARISON STUDY: CT of the abdomen and pelvis May 10, 2022. TECHNIQUE: Following IV administration of 94 mL of Optiray, axial images of the abdomen and pelvis were obtained from the lung bases to the proximal femurs. Images were reviewed in the axial, sagittal, and coronal planes. IV contrast was administered without complication. Automated exposure control was utilized for the study. A dose lowering technique was utilized adhering to the principles of ALARA. CT DOSE: 290.67 mGy.cm FINDINGS: Partially visualized small to moderate bilateral pleural fusions have increased in size since abdominal CT of May 10, 2022. Associated subpleural opacities favor subsegmental atelectasis. No pneumatosis, free air or portal venous gas is present. Gastrostomy tube is in place. There has been significant increase in moderate to large abdominal and pelvic ascites since prior exam. Nu merous hepatic metastases are similar to prior exam. Biliary ductal dilatation is similar to prior exam status post cholecystectomy. A lobulated enhancing pancreatic tail mass is similar to prior study, measuring 6.7 x 5.3 cm. There is no evidence for a bowel obstruction. Colonic diverticulosis is noted without evidence for acute diverticulitis. Hypodensity within the superior aspect of the spleen is unchanged. There is no hydronephrosis. 2 mm left renal calculus is noted. No ureteral calculi identified. Prostate is mildly enlarged. There is ascites within bilateral inguinal hernias. Anasarca is noted. No suspicious lesions within the visualized skeletal structures. There may be mild peritoneal thickening within the pelvis. Soft tissue gas within the left buttock is noted. IMPRESSION: 1. No significant change in extensive hepatic metastases since prior CT. 2. Significant increase in moderate to large abdominal and pelvic ascites. Subtle nodularity of the peritoneum within the pelvis. Malignant ascites cannot be excluded. 3. No bowel obstruction. 4. 2 mm left renal calculus. No ureteral calculi. No hydronephrosis. 5. Anasarca. 6. Increase in small to moderate bilateral pleural effusions. ACT 112: Negative or not required by law. Electronically signed by: Randy Bermudez M.D. 06/18/2022 4:57 PM Discharge Plan Visit Data Chief Complaint: Bleeding ED Provider: Joon Murrieta Discharge Problem: Weakness, Dehydration, Hypokalemia, Acute hypernatremia
[2022-06-18 15:15] LABS: Hematocrit (blood only) 38.7 % (40.1-51.0); Mean Corpuscular Hemoglobin 31.5 pg (25.0-34.0); Mean Corpuscular Volume 101.6 fL (80.0-100.0); RDW Coefficient of Variation 15.3 % (11.5-14.5); Red Blood Count 3.81 M/uL (4.63-6.08); White Blood Count 7.43 K/ul (4.8-10.8)
[2022-06-18 15:37] LABS: Albumin Level 2.8 gm/dl (3.4-5.0); Bilirubin,Total 1.1 mg/dl (0.2-1.0); Creatinine Clr Calc Pharmacy 121.6 ml/min; Est GFR (African American) 134.7 ml/min; Est GFR (Non-African American) 116.2 ml/min; Globulin 2.9 gm/dl (2.5-4.0); Potassium 2.8 mmol/L (3.5-5.1); Total Protein 5.7 gm/dl (6.0-8.3)
[2022-06-18] MEDS ORDERED: OPTIRAY 300 100mL IV ONE (16:33)
[2022-06-18 16:48] LABS: Basophils # (auto) 0.03 K/uL (0-0.2); Basophils % (auto) 0.4 %; Eosinophils # (auto) 0.01 K/uL (0-0.50); Eosinophils % (auto) 0.1 %; Immature Granulocytes # (auto) 0.02 K/uL (0.00-0.02); Immature Granulocytes % (auto) 0.3 %; Lymphocytes # (auto) 0.98 K/uL (1.2-3.4); Lymphocytes % (auto) 13.2 %; Mean Platelet Volume 13.4 fL (9.4-12.4); Monocytes # (auto) 0.76 K/uL (0.24-0.82); Monocytes % (auto) 10.2 %; Neutrophils # (auto) 5.63 K/uL (1.4-6.5); Neutrophils % (auto) 75.8 %; Platelet Count 193 K/uL (130-400)
--- NOTE | 2022-06-18 16:58 | CT Scan Report ---
CT OF THE ABDOMEN AND PELVIS WITH CONTRAST CLINICAL HISTORY: Abdominal pain. Hematuria. Metastatic pancreatic cancer. COMPARISON STUDY: CT of the abdomen and pelvis May 10, 2022. TECHNIQUE: Following IV administration of 94 mL of Optiray, axial images of the abdomen and pelvis we re obtained from the lung bases to the proximal femurs. Images were reviewed in the axial, sagittal, and coronal planes. IV contrast was administered without complication. Automated exposure control wa s utilized for the study. A dose lowering technique was utilized adhering to the principles of ALARA . CT DOSE: 290.67 mGy.cm FINDINGS: Partially visualized small to moderate bilateral pleural fusions have increased in size sin ce abdominal CT of May 10, 2022. Associated subpleural opacities favor subsegmental atelectasis. No pneumatosis, free air or portal venous gas is present. Gastrostomy tube is in place. There has been s ignificant increase in moderate to large abdominal and pelvic ascites since prior exam. Numerous hepa tic metastases are similar to prior exam. Biliary ductal dilatation is similar to prior exam status p ost cholecystectomy. A lobulated enhancing pancreatic tail mass is similar to prior study, measuring 6.7 x 5.3 cm. There is no evidence for a bowel obstruction. Colonic diverticulosis is noted without e vidence for acute diverticulitis. Hypodensity within the superior aspect of the spleen is unchanged. There is no hydronephrosis. 2 mm left renal calculus is noted. No ureteral calculi identified. Prosta te is mildly enlarged. There is ascites within bilateral inguinal hernias. Anasarca is noted. No susp icious lesions within the visualized skeletal structures. There may be mild peritoneal thickening wit hin the pelvis. Soft tissue gas within the left buttock is noted. IMPRESSION: 1. No significant change in extensive hepatic metastases since prior CT. 2. Significant increase in moderate to large abdominal and pelvic ascites. Subtle nodularity of the p eritoneum within the pelvis. Malignant ascites cannot be excluded. 3. No bowel obstruction. 4. 2 mm left renal calculus. No ureteral calculi. No hydronephrosis. 5. Anasarca. 6. Increase in small to moderate bilateral pleural effusions. ACT 112: Negative or not required by law. Electronically signed by: Randy Bermudez M.D. 06/18/2022 4:57 PM
[2022-06-18] MEDS ORDERED: POTASSIUM CHLORIDE 20 MEQ/15 ML UDC PO STA (17:36)
[2022-06-18 18:40] LABS: Partial Thromboplastin Ratio 0.8; Partial Thromboplastin Time 22.6 Seconds (21.0-31.0)
--- NOTE | 2022-06-18 18:46 | History & Physical Report ---
Date of Service June 18, 2022 Assessment & Plan (1) Hematuria: Plan: - Burning sensation and bright red urine since this a.m. passing quarter size clots. - Hgb 13.4 yesterday> 12.0 today. Patient asymptomatic without chest pain, palpitations or shortness of breath, dyspnea, presyncope/syncope - Patient is only on aspirin, no other blood thinners. Hold aspirin for now. - UA with blood, hyaline casts but no evidence of infection to explain hematuria or burning sensation. Coag panel wnl. - Consult urology for further evaluation, appreciate thei recommendations. - Repeat CBC in a.m., sooner if patient starts to become symptomatic anemia or hemodynamically unstable. (2) Anasarca: Plan: - Developed ascites and anasarca gradually over past month since tube feeds started, low suspicion for SBP. - No need for paracentesis at this time. (3) Hypernatremia: Plan: - 151, elevated since PEG tube feeds started. - Start on D5W @ 70 cc/hr. (4) Hypokalemia: Plan: - 2.8, repleted with 40 mEq via PEG in ED. - Additional K riders with D5w ordered. - Repeat in AM. (5) Neuroendocrine tumor: Plan: - Pancreatic neuroendocrine tumor with metastatic disease to liver. He gets IM octreotide monthly and, transarterial chemotherapy embolization q3 months at [facility], last treatment in March and due for next 1 this month. - Primary oncologist is Dr. Iverson with [facility] (6) Severe protein-calorie malnutrition: Plan: - PEG tube placed by GI during previous admission in April, patient has had gradual accumulation of fluid since then with moderate ascites and lower extremity edema. - Fiber source HM feeds QID 275 ml w/ 100 ml flushes before and after. - Na 151, K 2.8, phosphorus and magnesium pending. Suspect electrolyte abnormalities due to tube feeds. Bleeding as above. (7) Elevated LFTs: Plan: - T bili 1.1, AST 142, ALT 58, alk phos 89, ALT recently elevated in setting of recently starting PEG tube feeds. - Trend on daily labs. (8) CAD (coronary artery disease): Plan: - Chronic, stable. - Had CABG and AVR several years ago. - No chest pain or palpitations, anginal equivalent symptoms present. Statin metoprolol, aspirin on hold due to hematuria. (9) HTN (hypertension): Plan: - Continue metoprolol 12.5 mg twice daily. (10) HLD (hyperlipidemia): Plan: - Continue atorvastatin 40 mg daily (11) H/O partial seizures: Plan: - Had seizure-like episode several years ago with CABG, AVR, pacemaker. - Has been on Keppra since then. (12) H/O: stroke: Plan: - Apparent history of 3 previous multiple embolic appearing infarcts, however patient without deficits. - Has been on baby aspirin since, which will be held given hematuria. Plan - Admit to med/tele. - SCDs for VTE ppx, chemoppx c/i due to hematuria - Full Code. History of Present Illness Chief Complaint: hematutria x 1 day Primary Care Provider: Elvis Falk DO Peña Resendez is a 77-year-old male with past medical history significant for pancreatic neuroendocrine tumor with liver metastasis undergoing Sandostatin therapy and transarterial chemoembolization treatments, severe protein calorie malnourishment, CAD, CVA, dysphagia and aspiration pneumonia s/p PEG tube, and single seizure in 2018 who presents with painful, bloody urination that started this morning. He noticed first thing this morning when he urinated that his urine was very dark red and he had some burning sensation with it. Later the afternoon, noticed blood clots about the size of a quarter in the toilet bowl, prompting her presentation today. Patient was admitted in April for dysphagia and at that time had a feeding tube placed and was discharged home on 05/10. Since then he has had his daily accumulation of fluid on his abdomen and swelling in his bilateral legs. He has been generally weak since then. He has not had any fever/chills, chest pain, shortness of breath, palpitations, orthopnea, PND, abdominal pain, nausea, vomiting, diarrhea, or constipation. Upon presentation to the ED, he is tachycardic with an HR in 110s, mildly hypertensive 141/91, and otherwise vital signs within normal limits and stable. He is 93% on room air, afebrile. Labs significant for hemoglobin 12, which is significant drop from labs yesterday was 13.7. Anemia appears to be mixed with an MCV elevated 101.6, MCHC 31. Sodium 151, potassium 2.8, CO2 38, mild AG of 12. Renal function is at baseline, he has stable transaminitis with AST 142, ALT 58, alk phos 859, slightly elevated or near prior labs from 1 month ago. Total protein 5.7, albumin 2.8. UA with blood, hyaline cast, protein, but without evidence of infection. CT A/P shows significant increase in moderate to large abdominal pelvic ascites, anasarca, increase in small moderate bilateral pleural effusions, left renal calculus w/o ureteral calculi or hydronephrosis. No bowel obstruction or change in extensive hepatic disease since prior CT. Allergies Allergy/AdvReac Type Severity Reaction Status Date / Time heparin Allergy Severe thrombocyto Verified 06/18/22 15:37 penia adhesive Allergy Intermediate Hives Verified 06/18/22 15:37 ciprofloxacin [From Cipro] Allergy Intermediate Hives Verified 06/18/22 15:37 buspirone [From BuSpar] AdvReac Intermediate Dizziness Verified 06/18/22 15:37 lansoprazole [From Prevacid] AdvReac Mild Diarrhea Verified 06/18/22 15:37 venlafaxine [From Effexor] AdvReac Mild somnulence Verified 06/18/22 15:37 Home Medications Medication Instructions Recorded Confirmed Type octreotide,microspheres 30 mg 30 mg IM Q28D 12/28/19 06/18/22 History intramuscular susp, extended release (Sandostatin LAR Depot) atorvastatin 40 mg tablet (Lipitor) 40 mg feeding tube HS #30 tabs 05/12/22 06/18/22 Rx nutrition [id number] See Rx Instructions .Route 05/12/22 06/18/22 Rx 0.05 gram-1.2 kcal/mL tube feed .COMPLEX #6,000 mL liquid (Fibersource HN) aspirin 81 mg chewable tablet 81 mg feeding tube QAM 06/18/22 06/18/22 History (Children's Aspirin) levetiracetam 500 mg tablet 500 mg PO BID 06/18/22 06/18/22 History magnesium oxide 800 mg feeding tube TID 06/18/22 06/18/22 History metoprolol tartrate 25 mg tablet 12.5 mg feeding tube BID 06/18/22 06/18/22 History sodium di- and 2 tab feeding tube QID 06/18/22 06/18/22 History monophosphate-potassium phos monobasic 250 mg tablet (Phospha 250 Neutral) Past Med/Surg History Medical History Acute CVA (cerebrovascular accident) 06/2018. Brain imaging at the time also noted chronic vs subacute CVA. pt denies deficits Anxiety CAD (coronary artery disease) S/p CABG x 2 (SMITH to LAD and SVG to OM), 2018. Electrolyte abnormality Elevated LFTs GERD (gastroesophageal reflux disease) History of aortic valve disease S/P [facility] bioprosthetic AVR 2018 (with CABG) History of atrial fibrillation Post-op CABG. follows with Dr. Orta. History of pleural effusion 07/2018. Drained. HLD (hyperlipidemia) HTN (hypertension) Humerus fracture LEFT SIDE Kidney stones Pacemaker [employer]; [facility], [place], operated by [facility] for postop complete heart block after CABG 2017. last check 1 mo ago Pancreatic cancer with mets to liver dx 2018; s/p TACE procedure x 2 Severe protein-calorie malnutrition Simple partial seizure disorder Per neurology office note 2020: History of seizure-like activity characterized by alteration in awareness, staring spells, beginning in the context of a hospitalization at [facility] for AVR, CABG in May 2018. Patient continues with Keppra. However, it is unclear to me if he needs to remain on this medication. I have recommended an up-to-date EEG. If the EEG is normal we will consider tapering off Keppra. (EEG 12/19 = This is a normal-appearing awake/drowsy EEG demonstrating a normal reactive background rhythm, and not much else. A normal EEG does not completely exclude a diagnosis of epilepsy.) Surgical History History of cardiac cath 2018 [facility] History of colonoscopy History of cystoscopy WITH STENT PLACED History of esophagogastroduodenoscopy (EGD) History of lithotripsy History of reverse total replacement of left shoulder joint History of surgery TACE procedure x 2 History of tonsillectomy and adenoidectomy History of tooth extraction Hx of CABG two-vessel; [facility], [place], operated by [facility] 2017 S/P AVR (aortic valve replacement) [facility], [place], operated by [facility] 2017 S/P cholecystectomy Status post Power fundoplication Status post placement of cardiac pacemaker 06/2018 due to post-op heart block after CABG. Family History Father Heart disease S/P CABG (coronary artery bypass graft) Stroke Family history of diabetes mellitus Mother Heart disease Hypertension Stroke Family history of diabetes mellitus Grandfather (Maternal) Stroke Grandfather (Paternal) Cirrhosis of liver Social History Smoking Status: Never smoker Second Hand Exposure: No; Hx Alcohol Use: Yes Alcohol type: hard liquor Hx Substance Use: No Preferred Language: Mongolian Communication Ability: Effective Visual Impairment: No Limitations Office Services Associate Required: No Beliefs That Will Affect Care: None marital status: Current Living Situation: Spouse current occupational status: retired 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, etc); [employer] career Feels Safe at Home: Yes Assistive Devices: None Review of Systems Review of Systems: Constitutional: No fever/chills, weakness, fatigue, myalgias, anorexia, night sweats Eyes: No diplopia, no worsening or blurred vision ENT: normal hearing, no trouble swallowing Respiratory: No cough, sputum, dyspnea at rest or on exertion Cardiovascular: No chest pain, tightness or palpitations Abdomen: No pain, nausea, vomiting, diarrhea or constipation : Reports dysuria, hematuria x1 day; no increased urgency/frequency, urinary retention Musculoskeletal: No joint pain, calf pain, swelling Neurologic: No weakness, numbness/tingling, or balance problems Psychiatric: No anxiety or depression Skin: No rash or itch Physical Exam Physical Exam: General: awake, alert, no apparent distress Head: Normocephalic, atraumatic ENT: PERRL, EOMI, no pharyngeal exudate, mucous membranes moist Chest: Clear to auscultation, on room air, no adventitious breath sounds Cardiac: Regular rate and rhythm, no murmur, no JVD, normal peripheral pulses, good capillary refill Abdominal: Abdomen is moderately distended, nonpainful; NABS x 4 quadrants, nontender to palpation, no rebound, guarding or tenderness Extremities: 2+ bilateral lower extremity edema, no erythema, calfs nontender to palpation Psych: Normal mood and affect Neuro: AAO x 3, strength intact bilaterally and rated 5/5, no motor deficits, speech is clear, no peripheral sensory deficits Skin: no rash or erythema Results & Data Results & Data ([facility]) Vital Signs (Past 12 Hours) Vital Signs Temp Pulse Pulse Resp BP BP Pulse Ox 06/18/22 18:00 121/86 06/18/22 17:53 117 H 26 H 06/18/22 17:45 112 H 25 H 93 06/18/22 17:30 110 H 22 93 06/18/22 17:30 118/76 06/18/22 17:15 109 H 21 94 06/18/22 17:00 110 H 20 93 06/18/22 17:00 122/77 06/18/22 16:45 106 H 21 93 06/18/22 16:39 112 H 26 H 92 06/18/22 16:39 130/85 06/18/22 16:38 111 H 21 06/18/22 16:15 109 H 21 94 06/18/22 16:00 108 H 22 93 06/18/22 15:45 108 H 24 92 06/18/22 15:30 99 H 24 94 06/18/22 15:15 107 H 22 93 06/18/22 15:00 107 H 24 93 06/18/22 14:45 110 H 24 93 06/18/22 14:30 81 18 92 06/18/22 14:22 114 H 25 H 92 06/18/22 14:22 141/91 H 06/18/22 14:20 93 H 24 06/18/22 14:26 36.7 C 90 22 141/91 H 95 06/18/22 14:54 109 H 18 93 06/18/22 14:54 109 H 18 149/91 H 93 06/18/22 14:54 O2 Del Method 06/18/22 18:00 06/18/22 17:53 06/18/22 17:45 Room Air 06/18/22 17:30 Room Air 06/18/22 17:30 06/18/22 17:15 Room Air 06/18/22 17:00 Room Air 06/18/22 17:00 06/18/22 16:45 Room Air 06/18/22 16:39 Room Air 06/18/22 16:39 06/18/22 16:38 06/18/22 16:15 Room Air 06/18/22 16:00 Room Air 06/18/22 15:45 06/18/22 15:30 06/18/22 15:15 Room Air 06/18/22 15:00 Room Air 06/18/22 14:45 Room Air 06/18/22 14:30 Room Air 06/18/22 14:22 Room Air 06/18/22 14:22 06/18/22 14:20 06/18/22 14:26 Room Air 06/18/22 14:54 Room Air 06/18/22 14:54 Room Air 06/18/22 14:54 Room Air Laboratory Results Abnormal lab results 06/18/22 06/18/22 Range/Units 14:50 14:50 RBC 3.81 L (4.63-6.08) M/uL Hgb 12.0 L (14.0-18.0) g/dl Hct 38.7 L (40.1-51.0) % MCV 101.6 H (80.0-100.0) fL MCHC 31.0 L (32.0-36.0) g/dL RDW Std Deviation 57.0 H (36.4-46.3) fL RDW Coeff of Mason 15.3 H (11.5-14.5) % MPV 13.4 H (9.4-12.4) fL Lymph # (Auto) 0.98 L (1.2-3.4) K/uL Sodium 151 H (136-145) mmol/L Potassium 2.8 L (3.5-5.1) mmol/L Carbon Dioxide 38 H (21-32) mmol/L Anion Gap 12 H (3-11) Creatinine 0.40 L (0.6-1.4) mg/dl BUN/Creatinine Ratio 55.0 H (10-20) Glucose 144 H (70-99(Fasting)) mg/dl Total Bilirubin 1.1 H (0.2-1.0) mg/dl AST 142 H (13-39) U/L ALT 58 H (7-52) U/L Alkaline Phosphatase 859 H (34-104) U/L Total Protein 5.7 L (6.0-8.3) gm/dl Albumin 2.8 L (3.4-5.0) gm/dl Diagnostic Findings Abdomen/Pelvis CT 06/18/22 14:26 CT OF THE ABDOMEN AND PELVIS WITH CONTRAST CLINICAL HISTORY: Abdominal pain. Hematuria. Metastatic pancreatic cancer. COMPARISON STUDY: CT of the abdomen and pelvis May 10, 2022. TECHNIQUE: Following IV administration of 94 mL of Optiray, axial images of the abdomen and pelvis were obtained from the lung bases to the proximal femurs. Images were reviewed in the axial, sagittal, and coronal planes. IV contrast was administered without complication. Automated exposure control was utilized for the study. A dose lowering technique was utilized adhering to the principles of ALARA. CT DOSE: 290.67 mGy.cm FINDINGS: Partially visualized small to moderate bilateral pleural fusions have increased in size since abdominal CT of May 10, 2022. Associated subpleural opacities favor subsegmental atelectasis. No pneumatosis, free air or portal venous gas is present. Gastrostomy tube is in place. There has been significant increase in moderate to large abdominal and pelvic ascites since prior exam. Numerous hepatic metastases are similar to prior exam. Biliary ductal dilatation is similar to prior exam status post cholecystectomy. A lobulated enhancing pancreatic tail mass is similar to prior study, measuring 6.7 x 5.3 cm. There is no evidence for a bowel obstruction. Colonic diverticulosis is noted without evidence for acute diverticulitis. Hypodensity within the superior aspect of the spleen is unchanged. There is no hydronephrosis. 2 mm left renal calculus is noted. No ureteral calculi identified. Prostate is mildly enlarged. There is ascites within bilateral inguinal hernias. Anasarca is noted. No suspicious lesions within the visualized skeletal structures. There may be mild peritoneal thickening within the pelvis. Soft tissue gas within the left buttock is noted. IMPRESSION: 1. No significant change in extensive hepatic metastases since prior CT. 2. Significant increase in moderate to large abdominal and pelvic ascites. Subtle nodularity of the peritoneum within the pelvis. Malignant ascites cannot be excluded. 3. No bowel obstruction. 4. 2 mm left renal calculus. No ureteral calculi. No hydronephrosis. 5. Anasarca. 6. Increase in small to moderate bilateral pleural effusions. ACT 112: Negative or not required by law. Electronically signed by: Randy Bermudez M.D. 06/18/2022 4:57 PM Code Status & VTE Plan Code Status Full Code. Supervising Physician Co-Signing Physician Notes I personally saw and examined the patient. I verified all downs points and agree with Yulissa Andrew PA-C with the following exceptions and/or additions: 77 year old male presents with hematuria. Hgb 12.0 from 13.7. Patient hemodynamically stable and otherwise at baseline. Urinating without issues. O/E HS, RRR, no murmurs, 1+ pitting pedal edema, Chest CTAB, Abdo SNT, mildly distended but not firm, no CVA tenderness A/P Hematuria - unclear cause. UA non infective appearing. Stop aspirin. Consult urology. Hypernatremia - suspect need to increase free water flushes. Will place on slow D5W overnight (given generalized anasaraca, likely to make this worse) and cons ult nutrition for recommendation on flushes tomorrow. PG Care Time/CCT Total # of Minutes Spent Total Time Spent with Patient: Total time spent is greater than 50% in coordination of care (as documented) at patient's floor/unit and/or counseling patient: Coding Level of Care Code 18174 Initial Inpt Care Lvl 3 Diagnoses Hematuria R31.9 Anasarca R60.1 Hypernatremia E87.0 Hypokalemia E87.6 Neuroendocrine tumor D3A.8 Severe protein-calorie malnutrition E43 Elevated LFTs R79.89 CAD (coronary artery disease) I25.10 HTN (hypertension) I10 HLD (hyperlipidemia) E78.5 H/O partial seizures Z86.69 H/O: stroke Z86.73
[2022-06-18] MEDS: POTASSIUM CHLORIDE / WTR 10 MEQ/100 ML PLCT IV SCH ×4 (18:55→22:19)
[2022-06-18 19:18] LABS: Appearance Urine Clear (Clear); Bacteria Urine Automated Negative (Negative); Bilirubin Urine Negative (Negative); Blood Urine 3+ (Negative); Color Urine Dark Yellow; Epithelial Cell Urine Auto >30 /lpf (0-5); Glucose Urine UA Negative (Negative); Ketones Urine Negative (Negative); Leukocyte Esterase Urine Negative (Negative); Nitrite Urine Negative (Negative); Protein Urine 2+ (Negative); RBC Urine Automated >30 /hpf (0-4); Specific Gravity Urine > 1.045 (1.000-1.030); Urobilinogen Urine Positive (Negative)
[2022-06-18 19:19] LABS: Magnesium 1.8 mg/dl (1.7-2.4)
[2022-06-18] MEDS ORDERED: ONDANSETRON INJ 2 MG/ML 2 ML VIAL IV PRN (20:01)
[2022-06-18] MEDS ORDERED: ATORVASTATIN 40 MG TAB PEG SCH (21:00)
[2022-06-18] MEDS: DEXTROSE 5% 1,000 ML IV SCH (21:15)
[2022-06-18] MEDS: ATORVASTATIN 40 MG TAB OG SCH (22:44)
[2022-06-18] MEDS: MAGNESIUM OXIDE 400 MG TAB PO SCH (22:46)
[2022-06-18] MEDS: METOPROLOL TARTRATE 25 MG TAB OG SCH (22:48)
[2022-06-18] MEDS: POT PHOSPHATE MONOBASIC W/ SOD TAB PEG SCH (22:50)
[2022-06-18] MEDS: FIBERSOURCE HN 1.2 CAL 1000 ML BAG OG SCH (23:26)
--- NOTE | 2022-06-19 00:18 | Urology Consultation ---
Date of Consultation June 19, 2022 Assessment & Plan (1) Hematuria: The patient has been admitted on the hospitalist service. Recommend proceeding as follows: Follow serial labs Antibiotics not been initiated, and his current urinalysis does not show indication of urinary tract infection. The patient feels as though he can empty his bladder completely and does not feel as though his bladder is full. Would continue to monitor this. If patient does develop urinary retention a Mccloud catheter can be placed with manual irrigation to clear his bladder of any clots that could be contributing to this. At the present time the patient is hemodynamically stable, therefore not feel urgent urologic cystoscopy is required this evening The patient be reevaluated in the morning to determine if any further intervention is required. Supervising Physician Co-Signing Physician Notes I have discussed Mr. Rodriguez' case with Gino Carmen PA-C and agree with the above documentation. At this time he is voiding well without any catheter in place. Etiology of his hematuria is unclear although the concern would certainly be related to his pre-existing malignancy. As long as he is voiding he does not require further urologic intervention while in the hospital, however he could have further work-up with cystoscopy as an outpatient. History of Present Illness Reason for Consultation: Hematuria Attending Physician: Rick Swanson MD History of Present Illness This is a 77-year-old male with a history of a pancreatic neuroendocrine tumor with liver metastases. Patient says it he is undergoing Sandostatin therapy and transarterial chemoembolization treatments. To the best of his knowledge he has never received radiation therapy to his abdomen or pelvis. Patient came to the emergency department because earlier today he noticed that he developed some gross hematuria and he feels as though he was passing blood clots. He says he did not have this problem before today. He did note some dysuria earlier today. He does not note a decreased urinary stream though. I asked patient if he felt he was able to empty his bladder which he felt he could. He denies any back or flank pain. He denies any fevers, shakes, or chills. Since arrival to the hospital the patient has had labs and imaging which independent reviewed. A CT scan of the abdomen showed the patient had hepatic metastases which were similar to what was noted on prior CT scans. He was noted to have a large volume of abdominal pelvic ascites. There is nodularity noted of the peritoneum. No evidence of bowel obstruction was noted. He was noted have a 2 mm left renal calculus with no hydronephrosis. He was noted to have a mildly enlarged prostate gland. Labs include a CBC her white blood cell count and platelet count were normal. His hemoglobin and hematocrit were 12.0 and 38.7. Chemistry profile showed sodium was 151 with a potassium of 2.8. BUN and creatinine were 22 and 0.4. Coagulation studies were noted to be within the normal range. Urinalysis did show 3+ blood but was otherwise not indicative of urinary tract infection. A COVID test was noted be negative. At the time of my interview the patient was resting comfortably in bed and he was in no distress. Allergies Allergy/AdvReac Type Severity Reaction Status Date / Time heparin Allergy Severe thrombocyto Verified 06/18/22 15:37 penia adhesive Allergy Intermediate Hives Verified 06/18/22 15:37 ciprofloxacin [From Cipro] Allergy Intermediate Hives Verified 06/18/22 15:37 buspirone [From BuSpar] AdvReac Intermediate Dizziness Verified 06/18/22 15:37 lansoprazole [From Prevacid] AdvReac Mild Diarrhea Verified 06/18/22 15:37 venlafaxine [From Effexor] AdvReac Mild somnulence Verified 06/18/22 15:37 Home Medications Medication Instructions Recorded Confirmed Type octreotide,microspheres 30 mg 30 mg IM Q28D 12/28/19 06/18/22 History intramuscular susp, extended release (Sandostatin LAR Depot) atorvastatin 40 mg tablet (Lipitor) 40 mg feeding tube HS #30 tabs 05/12/22 06/18/22 Rx nutrition [id number] See Rx Instructions .Route 05/12/22 06/18/22 Rx 0.05 gram-1.2 kcal/mL tube feed .COMPLEX #6,000 mL liquid (Fibersource HN) aspirin 81 mg chewable tablet 81 mg feeding tube QAM 06/18/22 06/18/22 History (Children's Aspirin) levetiracetam 500 mg tablet 500 mg PO BID 06/18/22 06/18/22 History magnesium oxide 800 mg feeding tube TID 06/18/22 06/18/22 History metoprolol tartrate 25 mg tablet 12.5 mg feeding tube BID 06/18/22 06/18/22 History sodium di- and 2 tab feeding tube QID 06/18/22 06/18/22 History monophosphate-potassium phos monobasic 250 mg tablet (Phospha 250 Neutral) Patient History Medical History Acute CVA (cerebrovascular accident) 06/2018. Brain imaging at the time also noted chronic vs subacute CVA. pt denies deficits Anxiety CAD (coronary artery disease) S/p CABG x 2 (SMITH to LAD and SVG to OM), 2018. Electrolyte abnormality Elevated LFTs GERD (gastroesophageal reflux disease) History of aortic valve disease S/P [facility] bioprosthetic AVR 2018 (with CABG) History of atrial fibrillation Post-op CABG. follows with Dr. Orta. History of pleural effusion 07/2018. Drained. HLD (hyperlipidemia) HTN (hypertension) Humerus fracture LEFT SIDE Kidney stones Pacemaker [employer]; [facility] for postop complete heart block after CABG 2018. last check 1 mo ago Pancreatic cancer with mets to liver dx 2018; s/p TACE procedure x 2 Severe protein-calorie malnutrition Simple partial seizure disorder Per neurology office note 2020: History of seizure-like activity characterized by alteration in awareness, staring spells, beginning in the context of a hospitalization at [facility] for AVR, CABG in May 2018. Patient continues with Keppra. However, it is unclear to me if he needs to remain on this medication. I have recommended an up-to-date EEG. If the EEG is normal we will consider tapering off Keppra. (EEG 12/19 = This is a normal-appearing awake/drowsy EEG demonstrating a normal reactive background rhythm, and not much else. A normal EEG does not completely exclude a diagnosis of epilepsy.) Surgical History History of cardiac cath 2017 [facility] History of colonoscopy History of cystoscopy WITH STENT PLACED History of esophagogastroduodenoscopy (EGD) History of lithotripsy History of reverse total replacement of left shoulder joint History of surgery TACE procedure x 2 History of tonsillectomy and adenoidectomy History of tooth extraction Hx of CABG two-vessel; [facility] 2017 S/P AVR (aortic valve replacement) [facility] 2017 S/P cholecystectomy Status post Power fundoplication Status post placement of cardiac pacemaker 06/2018 due to post-op heart block after CABG. 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 Beliefs That Will Affect Care: None marital status: Current Living Situation: Spouse current occupational status: retired 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, etc); [employer] career Feels Safe at Home: Yes Assistive Devices: None Review of Systems Constitutional: no fever and no chills Eyes: no eye pain Ear, Nose, Mouth, Throat: no ear pain Respiratory: no cough Cardiovascular: no chest pain Gastrointestinal: no abdominal pain, no nausea and no vomiting Genitourinary: + as per Subjective / HPI Musculoskeletal: no back pain Integumentary: no rash Neurologic: no localized weakness Physical Exam Constitutional: + thin; no acute distress Eyes: no conjunctival abnormality ENMT: Ears: no hearing impairment Neck: trachea midline Respiratory: normal respiratory effort; no respiratory distress and no labored breathing Cardiovascular: Rate/Rhythm: regular rate and regular rhythm Gastrointestinal (Abdomen): Abdomen is mildly distended. Bowel sounds are present. He did not have any pain with palpation. Musculoskeletal: No calf tenderness Skin: no rashes Neurologic: moves all extremities Psychiatric: Orientation: alert and oriented x 3 Affect: + flat affect Genitourinary: no CVA tenderness Results & Data ([facility]) Vital Signs (Past 12 Hours) Vital Signs Temp Pulse Pulse Pulse Resp BP BP 06/18/22 22:00 36.6 C 109 H 20 117/75 06/18/22 20:47 111 H 24 128/82 06/18/22 18:00 121/86 06/18/22 17:53 117 H 26 H 06/18/22 17:45 112 H 25 H 06/18/22 17:30 110 H 22 06/18/22 17:30 118/76 06/18/22 17:15 109 H 21 06/18/22 17:00 110 H 20 06/18/22 17:00 122/77 06/18/22 16:45 106 H 21 06/18/22 16:39 112 H 26 H 06/18/22 16:39 130/85 06/18/22 16:38 111 H 21 06/18/22 16:15 109 H 21 06/18/22 16:00 108 H 22 06/18/22 15:45 108 H 24 06/18/22 15:30 99 H 24 06/18/22 15:15 107 H 22 06/18/22 15:00 107 H 24 06/18/22 14:45 110 H 24 06/18/22 14:30 81 18 06/18/22 14:22 114 H 25 H 06/18/22 14:22 141/91 H 06/18/22 14:20 93 H 24 06/18/22 14:26 36.7 C 90 22 141/91 H 06/18/22 14:54 109 H 18 06/18/22 14:54 109 H 18 149/91 H 06/18/22 14:54 Pulse Ox O2 Del Method 06/18/22 22:00 92 Room Air 06/18/22 20:47 06/18/22 18:00 06/18/22 17:53 06/18/22 17:45 93 Room Air 06/18/22 17:30 93 Room Air 06/18/22 17:30 06/18/22 17:15 94 Room Air 06/18/22 17:00 93 Room Air 06/18/22 17:00 06/18/22 16:45 93 Room Air 06/18/22 16:39 92 Room Air 06/18/22 16:39 06/18/22 16:38 06/18/22 16:15 94 Room Air 06/18/22 16:00 93 Room Air 06/18/22 15:45 92 06/18/22 15:30 94 06/18/22 15:15 93 Room Air 06/18/22 15:00 93 Room Air 06/18/22 14:45 93 Room Air 06/18/22 14:30 92 Room Air 06/18/22 14:22 92 Room Air 06/18/22 14:22 06/18/22 14:20 06/18/22 14:26 95 Room Air 06/18/22 14:54 93 Room Air 06/18/22 14:54 93 Room Air 06/18/22 14:54 Room Air PG Care Time/CCT Total # of Minutes Spent Total Time Spent with Patient: Total time spent is greater than 50% in coordination of care (as documented) at patient's floor/unit and/or counseling patient: Coding Level of Care Code 14619 Inpt Consult Level 5 Diagnoses Hematuria R31.9
[2022-06-19 06:33] LABS: Hematocrit (blood only) 37.6 % (40.1-51.0); Hemoglobin 11.9 g/dl (14.0-18.0); Mean Corpuscular Hgb Conc 31.6 g/dL (32.0-36.0); Mean Corpuscular Volume 101.1 fL (80.0-100.0); RDW Coefficient of Variation 15.3 % (11.5-14.5); RDW Standard Deviation 57.4 fL (36.4-46.3); Red Blood Count 3.72 M/uL (4.63-6.08); White Blood Count 8.12 K/ul (4.8-10.8)
[2022-06-19 07:02] LABS: Albumin Level 2.7 gm/dl (3.4-5.0); BUN Creatinine Ratio 51.4 (10-20); Bilirubin,Total 1.1 mg/dl (0.2-1.0); Calcium 8.8 mg/dl (8.5-10.1); Creatinine Clr Calc Pharmacy 131.5 ml/min; Globulin 2.8 gm/dl (2.5-4.0); Magnesium 1.7 mg/dl (1.7-2.4); Phosphorus 2.5 mg/dl (2.5-4.9); Potassium 3.1 mmol/L (3.5-5.1); Total Protein 5.5 gm/dl (6.0-8.3)
[2022-06-19 07:18] LABS: Basophils # (auto) 0.04 K/uL (0-0.2); Basophils % (auto) 0.5 %; Eosinophils # (auto) 0.03 K/uL (0-0.50); Eosinophils % (auto) 0.4 %; Immature Granulocytes # (auto) 0.02 K/uL (0.00-0.02); Immature Granulocytes % (auto) 0.2 %; Lymphocytes % (auto) 12.3 %; Mean Platelet Volume 13.5 fL (9.4-12.4); Monocytes # (auto) 0.87 K/uL (0.24-0.82); Monocytes % (auto) 10.7 %; Neutrophils # (auto) 6.16 K/uL (1.4-6.5); Neutrophils % (auto) 75.9 %; Platelet Count 187 K/uL (130-400)
[2022-06-19] MEDS: POTASSIUM CHLORIDE / WTR 10 MEQ/100 ML PLCT IV SCH ×3 (08:45→11:14)
[2022-06-19] MEDS: TUBE FEEDING WATER FLUSH PEG SCH ×8 (08:49→21:07)
[2022-06-19] MEDS: FIBERSOURCE HN 1.2 CAL 1000 ML BAG OG SCH ×4 (08:49→20:52)
[2022-06-19 09:01] LABS: Folate (Folic Acid) 21.53 ng/ml (>5.38)
[2022-06-19 09:02] LABS: Vitamin B12 > 1500 pg/ml (180-914)
--- NOTE | 2022-06-19 09:27 | Urology Progress Note ---
Date of Service June 19, 2022 Assessment & Plan (1) Hematuria: Plan: 77 yo M with history of pancreatic neuroendocrine tumor with metastases admitted for hematuria. - Patient is afebrile and hemodynamically stable. - Hematuria seems to be clearing. - He is voiding without difficulty. - Will check a post void residual after next void. - As long as he is voiding he does not require further urologic intervention while in the hospital. - Recommend follow-up with our service outpatient for cystoscopy. - He is agreeable with the plan, all questions answered. - will sign off. Admission and Anticipated Discharge Date Admission Date: June 18, 2022 Subjective Patient seen and examined this AM. He is sleeping on arrival, arouses easily to his name. No acute issues overnight. He is voiding without difficulty, feels he is emptying his bladder. No bladder pain or dysuria at present. Urine in urinal is concentrated yellow. No fever or chills. Pt has history of kidney stones, follows with our service outpatient. Denies family hx of malignancy. Review of Systems 2 Constitutional: as per Subjective / HPI Gastrointestinal: as per Subjective / HPI Genitourinary: + as per Subjective / HPI Physical Exam Constitutional: + thin; no acute distress Respiratory: normal respiratory effort; no respiratory distress and no labored breathing Cardiovascular: Extremities: + edema (bilateral lower extremities) Gastrointestinal (Abdomen): Percussion/Palpation: abdomen soft; abdomen nontender mildly distended Musculoskeletal: Head/Neck/Chest: normocephalic and head atraumatic Neurologic: moves all extremities and awake Psychiatric: Orientation: alert and oriented x 3 Affect: + flat affect Genitourinary: no suprapubic tenderness, urine in urinal appears concentrated yellow Results & Data ([facility]) Vital Signs (Past 12 Hours) Vital Signs Temp Pulse Pulse Resp BP Pulse Ox O2 Del Method 06/19/22 08:00 101 H 06/19/22 07:00 Room Air 06/19/22 07:00 36.8 C 102 H 20 126/83 91 Room Air 06/19/22 04:00 36.9 C 102 H 20 122/74 92 Room Air 06/18/22 22:09 109 H 06/18/22 21:30 108 H 06/19/22 01:15 36.7 C 111 H 20 137/88 92 Room Air 06/18/22 22:00 36.6 C 109 H 20 117/75 92 Room Air PG Care Time/CCT Total # of Minutes Spent Total Time Spent with Patient: Total time spent is greater than 50% in coordination of care (as documented) at patient's floor/unit and/or counseling patient: Coding Level of Care Code 59472 Subseq Hosp Care Lvl 2 Diagnoses Hematuria R31.9
[2022-06-19] MEDS: POT PHOSPHATE MONOBASIC W/ SOD TAB PEG SCH ×4 (10:10→20:50)
[2022-06-19] MEDS: METOPROLOL TARTRATE 25 MG TAB OG SCH ×2 (10:10→20:50)
[2022-06-19] MEDS: MAGNESIUM OXIDE 400 MG TAB PO SCH ×3 (10:11→20:51)
[2022-06-19] MEDS: DEXTROSE 5% 1,000 ML IV SCH (12:18)
[2022-06-19] MEDS: ASPIRIN 81 MG CHEW PO SCH (13:23)
[2022-06-19 15:21] LABS: Calcium 8.8 mg/dl (8.5-10.1); Creatinine Clr Calc Pharmacy 135.2 ml/min; Est GFR (African American) 140.6 ml/min; Est GFR (Non-African American) 121.3 ml/min; Potassium 3.7 mmol/L (3.5-5.1)
[2022-06-19] MEDS: MULTI VIT W/MINERALS LIQUID 15 ML UDP PO SCH (17:07)
--- NOTE | 2022-06-19 17:33 | Hospitalist Progress Note ---
Date of Service June 19, 2022 Assessment & Plan (1) Hematuria: Plan: 77 yo male with PMHx significant for pancreatic neuroendocrine tumor with liver metastasis undergoing Sandostatin therapy and transarterial chemoembolization treatments, severe protein calorie malnourishment, CAD, CVA, dysphagia and aspiration pneumonia s/p PEG tube, and single seizure in 2018 who presented with painful, bloody urination. Hematuria, improving - Burning sensation and bright red urine, passing quarter size clots morning of admission - Hgb 11.9, stable. Patient asymptomatic without chest pain, palpitations or shortness of breath, dyspnea, presyncope/syncope - Restarted aspirin. Benefits outweigh risks given h/o CABG and hgb stable. - UA with blood, hyaline casts but no evidence of infection to explain hematuria or burning sensation. Coag panel wnl. - Urology consulted: f/u outpatient for cystoscopy - Repeat CBC in a.m., sooner if patient starts to become symptomatic anemia or hemodynamically unstable. Anasarca - Developed ascites and anasarca gradually over past month since tube feeds started, low suspicion for SBP. - No need for paracentesis at this time. Hypernatremia - 151, elevated since PEG tube feeds started. - improved to wnl on D5W @ 70 cc/hr. Hypokalemia - 2.8, repleted. Now 3.7 - Repeat in AM, replenish as needed Neuroendocrine tumor - Pancreatic neuroendocrine tumor with metastatic disease to liver. He gets IM octreotide monthly and, transarterial chemotherapy embolization q3 months at [facility], last treatment in March and due for next 1 this month. - Primary oncologist is Dr. Iverson with [facility] Severe protein-calorie malnutrition - PEG tube placed by GI during previous admission in April, patient has had gradual accumulation of fluid since then with moderate ascites and lower extremity edema. - Fiber source HM feeds QID 275 ml w/ 100 ml flushes before and after. - Electrolytes improving. Suspect electrolyte abnormalities due to tube feeds.Bleeding as above. Started cerovite liquid for vitamin support. Elevated LFTs - T bili 1.1, AST 142, ALT 58, alk phos 89, ALT recently elevated in setting of recently starting PEG tube feeds. - Trend on daily labs. CAD (coronary artery disease) - Chronic, stable. - Had CABG and AVR several years ago. - No chest pain or palpitations, anginal equivalent symptoms present.Statin, metoprolol. Aspirin continued as above. HTN (hypertension) - Continue metoprolol 12.5 mg twice daily. HLD (hyperlipidemia) - Continue atorvastatin 40 mg daily H/O partial seizures - Had seizure-like episode several years ago with CABG, AVR, pacemaker. - Has been on Keppra since then. H/O stroke - Apparent history of 3 previous multiple embolic appearing infarcts, however patient without deficits. - Has been on baby aspirin since Acute blood loss anemia Clinical Indicators: 77 yo male presenting with hematuria. Baseline Hgb 13.4, dropping to 11.9 Treatment: monitor CBC's, urology consult, hold ASA Risk Factor(s): age, neuroendocrine tumor with mets to liver DVT ppx: SCDs FEN/GI: tube feeds with flush Code Status: full Dispo: med surg (2) Hypokalemia: (3) Anasarca: (4) Acute hypernatremia: (5) Dehydration: (6) Weakness: (7) Severe protein-calorie malnutrition: (8) Neuroendocrine tumor: (9) History of aortic valve disease: (10) CAD (coronary artery disease): (11) GERD (gastroesophageal reflux disease): (12) Dysphagia: Admission and Anticipated Discharge Date Admission Date: June 18, 2022 Supervising Physician Co-Signing Physician Notes Patient seen and examined, chart reviewed, case discussed with Olivier Allen and I agree with the assessment and plan as above except as otherwise noted Labs and images reviewed Seen at bedside and discussed case with family. Patient is doing better, normally uses 50 cc flushes before and after his tube feeds. Will increase to 100 cc before and after, patient and his are agreeable to this. His is concerned by electrolyte instability in the past, we will continue his repletion and follow sodium/potassium for stability and target discharge for tomorrow. Patient does have liver metastasis with ascites and anasarca which is gradually increasing, but which is nontender. This does complicate his bladder scans as these can brick picker the ascites. Did have bladder scan showing a high volume and had a catheter placed without substantial return, see urology note for further. Will leave this in at this time and have outpatient urology follow-up. May keep outpatient follow-up with pastry sous chef and GI, no signs of SBP at this time. On exam patient is cachectic, with intermittent mild tachycardia, normal blood pressure, warm and dry skin, and full but not tense ascites. Subjective Patient seen at bedside this morning. Remains asymptomatic. Hematuria seems to be resolving. Denies dysuria, increased frequency, abdominal pain, chest pain, SOB, N/V. Review of Systems Review of Systems: All systems reviewed & are unremarkable except as noted in HPI & below Physical Exam Physical Exam: General: awake, alert, in no acute distress Head: Normocephalic, atraumatic ENT: EOMI, mucous membranes moist Chest: Clear to auscultation, on room air, no adventitious breath sounds Cardiac: Regular rate and rhythm, no murmur, no JVD, normal peripheral pulses, good capillary refill Abdominal: Abdomen is moderately distended, nonpainful; NABS x 4 quadrants, nontender to palpation, no rebound, guarding or tenderness Extremities: 2+ bilateral lower extremity edema, no erythema, calfs nontender to palpation Psych: Normal mood and affect Neuro: AAO x 3 Skin: no rash or erythema Results & Data Results & Data ([facility]) Vital Signs (Past 12 Hours) Vital Signs Temp Pulse Pulse Resp BP BP Pulse Ox 06/19/22 15:53 36.7 C 107 H 18 131/79 94 06/19/22 11:12 36.4 C L 96 H 18 126/85 92 06/19/22 08:00 101 H 06/19/22 07:00 06/19/22 07:00 36.8 C 102 H 20 126/83 91 O2 Del Method 06/19/22 15:53 Room Air 06/19/22 11:12 Room Air 06/19/22 08:00 06/19/22 07:00 Room Air 06/19/22 07:00 Room Air Laboratory Results 06/19/22 06/19/22 06/19/22 Range/Units 14:37 07:51 05:26 WBC (4.8-10.8) K/ul RBC (4.63-6.08) M/uL Hgb (14.0-18.0) g/dl Hct (40.1-51.0) % MCV (80.0-100.0) fL MCH (25.0-34.0) pg MCHC (32.0-36.0) g/dL RDW Std Deviation (36.4-46.3) fL RDW Coeff of Mason (11.5-14.5) % Plt Count (130-400) K/uL MPV (9.4-12.4) fL Immature Gran % (Auto) % Neut % (Auto) % Lymph % (Auto) % Summers % (Auto) % Eos % (Auto) % Baso % (Auto) % Neut # (Auto) (1.4-6.5) K/uL Lymph # (Auto) (1.2-3.4) K/uL Summers # (Auto) (0.24-0.82) K/uL Eos # (Auto) (0-0.50) K/uL Baso # (Auto) (0-0.2) K/uL Immature Gran # (Auto) (0.00-0.02) K/uL PT (9.0-12.0) Seconds INR (0.9-1.1) APTT (21.0-31.0) Seconds PTT Ratio Sodium 142 145 (136-145) mmol/L Potassium 3.7 3.1 L (3.5-5.1) mmol/L Chloride 99 101 (98-107) mmol/L Carbon Dioxide 30 34 H (21-32) mmol/L Anion Gap 13 H 10 (3-11) BUN 18 19 (6-23) mg/dl Creatinine 0.36 L 0.37 L (0.6-1.4) mg/dl Est Cr Clr Drug Dosing 135.2 131.5 ml/min Est GFR ( Amer) 140.6 139.0 ml/min Est GFR (Non-Af Amer) 121.3 120.0 ml/min BUN/Creatinine Ratio 50.0 H 51.4 H (10-20) Glucose 185 H 129 H (70-99(Fasting)) mg/dl Osmolality (280-300) mOsm/kg Calcium 8.8 8.8 (8.5-10.1) mg/dl Phosphorus 2.5 (2.5-4.9) mg/dl Magnesium 1.7 (1.7-2.4) mg/dl Total Bilirubin 1.1 H (0.2-1.0) mg/dl AST 138 H (13-39) U/L ALT 56 H (7-52) U/L Alkaline Phosphatase 933 H (34-104) U/L Total Protein 5.5 L (6.0-8.3) gm/dl Albumin 2.7 L (3.4-5.0) gm/dl Globulin 2.8 (2.5-4.0) gm/dl Albumin/Globulin Ratio 1.0 (0.9-2) Vitamin B12 > 1500 H (180-914) pg/ml Folate 21.53 (>5.38) ng/ml Urine Color Urine Appearance (Clear) Urine pH (4.5-7.5) Ur Specific Mcfarland (1.000-1.030) Urine Protein (Negative) Urine Glucose (UA) (Negative) Urine Ketones (Negative) Urine Blood (Negative) Urine Nitrite (Negative) Urine Bilirubin (Negative) Urine Urobilinogen (Negative) Ur Leukocyte Esterase (Negative) Urine WBC (Auto) (0-5) /hpf Urine RBC (Auto) (0-4) /hpf U Hyaline Cast (Auto) (0-5) /lpf U Epithel Cells (Auto) (0-5) /lpf Urine Bacteria (Auto) (Negative) Urine Osmolality (500-800) mOsm/kg Ur Random Sodium mmol/L SARS-CoV-2, RNA, NAAT (NEGATIVE) 06/19/22 06/18/22 06/18/22 Range/Units 05:26 Unknown Unknown WBC 8.12 (4.8-10.8) K/ul RBC 3.72 L (4.63-6.08) M/uL Hgb 11.9 L (14.0-18.0) g/dl Hct 37.6 L (40.1-51.0) % MCV 101.1 H (80.0-100.0) fL MCH 32.0 (25.0-34.0) pg MCHC 31.6 L (32.0-36.0) g/dL RDW Std Deviation 57.4 H (36.4-46.3) fL RDW Coeff of Mason 15.3 H (11.5-14.5) % Plt Count 187 (130-400) K/uL MPV 13.5 H (9.4-12.4) fL Immature Gran % (Auto) 0.2 % Neut % (Auto) 75.9 % Lymph % (Auto) 12.3 % Summers % (Auto) 10.7 % Eos % (Auto) 0.4 % Baso % (Auto) 0.5 % Neut # (Auto) 6.16 (1.4-6.5) K/uL Lymph # (Auto) 1.00 L (1.2-3.4) K/uL Summers # (Auto) 0.87 H (0.24-0.82) K/uL Eos # (Auto) 0.03 (0-0.50) K/uL Baso # (Auto) 0.04 (0-0.2) K/uL Immature Gran # (Auto) 0.02 (0.00-0.02) K/uL PT (9.0-12.0) Seconds INR (0.9-1.1) APTT (21.0-31.0) Seconds PTT Ratio Sodium (136-145) mmol/L Potassium (3.5-5.1) mmol/L Chloride (98-107) mmol/L Carbon Dioxide (21-32) mmol/L Anion Gap (3-11) BUN (6-23) mg/dl Creatinine (0.6-1.4) mg/dl Est Cr Clr Drug Dosing ml/min Est GFR ( Amer) ml/min Est GFR (Non-Af Amer) ml/min BUN/Creatinine Ratio (10-20) Glucose (70-99(Fasting)) mg/dl Osmolality (280-300) mOsm/kg Calcium (8.5-10.1) mg/dl Phosphorus (2.5-4.9) mg/dl Magnesium (1.7-2.4) mg/dl Total Bilirubin (0.2-1.0) mg/dl AST (13-39) U/L ALT (7-52) U/L Alkaline Phosphatase (34-104) U/L Total Protein (6.0-8.3) gm/dl Albumin (3.4-5.0) gm/dl Globulin (2.5-4.0) gm/dl Albumin/Globulin Ratio (0.9-2) Vitamin B12 (180-914) pg/ml Folate (>5.38) ng/ml Urine Color Urine Appearance (Clear) Urine pH (4.5-7.5) Ur Specific Mcfarland (1.000-1.030) Urine Protein (Negative) Urine Glucose (UA) (Negative) Urine Ketones (Negative) Urine Blood (Negative) Urine Nitrite (Negative) Urine Bilirubin (Negative) Urine Urobilinogen (Negative) Ur Leukocyte Esterase (Negative) Urine WBC (Auto) (0-5) /hpf Urine RBC (Auto) (0-4) /hpf U Hyaline Cast (Auto) (0-5) /lpf U Epithel Cells (Auto) (0-5) /lpf Urine Bacteria (Auto) (Negative) Urine Osmolality 844 H (500-800) mOsm/kg Ur Random Sodium 68 mmol/L SARS-CoV-2, RNA, NAAT (NEGATIVE) 06/18/22 06/18/22 06/18/22 Range/Units Unknown Unknown 14:50 WBC (4.8-10.8) K/ul RBC (4.63-6.08) M/uL Hgb (14.0-18.0) g/dl Hct (40.1-51.0) % MCV (80.0-100.0) fL MCH (25.0-34.0) pg MCHC (32.0-36.0) g/dL RDW Std Deviation (36.4-46.3) fL RDW Coeff of Mason (11.5-14.5) % Plt Count (130-400) K/uL MPV (9.4-12.4) fL Immature Gran % (Auto) % Neut % (Auto) % Lymph % (Auto) % Summers % (Auto) % Eos % (Auto) % Baso % (Auto) % Neut # (Auto) (1.4-6.5) K/uL Lymph # (Auto) (1.2-3.4) K/uL Summers # (Auto) (0.24-0.82) K/uL Eos # (Auto) (0-0.50) K/uL Baso # (Auto) (0-0.2) K/uL Immature Gran # (Auto) (0.00-0.02) K/uL PT (9.0-12.0) Seconds INR (0.9-1.1) APTT (21.0-31.0) Seconds PTT Ratio Sodium (136-145) mmol/L Potassium (3.5-5.1) mmol/L Chloride (98-107) mmol/L Carbon Dioxide (21-32) mmol/L Anion Gap (3-11) BUN (6-23) mg/dl Creatinine (0.6-1.4) mg/dl Est Cr Clr Drug Dosing ml/min Est GFR ( Amer) ml/min Est GFR (Non-Af Amer) ml/min BUN/Creatinine Ratio (10-20) Glucose (70-99(Fasting)) mg/dl Osmolality 317 H (280-300) mOsm/kg Calcium (8.5-10.1) mg/dl Phosphorus (2.5-4.9) mg/dl Magnesium (1.7-2.4) mg/dl Total Bilirubin (0.2-1.0) mg/dl AST (13-39) U/L ALT (7-52) U/L Alkaline Phosphatase (34-104) U/L Total Protein (6.0-8.3) gm/dl Albumin (3.4-5.0) gm/dl Globulin (2.5-4.0) gm/dl Albumin/Globulin Ratio (0.9-2) Vitamin B12 (180-914) pg/ml Folate (>5.38) ng/ml Urine Color Dark Yellow Urine Appearance Clear (Clear) Urine pH 7.0 (4.5-7.5) Ur Specific Mcfarland > 1.045 H (1.000-1.030) Urine Protein 2+ H (Negative) Urine Glucose (UA) Negative (Negative) Urine Ketones Negative (Negative) Urine Blood 3+ H (Negative) Urine Nitrite Negative (Negative) Urine Bilirubin Negative (Negative) Urine Urobilinogen Positive H (Negative) Ur Leukocyte Esterase Negative (Negative) Urine WBC (Auto) 1-5 (0-5) /hpf Urine RBC (Auto) >30 H (0-4) /hpf U Hyaline Cast (Auto) 5-10 H (0-5) /lpf U Epithel Cells (Auto) >30 H (0-5) /lpf Urine Bacteria (Auto) Negative (Negative) Urine Osmolality (500-800) mOsm/kg Ur Random Sodium mmol/L SARS-CoV-2, RNA, NAAT NEGATIVE (NEGATIVE) 06/18/22 06/18/22 Range/Units 14:50 14:50 WBC (4.8-10.8) K/ul RBC (4.63-6.08) M/uL Hgb (14.0-18.0) g/dl Hct (40.1-51.0) % MCV (80.0-100.0) fL MCH (25.0-34.0) pg MCHC (32.0-36.0) g/dL RDW Std Deviation (36.4-46.3) fL RDW Coeff of Mason (11.5-14.5) % Plt Count (130-400) K/uL MPV (9.4-12.4) fL Immature Gran % (Auto) % Neut % (Auto) % Lymph % (Auto) % Summers % (Auto) % Eos % (Auto) % Baso % (Auto) % Neut # (Auto) (1.4-6.5) K/uL Lymph # (Auto) (1.2-3.4) K/uL Summers # (Auto) (0.24-0.82) K/uL Eos # (Auto) (0-0.50) K/uL Baso # (Auto) (0-0.2) K/uL Immature Gran # (Auto) (0.00-0.02) K/uL PT 11.0 (9.0-12.0) Seconds INR 1.0 (0.9-1.1) APTT 22.6 (21.0-31.0) Seconds PTT Ratio 0.8 Sodium (136-145) mmol/L Potassium (3.5-5.1) mmol/L Chloride (98-107) mmol/L Carbon Dioxide (21-32) mmol/L Anion Gap (3-11) BUN (6-23) mg/dl Creatinine (0.6-1.4) mg/dl Est Cr Clr Drug Dosing ml/min Est GFR ( Amer) ml/min Est GFR (Non-Af Amer) ml/min BUN/Creatinine Ratio (10-20) Glucose (70-99(Fasting)) mg/dl Osmolality (280-300) mOsm/kg Calcium (8.5-10.1) mg/dl Phosphorus 3.0 (2.5-4.9) mg/dl Magnesium 1.8 (1.7-2.4) mg/dl Total Bilirubin (0.2-1.0) mg/dl AST (13-39) U/L ALT (7-52) U/L Alkaline Phosphatase (34-104) U/L Total Protein (6.0-8.3) gm/dl Albumin (3.4-5.0) gm/dl Globulin (2.5-4.0) gm/dl Albumin/Globulin Ratio (0.9-2) Vitamin B12 (180-914) pg/ml Folate (>5.38) ng/ml Urine Color Urine Appearance (Clear) Urine pH (4.5-7.5) Ur Specific Mcfarland (1.000-1.030) Urine Protein (Negative) Urine Glucose (UA) (Negative) Urine Ketones (Negative) Urine Blood (Negative) Urine Nitrite (Negative) Urine Bilirubin (Negative) Urine Urobilinogen (Negative) Ur Leukocyte Esterase (Negative) Urine WBC (Auto) (0-5) /hpf Urine RBC (Auto) (0-4) /hpf U Hyaline Cast (Auto) (0-5) /lpf U Epithel Cells (Auto) (0-5) /lpf Urine Bacteria (Auto) (Negative) Urine Osmolality (500-800) mOsm/kg Ur Random Sodium mmol/L SARS-CoV-2, RNA, NAAT (NEGATIVE) Resident Activity Tracking Resident Involvement: Resident Care Provided Care Provided: Adult Hospital Medicine
--- NOTE | 2022-06-19 17:56 | Billing Data ---
Date of Service June 19, 2022 Coding Level of Care Code 68189 Subseq Hosp Care Lvl 2
[2022-06-19] MEDS: ATORVASTATIN 40 MG TAB OG SCH (20:51)
[2022-06-20] MEDS ORDERED: PROSOURCE NO CARB 30 ML/PKT GT SCH (07:30)
[2022-06-20 07:37] LABS: Hematocrit (blood only) 35.9 % (40.1-51.0); Hemoglobin 11.5 g/dl (14.0-18.0); Mean Corpuscular Hemoglobin 31.9 pg (25.0-34.0); Mean Corpuscular Volume 99.7 fL (80.0-100.0); RDW Coefficient of Variation 15.2 % (11.5-14.5); RDW Standard Deviation 56.1 fL (36.4-46.3); White Blood Count 8.41 K/ul (4.8-10.8)
[2022-06-20] MEDS: POT PHOSPHATE MONOBASIC W/ SOD TAB PEG SCH ×3 (08:02→15:55)
[2022-06-20] MEDS: MAGNESIUM OXIDE 400 MG TAB PO SCH ×2 (08:03→12:03)
[2022-06-20] MEDS: METOPROLOL TARTRATE 25 MG TAB OG SCH (08:03)
[2022-06-20] MEDS: ASPIRIN 81 MG CHEW PO SCH (08:03)
[2022-06-20] MEDS: FIBERSOURCE HN 1.2 CAL 1000 ML BAG OG SCH ×3 (08:04→15:56)
[2022-06-20] MEDS: MULTI VIT W/MINERALS LIQUID 15 ML UDP PO SCH (08:04)
[2022-06-20] MEDS: TUBE FEEDING WATER FLUSH PEG SCH ×6 (08:04→15:57)
[2022-06-20 08:13] LABS: BUN Creatinine Ratio 47.2 (10-20); Calcium 8.5 mg/dl (8.5-10.1); Creatinine Clr Calc Pharmacy 145.2 ml/min; Est GFR (African American) 140.6 ml/min; Est GFR (Non-African American) 121.3 ml/min; Potassium 3.4 mmol/L (3.5-5.1)
[2022-06-20 08:27] LABS: Basophils # (auto) 0.02 K/uL (0-0.2); Basophils % (auto) 0.2 %; Eosinophils # (auto) 0.02 K/uL (0-0.50); Eosinophils % (auto) 0.2 %; Immature Granulocytes # (auto) 0.03 K/uL (0.00-0.02); Immature Granulocytes % (auto) 0.4 %; Lymphocytes % (auto) 11.9 %; Mean Platelet Volume 13.5 fL (9.4-12.4); Monocytes % (auto) 10.7 %; Neutrophils # (auto) 6.44 K/uL (1.4-6.5); Neutrophils % (auto) 76.6 %; Platelet Count 182 K/uL (130-400)
[2022-06-20] MEDS: POTASSIUM CHLORIDE / WTR 10 MEQ/100 ML PLCT IV SCH ×2 (09:52→10:50)
--- NOTE | 2022-06-20 13:42 | Discharge Summary ---
Date of Service June 20, 2022 Admission HPI Per Admitting Provider Peña Resendez is a 77-year-old male with past medical history significant for pancreatic neuroendocrine tumor with liver metastasis undergoing Sandostatin therapy and transarterial chemoembolization treatments, severe protein calorie malnourishment, CAD, CVA, dysphagia and aspiration pneumonia s/p PEG tube, and single seizure in 2018 who presents with painful, bloody urination that started this morning. He noticed first thing this morning when he urinated that his urine was very dark red and he had some burning sensation with it. Later the afternoon, noticed blood clots about the size of a quarter in the toilet bowl, prompting her presentation today. Patient was admitted in April for dysphagia and at that time had a feeding tube placed and was discharged home on 05/10. Since then he has had his daily accumulation of fluid on his abdomen and swelling in his bilateral legs. He has been generally weak since then. He has not had any fever/chills, chest pain, shortness of breath, palpitations, o rthopnea, PND, abdominal pain, nausea, vomiting, diarrhea, or constipation. Upon presentation to the ED, he is tachycardic with an HR in 110s, mildly hypertensive 141/91, and otherwise vital signs within normal limits and stable. He is 93% on room air, afebrile. Labs significant for hemoglobin 12, which is significant drop from labs yesterday was 13.7. Anemia appears to be mixed with an MCV elevated 101.6, MCHC 31. Sodium 151, potassium 2.8, CO2 38, mild AG of 12. Renal function is at baseline, he has stable transaminitis with AST 142, ALT 58, alk phos 859, slightly elevated or near prior labs from 1 month ago. Total protein 5.7, albumin 2.8. UA with blood, hyaline cast, protein, but without evidence of infection. CT A/P shows significant increase in moderate to large abdominal pelvic ascites, anasarca, increase in small moderate bilateral pleural effusions, left renal calculus w/o ureteral calculi or hydronephrosis. No bowel obstruction or change in extensive hepatic disease since prior CT. Principal Diagnosis Hematuria Discharge Exam General: awake, alert, in no acute distress Head: Normocephalic, atraumatic ENT: EOMI, mucous membranes moist Chest: diminished sounds bibasilar lungs, on room air, no adventitious breath sounds Cardiac: Tachycardic. Regular rhythm, no murmur, no JVD, normal peripheral pulses, good capillary refill Abdominal: Abdomen is moderately distended, nonpainful; NABS x 4 quadrants, nontender to palpation, no rebound tenderness or guarding Extremities: 2+ bilateral lower extremity edema, no erythema, calfs nontender to palpation Psych: Normal mood and affect Neuro: AAO x 3 Skin: no rash or erythema Discharge Data Allergies Allergy/AdvReac Type Severity Reaction Status Date / Time heparin Allergy Severe thrombocyto Verified 06/18/22 15:37 penia adhesive Allergy Intermediate Hives Verified 06/18/22 15:37 ciprofloxacin [From Cipro] Allergy Intermediate Hives Verified 06/18/22 15:37 buspirone [From BuSpar] AdvReac Intermediate Dizziness Verified 06/18/22 15:37 lansoprazole [From Prevacid] AdvReac Mild Diarrhea Verified 06/18/22 15:37 venlafaxine [From Effexor] AdvReac Mild somnulence Verified 06/18/22 15:37 Consultations 06/18/22 18:10 ED Decision to Admit Stat 06/18/22 20:01 Consult Urology Routine 06/19/22 14:40 Burn CD for patient Stat Ordered Studies Laboratory Results WBC 8.41 K/ul (4.8-10.8) 06/20/22 06:57 RBC 3.60 M/uL (4.63-6.08) L 06/20/22 06:57 Hgb 11.5 g/dl (14.0-18.0) L 06/20/22 06:57 Hct 35.9 % (40.1-51.0) L 06/20/22 06:57 MCV 99.7 fL (80.0-100.0) 06/20/22 06:57 MCH 31.9 pg (25.0-34.0) 06/20/22 06:57 MCHC 32.0 g/dL (32.0-36.0) 06/20/22 06:57 RDW Std Deviation 56.1 fL (36.4-46.3) H 06/20/22 06:57 RDW Coeff of Mason 15.2 % (11.5-14.5) H 06/20/22 06:57 Plt Count 182 K/uL (130-400) 06/20/22 06:57 MPV 13.5 fL (9.4-12.4) H 06/20/22 06:57 Immature Gran % (Auto) 0.4 % 06/20/22 06:57 Neut % (Auto) 76.6 % 06/20/22 06:57 Lymph % (Auto) 11.9 % 06/20/22 06:57 [place] % (Auto) 10.7 % 06/20/22 06:57 Eos % (Auto) 0.2 % 06/20/22 06:57 Baso % (Auto) 0.2 % 06/20/22 06:57 Neut # (Auto) 6.44 K/uL (1.4-6.5) 06/20/22 06:57 Lymph # (Auto) 1.00 K/uL (1.2-3.4) L 06/20/22 06:57 [place] # (Auto) 0.90 K/uL (0.24-0.82) H 06/20/22 06:57 Eos # (Auto) 0.02 K/uL (0-0.50) 06/20/22 06:57 Baso # (Auto) 0.02 K/uL (0-0.2) 06/20/22 06:57 Immature Gran # (Auto) 0.03 K/uL (0.00-0.02) H 06/20/22 06:57 PT 11.0 Seconds (9.0-12.0) 06/18/22 14:50 INR 1.0 (0.9-1.1) 06/18/22 14:50 APTT 22.6 Seconds (21.0-31.0) 06/18/22 14:50 PTT Ratio 0.8 06/18/22 14:50 Sodium 141 mmol/L (136-145) 06/20/22 06:57 Potassium 3.4 mmol/L (3.5-5.1) L 06/20/22 06:57 Chloride 97 mmol/L (98-107) L 06/20/22 06:57 Carbon Dioxide 35 mmol/L (21-32) H 06/20/22 06:57 Anion Gap 9 (3-11) 06/20/22 06:57 BUN 17 mg/dl (6-23) 06/20/22 06:57 Creatinine 0.36 mg/dl (0.6-1.4) L 06/20/22 06:57 Est Cr Clr Drug Dosing 145.2 ml/min 06/20/22 06:57 Est GFR ( Amer) 140.6 ml/min 06/20/22 06:57 Est GFR (Non-Af Amer) 121.3 ml/min 06/20/22 06:57 BUN/Creatinine Ratio 47.2 (10-20) H 06/20/22 06:57 Glucose 107 mg/dl (70-99(Fasting)) H 06/20/22 06:57 Osmolality 317 mOsm/kg (280-300) H 06/18/22 14:50 Calcium 8.5 mg/dl (8.5-10.1) 06/20/22 06:57 Phosphorus 2.5 mg/dl (2.5-4.9) 06/19/22 05:26 Magnesium 1.7 mg/dl (1.7-2.4) 06/19/22 05:26 Total Bilirubin 1.1 mg/dl (0.2-1.0) H 06/19/22 05:26 AST 138 U/L (13-39) H 06/19/22 05:26 ALT 56 U/L (7-52) H 06/19/22 05:26 Alkaline Phosphatase 933 U/L (34-104) H 06/19/22 05:26 Total Protein 5.5 gm/dl (6.0-8.3) L 06/19/22 05:26 Albumin 2.7 gm/dl (3.4-5.0) L 06/19/22 05:26 Globulin 2.8 gm/dl (2.5-4.0) 06/19/22 05:26 Albumin/Globulin Ratio 1.0 (0.9-2) 06/19/22 05:26 Lipase 13 U/L (11-82) 06/18/22 14:50 Vitamin B12 > 1500 pg/ml (180-914) H 06/19/22 07:51 Folate 21.53 ng/ml (>5.38) 06/19/22 07:51 Urine Color Dark Yellow 06/18/22 Unknown Urine Appearance Clear (Clear) 06/18/22 Unknown Urine pH 7.0 (4.5-7.5) 06/18/22 Unknown Ur Specific [place] > 1.045 (1.000-1.030) H 06/18/22 Unknown Urine Protein 2+ (Negative) H 06/18/22 Unknown Urine Glucose (UA) Negative (Negative) 06/18/22 Unknown Urine Ketones Negative (Negative) 06/18/22 Unknown Urine Blood 3+ (Negative) H 06/18/22 Unknown Urine Nitrite Negative (Negative) 06/18/22 Unknown Urine Bilirubin Negative (Negative) 06/18/22 Unknown Urine Urobilinogen Positive (Negative) H 06/18/22 Unknown Ur Leukocyte Esterase Negative (Negative) 06/18/22 Unknown Urine WBC (Auto) 1-5 /hpf (0-5) 06/18/22 Unknown Urine RBC (Auto) >30 /hpf (0-4) H 06/18/22 Unknown U Hyaline Cast (Auto) 5-10 /lpf (0-5) H 06/18/22 Unknown U Epithel Cells (Auto) >30 /lpf (0-5) H 06/18/22 Unknown Urine Bacteria (Auto) Negative (Negative) 06/18/22 Unknown Urine Osmolality 844 mOsm/kg (500-800) H 06/18/22 Unknown Ur Random Sodium 68 mmol/L 06/18/22 Unknown SARS-CoV-2, RNA, NAAT NEGATIVE (NEGATIVE) 06/18/22 Unknown Impressions Abdomen/Pelvis CT 06/18/22 14:26 CT OF THE ABDOMEN AND PELVIS WITH CONTRAST CLINICAL HISTORY: Abdominal pain. Hematuria. Metastatic pancreatic cancer. COMPARISON STUDY: CT of the abdomen and pelvis May 10, 2022. TECHNIQUE: Following IV administration of 94 mL of Optiray, axial images of the abdomen and pelvis were obtained from the lung bases to the proximal femurs. Images were reviewed in the axial, sagittal, and coronal planes. IV contrast was administered without complication. Automated exposure control was utilized for the study. A dose lowering technique was utilized adhering to the principles of ALARA. CT DOSE: 290.67 mGy.cm FINDINGS: Partially visualized small to moderate bilateral pleural fusions have increased in size since abdominal CT of May 10, 2022. Associated subpleural opacities favor subsegmental atelectasis. No pneumatosis, free air or portal venous gas is present. Gastrostomy tube is in place. There has been significant increase in moderate to large abdominal and pelvic ascites since prior exam. Numerous hepatic metastases are similar to prior exam. Biliary ductal dilatation is similar to prior exam status post cholecystectomy. A lobulated enhancing pancreatic tail mass is similar to prior study, measuring 6.7 x 5.3 cm. There is no evidence for a bowel obstruction. Colonic diverticulosis is noted without evidence for acute diverticulitis. Hypodensity within the superior aspect of the spleen is unchanged. There is no hydronephrosis. 2 mm left renal calculus is noted. No ureteral calculi identified. Prostate is mildly enlarged. There is ascites within bilateral inguinal hernias. Anasarca is noted. No suspicious lesions within the visualized skeletal structures. There may be mild peritoneal thickening within the pelvis. Soft tissue gas within the left buttock is noted. IMPRESSION: 1. No significant change in extensive hepatic metastases since prior CT. 2. Significant increase in moderate to large abdominal and pelvic ascites. Subtle nodularity of the peritoneum within the pelvis. Malignant ascites cannot be excluded. 3. No bowel obstruction. 4. 2 mm left renal calculus. No ureteral calculi. No hydronephrosis. 5. Anasarca. 6. Increase in small to moderate bilateral pleural effusions. ACT 112: Negative or not required by law. Electronically signed by: Randy Bermudez M.D. 06/18/2022 4:57 PM Hospital Course (1) Hematuria: 77 yo male with PMHx significant for pancreatic neuroendocrine tumor with liver metastasis undergoing Sandostatin therapy and transarterial chemoembolization treatments, severe protein calorie malnourishment, CAD, CVA, dysphagia and aspiration pneumonia s/p PEG tube, and single seizure in 2018 who presented with painful, bloody urination. Hematuria, improved - Burning sensation and bright red urine, passing quarter size clots morning of admission - Hgb 11.5 on discharge, stable. Patient asymptomatic without chest pain, palpitations or shortness of breath, dyspnea, presyncope/syncope - Cont. aspirin. Benefits outweigh risks given h/o CABG and hgb stable. - UA with blood, hyaline casts but no evidence of infection to explain hematuria or burning sensation. Coag panel wnl. - CT A/P: 2mm left renal calculi without hydronephrosis; could explain symptoms - Urology consulted: pt will f/u outpatient for cystoscopy, some concern for mets to bladder given mets history Anasarca Ascites - Developed ascites and anasarca gradually over past month since tube feeds started, low suspicion for SBP. - No need for paracentesis at this time. However, pt should be established with GI and f/u just in case, especially since he is on tube feeds. Referral placed. Hypernatremia - 151, elevated since PEG tube feeds started. - improved to wnl on D5W @ 70 cc/hr, d/c'd Hypokalemia, chronic - 2.8, repleted. Now 3.4, replenished - Recommend 20Meq potassium liquid daily for potassium support - BMP in 1 week - f/u PCP, GI Neuroendocrine tumor - Pancreatic neuroendocrine tumor with metastatic disease to liver. He gets IM octreotide monthly and, transarterial chemotherapy embolization q3 months at [facility], last treatment in March and due for next 1 this month. - Primary oncologist is Dr. Iverson with [facility] Severe protein-calorie malnutrition - PEG tube placed by GI during previous admission in April, patient has had gradual accumulation of fluid since then with moderate ascites and lower extremity edema. - Fiber source HM feeds QID 275 ml w/ 100 ml flushes before and after. - Electrolytes improving. Suspect electrolyte abnormalities due to tube feeds.Bleeding as above. Cerovite liquid for vitamin support. Elevated LFTs - T bili 1.1, AST 142, ALT 58, alk phos 89, ALT recently elevated in setting of recently starting PEG tube feeds. CAD (coronary artery disease) - Chronic, stable. - Had CABG and AVR several years ago. - No chest pain or palpitations, anginal equivalent symptoms present.Statin, metoprolol. Aspirin continued as above. HTN (hypertension) - Continue metoprolol 12.5 mg twice daily. HLD (hyperlipidemia) - Continue atorvastatin 40 mg daily H/O partial seizures - Had seizure-like episode several years ago with CABG, AVR, pacemaker. - Has been on Keppra since then. H/O stroke - Apparent history of 3 previous multiple embolic appearing infarcts, however patient without deficits. - Has been on baby aspirin since (2) Hypokalemia: (3) Anasarca: (4) Acute hypernatremia: (5) Dehydration: (6) Weakness: (7) Severe protein-calorie malnutrition: (8) Neuroendocrine tumor: (9) History of aortic valve disease: (10) CAD (coronary artery disease): (11) GERD (gastroesophageal reflux disease): (12) Dysphagia: Total Time Total Time Spent Total Time Spent (In Minutes): >30 Discharge Plan Discharge Items Patient Disposition: Home - Self-Care Reason For Visit: BLEEDING Discharge Diagnosis: Hematuria Activity: Per Instructions section Non-emergency contact: Primary Care Provider, Diet Therapist and Urologist Call non-emergency contact if: you have any medication questions, your symptoms worsen and you have a fever Follow-up/Referrals: Norm Barkley MD [Physician] - (hospital f/u for cystoscopy ) Elvsi Falk DO [Primary Care Provider] - (1-2 weeks for TCM) Dany Bellamy [Physician] - (establish with group, has PEG tube, h/o chronic ascites ) Diet: Other - See Diet Comment Diet Comment: home tube feeds Ambulatory Orders: Basic Metabolic Panel (Routine) Timeframe: 1 Week Location: Determined by Patient Ordered By: Olivier Botello Attending Provider Instructions: You were admitted to the hospital for hematuria which is blood in your urine. You were relatively asymptomatic and did well throughout her hospital stay. During her hospital stay we placed a Mccloud catheter and removed it upon dis charge. Urine showed no signs of infection. By day 2 the blood in her urine had resolved. We did have our urology team take a look and they would like to further evaluate in the outpatient setting. 1. We have referred you to our urology outpatient team who will call you to schedule an appointment. They will likely want to perform a cystoscopy which will take a closer look at the bladder for a potential cause of your symptoms. 2. We have also referred you to our GI team just so you can establish with a e commerce director given your extensive history. I understand that you have seen Dr. Aguilar with [facility] in the past so it may make more sense just to follow-up with them. You may need additional care from them specially because of the increasing fluid in your abdomen. 3. As you know you have dealt with low potassium in your past. In the hospital your potassium levels were repleted and were within normal limits. You should supplement your tube feeds with 20 mEq of potassium in liquid form, I have prescribed this medication to your pharmacy. I have also provided you with a prescription for a basic metabolic panel. You should obtain this lab in 1 week at one of our [facility] facilities to check the status of your potassium and other electrolytes. 4. You should also be receiving a call from your primary care provider to schedule a follow-up hospital visit appointment at which they can further instruct/guide your care. Pending Studies at Discharge: No Stand-Alone Forms: My [facility], Smoking Cessation Medications and DC Order Prescriptions: New potassium chloride 20 mEq/15 mL liquid 20 meq PO DAILY Qty: 450 0RF Rx Instructions: mix/flush tube with 120ml of water/juice No Action Sandostatin LAR Depot 30 mg Suspension,Extended Rel Recon 30 mg IM Q28D Fibersource HN 0.05 gram- 1.2 kcal/mL Liquid See Rx Instructions .ROUTE .COMPLEX Qty: 6000 0RF Rx Instructions: 275ml via GT QID atorvastatin [Lipitor] 40 mg tablet 40 mg feeding tube HS Qty: 30 0RF Phospha 250 Neutral 250 mg tablet 2 tab feeding tube QID magnesium oxide 400 mg magnesium Tablet 800 mg feeding tube TID levetiracetam 500 mg tablet 500 mg PO BID Rx Instructions: per peg tube aspirin [Children's Aspirin] 81 mg tablet,chewable 81 mg feeding tube QAM metoprolol tartrate 25 mg tablet 12.5 mg feeding tube BID Discharge Orders: Discharge Order (Routine); Ordered 06/20/22 Ordered By: Olivier Allen Admission Data Admit Date/Time: 06/18/22 18:48 Attending Provider: Keith Marsh Admit Provider: Rick Swanson Primary Care Provider: Elvis Falk Other Providers: Rick Swanson ; Norm Barkley Supervising Physician Co-Signing Physician Notes Patient seen and examined, chart reviewed, case discussed with Olivier Allen, DO and I agree with the assessment and plan as above except as otherwise noted Labs and images reviewed Seen at bedside this morning. Patient feels overall improved. Tolerating tube feed changes well. Abdomen is nontender, ascites is noted but not firm/tense. Denies fever, chills, sweats. No lightheadedness or dizziness. Does feel co mfortable returning home to outpatient follow-up. Will follow-up with his oncologist and GI. On examination patient is cachectic, lungs are clear, heart rate is intermittently tachycardic. Abdomen is not focally tender and is without rebound potassium improved, continue 20 M EQ's daily. Should have repeat BMP within 1 week. Hematuria has improved, patient will have outpatient follow-up for cystoscopy with urology, hemo-globin stable on discharge. Free water component from feeds has been increased from 50 cc before and after 4 times per day to 100 cc before and after due to free water contraction which resolved during admission. Follow sodium on repeat BMP. Agree with other management above. Resident Activity Tracking Resident Involvement: Resident Care Provided Care Provided: Adult Hospital Medicine
--- NOTE | 2022-06-20 15:00 | Billing Data ---
Date of Service June 20, 2022 Coding Level of Care Code D/C DAY MANAGEMENT >30 MINS
[2022-06-20] MEDS ORDERED: MAGNESIUM OXIDE 400 MG TAB PO SCH (17:00)
== END 2022-06-20 18:42 | disposition home health service (06) | DRG 695 ==
LOC: ED 14:15 → EDINP 18:48 → SUATTDRO 18:48 → 2W 20:59

== ENCOUNTER 2022-06-21 08:33 | Observation (INO) ==
--- NOTE | 2022-06-21 08:50 | Emergency Department Note ---
History of Present Illness General Chief complaint: Weakness Stated complaint: LEG WEAKNESS Time Seen by Provider: 06/21/22 08:34 Source: patient Mode of arrival: EMS Limitations: no limitations History of Present Illness Provider complaint: leg weakness, unable to stand Onset (ago): day(s) Treatments prior to arrival: none This is a 77-year-old male presents emergency department via EMS due to worsening lower extremity weakness and now inability to stand or ambulate. Patient is from home, has been using a walker and helps him at bedside however he states his leg weakness has worsened to the point where he can no longer stand. He states he has had increasing leg swelling over the last several weeks. Patient does have a G-tube for which she gets feedings due to prior history of aspiration. He denies any change in medications. Patient denies any counting falls. Patient states he was previously told that his protein in his diet was low and that was contributing to some of his swelling. He states he was also recently evaluated due to blood in his urine. He denies any joint pain including back or hip pain, denies any recent falls, denies fever s or chills. States his G-tube has been working appropriately. He denies any concurrent shortness of breath or chest pain. Pt seen during a time of high acuity and national emergency pandemic while wearing PPE. Home Medications Medication Instructions Recorded Confirmed Type octreotide,microspheres 30 mg 30 mg IM Q28D 12/28/19 06/21/22 History intramuscular susp, extended release (Sandostatin [place]) atorvastatin 40 mg tablet (Lipitor) 40 mg feeding tube HS #30 tabs 05/12/22 06/21/22 Rx nutrition [id number] See Rx Instructions .Route 05/12/22 06/21/22 Rx 0.05 gram-1.2 kcal/mL tube feed .COMPLEX #6,000 mL liquid (Fibersource HN) aspirin 81 mg chewable tablet 81 mg feeding tube QAM 06/18/22 06/21/22 History (Children's Aspirin) levetiracetam 500 mg tablet 500 mg PO BID 06/18/22 06/21/22 History magnesium oxide 800 mg feeding tube TID 06/18/22 06/21/22 History metoprolol tartrate 25 mg tablet 12.5 mg feeding tube BID 06/18/22 06/21/22 History sodium di- and 2 tab feeding tube QID 06/18/22 06/21/22 History monophosphate-potassium phos monobasic 250 mg tablet (Phospha 250 Neutral) potassium chloride 20 mEq/15 mL 20 meq (15 mL) PO DAILY 06/20/22 06/21/22 Rx oral liquid hypokalemia #450 mL Allergies Allergy/AdvReac Type Severity Reaction Status Date / Time heparin Allergy Severe thrombocyto Verified 06/21/22 14:52 penia adhesive Allergy Intermediate Hives Verified 06/21/22 14:52 ciprofloxacin [From Cipro] Allergy Intermediate Hives Verified 06/21/22 14:52 buspirone [From BuSpar] AdvReac Intermediate Dizziness Verified 06/21/22 14:52 lansoprazole [From Prevacid] AdvReac Mild Diarrhea Verified 06/21/22 14:52 venlafaxine [From Effexor] AdvReac Mild somnulence Verified 06/21/22 14:52 Past Med/Surg History Medical History Acute CVA (cerebrovascular accident) 06/2018. Brain imaging at the time also noted chronic vs subacute CVA. pt denies deficits Anxiety CAD (coronary artery disease) S/p CABG x 2 (SMITH to LAD and SVG to OM), 2018. Electrolyte abnormality Elevated LFTs GERD (gastroesophageal reflux disease) History of aortic valve disease S/P [facility] bioprosthetic AVR 2018 (with CABG) History of atrial fibrillation Post-op CABG. follows with Dr. Orta. History of pleural effusion 07/2018. Drained. HLD (hyperlipidemia) HTN (hypertension) Humerus fracture LEFT SIDE Kidney stones Pacemaker [employer]; [facility] for postop complete heart block after CABG 2018. last check 1 mo ago Pancreatic cancer with mets to liver dx 2018; s/p TACE procedure x 2 Severe protein-calorie malnutrition Simple partial seizure disorder Per neurology office note 2020: History of seizure-like activity characterized by alteration in awareness, staring spells, beginning in the context of a hospitalization at [facility] for AVR, CABG in May 2018. Patient continues with Keppra. However, it is unclear to me if he needs to remain on this medication. I have recommended an up-to-date EEG. If the EEG is normal we will consider tapering off Keppra. (EEG 12/19 = This is a normal-appearing awake/drowsy EEG demonstrating a normal reactive background rhythm, and not much else. A normal EEG does not completely exclude a diagnosis of epilepsy.) Surgical History History of cardiac cath 2017 [facility] History of colonoscopy History of cystoscopy WITH STENT PLACED History of esophagogastroduodenoscopy (EGD) History of lithotripsy History of reverse total replacement of left shoulder joint History of surgery TACE procedure x 2 History of tonsillectomy and adenoidectomy History of tooth extraction Hx of CABG two-vessel; [facility] 2017 S/P AVR (aortic valve replacement) [facility] 2017 S/P cholecystectomy Status post Power fundoplication Status post placement of cardiac pacemaker 06/2018 due to post-op heart block after CABG. 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 Beliefs That Will Affect Care: None marital status: Current Living Situation: Spouse current occupational status: retired 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, etc); [employer] career Feels Safe at Home: Yes Assistive Devices: Walker Review of Systems A total of 10 systems reviewed and were otherwise negative All systems reviewed & are unremarkable except as noted in HPI & below Physical Exam Vital Signs Vital Signs - 24 hr 06/21/22 08:35 06/21/22 08:35 06/21/22 10:12 Temperature 36.8 C Temperature Source Oral Pulse Rate 102 H 102 H Pulse Rate [Right Finger] 104 H Pulse Rate from SpO2 Sensor Respiratory Rate 16 16 26 H Respiratory Effort / Characteristics Non-Labored Respiratory Depth Normal Blood Pressure 127/79 Blood Pressure [Right Arm] 117/75 Blood Pressure Mean 95 Blood Pressure Mean [Right Arm] 89 Pulse Oximetry 92 92 92 Oxygen Delivery Method Room Air Room Air Room Air Sepsis Recent Fever Within 48 Hours No Sepsis New/Unexplained Change in Mental Status N/A Sepsis Action Taken by Nursing No Action Required 06/21/22 08:40 06/21/22 09:00 06/21/22 09:00 Temperature Temperature Source Pulse Rate 105 H 103 H Pulse Rate [Right Finger] Pulse Rate from SpO2 Sensor Respiratory Rate 18 22 Respiratory Effort / Characteristics Respiratory Depth Blood Pressure 118/76 Blood Pressure [Right Arm] Blood Pressure Mean 90 Blood Pressure Mean [Right Arm] Pulse Oximetry Oxygen Delivery Method Sepsis Recent Fever Within 48 Hours Sepsis New/Unexplained Change in Mental Status Sepsis Action Taken by Nursing 06/21/22 09:30 06/21/22 10:00 06/21/22 10:00 Temperature Temperature Source Pulse Rate 96 H 104 H Pulse Rate [Right Finger] Pulse Rate from SpO2 Sensor 100 H 107 H Respiratory Rate 23 21 Respiratory Effort / Characteristics Respiratory Depth Blood Pressure 119/80 Blood Pressure [Right Arm] Blood Pressure Mean 93 Blood Pressure Mean [Right Arm] Pulse Oximetry 92 91 Oxygen Delivery Method Sepsis Recent Fever Within 48 Hours Sepsis New/Unexplained Change in Mental Status Sepsis Action Taken by Nursing 06/21/22 10:08 06/21/22 10:08 06/21/22 10:30 Temperature Temperature Source Pulse Rate 104 H 105 H Pulse Rate [Right Finger] Pulse Rate from SpO2 Sensor 102 H 106 H Respiratory Rate 24 16 Respiratory Effort / Characteristics Respiratory Depth Blood Pressure 117/75 Blood Pressure [Right Arm] Blood Pressure Mean 89 Blood Pressure Mean [Right Arm] Pulse Oximetry 92 92 Oxygen Delivery Method Sepsis Recent Fever Within 48 Hours Sepsis New/Unexplained Change in Mental Status Sepsis Action Taken by Nursing 06/21/22 11:00 06/21/22 11:37 06/21/22 12:00 Temperature Temperature Source Pulse Rate 104 H 109 H Pulse Rate [Right Finger] Pulse Rate from SpO2 Sensor 105 H 106 H Respiratory Rate 19 23 Respiratory Effort / Characteristics Respiratory Depth Blood Pressure 123/80 Blood Pressure [Right Arm] Blood Pressure Mean 94 Blood Pressure Mean [Right Arm] Pulse Oximetry 90 92 Oxygen Delivery Method Sepsis Recent Fever Within 48 Hours Sepsis New/Unexplained Change in Mental Status Sepsis Action Taken by Nursing 06/21/22 12:00 06/21/22 12:30 06/21/22 13:00 Temperature Temperature Source Pulse Rate 107 H 106 H Pulse Rate [Right Finger] Pulse Rate from SpO2 Sensor 107 H 106 H Respiratory Rate 19 22 Respiratory Effort / Characteristics Respiratory Depth Blood Pressure 113/75 Blood Pressure [Right Arm] Blood Pressure Mean 87 Blood Pressure Mean [Right Arm] Pulse Oximetry 91 92 Oxygen Delivery Method Sepsis Recent Fever Within 48 Hours Sepsis New/Unexplained Change in Mental Status Sepsis Action Taken by Nursing 06/21/22 13:00 06/21/22 13:30 Temperature Temperature Source Pulse Rate 104 H 105 H Pulse Rate [Right Finger] Pulse Rate from SpO2 Sensor 105 H Respiratory Rate 21 16 Respiratory Effort / Characteristics Respiratory Depth Blood Pressure Blood Pressure [Right Arm] Blood Pressure Mean Blood Pressure Mean [Right Arm] Pulse Oximetry 93 Oxygen Delivery Method Sepsis Recent Fever Within 48 Hours Sepsis New/Unexplained Change in Mental Status Sepsis Action Taken by Nursing GENERAL: alert, well appearing, well nourished, no distress, non-toxic EYE EXAM: normal conjunctiva, PERRL and EOM's grossly intact OROPHARYNX: no exudate, no erythema, lips, buccal mucosa, and tongue normal and mucous membranes are moist NECK: supple, no nuchal rigidity, no adenopathy, non-tender LUNGS: Clear to auscultation. Normal chest wall mechanics, no w/r/r HEART: no murmurs, S1 normal and S2 normal ABDOMEN: abdomen soft, non-tender, normo-active bowel sounds, no masses, no rebound or guarding. BACK: Back is symmetrical on inspection and there is no deformity, no midline tenderness, no CVA tenderness. SKIN: no rashes and no bruising UPPER EXTREMITIES: upper extremities are grossly normal. FROM, nml pulses b/l. LOWER EXTREMITIES: 3+ b/l pitting edema up to the knee. FROM, nml pulses b/l. Sensation intact bilaterally. NEURO EXAM: Normal sensorium, cranial nerves II-XII grossly intact, normal speech, no gross weakness of arms, no gross weakness of legs. Gross sensation intact. Course Administered Medications Discontinued Medications Ceftriaxone Sodium (Rocephin) 1,000 mg in 50 mls @ 100 mls/hr IV NOW STA Stop: 06/21/22 13:03 Last Infusion: 06/21/22 13:40 Dose: 0 mls/hr Documented By: Admin: 06/21/22 13:01 Dose: 100 mls/hr Documented By: AM Medical Decision Making Differential Diagnosis Differential Diagnosis includes but is not limited to dehydration, stroke, anemia, hypoglycemia, hyponatremia, hypernatremia, urinary tract infection, pneumonia, bronchitis, sepsis, gastroenteritis, additional abdominal pathology, metabolic abnormalities and infections. Medical Records Attestation: I reviewed the patient's medical records. Home Medications Current Medication List: was personally reviewed by me Laboratory Data Attestation: I reviewed the patient's lab results. Result diagrams: 06/21/22 09:00 06/21/22 09:00 Lab Results 06/21/22 06/21/22 06/21/22 Range/Units 09:00 09:00 09:00 WBC 7.49 (4.8-10.8) K/ul RBC 3.83 L (4.63-6.08) M/uL Hgb 12.3 L (14.0-18.0) g/dl Hct 37.4 L (40.1-51.0) % MCV 97.7 (80.0-100.0) fL MCH 32.1 (25.0-34.0) pg MCHC 32.9 (32.0-36.0) g/dL RDW Std Deviation 52.7 H (36.4-46.3) fL RDW Coeff of [place] 14.8 H (11.5-14.5) % Plt Count 207 (130-400) K/uL MPV 13.4 H (9.4-12.4) fL Immature Gran % (Auto) 0.3 % Neut % (Auto) 75.9 % Lymph % (Auto) 12.7 % [place] % (Auto) 10.0 % Eos % (Auto) 0.4 % Baso % (Auto) 0.7 % Neut # (Auto) 5.69 (1.4-6.5) K/uL Lymph # (Auto) 0.95 L (1.2-3.4) K/uL [place] # (Auto) 0.75 (0.24-0.82) K/uL Eos # (Auto) 0.03 (0-0.50) K/uL Baso # (Auto) 0.05 (0-0.2) K/uL Immature Gran # (Auto) 0.02 (0.00-0.02) K/uL Sodium 139 (136-145) mmol/L Potassium 3.5 (3.5-5.1) mmol/L Chloride 96 L (98-107) mmol/L Carbon Dioxide 33 H (21-32) mmol/L Anion Gap 10 (3-11) BUN 18 (6-23) mg/dl Creatinine 0.40 L (0.6-1.4) mg/dl Est Cr Clr Drug Dosing 132.3 ml/min Est GFR ( Amer) 134.7 ml/min Est GFR (Non-Af Amer) 116.2 ml/min BUN/Creatinine Ratio 45.0 H (10-20) Glucose 81 (70-99(Fasting)) mg/dl Calcium 8.8 (8.5-10.1) mg/dl Phosphorus 2.6 (2.5-4.9) mg/dl Magnesium 1.7 (1.7-2.4) mg/dl Total Bilirubin 1.5 H (0.2-1.0) mg/dl AST 150 H (13-39) U/L ALT 57 H (7-52) U/L Alkaline Phosphatase 870 H (34-104) U/L Troponin I High Sens 62.1 H* D (0-20) pg/ml Total Protein 5.6 L (6.0-8.3) gm/dl Albumin 2.7 L (3.4-5.0) gm/dl Globulin 2.9 (2.5-4.0) gm/dl Albumin/Globulin Ratio 0.9 (0.9-2) Lipase 10 L (11-82) U/L TSH 8.568 H (0.300-4.500) uIu/ml Free T4 0.98 (0.61-1.60) ng/dl Urine Color Urine Appearance (Clear) Urine pH (4.5-7.5) Ur Specific [place] (1.000-1.030) Urine Protein (Negative) Urine Glucose (UA) (Negative) Urine Ketones (Negative) Urine Blood (Negative) Urine Nitrite (Negative) Urine Bilirubin (Negative) Urine Urobilinogen (Negative) Ur Leukocyte Esterase (Negative) Urine WBC (Auto) (0-5) /hpf Urine RBC (Auto) (0-4) /hpf U Hyaline Cast (Auto) (0-5) /lpf U Epithel Cells (Auto) (0-5) /lpf Urine Bacteria (Auto) (Negative) Ur Renal Epithelial Cell SARS-CoV-2, RNA, NAAT (NEGATIVE) 06/21/22 06/21/22 Range/Units 11:46 13:00 WBC (4.8-10.8) K/ul RBC (4.63-6.08) M/uL Hgb (14.0-18.0) g/dl Hct (40.1-51.0) % MCV (80.0-100.0) fL MCH (25.0-34.0) pg MCHC (32.0-36.0) g/dL RDW Std Deviation (36.4-46.3) fL RDW Coeff of [place] (11.5-14.5) % Plt Count (130-400) K/uL MPV (9.4-12.4) fL Immature Gran % (Auto) % Neut % (Auto) % Lymph % (Auto) % [place] % (Auto) % Eos % (Auto) % Baso % (Auto) % Neut # (Auto) (1.4-6.5) K/uL Lymph # (Auto) (1.2-3.4) K/uL [place] # (Auto) (0.24-0.82) K/uL Eos # (Auto) (0-0.50) K/uL Baso # (Auto) (0-0.2) K/uL Immature Gran # (Auto) (0.00-0.02) K/uL Sodium (136-145) mmol/L Potassium (3.5-5.1) mmol/L Chloride (98-107) mmol/L Carbon Dioxide (21-32) mmol/L Anion Gap (3-11) BUN (6-23) mg/dl Creatinine (0.6-1.4) mg/dl Est Cr Clr Drug Dosing ml/min Est GFR ( Amer) ml/min Est GFR (Non-Af Amer) ml/min BUN/Creatinine Ratio (10-20) Glucose (70-99(Fasting)) mg/dl Calcium (8.5-10.1) mg/dl Phosphorus (2.5-4.9) mg/dl Magnesium (1.7-2.4) mg/dl Total Bilirubin (0.2-1.0) mg/dl AST (13-39) U/L ALT (7-52) U/L Alkaline Phosphatase (34-104) U/L Troponin I High Sens (0-20) pg/ml Total Protein (6.0-8.3) gm/dl Albumin (3.4-5.0) gm/dl Globulin (2.5-4.0) gm/dl Albumin/Globulin Ratio (0.9-2) Lipase (11-82) U/L TSH (0.300-4.500) uIu/ml Free T4 (0.61-1.60) ng/dl Urine Color Dark Yellow Urine Appearance Clear (Clear) Urine pH 8.0 H (4.5-7.5) Ur Specific [place] 1.025 (1.000-1.030) Urine Protein 2+ H (Negative) Urine Glucose (UA) Negative (Negative) Urine Ketones Negative (Negative) Urine Blood Negative (Negative) Urine Nitrite Negative (Negative) Urine Bilirubin Negative (Negative) Urine Urobilinogen Positive H (Negative) Ur Leukocyte Esterase Trace H (Negative) Urine WBC (Auto) 1-5 (0-5) /hpf Urine RBC (Auto) 0-4 (0-4) /hpf U Hyaline Cast (Auto) 1-5 (0-5) /lpf U Epithel Cells (Auto) >30 H (0-5) /lpf Urine Bacteria (Auto) Negative (Negative) Ur Renal Epithelial Cell Not Reportable SARS-CoV-2, RNA, NAAT NEGATIVE (NEGATIVE) Imaging Data Radiologist's Impression: Chest X-Ray 06/21/22 09:36 XR chest 1V portable CLINICAL HISTORY: weakness TECHNIQUE: Single frontal radiograph of the chest was obtained. Comparison: Comparison is made to chest radiograph 04/30/2022 FINDINGS: A left shoulder arthroplasty is seen. Median sternotomy wires are noted. Cardiomegaly is noted. Bones are underinflated. In the interval there has developed bilateral lower lobe predominant airspace opacities. Bilateral pleural effusions are seen. IMPRESSION: 1. Bilateral lower lung predominant airspace opacities which may represent atelectasis, pneumonia, and/or aspiration. 2. Moderate left and small right pleural effusion. ACT 112: Negative or not required by law. Electronically signed by: Mark Rodriguez M.D. 06/21/2022 10:[address] 06/21/22 10:30 CT lumbar spine wo con CLINICAL HISTORY: leg weakness, known malignancy TECHNIQUE: Multidetector row helical CT of the lumbar spine was performed without administration of intravenous contrast. Coronal and sagittal reformations were obtained. Automated dose lowering techniques and/or adjustment according to patient size were utilized for this exam. CT DOSE: 615.49 mGy.cm Comparison: Comparison is made to CT abdomen pelvis 06/18/[address] abdomen pelvis 06/28/[address] abdomen pelvis 02/11/2007 FINDINGS: For counting purposes, the last complete intervertebral disc space is considered L5-S1. Ossifications are noted in the disc spaces. There is redemonstration of ill- defined hypodensities in the marrow space of the vertebral body without evidence of cortical involvement, this is similar in appearance to from 2006 and unlikely to represent metastatic disease. Vertebral body heights and disk spaces are well maintained. Vertebral body alignment is within normal limits. Partial visualization of ascites. IMPRESSION: 1. Degenerative changes are seen in the spine. No evidence of acute fracture. 2. Partial visualization of ascites. ACT 112: Negative or not required by law. Electronically signed by: Mark Rodriguez M.D. 06/21/2022 12:22 PM ECG Data Attestation: I personally reviewed and interpreted this ECG as follows: Indication: + weakness Rate (beats per minute): 105 Rhythm: + other ECG Intervals/blocks: + IVCD and + Prolonged QT ECG [place]: + Left axis deviation ECG ST segments: + Nonspecific ST abnormalities MDM Narrative An order was placed for continuous cardiac monitoring. The monitor shows a rate of _99__ with _paced__ rhythm. This is a 77-year-old male presents emergency department due to worsening lower extremity weakness and inability to stand or walk. Patient with complicated medical history which included recent admission for weakness and hematuria. Patient has history of prior CVA as well as seizures. He is fed through a G- tube strictly. Patient did have abnormal electrolytes that were corrected during his last admission. He states he is taking his medications as prescribed. He states since coming home he has felt his weakness has worsened. His is no longer able to help care for him at home as he is unable to stand or walk. Patient can move his legs while at rest, he feels there too weak to support his body weight though in a standing position. He denies any leg paresthesias. Denies any hip or back pain. Labs reassuring with only mild hypokalemia noted. Patient's hypoalbuminemia again seen and likely contributing to his lower extremity weakness and abdominal ascites. Patient was hemodynamically stable throughout. No metastatic changes noted on CT lumbar spine. Case discussed with hospitalist for additional evaluation and willard orr. Impression & Plan Bilateral leg weakness, Bilateral edema of lower extremity, Hypokalemia, Hypoalbuminemia Discharge Plan Visit Data Chief Complaint: Weakness Stated Complaint: LEG WEAKNESS ED Provider: Jerrica Garcia Discharge Problem: Bilateral leg weakness, Bilateral edema of lower extremity, Hypokalemia, Hypoalbuminemia Patient Disposition: Admitted As Inpatient Condition: Fair Discharge Instructions Interventions: ED Discharge Assessment Last Done: 06/21/22 15:31
[2022-06-21 09:45] LABS: Hematocrit (blood only) 37.4 % (40.1-51.0); Hemoglobin 12.3 g/dl (14.0-18.0); Mean Corpuscular Hemoglobin 32.1 pg (25.0-34.0); Mean Corpuscular Hgb Conc 32.9 g/dL (32.0-36.0); Mean Corpuscular Volume 97.7 fL (80.0-100.0); RDW Coefficient of Variation 14.8 % (11.5-14.5); RDW Standard Deviation 52.7 fL (36.4-46.3); Red Blood Count 3.83 M/uL (4.63-6.08); White Blood Count 7.49 K/ul (4.8-10.8)
[2022-06-21 09:55] LABS: Basophils # (auto) 0.05 K/uL (0-0.2); Basophils % (auto) 0.7 %; Eosinophils # (auto) 0.03 K/uL (0-0.50); Eosinophils % (auto) 0.4 %; Immature Granulocytes # (auto) 0.02 K/uL (0.00-0.02); Immature Granulocytes % (auto) 0.3 %; Lymphocytes # (auto) 0.95 K/uL (1.2-3.4); Lymphocytes % (auto) 12.7 %; Mean Platelet Volume 13.4 fL (9.4-12.4); Monocytes # (auto) 0.75 K/uL (0.24-0.82); Neutrophils # (auto) 5.69 K/uL (1.4-6.5); Neutrophils % (auto) 75.9 %; Platelet Count 207 K/uL (130-400)
--- NOTE | 2022-06-21 10:04 | XRay Report ---
XR chest 1V portable CLINICAL HISTORY: weakness TECHNIQUE: Single frontal radiograph of the chest was obtained. Comparison: Comparison is made to chest radiograph 04/30/2022 FINDINGS: A left shoulder arthroplasty is seen. Median sternotomy wires are noted. Cardiomegaly is noted. Bones are underinflated. In the interval there has developed bilateral lower lobe predominant airspace opa cities. Bilateral pleural effusions are seen. IMPRESSION: 1. Bilateral lower lung predominant airspace opacities which may represent atelectasis, pneumonia, a nd/or aspiration. 2. Moderate left and small right pleural effusion. ACT 112: Negative or not required by law. Electronically signed by: Mark Rodriguez M.D. 06/21/2022 10:03 AM
[2022-06-21 10:06] LABS: Albumin Globulin Ratio 0.9 (0.9-2); Albumin Level 2.7 gm/dl (3.4-5.0); Bilirubin,Total 1.5 mg/dl (0.2-1.0); Calcium 8.8 mg/dl (8.5-10.1); Creatinine Clr Calc Pharmacy 132.3 ml/min; Est GFR (African American) 134.7 ml/min; Est GFR (Non-African American) 116.2 ml/min; Globulin 2.9 gm/dl (2.5-4.0); Magnesium 1.7 mg/dl (1.7-2.4); Phosphorus 2.6 mg/dl (2.5-4.9); Potassium 3.5 mmol/L (3.5-5.1); Total Protein 5.6 gm/dl (6.0-8.3)
[2022-06-21 10:13] LABS: Troponin I High Sensitivity 62.1 pg/ml (0-20)
[2022-06-21 10:21] LABS: Thyroid Stimulating Hormone 8.568 uIu/ml (0.300-4.500)
[2022-06-21 10:54] LABS: T4 Free Thyroxine 0.98 ng/dl (0.61-1.60)
--- NOTE | 2022-06-21 11:25 | Electrocardiogram Report ---
Test Reason : Blood Pressure : / mmHG Vent. Rate : 105 BPM Atrial Rate : 105 BPM P-R Int : 166 ms QRS Dur : 140 ms QT Int : 472 ms P-R-T Axes : 043 -52 103 degrees QTc Int : 623 ms Atrial-sensed ventricular-paced rhythm Abnormal ECG When compared with ECG of 30-APR-2022 18:04, Vent. rate has decreased BY 14 BPM Confirmed by John Najera ([id number]) on 06/21/2022 11:24:55 AM Referred By: REFERRED SELF Confirmed By:Chad Najera
[2022-06-21 12:03] LABS: Appearance Urine Clear (Clear); Bacteria Urine Automated Negative (Negative); Bilirubin Urine Negative (Negative); Blood Urine Negative (Negative); Color Urine Dark Yellow; Epithelial Cell Urine Auto >30 /lpf (0-5); Glucose Urine UA Negative (Negative); Ketones Urine Negative (Negative); Leukocyte Esterase Urine Trace (Negative); Nitrite Urine Negative (Negative); RBC Urine Automated 0-4 /hpf (0-4); Specific Gravity Urine 1.025 (1.000-1.030); Urobilinogen Urine Positive (Negative)
[2022-06-21 12:04] LABS: Protein Urine 2+ (Negative)
--- NOTE | 2022-06-21 12:24 | CT Scan Report ---
CT lumbar spine wo con CLINICAL HISTORY: leg weakness, known malignancy TECHNIQUE: Multidetector row helical CT of the lumbar spine was performed without administration of i ntravenous contrast. Coronal and sagittal reformations were obtained. Automated dose lowering techniq ues and/or adjustment according to patient size were utilized for this exam. CT DOSE: 615.49 mGy.cm Comparison: Comparison is made to CT abdomen pelvis 06/18/[address] abdomen pelvis 06/28/[address] a bdomen pelvis 02/11/2007 FINDINGS: For counting purposes, the last complete intervertebral disc space is considered L5-S1. Ossifications are noted in the disc spaces. There is redemonstration of ill-defined hypodensities in the marrow space of the vertebral body without evidence of cortical involvement, this is similar in a ppearance to from 2006 and unlikely to represent metastatic disease. Vertebral body heights and disk spaces are well maintained. Vertebral body alignment is within normal limits. Partial visualization o f ascites. IMPRESSION: 1. Degenerative changes are seen in the spine. No evidence of acute fracture. 2. Partial visualization of ascites. ACT 112: Negative or not required by law. Electronically signed by: Mark Rodriguez M.D. 06/21/2022 12:22 PM
[2022-06-21] MEDS ORDERED: cefTRIAXone SODIUM 1,000 MG/50 ML BAG IV STA (12:34)
--- NOTE | 2022-06-21 13:19 | History & Physical Report ---
Date of Service June 21, 2022 Assessment & Plan (1) Weakness: Plan: The cause of patient's clinical presentation is uncertain. Possible etiologies include deconditioning from recent hospital admission. Underlying urinary tract infection or other infectious process could be at play. Underlying cardiac etiology has not been ruled out at this time. In addition there could be progression of patient's underlying malignancy which could be contributing to this. We will therefore proceed as follows: Patient will be admitted to the hospital I will repeat a set of cardiac enzymes to see if there is further elevation of his troponin We will continue the patient on empiric Rocephin for the potential of an underlying urinary tract infection. We will follow for results of urine culture with antibiotics tailored based on the results of this We will follow serial laboratories We will ask for PT and OT evaluations Will request case management to follow with this patient as the patient's notes that he remains deconditioned she will be unlikely to handle him at home and he may require placement at either a rehab facility or residential facility Will use subcu heparin for DVT prevention. I discussed CODE STATUS with this patient. He noted that in the event of cardiopulmonary arrest he would not want CPR employed in his care. I also discussed with him that if his respiratory status would decrease or become impaired he would not want mechanical ventilation utilized. He would therefore be a level 5 DO NOT RESUSCITATE. This was verified with the patient in the presence of his and they are in agreement. History of Present Illness Chief Complaint: Weakness and failure to thrive Primary Care Provider: Elvis Falk DO This is a 77-year-old male who was recently admitted to [facility] from 06/18/2022 through 06/20/2022. Patient presented to the hospital during that admission secondary to dysuria and hematuria. Prior to that admission the patient noted gross hematuria passing some blood clots. He was admitted to [facility] where he was seen by urology. No active intervention was undertaken as patient was able to void without difficulty and his hematuria subsequently improved. Should also be noted that during that admission patient was noted to have significant ascites in his abdomen with no intervention undertaken. He was also found to be hyponatremic which was improved with hydration with D5W, and he was also noted to have hypokalemia which was replenished. It is nowhere the mention that the patient has not history of a pancreatic neuroendocrine tumor for which she follows with Dr. Melvin at [facility] in [place], [place]. The patient notes that he is receiving somatostatin treatments for this malignancy with his most recent treatment being performed on 06/17/2022. He n otes that the next treatment of this type is due in approximately 28 days. He also reports he has been receiving chemoembolization at the direction of his [facility] oncology team. The patient notes that he was to visit with his oncologist on 06/29/2022 at which time further discussion was to be had on if further treatments were to be administered based on his clinical status, laboratories, and most recent imaging. Patient was discharged home on 06/20/2022 from this hospitalization. The patient represented to [facility] today as the patient's notes that prior to his aforementioned hospitalization he was mobile able to ambulate with a walker, however since being home from his most recent hospitalization he has been unable to walk and nearly unable to transfer from bed to chair. Patient's is unclear of why this is the case. She specifically notes that he has not had any falls or injuries. She notes that he has not been running any fevers. He is n.p.o. due to dysphagia and has a PEG tube in place and he has been tolerating his medicines and tube feeds without difficulty. She notes that he has not had any nausea or vomiting. She also notes that he has not had any diarrhea. The patient notes that his hematuria from his previous admission has cleared and he denies any dysuria. He denies any significant back. He denies any sore throat or cough. He does note some significantly worsening lower extremity edema. Today in the emergency department the patient did have labs and imaging which independent reviewed. He did have an EKG showed a paced rhythm. CBC revealed white blood cell count was in the normal range. Hemoglobin and hematocrit were 12.3 and 37.4 which were stable from previous values. His platelet count was 207,000. Chemistry profile showed sodium, potassium, and BUN were normal. His creatinine was actually low at 2.4. He was noted to have an elevated troponin at 62.1. Review of records show that he does have a chronically elevated troponin. He was also noted to have some elevation of his LFTs with total bilirubin 1.5, AST 150, ALT of 57, alkaline phosphatase of 870. Review of records show that all of these values have been chronically elevated as well. His lipase was not elevated. He was noted to have a low albumin at 2.7. Urinalysis did show trace leukocyte Estrace. There were only 1-5 white blood cells per high-power field and no bacteria on the study. Patient did have an elevated TSH at 8.568, however his free T4 was within the normal range. Chest x-ray showed bilateral lower lung airspace opacities concerning for either atelectasis or pneumonia. Small bilateral pleural effusions were noted. He also had a lumbar spine CT scan that showed some degenerative changes in the L- spine but there is no evidence of metastatic disease or fractures. Since arrival to the emergency department the patient was given empiric Rocephin to treat for potential underlying urinary tract infection. A urine culture has been sent. At the time of my interview the patient was resting comfortably in bed. He was in no distress. Allergies Allergy/AdvReac Type Severity Reaction Status Date / Time heparin Allergy Severe thrombocyto Verified 06/21/22 14:52 penia adhesive Allergy Intermediate Hives Verified 06/21/22 14:52 ciprofloxacin [From Cipro] Allergy Intermediate Hives Verified 06/21/22 14:52 buspirone [From BuSpar] AdvReac Intermediate Dizziness Verified 06/21/22 14:52 lansoprazole [From Prevacid] AdvReac Mild Diarrhea Verified 06/21/22 14:52 venlafaxine [From Effexor] AdvReac Mild somnulence Verified 06/21/22 14:52 Home Medications Medication Instructions Recorded Confirmed Type octreotide,microspheres 30 mg 30 mg IM Q28D 12/28/19 06/21/22 History intramuscular susp, extended release (Sandostatin [place]) atorvastatin 40 mg tablet (Lipitor) 40 mg feeding tube HS #30 tabs 05/12/22 06/21/22 Rx nutrition [id number] See Rx Instructions .Route 05/12/22 06/21/22 Rx 0.05 gram-1.2 kcal/mL tube feed .COMPLEX #6,000 mL liquid (Fibersource HN) aspirin 81 mg chewable tablet 81 mg feeding tube QAM 06/18/22 06/21/22 History (Children's Aspirin) levetiracetam 500 mg tablet 500 mg PO BID 06/18/22 06/21/22 History magnesium oxide 800 mg feeding tube TID 06/18/22 06/21/22 History metoprolol tartrate 25 mg tablet 12.5 mg feeding tube BID 06/18/22 06/21/22 History sodium di- and 2 tab feeding tube QID 06/18/22 06/21/22 History monophosphate-potassium phos monobasic 250 mg tablet (Phospha 250 Neutral) potassium chloride 20 mEq/15 mL 20 meq (15 mL) PO DAILY 06/20/22 06/21/22 Rx oral liquid hypokalemia #450 mL Past Med/Surg History Medical History Acute CVA (cerebrovascular accident) 06/2018. Brain imaging at the time also noted chronic vs subacute CVA. pt denies deficits Anxiety CAD (coronary artery disease) S/p CABG x 2 (SMITH to LAD and SVG to OM), 2018. Electrolyte abnormality Elevated LFTs GERD (gastroesophageal reflux disease) History of aortic valve disease S/P [facility] bioprosthetic AVR 2018 (with CABG) History of atrial fibrillation Post-op CABG. follows with Dr. Orta. History of pleural effusion 07/2018. Drained. HLD (hyperlipidemia) HTN (hypertension) Humerus fracture LEFT SIDE Kidney stones Pacemaker Medtr[employer]; [facility] for postop complete heart block after CABG 2017. last check 1 mo ago Pancreatic cancer with mets to liver dx 2018; s/p TACE procedure x 2 Severe protein-calorie malnutrition Simple partial seizure disorder Per neurology office note 2020: History of seizure-like activity characterized by alteration in awareness, staring spells, beginning in the context of a hospitalization at [facility] for AVR, CABG in May 2018. Patient continues with Keppra. However, it is unclear to me if he needs to remain on this medication. I have recommended an up-to-date EEG. If the EEG is normal we will consider tapering off Keppra. (EEG 12/19 = This is a normal-appearing awake/drowsy EEG demonstrating a normal reactive background rhythm, and not much else. A normal EEG does not completely exclude a diagnosis of epilepsy.) Surgical History History of cardiac cath 2017 [facility] History of colonoscopy History of cystoscopy WITH STENT PLACED History of esophagogastroduodenoscopy (EGD) History of lithotripsy History of reverse total replacement of left shoulder joint History of surgery TACE procedure x 2 History of tonsillectomy and adenoidectomy History of tooth extraction Hx of CABG two-vessel; [facility] 2017 S/P AVR (aortic valve replacement) [facility] 2017 S/P cholecystectomy Status post Power fundoplication Status post placement of cardiac pacemaker 06/2018 due to post-op heart block after CABG. Family History Father Heart disease S/P CABG (coronary artery bypass graft) Stroke Family history of diabetes mellitus Mother Heart disease Hypertension Stroke Family history of diabetes mellitus Grandfather (Maternal) Stroke Grandfather (Paternal) Cirrhosis of liver Social History Smoking Status: Never smoker Second Hand Exposure: No; Hx Alcohol Use: Yes Alcohol type: hard liquor Hx Substance Use: No Preferred Language: Greenlandic Communication Ability: Effective Visual Impairment: No Limitations Insurance Clerk Required: No Beliefs That Will Affect Care: None marital status: Current Living Situation: Spouse current occupational status: retired 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, etc); [employer] career Feels Safe at Home: Yes Assistive Devices: Walker Review of Systems Constitutional: + malaise and + weakness; no fever and no chills Eyes: no eye pain Ear, Nose, Mouth, Throat: no ear pain Respiratory: no cough and no dyspnea Cardiovascular: no chest pain Gastrointestinal: no abdominal pain, no nausea and no vomiting Genitourinary: no dysuria, no hematuria or no flank pain Musculoskeletal: no back pain Integumentary: no rash Neurologic: + generalized weakness; no falls Physical Exam Constitutional: + thin and + cachectic; no acute distress Eyes: PERRL ENMT: Ears: no hearing impairment and no external ear abnormality Mouth: no oropharynx abnormality Neck: trachea midline Respiratory: Breath sounds are noted to be decreased at bases bilaterally. The patient is not using accessory muscles in respiration. There are no rhonchi or wheezing noted. Cardiovascular: Rate/Rhythm: regular rhythm Vessels: dorsalis pedis pulses present and radial pulses present Gastrointestinal (Abdomen): Abdomen is soft and nonrigid. Palpation did not cause pain. There is no rebound tenderness or guarding. The patient did have a moderate amount of ascites noted. Musculoskeletal: 3-4+ pitting bilateral lower extremity edema noted. Feet are warm and nonmottled Skin: no rashes Neurologic: Patient is able to follow simple commands. He is able to move his arms without noted focal deficits. Patient can dorsiflex and plantarflex his feet bilaterally, however these motions are weakened. He cannot lift either leg off the bed against gravity. His speech is coherent and not garbled Psychiatric: Orientation: alert and oriented x 3 Affect: + flat affect Results & Data Results & Data ([facility]) Vital Signs (Past 12 Hours) Vital Signs Temp Pulse Pulse Resp BP BP Pulse Ox 06/21/22 10:12 104 H 26 H 117/75 92 06/21/22 08:35 102 H 16 92 06/21/22 08:35 36.8 C 102 H 16 127/79 92 O2 Del Method 06/21/22 10:12 Room Air 06/21/22 08:35 Room Air 06/21/22 08:35 Room Air Supervising Physician Co-Signing Physician Notes Patient seen and examined, chart reviewed, case discussed with Mehul Gonzalez PA-C and I agree with the assessment and plan as above except as otherwise noted Labs and images reviewed Seen at bedside. Patient reports he just feels so weak he could not function at home. Thought he was near his baseline previously and his has been helping with 24 care, however is not able to get his legs over the bed and noticed much worse deficits. Denies pain, but endorses global fatigue. Denies sensory loss at bedside. Physical exam does continue with lower extremity edema, nontense abdominal ascites, appears frail and cachectic. Heart rate is mildly tachycardic, breathing is clear Weakness, multifactorial with nutritional depletion, recent hospital admission, likely progression of cancer UA does not appear overtly infected No infectious symptoms No hyponatremia/hyper kalemia TSH is elevated but with normal free T4 Troponin chronically mildly elevated, likely with demand. Transaminases chronically elevated with no liver mets, no acute significant change Creatinine normal, BUN/creatinine ratio remains elevated L-spine CT without acute findings, patient has an MRI compatible pacer but? Lead compatibility will need PT/OT and possible placement Patient is DNR/DNI, confirmed with patient and his at bedside Metastatic neuroendocrine tumor with history of liver metastasis s/p liver chemoembolization Follows outpt with Dr. Iverson Patient with abdominal ascites, nontense at this time. Will trial Lasix/Chinedu -No acute management at this time PG Care Time/CCT Total # of Minutes Spent Total Time Spent with Patient: Total time spent is greater than 50% in coordination of care (as documented) at patient's floor/unit and/or counseling patient: Coding Level of Care Code 02046 Initial Inpt Care Lvl 3 Diagnoses Weakness R53.1
[2022-06-21] MEDS ORDERED: FIBERSOURCE HN 1.2 CAL 1000 ML BAG GT SCH (17:00)
[2022-06-21] MEDS: POT PHOSPHATE MONOBASIC W/ SOD TAB GT SCH ×2 (17:10→21:12)
[2022-06-21] MEDS: MAGNESIUM OXIDE 400 MG TAB GT SCH (21:12)
[2022-06-21] MEDS: METOPROLOL TARTRATE 25 MG TAB PO SCH (21:12)
[2022-06-21] MEDS: ATORVASTATIN 40 MG TAB GT SCH (21:12)
[2022-06-21] MEDS: FIBERSOURCE HN 1.2 CAL 1000 ML BAG GT SCH (21:13)
[2022-06-22 06:37] LABS: Basophils # (auto) 0.05 K/uL (0-0.2); Basophils % (auto) 0.7 %; Eosinophils # (auto) 0.08 K/uL (0-0.50); Eosinophils % (auto) 1.1 %; Hematocrit (blood only) 36.9 % (40.1-51.0); Hemoglobin 12.2 g/dl (14.0-18.0); Immature Granulocytes # (auto) 0.02 K/uL (0.00-0.02); Immature Granulocytes % (auto) 0.3 %; Lymphocytes # (auto) 0.97 K/uL (1.2-3.4); Lymphocytes % (auto) 13.6 %; Mean Corpuscular Hemoglobin 31.7 pg (25.0-34.0); Mean Corpuscular Hgb Conc 33.1 g/dL (32.0-36.0); Mean Corpuscular Volume 95.8 fL (80.0-100.0); Mean Platelet Volume 12.8 fL (9.4-12.4); Monocytes # (auto) 0.78 K/uL (0.24-0.82); Monocytes % (auto) 10.9 %; Neutrophils # (auto) 5.23 K/uL (1.4-6.5); Neutrophils % (auto) 73.4 %; Platelet Count 228 K/uL (130-400); RDW Coefficient of Variation 14.7 % (11.5-14.5); RDW Standard Deviation 51.7 fL (36.4-46.3); Red Blood Count 3.85 M/uL (4.63-6.08); White Blood Count 7.13 K/ul (4.8-10.8)
[2022-06-22 06:58] LABS: Albumin Globulin Ratio 0.9 (0.9-2); Albumin Level 2.6 gm/dl (3.4-5.0); BUN Creatinine Ratio 48.6 (10-20); Bilirubin,Total 1.1 mg/dl (0.2-1.0); Calcium 8.8 mg/dl (8.5-10.1); Globulin 2.8 gm/dl (2.5-4.0); Potassium 3.5 mmol/L (3.5-5.1); Total Protein 5.4 gm/dl (6.0-8.3)
[2022-06-22] MEDS: METOPROLOL TARTRATE 25 MG TAB PO SCH ×2 (08:43→20:11)
[2022-06-22] MEDS: MAGNESIUM OXIDE 400 MG TAB GT SCH ×3 (08:43→20:10)
[2022-06-22] MEDS: ASPIRIN 81 MG CHEW GT SCH (08:43)
[2022-06-22] MEDS: FUROSEMIDE 20 MG TAB PO SCH (08:43)
[2022-06-22] MEDS: SPIRONOLACTONE 25 MG TAB PO SCH (08:43)
[2022-06-22] MEDS: POT PHOSPHATE MONOBASIC W/ SOD TAB GT SCH ×4 (08:43→20:14)
[2022-06-22] MEDS: POTASSIUM CHLORIDE 20 MEQ/15 ML UDC GT SCH (08:44)
[2022-06-22] MEDS: FIBERSOURCE HN 1.2 CAL 1000 ML BAG GT SCH ×4 (08:44→20:15)
[2022-06-22] MEDS: cefTRIAXone SODIUM 1,000 MG in DEXTROSE 5% 50 ML IV SCH (13:01)
--- NOTE | 2022-06-22 13:16 | Hospitalist Progress Note ---
Date of Service June 22, 2022 Assessment & Plan (1) Bilateral leg weakness: Plan: Weakness, multifactorial with nutritional depletion, recent hospital admission, likely progression of cancer UA does not appear overtly infected No infectious symptoms No hyponatremia/hyper kalemia TSH is elevated but with normal free T4 Troponin chronically mildly elevated, likely with demand. Transaminases chronically elevated with no liver mets, no acute significant change Creatinine normal, BUN/creatinine ratio remains elevated L-spine CT without acute findings, patient has an MRI compatible pacer but? Lead compatibility PT/OT ordered Patient pending SNF placement. Referrals out to [facility], [facility], [facility], and [facility]. Patient is DNR/DNI, confirmed with patient and his at bedside Metastatic neuroendocrine tumor with history of liver metastasis s/p liver chemoembolization Follows outpt with Dr. Iverson Patient with abdominal ascites, nontense at this time. Continue Lasix/spironolactone BP tolerated -No acute management at this time History of seizures Continue Keppra 500 mg twice daily CAD Continue aspirin, atorvastatin, metoprolol DVT prophylaxis: SCDs Diet: Heart healthy Disposition: MedSurg, pending placement (2) Hypoalbuminemia: (3) Weakness: (4) Severe protein-calorie malnutrition: (5) CAD (coronary artery disease): (6) GERD (gastroesophageal reflux disease): (7) History of aortic valve disease: (8) Neuroendocrine tumor: (9) HLD (hyperlipidemia): (10) HTN (hypertension): (11) H/O partial seizures: Admission and Anticipated Discharge Date Admission Date: June 21, 2022 Subjective Seen at bedside. No new complaints. Still feels very weak. No chest pain, chest pressure, lightheadedness, dizziness, shortness of breath. Continues to have swelling in his legs and feet Review of Systems Review of Systems: All systems reviewed & are unremarkable except as noted in Subjective Physical Exam Physical Exam: General: Frail, cachectic HEENT: Atraumatic, normocephalic. Pulm: CTAB A&P. -wheezes, -rales, -rhonchi. Symmetrical chest rise. No increase in work of breathing. No respiratory distress. Cardiac: Mildly tachycardic, regular, -mrg. Radial pulses intact and symmetrical. Abdominal: Nontender, nondistended, soft. BS present. Extremities: Pedal edema bilaterally Results & Data Results & Data ([facility]) Vital Signs (Past 12 Hours) Vital Signs Temp Pulse Resp BP Pulse Ox O2 Del Method 06/22/22 07:07 36.4 C L 105 H 16 119/73 92 Room Air PG Care Time/CCT Total # of Minutes Spent Total Time Spent with Patient: Total time spent is greater than 50% in coordination of care (as documented) at patient's floor/unit and/or counseling patient: Coding Level of Care Code 40606 Subseq Hosp Care Lvl 1 Diagnoses Bilateral leg weakness R29.898 Hypoalbuminemia E88.09 Weakness R53.1 Severe protein-calorie malnutrition E43 CAD (coronary artery disease) I25.10 GERD (gastroesophageal reflux disease) K21.9 History of aortic valve disease Z86.79 Neuroendocrine tumor D3A.8 HLD (hyperlipidemia) E78.5 HTN (hypertension) I10 H/O partial seizures Z86.69
[2022-06-22] MEDS: ATORVASTATIN 40 MG TAB GT SCH (20:10)
[2022-06-23 07:59] LABS: Hematocrit (blood only) 39.8 % (40.1-51.0); Mean Corpuscular Hemoglobin 31.4 pg (25.0-34.0); Mean Corpuscular Hgb Conc 32.7 g/dL (32.0-36.0); Mean Corpuscular Volume 96.1 fL (80.0-100.0); Mean Platelet Volume 13.6 fL (9.4-12.4); Platelet Count 205 K/uL (130-400); RDW Coefficient of Variation 14.5 % (11.5-14.5); Red Blood Count 4.14 M/uL (4.63-6.08); White Blood Count 7.04 K/ul (4.8-10.8)
[2022-06-23 08:19] LABS: Basophils # (auto) 0.04 K/uL (0-0.2); Basophils % (auto) 0.6 %; Eosinophils # (auto) 0.05 K/uL (0-0.50); Eosinophils % (auto) 0.7 %; Immature Granulocytes # (auto) 0.04 K/uL (0.00-0.02); Immature Granulocytes % (auto) 0.6 %; Lymphocytes % (auto) 12.8 %; Monocytes # (auto) 0.88 K/uL (0.24-0.82); Monocytes % (auto) 12.5 %; Neutrophils # (auto) 5.13 K/uL (1.4-6.5); Neutrophils % (auto) 72.8 %; Polychromasia 1+
[2022-06-23 08:25] LABS: Albumin Globulin Ratio 0.9 (0.9-2); Albumin Level 2.6 gm/dl (3.4-5.0); BUN Creatinine Ratio 48.6 (10-20); Calcium 8.7 mg/dl (8.5-10.1); Creatinine Clr Calc Pharmacy 146.3 ml/min; Est GFR (African American) 142.3 ml/min; Est GFR (Non-African American) 122.8 ml/min; Globulin 2.9 gm/dl (2.5-4.0); Potassium 3.9 mmol/L (3.5-5.1); Total Protein 5.5 gm/dl (6.0-8.3)
[2022-06-23] MEDS: POT PHOSPHATE MONOBASIC W/ SOD TAB GT SCH ×4 (09:27→20:00)
[2022-06-23] MEDS: MAGNESIUM OXIDE 400 MG TAB GT SCH ×3 (09:27→20:00)
[2022-06-23] MEDS: SPIRONOLACTONE 25 MG TAB PO SCH (09:27)
[2022-06-23] MEDS: POTASSIUM CHLORIDE 20 MEQ/15 ML UDC GT SCH (09:27)
[2022-06-23] MEDS: FUROSEMIDE 20 MG TAB PO SCH (09:27)
[2022-06-23] MEDS: METOPROLOL TARTRATE 25 MG TAB PO SCH ×2 (09:27→20:01)
[2022-06-23] MEDS: ASPIRIN 81 MG CHEW GT SCH (09:27)
[2022-06-23] MEDS: FIBERSOURCE HN 1.2 CAL 1000 ML BAG GT SCH ×2 (09:35→13:17)
--- NOTE | 2022-06-23 10:27 | Hospitalist Progress Note ---
Date of Service June 23, 2022 Assessment & Plan (1) Bilateral leg weakness: Plan: Weakness, multifactorial with nutritional depletion, recent hospital admission, likely progression of cancer UA does not appear overtly infected No infectious symptoms No hyponatremia/hyper kalemia TSH is elevated but with normal free T4 Troponin chronically mildly elevated, likely with demand. Transaminases chronically elevated with no liver mets, no acute significant change Creatinine normal, BUN/creatinine ratio remains elevated L-spine CT without acute findings, patient has an MRI compatible pacer but? Lead compatibility PT/OT ordered Patient pending SNF placement. Referrals out to [facility], [facility], [facility], and [facility]. Patient is DNR/DNI, confirmed with patient and his at bedside Metastatic neuroendocrine tumor with history of liver metastasis s/p liver chemoembolization Follows outpt with Dr. Iverson Patient with abdominal ascites, nontense at this time. Continue Lasix/spironolactone BP tolerated -No acute management at this time Bilateral lower extremity edema With history of malnutrition, hypoalbuminemia, and liver metastasis Liver ultrasound for portal thrombosis is pending Lower extremity edema significantly improved with Lasix/spironolactone and NESHA hose. Abdominal ascites has softened. Patient is more comfortable, will continue and titrate to blood pressure History of seizures Continue Keppra 500 mg twice daily CAD Continue aspirin, atorvastatin, metoprolol DVT prophylaxis: SCDs Diet: Heart healthy Disposition: MedSurg, pending placement (2) Hypoalbuminemia: (3) Weakness: (4) Severe protein-calorie malnutrition: (5) CAD (coronary artery disease): (6) GERD (gastroesophageal reflux disease): (7) History of aortic valve disease: (8) Neuroendocrine tumor: (9) HLD (hyperlipidemia): (10) HTN (hypertension): (11) H/O partial seizures: Admission and Anticipated Discharge Date Admission Date: June 21, 2022 Subjective Seen at bedside. Reports the swelling in his legs is much better, abdomen seems less times. Overall continues to feel very weak. Had some increased loose bowel movements with increased feeding volume, this seems to have improved slightly with decrease back to 375 cc. No fever, chills, sweats overnight. No change in weakness. No lightheadedness or dizziness. No chest pain or chest pressure Review of Systems Review of Systems: All systems reviewed & are unremarkable except as noted in Subjective Physical Exam Physical Exam: General: Frail, cachectic HEENT: Atraumatic, normocephalic. Pulm: CTAB A&P. -wheezes, -rales, -rhonchi. Symmetrical chest rise. No increase in work of breathing. No respiratory distress. Cardiac: Mildly tachycardic, regular, -mrg. Radial pulses intact and symmetrical. Abdominal: Nontender, nondistended, soft. BS present. Extremities: Pedal and bilateral lower extremity edema bilaterally, improved from prior NESHA hose recently removed Results & Data Results & Data ([facility]) Vital Signs (Past 12 Hours) Vital Signs Temp Pulse Resp BP Pulse Ox O2 Del Method 06/23/22 07:36 36.5 C 108 H 16 123/82 91 Room Air PG Care Time/CCT Total # of Minutes Spent Total Time Spent with Patient: Total time spent is greater than 50% in coordination of care (as documented) at patient's floor/unit and/or counseling patient: Coding Level of Care Code 14865 Subseq Hosp Care Lvl 2 Diagnoses Bilateral leg weakness R29.898 Hypoalbuminemia E88.09 Weakness R53.1 Severe protein-calorie malnutrition E43 CAD (coronary artery disease) I25.10 GERD (gastroesophageal reflux disease) K21.9 History of aortic valve disease Z86.79 Neuroendocrine tumor D3A.8 HLD (hyperlipidemia) E78.5 HTN (hypertension) I10 H/O partial seizures Z86.69
--- NOTE | 2022-06-23 12:33 | Ultrasound Report ---
US duplex portal hepatic veins CLINICAL HISTORY: edema, hx of hepatic cancer. Evaluate for portal vein thrombosis. COMPARISON STUDY: Abdomen and pelvis CT 06/18/2022. FINDINGS: Heterogeneous liver containing multiple masses consistent with metastatic disease. This is better appreciated on the prior CT examination. Hepatic and portal veins are patent and demonstrate n ormal direction of flow. 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 The hepatic artery is patent. Small amount of ascites. This is also unchanged. IMPRESSION: 1. The hepatic and portal veins are patent. 2. Hepatic metastases and small amount of ascites again noted ACT 112: Negative or not required by law. Electronically signed by: Mati Bhatia M.D. 06/23/2022 12:32 PM
[2022-06-23] MEDS: cefTRIAXone SODIUM 1,000 MG in DEXTROSE 5% 50 ML IV SCH (13:47)
[2022-06-23] MEDS: PEPTAMEN 1.5 CAL 1,000 ML BAG PEG SCH (14:04)
[2022-06-23] MEDS: TUBE FEEDING WATER FLUSH PEG SCH ×3 (14:05→20:02)
[2022-06-23] MEDS: ATORVASTATIN 40 MG TAB GT SCH (20:01)
[2022-06-23] MEDS ORDERED: HEPARIN SOD 5,000 UNIT/0.5 ML VIAL SQ SCH (21:00)
[2022-06-24] MEDS: TUBE FEEDING WATER FLUSH PEG SCH ×6 (02:36→20:40)
[2022-06-24] MEDS: METOPROLOL TARTRATE 25 MG TAB PO SCH ×2 (08:07→20:40)
[2022-06-24] MEDS: MAGNESIUM OXIDE 400 MG TAB GT SCH ×3 (08:09→20:39)
[2022-06-24] MEDS: POT PHOSPHATE MONOBASIC W/ SOD TAB GT SCH ×4 (08:09→20:39)
[2022-06-24] MEDS: FUROSEMIDE 20 MG TAB PO SCH (08:09)
[2022-06-24] MEDS: SPIRONOLACTONE 25 MG TAB PO SCH (08:09)
[2022-06-24] MEDS: POTASSIUM CHLORIDE 20 MEQ/15 ML UDC GT SCH (08:09)
[2022-06-24] MEDS: ASPIRIN 81 MG CHEW GT SCH (08:10)
--- NOTE | 2022-06-24 09:52 | Hospitalist Progress Note ---
Date of Service June 24, 2022 Assessment & Plan (1) Bilateral leg weakness: Plan: Weakness, multifactorial with nutritional depletion, recent hospital admission, likely progression of cancer UA does not appear overtly infected TSH is elevated but with normal free T4 Troponin chronically mildly elevated, likely with demand. Transaminases chronically elevated with no liver mets, no acute significant change Creatinine normal L-spine CT without acute findings, patient has an MRI compatible pacer but? Lead compatibility PT/OT ordered Patient pending SNF placement. Referrals out to [facility], [facility], [facility], and [facility]. 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 Iverson Patient with abdominal ascites. Continue Lasix/spironolactone BP tolerated -No acute management at this time Bilateral lower extremity edema With history of malnutrition, hypoalbuminemia, and liver metastasis Liver ultrasound for portal thrombosis is negative Lower extremity edema significantly improved with Lasix/spironolactone and NESHA hose. Abdominal ascites has softened. Patient is more comfortable, History of seizures Continue Keppra 500 mg twice daily CAD Continue aspirin, atorvastatin, metoprolol DVT prophylaxis: SCDs Diet: Heart healthy Disposition: MedSurg, pending placement (2) Hypoalbuminemia: (3) Weakness: (4) Severe protein-calorie malnutrition: (5) CAD (coronary artery disease): (6) GERD (gastroesophageal reflux disease): (7) History of aortic valve disease: (8) Neuroendocrine tumor: (9) HLD (hyperlipidemia): (10) HTN (hypertension): (11) H/O partial seizures: Admission and Anticipated Discharge Date Admission Date: June 21, 2022 Subjective Patient is in a weakened state is lower extremity swelling is improved he still some fullness to his abdomen. He is tolerating tube feeds with a goal of 45 mL an hour of Peptamen 1.5 with a target calories of 1750 and 24. Patient may benefit from transition eventually to nocturnal feedings allow more freedom during the day to walk and perform physical therapy Review of Systems Review of Systems: Moderate distress and fatigue no headache, no visual changes no speech or swallowing issues no chest pain, pressure or palpitations no shortness of breath, cough or wheezes no abdominal pain, nausea or vomiting, some slight distention no dysuria, hematuria or frequency no focal joint pain significant bilateral lower extremity swelling without pain no back pain, CVA tenderness or radicular pain no bruising, bleeding or rashes no focal signs of weakness or numbness or altered sensation no complaints of anxiety or depression.. Physical Exam Physical Exam: The patient appeared weakened and underweight with a BMI of 19 Vital signs as documented. Head exam is normocephalic atraumatic Neck is without JVD, thyromegaly, or carotid bruits. Lungs are clear to auscultation, no focal loss of breath sounds Cardiac exam, Rhythm is regular.. No murmurs, rubs or gallops. Abdominal exam reveals feeding tube in place without irritation hypoactive bowel sounds and slight distention nontender Extremities are 2+ edematous and both pedal pulses are present Neurologic exam is alert and oriented, no focal loss of strength or sensation Skin is without bruises or rashes Psychologically is without concerns for anxiety or depression.. Results & Data Results & Data ([facility]) Vital Signs (Past 12 Hours) Vital Signs Temp Pulse Resp BP Pulse Ox O2 Del Method 06/24/22 06:57 97.9 F 103 H 18 132/79 91 Room Air PG Care Time/CCT Total # of Minutes Spent Total Time Spent with Patient: Total time spent is greater than 50% in coordination of care (as documented) at patient's floor/unit and/or counseling patient: Coding Level of Care Code 42571 Subseq Hosp Care Lvl 2 Diagnoses Bilateral leg weakness R29.898 Hypoalbuminemia E88.09 Weakness R53.1 Severe protein-calorie malnutrition E43 CAD (coronary artery disease) I25.10 GERD (gastroesophageal reflux disease) K21.9 History of aortic valve disease Z86.79 Neuroendocrine tumor D3A.8 HLD (hyperlipidemia) E78.5 HTN (hypertension) I10 H/O partial seizures Z86.69
[2022-06-24] MEDS: cefTRIAXone SODIUM 1,000 MG in DEXTROSE 5% 50 ML IV SCH (12:42)
[2022-06-24] MEDS: PEPTAMEN 1.5 CAL 1,000 ML BAG PEG SCH (14:41)
[2022-06-24] MEDS: ATORVASTATIN 40 MG TAB GT SCH (20:40)
[2022-06-25] MEDS: TUBE FEEDING WATER FLUSH PEG SCH ×4 (01:57→13:28)
[2022-06-25] MEDS: POTASSIUM CHLORIDE 20 MEQ/15 ML UDC GT SCH (07:34)
[2022-06-25] MEDS: METOPROLOL TARTRATE 25 MG TAB PO SCH (07:34)
[2022-06-25] MEDS: FUROSEMIDE 20 MG TAB PO SCH (07:35)
[2022-06-25] MEDS: ASPIRIN 81 MG CHEW GT SCH (07:35)
[2022-06-25] MEDS: SPIRONOLACTONE 25 MG TAB PO SCH (07:35)
[2022-06-25] MEDS: POT PHOSPHATE MONOBASIC W/ SOD TAB GT SCH ×2 (07:36→14:48)
[2022-06-25] MEDS: MAGNESIUM OXIDE 400 MG TAB GT SCH ×2 (07:36→14:48)
--- NOTE | 2022-06-25 08:37 | Hospitalist Progress Note ---
Date of Service June 25, 2022 Assessment & Plan (1) Bilateral leg weakness: Plan: Weakness, multifactorial with nutritional depletion, recent hospital admission, likely progression of cancer UA does not appear overtly infected TSH is elevated but with normal free T4 Troponin chronically mildly elevated, likely with demand. Transaminases chronically elevated with no liver mets, no acute significant change Creatinine normal L-spine CT without acute findings, patient has an MRI compatible pacer but? Lead compatibility PT/OT ordered Patient pending SNF placement. Referrals out to [facility], [facility], [facility], and [facility]. 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 Iverson Patient with abdominal ascites. Continue Lasix/spironolactone BP tolerated -No acute management at this time Bilateral lower extremity edema With history of malnutrition, hypoalbuminemia, and liver metastasis Liver ultrasound for portal thrombosis is negative Lower extremity edema significantly improved with Lasix/spironolactone and NESHA hose. Abdominal ascites has softened. Patient is more comfortable, History of seizures Continue Keppra 500 mg twice daily CAD Continue aspirin, atorvastatin, metoprolol DVT prophylaxis: SCDs Diet: Heart healthy Disposition: MedSurg, pending placement (2) Hypoalbuminemia: (3) Weakness: (4) Severe protein-calorie malnutrition: (5) CAD (coronary artery disease): (6) GERD (gastroesophageal reflux disease): (7) History of aortic valve disease: (8) Neuroendocrine tumor: (9) HLD (hyperlipidemia): (10) HTN (hypertension): (11) H/O partial seizures: Admission and Anticipated Discharge Date Admission Date: June 21, 2022 Results & Data Results & Data ([facility]) Vital Signs (Past 12 Hours) Vital Signs Temp Pulse Resp BP BP Pulse Ox O2 Del Method 06/25/22 07:10 98.1 F 104 H 18 135/86 92 Room Air 06/24/22 20:38 97.9 F 95 H 16 130/84 93 Room Air PG Care Time/CCT Total # of Minutes Spent Total Time Spent with Patient: Total time spent is greater than 50% in coordination of care (as documented) at patient's floor/unit and/or counseling patient: Coding Diagnoses Bilateral leg weakness R29.898 Hypoalbuminemia E88.09 Weakness R53.1 Severe protein-calorie malnutrition E43 CAD (coronary artery disease) I25.10 GERD (gastroesophageal reflux disease) K21.9 History of aortic valve disease Z86.79 Neuroendocrine tumor D3A.8 HLD (hyperlipidemia) E78.5 HTN (hypertension) I10 H/O partial seizures Z86.69
[2022-06-25 09:51] LABS: Albumin Globulin Ratio 0.9 (0.9-2); Albumin Level 2.6 gm/dl (3.4-5.0); BUN Creatinine Ratio 48.5 (10-20); Calcium 8.7 mg/dl (8.5-10.1); Est GFR (African American) 145.8 ml/min; Est GFR (Non-African American) 125.8 ml/min; Potassium 4.2 mmol/L (3.5-5.1); Total Protein 5.6 gm/dl (6.0-8.3)
--- NOTE | 2022-06-25 15:24 | Discharge Summary ---
Date of Service June 25, 2022 Admission HPI Per Admitting Provider This is a 77-year-old male who was recently admitted to [facility] from 06/18/2022 through 06/20/2022. Patient presented to the hospital during that admission secondary to dysuria and hematuria. Prior to that admission the patient noted gross hematuria passing some blood clots. He was admitted to [facility] where he was seen by urology. No active intervention was undertaken as patient was able to void without difficulty and his hematuria subsequently improved. Should also be noted that during that admission patient was noted to have significant ascites in his abdomen with no intervention undertaken. He was also found to be hyponatremic which was improved with hydration with D5W, and he was also noted to have hypokalemia which was replenished. It is nowhere the mention that the patient has not history of a pancreatic neuroendocrine tumor for which she follows with Dr. Melvin at [facility] in [place], [place]. The patient notes that he is receiving somatostatin treatments for this malignancy with his most recent treatment being performed on 06/17/2022. He notes that the next treatment of this type is due in approximately 28 days. He also reports he has been receiving chemoembolization at the direction of his [facility] oncology team. The patient notes that he was to visit with his oncologist on 06/29/2022 at which time further discussion was to be had on if further treatments were to be administered based on his clinical status, laboratories, and most recent imaging. Patient was discharged home on 06/20/2022 from this hos pitalization. The patient represented to [facility] today as the patient's notes that prior to his aforementioned hospitalization he was mobile able to ambulate with a walker, however since being home from his most recent hospitalization he has been unable to walk and nearly unable to transfer from bed to chair. Patient's is unclear of why this is the case. She speci fically notes that he has not had any falls or injuries. She notes that he has not been running any fevers. He is n.p.o. due to dysphagia and has a PEG tube in place and he has been tolerating his medicines and tube feeds without difficulty. She notes that he has not had any nausea or vomiting. She also notes that he has not had any diarrhea. The patient notes that his hematuria from his previous admission has cleared and he denies any dysuria. He denies any significant back. He denies any sore throat or cough. He does note some significantly worsening lower extremity edema. Today in the emergency department the patient did have labs and imaging which independent reviewed. He did have an EKG showed a paced rhythm. CBC revealed white blood cell count was in the normal range. Hemoglobin and hematocrit were 12.3 and 37.4 which were stable from previous values. His platelet count was 207,000. Chemistry profile showed sodium, potassium, and BUN were normal. His creatinine was actually low at 2.4. He was noted to have an elevated troponin at 62.1. Review of records show that he does have a chronically elevated troponin. He was also noted to have some elevation of his LFTs with total bilirubin 1.5, AST 150, ALT of 57, alkaline phosphatase of 870. Review of records show that all of these values have been chronically elevated as well. His lipase was not elevated. He was noted to have a low albumin at 2.7. Urinalysis did show trace leukocyte Estrace. There were only 1-5 white blood cells per high-power field and no bacteria on the study. Patient did have an el evated TSH at 8.568, however his free T4 was within the normal range. Chest x- ray showed bilateral lower lung airspace opacities concerning for either atelectasis or pneumonia. Small bilateral pleural effusions were noted. He also had a lumbar spine CT scan that showed some degenerative changes in the L- spine but there is no evidence of metastatic disease or fractures. Since arrival to the emergency department the patient was given empiric Rocephin to treat for potential underlying urinary tract infection. A urine culture has been sent. At the time of my interview the patient was resting comfortably in bed. He was in no distress. Principal Diagnosis lower extremity weakness possible paraneoplastic syndrome lower extremity swelling ascites, with previous liver metastasis neuroendocrine tumor Discharge Exam The patient appeared stable Vital signs as documented. Lungs are clear to auscultation and appear unlabored Cardiac exam, Rhythm is regular.. No murmurs, rubs or gallops. Abdominal exam reveals normal bowel sounds, soft non tender, no masses Extremities are nonedematous and both pedal pulses are normal. Neurologic exam is alert and oriented, no focal loss of strength or sensation Skin is without bruises or rashes Psychologically is without concerns for anxiety or depression. Discharge Data Allergies Allergy/AdvReac Type Severity Reaction Status Date / Time heparin Allergy Severe thrombocyto Verified 06/21/22 14:52 penia adhesive Allergy Intermediate Hives Verified 06/21/22 14:52 ciprofloxacin [From Cipro] Allergy Intermediate Hives Verified 06/21/22 14:52 buspirone [From BuSpar] AdvReac Intermediate Dizziness Verified 06/21/22 14:52 lansoprazole [From Prevacid] AdvReac Mild Diarrhea Verified 06/21/22 14:52 venlafaxine [From Effexor] AdvReac Mild somnulence Verified 06/21/22 14:52 Consultations 06/21/22 13:06 ED Decision to Admit Stat Ordered Studies 06/21/22 10:30 CT lumbar spine wo con Stat 06/23/22 10:27 US duplex portal hepatic veins Routine Hospital Course (1) Bilateral leg weakness: Weakness, multifactorial with nutritional depletion, recent hospital admission, likely progression of cancer UA does not appear overtly infected TSH is elevated but with normal free T4 Troponin chronically mildly elevated, likely with demand. Transaminases chronically elevated with no liver mets, no acute significant change Creatinine normal L-spine CT without acute findings, patient has an MRI compatible pacer but? Lead compatibility PT/OT recommend rehab, Patient is DNR/DNI, confirmed with patient and his Metastatic neuroendocrine tumor with history of liver metastasis s/p liver chemoembolization Follows outpt with Dr. Iverson Patient with abdominal ascites. Continue Lasix/spironolactone BP tolerated -No acute management at this time Bilateral lower extremity edema With history of malnutrition, hypoalbuminemia, and liver metastasis Liver ultrasound for portal thrombosis is negative Lower extremity edema significantly improved with Lasix/spironolactone and NESHA hose. Abdominal ascites has softened. Patient is more comfortable, History of seizures Continue Keppra 500 mg twice daily CAD Continue aspirin, atorvastatin, metoprolol DVT prophylaxis: SCDs Disposition: MedSur, pending placement (2) Hypoalbuminemia: Patient has chronic issues and has a PEG tube placed. Patient is on Peptamen 1.2 at 45 mL an hour with flushes of 150 cc of free water every 4 hours The hospital he was on Peptamen 1.5 at 275 4 times daily with free water flushes (3) Weakness: No direct metabolic's cause of his weakness was found nor neurological compromise considering this could be possible paraneoplastic syndrome (4) Severe protein-calorie malnutrition: (5) CAD (coronary artery disease): (6) GERD (gastroesophageal reflux disease): (7) History of aortic valve disease: (8) Neuroendocrine tumor: (9) HLD (hyperlipidemia): (10) HTN (hypertension): (11) H/O partial seizures: Total Time Total Time Spent Total Time Spent (In Minutes): It required greater than 30 minutes to prepare this patient for discharge Discharge Plan Discharge Items Patient Disposition: Transfer Longterm Fac Reason For Visit: WEAKNESS,FTT Discharge Diagnosis: le weakness 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 we also evaluated for portal vein thrombosis and this was not present, treates ascites and le edema with diuretics( will recommend watching electrolytes) continue to follow up with his oncologist Pending Studies at Discharge: No Stand-Alone Forms: [facility] Skilled Items Patient informed of condition?: Yes DNR: Yes Discharge Level of Care: Acute rehab Communicable Disease: No Discharge Prognosis: Stable Lines: None Urinary Catheter: No Medications and DC Order Prescriptions: New spironolactone 25 mg Tablet 50 mg PO QAM Qty: 30 0RF furosemide 20 mg Tablet 20 mg PO QAM Qty: 30 0RF Tube Feeding Water Flush 150 ml PEG Q4H Qty: 1 2RF Continued Sandostatin LAR [place] 30 mg Suspension,Extended Rel Recon 30 mg IM Q28D atorvastatin [Lipitor] 40 mg tablet 40 mg feeding tube HS Qty: 30 0RF Phospha 250 Neutral 250 mg tablet 2 tab feeding tube QID magnesium oxide 400 mg magnesium Tablet 800 mg feeding tube TID levetiracetam 500 mg tablet 500 mg PO BID Rx Instructions: per peg tube aspirin [Children's Aspirin] 81 mg tablet,chewable 81 mg feeding tube QAM metoprolol tartrate 25 mg tablet 12.5 mg feeding tube BID potassium chloride 20 mEq/15 mL liquid 20 meq PO DAILY Qty: 450 0RF Rx Instructions: mix/flush tube with 120ml of water/juice Changed Fibersource HN 0.05 gram- 1.2 kcal/mL Liquid See Rx Instructions .ROUTE .COMPLEX Qty: 6000 0RF Rx Instructions: 275ml via GT QID was his home bolus feed, here he was on 45 ml continuous with free water 1050ml a day would recommend if return to qid feeds make water flushes to accomplish Discharge Orders: Discharge Order (Routine); Ordered 06/25/22 Ordered By: Froy Adam Admission Data Admit Date/Time: 06/21/22 13:35 Attending Provider: Froy Adam Admit Provider: Keith Marsh Primary Care Provider: Elivs Falk Other Providers: Rick Swanson ; [place] Coding Level of Care Code D/C DAY MANAGEMENT >30 MINS Diagnoses Bilateral leg weakness R29.898 Hypoalbuminemia E88.09 Weakness R53.1 Severe protein-calorie malnutrition E43 CAD (coronary artery disease) I25.10 GERD (gastroesophageal reflux disease) K21.9 History of aortic valve disease Z86.79 Neuroendocrine tumor D3A.8 HLD (hyperlipidemia) E78.5 HTN (hypertension) I10 H/O partial seizures Z86.69
== END 2022-06-25 16:34 ==
LOC: ED 08:33 → INTOOBSV 13:35 → 3W 13:35 → SUATTDRO 13:35 → 3W 15:31